=== PATIENT | female | born 1940 | race Caucasian/White ===

== ENCOUNTER → 2019-03-06 | Outpatient (CLI) | payer MEDICARE ==
[2017-10-15 11:00] VITALS: BP 161/86
[~2019-03-06] MED LIST: ASPI-482 PO; DIAZ5TAB4 PO; DILT240C89 PO; DOXY50CA PO; ESTR0.62 PO; GABA-585 PO; IRBE1TAB PO; METF500T16 PO; OMEG10005 PO; OMEP20CA10 PO; OXYC1TAB15 PO; PRAM0.255 PO; PRAM0.5T5 PO; PRED20TA PO; XOPENEX HFA15 GM IH
--- NOTE | 2019-03-06 12:04 | CARD ---
MR#: [id number] Date of Study: 03/06/2019 Ordering Physician: JOHN HAMM, Referring Physician: JOHN HAMM Tech: Sallie Oliveira RDCS APPROVED REPORT EXAM: Two-dimensional and M-mode echocardiogram with Doppler and color Doppler. Other Information Quality : Good INDICATION Congestive Heart Failure 2D DIMENSIONS RVDd2.7 (2.9-3.5cm)Left Atrium(2D)3.9 (1.6-4.0cm) IVSd0.9 (0.7-1.1cm)Aortic Root(2D)2.7 (2.0-3.7cm) LVDd5.0 (3.9-5.9cm)LVOT Diameter2.0 (1.8-2.4cm) PWd1.0 (0.7-1.1cm)LVDs3.7 (2.5-4.0cm) FS (%) 26.4 %SV60.8 ml LVEF(%)51.5 (>50%) Aortic Valve AoV Peak Luis Alfredo.138.3cm/sAoV VTI25.7cm AO Peak GR.7.7mmHgLVOT Peak Luis Alfredo.98.5cm/s AO Mean GR.5mmHgAVA (VMAX)2.14cm2 JUNIE (VTI)2.40cm2 Mitral Valve MV E Cgkioadr917.0cm/sMV DECEL [id number] MV A Nqeuewki166.1cm/sE/A Ratio0.8 Tricuspid Valve TR P. Htlxazdk447gq/sRAP MOBCXNEK2uxNc TR Peak Gr.72tsLhZINI83lvYj Pulmonary Vein S1 Skisttkw21.3cm/sD2 Yifoxazx19.9cm/s LEFT VENTRICLE The left ventricle is normal size. There is normal left ventricular wall thickness. Left ventricle sy stolic function is low normal. The Ejection Fraction is 50-55%. Septal motion consistent with conduct ion abnormality. Transmitral Doppler flow pattern is Grade I-abnormal relaxation pattern. RIGHT VENTRICLE The right ventricle is normal size. The right ventricular systolic function is normal. ATRIA The left atrium size is normal. The right atrium size is normal. The interatrial septum is intact wit h no evidence for an atrial septal defect or patent foramen ovale as noted on 2-D or Doppler imaging. AORTIC VALVE The aortic valve is not well visualized but appears to be functioning normally by Doppler interrogati on. Doppler and Color Flow revealed no significant aortic regurgitation. There is no significant aort ic valvular stenosis. MITRAL VALVE The mitral valve is calcified but opens well. There is no evidence of mitral valve prolapse. There is no mitral valve stenosis. Doppler and Color-flow revealed mild mitral regurgitation. TRICUSPID VALVE The tricuspid valve is normal in structure and function. Doppler and Color Flow revealed trace tricus pid regurgitation. There is mild pulmonary hypertension. The PA pressure was estimated at 34 mmHg. Th ere is no tricuspid valve stenosis. PULMONIC VALVE The pulmonic valve is not well visualized. Doppler and Color Flow revealed no pulmonic valvular regur gitation. There is no pulmonic valvular stenosis. GREAT VESSELS The aortic root is normal in size. The ascending aorta is normal in size. The IVC is normal in size a nd collapses >50% with inspiration. PERICARDIAL EFFUSION There is no evidence of significant pericardial effusion. Critical Notification Critical Value: No <Conclusion> Left ventricle systolic function is low normal. The Ejection Fraction is 50-55%. Transmitral Doppler flow pattern is Grade I-abnormal relaxation pattern. Mild mitral regurgitation. Trace tricuspid regurgitation. The PA pressure was estimated at 34 mmHg. There is no evidence of significant pericardial effusion. Signed by : Miguel Marie, Electronically Approved : 03/06/2019 12:03:24
== END | disposition home or self-care (01) ==
LOC: ECHO 10:40
PROVIDERS: ATTEND Family Medicine
DX: I34.0 Nonrheumatic mitral (valve) insufficiency (principal); I27.20 Pulmonary hypertension, unspecified
CPT/HCPCS: 93306

== ENCOUNTER 2019-03-10 05:35 | Inpatient (IN) | payer MEDICARE ==
[~2019-03-10] VITALS: Ht 157.5 cm; Wt 86.4 kg
--- NOTE | 2019-03-10 05:50 | PHYS DOC ---
Past Medical History Past Medical History: Diabetes-Type II, Hypertension, Unknown, Other Additional Past Medical Histor: restless leg, neuropathy, breast cancer (LAVINIA CUMMINGS MD) Past Surgical History: Other Additional Past Surgical Histo: L mastectomy- radiation, back surgery (LAVINIA CUMMINGS MD) Alcohol Use: None Drug Use: None (LAVINIA CUMMINGS MD) Adult General Chief Complaint Chief Complaint: LOWER EXT PAIN HPI HPI Patient is a 78 year old female presenting with severe bilateral leg pain She suffers from restless leg syndrome and also neuropathy and she is used to dealing with some level of pain but seem to get a lot worse overnight she tried her oxycodone with minimal relief. no fever she feels sob due to the pain has chronic back pain no new injury noted. (LAVINIA CUMMINGS MD) Review of Systems Review of Systems Constitutional: Denies fever or chills [] Eyes: Denies change in visual acuity, redness, or eye pain [] HENT: Denies nasal congestion or sore throat [] Respiratory: Denies cough or shortness of breath [] Cardiovascular: No additional information not addressed in HPI [] GI: Denies abdominal pain, nausea, vomiting, bloody stools or diarrhea [] Neurologic: Denies headache, focal weakness or sensory changes [] Endocrine: Denies polyuria or polydipsia [] All other systems were reviewed and found to be within normal limits, except as documented in this note. (LAVINIA CUMMINGS MD) Current Medications Current Medications Current Medications Medications (Trade) Dose Ordered Sig/Wiley Start Time Stop Time Status Last Admin Dose Admin Ceftriaxone Sodium (Rocephin) 1 gm 1X ONCE 03/10/19 08:00 03/10/19 11:33 DC 03/10/19 08:03 1 GM Levalbuterol HCl (Xopenex) 1.25 mg 1X ONCE 03/10/19 08:00 03/10/19 11:33 DC 03/10/19 08:00 1.25 MG Lorazepam (Ativan Inj) 1 mg 1X ONCE 03/10/19 06:00 03/10/19 11:33 DC 03/10/19 06:02 1 MG Magnesium Sulfate 50 ml @ 25 mls/hr 1X ONCE 03/10/19 07:15 03/10/19 09:14 DC 03/10/19 07:17 25 MLS/HR Methylprednisolone Sodium Succinate (SOLU-Medrol 125MG VIAL) 125 mg 1X ONCE 03/10/19 07:30 03/10/19 11:33 DC 03/10/19 07:54 125 MG Morphine Sulfate (Morphine Sulfate) 4 mg 1X ONCE 03/10/19 06:00 03/10/19 11:33 DC 03/10/19 06:02 4 MG Ondansetron HCl (Zofran) 4 mg 1X ONCE 03/10/19 06:00 03/10/19 06:01 DC 03/10/19 06:02 4 MG Sodium Chloride 1,000 ml @ 1,000 mls/hr 1X ONCE 03/10/19 06:00 03/10/19 07:40 DC 03/10/19 06:02 1,000 MLS/HR Vancomycin HCl 250 ml @ 250 mls/hr 1X ONCE 03/10/19 08:15 03/10/19 11:33 DC 03/10/19 08:02 250 MLS/HR (MARISA DUNLAP MD) Allergies Allergies Allergies Coded Allergies Type Severity Reaction Last Updated Verified albuterol Allergy Severe 08/07/13 Yes fluticasone propionate Allergy Severe 08/07/13 Yes hydrocodone Allergy Severe Nausea and Vomiting 08/07/13 Yes potassium Allergy Severe Nausea and Vomiting 08/07/13 Yes salmeterol xinafoate Allergy Severe 08/07/13 Yes (MARISA DUNLAP MD) Physical Exam Physical Exam Constitutional: Well developed, well nourished, mild distress hyperventilating HENT: Normocephalic, atraumatic, bilateral external ears normal, oropharynx moist, no oral exudates, nose normal. [] Eyes: PERRLA, EOMI, conjunctiva normal, no discharge. [] Neck: Normal range of motion, no tenderness, supple, no stridor. [] Cardiovasculartachyardic no murmur noted. Lungs & Thorax: Bilateral breath sounds clear to auscultation [] tachypneic. Abdomen: Bowel sounds normal, soft, no tenderness, no masses, no pulsatile masses. [] Skin: Warm, dry, no erythema, no rash. [] Extremities: No tenderness, no cyanosis, no clubbing, ROM intact, no edema. [] moving b/l legs around restlessly. pedal pulses intact b/l. wearing compression hose. no cellulitis seen. Neurologic: Alert and oriented X 3, normal motor function, normal sensory function, no focal deficits noted. [] Psychologic: Affect normal, judgement normal, mood normal. [] (LAVINIA CUMMINGS MD) Current Patient Data Vital Signs Vital Signs Date Time Temp Pulse Resp B/P (MAP) Pulse Ox O2 Delivery O2 Flow Rate FiO2 03/10/19 08:02 90 Nasal Cannula 5.0 03/10/19 08:00 104 24 106/56 (73) 03/10/19 07:30 99.4 99.4 (MARISA DUNLAP MD) Lab Values Laboratory Tests Test 03/10/19 05:55 03/10/19 07:28 03/10/19 07:59 White Blood Count 11.5 x10^3/uL (4.0-11.0) H Red Blood Count 3.45 x10^6/uL (3.50-5.40) L Hemoglobin 8.4 g/dL (12.0-15.5) L Hematocrit 26.4 % (36.0-47.0) L Mean Corpuscular Volume 77 fL (79-100) L Mean Corpuscular Hemoglobin 24 pg (25-35) L Mean Corpuscular Hemoglobin Concent 32 g/dL (31-37) Red Cell Distribution Width 16.6 % (11.5-14.5) H Platelet Count 292 x10^3/uL (140-400) Neutrophils (%) (Auto) 55 % (31-73) Lymphocytes (%) (Auto) 32 % (24-48) Monocytes (%) (Auto) 7 % (0-9) Eosinophils (%) (Auto) 5 % (0-3) H Basophils (%) (Auto) 1 % (0-3) Neutrophils # (Auto) 6.3 x10^3/uL (1.8-7.7) Lymphocytes # (Auto) 3.7 x10^3/uL (1.0-4.8) Monocytes # (Auto) 0.8 x10^3/uL (0.0-1.1) Eosinophils # (Auto) 0.6 x10^3/uL (0.0-0.7) Basophils # (Auto) 0.1 x10^3/uL (0.0-0.2) D-Dimer (Brooke) 0.92 ug/mlFEU (0.00-0.50) H Sodium Level 134 mmol/L (136-145) L Potassium Level 4.0 mmol/L (3.5-5.1) Chloride Level 99 mmol/L (98-107) Carbon Dioxide Level 23 mmol/L (21-32) Anion Gap 12 (6-14) Blood Urea Nitrogen 15 mg/dL (7-20) Creatinine 1.2 mg/dL (0.6-1.0) H Estimated GFR (Cockcroft-Gault) 43.3 BUN/Creatinine Ratio 13 (6-20) Glucose Level 166 mg/dL (70-99) H Lactic Acid Level 3.2 mmol/L (0.4-2.0) H Calcium Level 9.5 mg/dL (8.5-10.1) Magnesium Level 1.4 mg/dL (1.8-2.4) L Iron Level 19 ug/dL (50-170) L Total Iron Binding Capacity 395 ug/dL (250-450) Iron Saturation 5 % (15-34) L Total Bilirubin 0.3 mg/dL (0.2-1.0) Aspartate Amino Transferase (AST) 25 U/L (15-37) Alanine Aminotransferase (ALT) 27 U/L (14-59) Alkaline Phosphatase 71 U/L (46-116) Creatine Kinase 273 U/L (26-192) H Troponin I Quantitative 0.535 ng/mL (0.000-0.055) FL-Wec-U-Type Natriuretic Peptide 3416 pg/mL (0-449) H Total Protein 8.0 g/dL (6.4-8.2) Albumin 3.6 g/dL (3.4-5.0) Albumin/Globulin Ratio 0.8 (1.0-1.7) L O2 Saturation 92 % (92-99) Arterial Blood pH 7.30 (7.35-7.45) L Arterial Blood pCO2 at Patient Temp 43 mmHg (35-46) Arterial Blood pO2 at Patient Temp 73 mmHg (65-108) Arterial Blood HCO3 20 mmol/L (21-28) L Arterial Blood Base Excess -6 mmol/L (-3-3) L FiO2 40 Prothrombin Time 13.0 SEC (11.7-14.0) Prothrombin Time INR 1.0 (0.8-1.1) Activated Partial Thromboplast Time 30 SEC (24-38) Laboratory Tests 03/10/19 05:55 Laboratory Tests 03/10/19 05:55 (MARISA DUNLAP MD) EKG EKG [] (LAVINIA CUMMINGS MD) Radiology/Procedures Radiology/Procedures [] (LAVINIA CUMMINGS MD) Radiology/Procedures [facility] [address] [place] [address] IMAGING REPORT Signed PATIENT: THEODORE PADILLA AACCOUNT: [id number] : 1940 LOCATION: ER AGE: 78 SEX: F EXAM STATUS: REG ER ORD. PHYSICIAN: LAVINIA CUMMINGS MD REASON: tachycardia sob PROCEDURE: PORTABLE CHEST 1V EXAM: CHEST ONE VIEW. HISTORY: Tachycardia, shortness of breath. COMPARISON: 10/14/2017. FINDINGS: A frontal view of the chest is obtained. There are mild perihilar and basilar interstitial opacities. There is no pneumothorax or pleural effusion. The heart is mildly enlarged. There are surgical clips in the left axilla. There are atherosclerotic calcifications of the aorta. IMPRESSION: 1. Mild interstitial opacities may reflect interstitial lung disease as seen on prior CT. Correlate to exclude mild volume overload. 2. Mild cardiomegaly. Electronically signed by: Yunior Polk MD (03/10/2019 6:05 AM) [facility] DICTATED and SIGNED BY: KAMRAN POLK MD DATE: 03/10/19604 (MARISA DUNLAP MD) Course & Med Decision Making Course & Med Decision Making Pertinent Labs and Imaging studies reviewed. (See chart for details) []History of restless legs peripheral neuropathy lumbar spine surgery hypertension presenting with severe bilateral leg pain described as restless legs pain and possibly neuropathy pain. Patient has a heart rate of 130 appears to be in moderate to severe distress at this point and we will get a lab workup symptom control and sign out to [facility] at 6 AM (LAVINIA CUMMINGS MD) Course & Med Decision Making Patient care transferred to co at 0600. Patient had tachycardia at arrival to ER that did not get better with Atrovent. Patient had O2 sat of 93% at room air at arrival was instructed on oxygen and required up to 5 L of oxygen keep the O2 sat was 95%. Lactic acid, cardiac enzyme, BNP, d-dimer request was added by co and showed elevation of lactic acid 3.2 and patient treated with antibiotic. Patient was not treated with IV fluid because of CHF and elevation of troponin and lack cough fever and hypotension and history of previous tachycardia.Patient requiring admission for further evaluation and treatment. Discussed with Dr. Francisco Aaron at [phone] who is in agreement with admission. Discussed findings and plan with patient and family, who acknowledge understanding and agreement. (MARISA DUNLAP MD) Dragon Disclaimer Dragon Disclaimer This electronic medical record was generated, in whole or in part, using a voice recognition dictation system. (LAVINIA CUMMINGS MD) Departure Departure Impression: Primary Impression: Sepsis Additional Impressions: Acute respiratory distress Hypoxia Hypomagnesemia Elevated troponin I level Congestive heart failure Chronic anemia Tachycardia Restless leg syndrome Renal insufficiency Disposition: ADMITTED INPATIENT (@0 [phone]) Admitting Physician: Francisco Aaorn (accepted admission at 0 [phone]) (MARISA DUNLAP MD) Condition: GUARDED Referrals: JOHN HAMM MD (PCP) Critical Care Time Critical care time was 90 minutes exclusive of procedures. (MARISA DUNLAP MD) Date and Time of Reassessment Date: Mar 10, 2019 Time: 08:45 (MARISA DUNLAP MD) Fluid Challenge Is the fluid challenge complet: No (CHF, no fever, hypotension, ALOC) IBW Target Volume Used: No BMI > 30: Yes (MARISA DUNLAP MD) Vital Signs Vital Signs: Vital Signs Date Time Temp Pulse Resp B/P (MAP) Pulse Ox O2 Delivery O2 Flow Rate FiO2 03/10/19 08:02 90 Nasal Cannula 5.0 03/10/19 08:00 104 24 106/56 (73) 03/10/19 07:30 99.4 99.4 (MARISA DUNLAP MD) Temperature Source: Oral (MARISA DUNLAP MD) Respirations Respiratory Pattern: Hyperpnea (MARISA DUNLAP MD) Cardiovascular Pulse Rhythm: Regular Heart: Nml S1, S2, no murmurs (MARISA DUNLAP MD) Lung Sounds Breath Sounds: Wheezes, Coarse (MARISA DUNLAP MD) Capillary Refil Capillary Refill: Rt Hand < 3 seconds (MAIRSA DUNLAP MD) Peripheral Pulse Pulse Location: Radial Pulse Strength: Normal (2+) Pulse Assessment Method: NIBP (MARISA DUNLAP MD) Integumentary Skin Moisture: Dry (MARISA DUNLAP MD) Problem Qualifiers Primary Impression: Sepsis Sepsis type: sepsis due to unspecified organism Sepsis acute organ dysfunction status: unspecified Qualified Codes: A41.9 - Sepsis, unspecified organism Additional Impressions: Congestive heart failure Heart failure type: unspecified Heart failure chronicity: unspecified Qualified Codes: I50.9 - Heart failure, unspecified LAVINIA CUMMINGS MD Mar 10, 2019 05:49 MARISA DUNLAP MD Mar 10, 2019 06:08
[2019-03-10] MEDS ORDERED: MORPHINE SULFATE 4 MG/ML VIAL. IV ONE (06:00)
[2019-03-10] MEDS ORDERED: IV NORMAL SALINE 1000ML BAG 1,000 ML IV ONE ×2 (06:00→09:00)
[2019-03-10] MEDS ORDERED: ONDANSETRON PF 4 MG/2 ML VIAL. IV ONE (06:00)
[2019-03-10 06:05] LABS: BASO # 0.1 x10^3/uL (0.0-0.2); BASO % 1 % (0-3); EOS # 0.6 x10^3/uL (0.0-0.7); EOS % 5 % (0-3); HEMATOCRIT 26.4 % (36.0-47.0); HEMOGLOBIN 8.4 g/dL (12.0-15.5); LYMPH # 3.7 x10^3/uL (1.0-4.8); LYMPH % 32 % (24-48); MEAN CORPUSCULAR HEMOGLOBIN 24 pg (25-35); MEAN CORPUSCULAR HGB CONC 32 g/dL (31-37); MEAN CORPUSCULAR VOLUME 77 fL (79-100); MONO # 0.8 x10^3/uL (0.0-1.1); MONO % 7 % (0-9); NEUT # 6.3 x10^3/uL (1.8-7.7); NEUT % 55 % (31-73); PLATELET COUNT 292 x10^3/uL (140-400); RED BLOOD COUNT 3.45 x10^6/uL (3.50-5.40); RED CELL DISTRIBUTION WIDTH 16.6 % (11.5-14.5); WHITE BLOOD COUNT 11.5 x10^3/uL (4.0-11.0)
--- NOTE | 2019-03-10 06:08 | RAD ---
EXAM: CHEST ONE VIEW. HISTORY: Tachycardia, shortness of breath. COMPARISON: 10/14/2017. FINDINGS: A frontal view of the chest is obtained. There are mild perihilar and basilar interstitial opacities. There is no pneumothorax or pleural effusion. The heart is mildly enlarged. There are surgical clips in the left axilla. There are atherosclerotic calcifications of the aorta. IMPRESSION: 1. Mild interstitial opacities may reflect interstitial lung disease as seen on prior CT. Correlate to exclude mild volume overload. 2. Mild cardiomegaly. Electronically signed by: Yunior Polk MD (03/10/2019 6:05 AM) [facility]
[2019-03-10 06:14] LABS: CALCIUM 9.5 mg/dL (8.5-10.1); CREATININE 1.2 mg/dL (0.6-1.0); GFR 43.3
[2019-03-10 06:22] LABS: ALBUMIN 3.6 g/dL (3.4-5.0); ALBUMIN/GLOBULIN RATIO 0.8 (1.0-1.7); MAGNESIUM 1.4 mg/dL (1.8-2.4); TOTAL BILIRUBIN 0.3 mg/dL (0.2-1.0)
[2019-03-10] MEDS ORDERED: MAGNESIUM SULFATE 2GM 50 ML IV ONE (07:15)
[2019-03-10] MEDS ORDERED: methylPREDNISolone SOD SUCC PF 125 MG/2 ML VIAL. IV ONE (07:30)
[2019-03-10 07:45] LABS: BASE EXCESS ABG -6 mmol/L (-3-3); HCO3 ABG 20 mmol/L (21-28); PCO2 ABG 43 mmHg (35-46); PO2 ABG 73 mmHg (65-108); SAT O2 ABG 92 % (92-99)
[2019-03-10 07:51] LABS: FIO2 ABG 40
[2019-03-10] MEDS ORDERED: LEVALBUTEROL 1.25 MG/0.5 ML NEBU. NEB ONE (08:00)
[2019-03-10] MEDS ORDERED: cefTRIAXone IV Push 1 GM VIAL. IVP ONE (08:00)
[2019-03-10] MEDS ORDERED: VANCOMYCIN 1GM IVPB FOR OMNI 250 ML IV ONE (08:15)
[2019-03-10 09:55] VITALS: BP 134/66
[2019-03-10] MEDS ORDERED: FLU VAX QS 2019-20 (36MOS+)/PF 0.5 ML SYRINGE. VAX IM ONE (10:15)
--- NOTE | 2019-03-10 10:16 | RAD ---
Indication: Shortness of breath. Hypoxia. TECHNIQUE: Nuclear medicine VQ scan with 18 mCi of xenon-133 for ventilation scan and 6.6 mCi of technetium 99m MAA for perfusion scan. COMPARISON: Chest x-ray from same day FINDINGS: Appropriate wash-in and washout seen of the xenon gas suggesting no emphysema. Relatively homogeneous distribution is seen of the perfusion agent without ventilation/perfusion mismatch. IMPRESSION: Low probability VQ scan. Electronically signed by: Beka Gómez DO (03/10/2019 10:12 AM) [facility]
[2019-03-10] MEDS ORDERED: SODIUM BICARB ADULT 8.4% 50 MEQ/50 ML DISP.SYRIN. IV ONE (12:00)
[2019-03-10] MEDS ORDERED: IPRATRPIUM/ALBUTEROL 0.5/2.5MG 3 ML NEBU. NEB SCH (12:00)
[2019-03-10] MEDS: methylPREDNISolone SOD SUCC PF 40 MG/ML VIAL. IV SCH ×2 (12:11→20:52)
[2019-03-10] MEDS: PANTOPRAZOLE 40 MG TABLET.DR. PO SCH (12:11)
[2019-03-10] MEDS: diazePAM 5 MG TABLET PO PRN (12:12)
--- NOTE | 2019-03-10 12:17 | HP ---
ADMIT DATE: CHIEF COMPLAINT: Shortness of breath. HISTORY OF PRESENT ILLNESS: A 78-year-old white female with no known history of COPD or congestive heart failure, came in with 2-3 days of increasing dry cough, wheezing and general fatigue and shortness of breath. She apparently is a non-insulin dependent diabetic with a history of diabetic neuropathy and restless leg syndrome, but recently had an echocardiogram, which was normal per Dr. Marie on 03/06/2019. She has had no sputum production, chest pain, hemoptysis, fever, chills or exposure to flu-like illness. ER evaluation showed a clear chest x-ray and very mild respiratory acidosis. PAST MEDICAL HISTORY: Meds listed per the chart. She is on metformin and some other diabetic drug according to family. She takes gabapentin and Percocet for leg neuropathy. SOCIAL HISTORY: Quit smoking 30 years ago. Nondrinker, not physically active, . FAMILY HISTORY: Unremarkable. REVIEW OF SYSTEMS: No other problems. OBJECTIVE: ENT: All within normal limits except moderate pallor. NECK: No masses, nodes or bruits. LUNGS: Diffuse expiratory wheezes and mild tachypnea. Rate is about 12. No dullness is noted. CARDIOVASCULAR: Regular, rate. Heart rate is about 110-120, looks like sinus rhythm on the monitor. ABDOMEN: Obese, soft, nontender. EXTREMITIES: 1+ pretibial edema, reasonably good pedal and radial pulses. Nail beds are pale. NEUROLOGIC: She has been able to speak well. She seems to be oriented and responsive, nonfocal. Gait was not tested. ASSESSMENT: 1. Apparent exacerbation of chronic obstructive pulmonary disease without a clear previous diagnosis of this. Distant prior smoking. 2. Diabetes mellitus, severity unknown with diabetic neuropathy. 3. Anemia, microcytic, duration, cause undetermined. Apparently, she takes daily aspirin for prior coronary artery disease. PLAN: Ferritin, iron panels and follow hemoglobin serially. We will discontinue aspirin as such. An IV Solu-Medrol and respiratory treatments for now. Pulmonary consultation as she may progress to needing BiPAP or perhaps even intubation as discussed with the family. Check her TSH as well. KATHLEEN ATWOOD MD DR: APURVA/gildardo JOB#: [id number] / [id number]
[2019-03-10] MEDS: IPRATROPIUM BROMIDE 0.5 MG/2.5 ML NEBU. NEB SCH ×3 (14:23→19:26)
[2019-03-10] MEDS: GABAPENTIN 300 MG CAPSULE. PO SCH ×2 (14:24→20:52)
[2019-03-10 14:51] LABS: BILIRUBIN,URINE NEGATIVE (NEG); CLARITY,URINE CLOUDY; COLOR,URINE YELLOW; NITRITE,URINE NEGATIVE (NEG); PROTEIN,URINE NEGATIVE (NEG-TRACE); UROBILINOGEN,URINE 0.2 mg/dL (0.2 mg/dL)
[2019-03-10] MEDS: oxyCODONE/APAP 5/325 1 TAB TABLET PO PRN ×2 (14:52→22:44)
[2019-03-10 14:57] LABS: RBC,URINE 0 /HPF (0-2); WBC,URINE OCC /HPF (0-4)
[2019-03-10 14:58] LABS: BACTERIA,URINE FEW /HPF (0-FEW); SQUAMOUS EPITHELIAL CELL,UR MOD /LPF
[2019-03-10 15:00] VITALS: BP 163/74
[2019-03-10] MEDS: metFORMIN 500 MG TABLET PO SCH (17:40)
[2019-03-10 19:05] VITALS: BP 119/72
[2019-03-10 23:50] VITALS: BP 117/55
[2019-03-11] VITALS (9 sets, daily range): BP systolic 97–166; BP diastolic 54–91
[2019-03-11 00:10] LABS: HEMOGLOBIN A1C 7.3 % (4.8-5.6)
[2019-03-11] MEDS: IPRATROPIUM BROMIDE 0.5 MG/2.5 ML NEBU. NEB SCH ×4 (07:03→19:38)
[2019-03-11 08:16] LABS: HEMATOCRIT 24.9 % (36.0-47.0); HEMOGLOBIN 7.8 g/dL (12.0-15.5); RED BLOOD COUNT 3.24 x10^6/uL (3.50-5.40); RED CELL DISTRIBUTION WIDTH 16.5 % (11.5-14.5); WHITE BLOOD COUNT 17.8 x10^3/uL (4.0-11.0)
[2019-03-11] MEDS: methylPREDNISolone SOD SUCC PF 40 MG/ML VIAL. IV SCH ×2 (08:43→20:35)
[2019-03-11] MEDS: GABAPENTIN 300 MG CAPSULE. PO SCH ×4 (08:43→22:01)
[2019-03-11] MEDS: metFORMIN 500 MG TABLET PO SCH ×2 (08:44→16:46)
[2019-03-11] MEDS: PANTOPRAZOLE 40 MG TABLET.DR. PO SCH (08:44)
--- NOTE | 2019-03-11 10:22 | PDOC ---
GENERAL General: vss and remains tachycardic at 108 this am. remains on bi-pap with good sats. wbc increased to 17.8 but receiving steroids. Hb decreased to 7.8. TSH 5.7. serum iron low at 19. lactic acid elevated on admission to 3.2 and will recheck. BNP 3416 on admission. troponin increased at 0.535 on admission. blood cultures negative at one day. VQ scan negative on admission. cxr with questionable mild chf. will continue supportive care, restart antibiotics, ask for pulmonary and cadiac opinions, check echo, dose lasix X 1, and follow labs. VITAL SIGNS/I&O Vital Signs/I&O: Vital Signs Date Time Temp Pulse Resp B/P (MAP) Pulse Ox O2 Delivery O2 Flow Rate FiO2 03/11/19 08:44 102 138/67 03/11/19 08:01 Bi-pap 03/11/19 07:03 95 03/11/19 07:00 98.2 18 98.2 03/10/19 15:00 7.0 I & O 03/10/19 03/10/19 03/11/19 15:00 23:00 07:00 Intake Total 200 ml 300 ml Output Total 450 ml 100 ml Balance -250 ml 200 ml ALLERGIES Allergies: Allergies Coded Allergies Type Severity Reaction Last Updated Verified albuterol Allergy Severe 3/4/14 Yes fluticasone propionate Allergy Severe 3/4/14 Yes hydrocodone Allergy Severe Nausea and Vomiting 4/14 Yes potassium Allergy Severe Nausea and Vomiting /4/14 Yes salmeterol xinafoate Allergy Severe 3/4/14 Yes MEDS Medications: Current Medications Medications (Trade) Dose Ordered Sig/Wiley Route PRN Reason Start Time Stop Time Status Last Admin Dose Admin Diazepam (Valium) 5 mg PRN Q8HRS PRN PO ANXIETY 03/10/19 11:30 03/10/19 12:12 Metformin HCl (Glucophage) 500 mg BIDWMEALS PO 03/10/19 17:00 03/11/19 08:44 Oxycodone/ Acetaminophen (Percocet 5/325) 1 tab PRN BID PRN PO MODERATE PAIN 4-6 03/10/19 11:30 03/10/19 22:44 Diltiazem HCl (Cardizem 24hr Cd) 240 mg DAILY PO 03/10/19 12:00 03/11/19 08:44 Pantoprazole Sodium (Protonix) 40 mg DAILYAC PO 03/10/19 12:00 03/11/19 08:44 Methylprednisolone Sodium Succinate (SOLU-Medrol 40MG VIAL) 60 mg Q12HR IV 03/10/19 11:40 03/11/19 08:43 Gabapentin (Neurontin) 300 mg TID PO 03/10/19 14:00 03/11/19 08:43 Sodium Bicarbonate (Sodium Bicarb Adult 8.4% Syr) 50 meq 1X ONCE IV 03/10/19 12:00 03/10/19 12:05 DC 03/10/19 12:12 Ipratropium Moose (Atrovent) 0.5 mg RTQID NEB 03/10/19 12:00 03/11/19 07:03 Lorazepam (Ativan Inj) 1 mg PRN Q4HRS PRN IVP ANXIETY / AGITATION 03/10/19 22:30 03/10/19 22:38 LAB Lab: Laboratory Tests Test 03/10/19 14:45 03/11/19 07:35 Urine Collection Type Unknown Urine Color Yellow Urine Clarity Cloudy Urine pH 5.0 Urine Specific [place] 1.020 Urine Protein Negative mg/dL (NEG-TRACE) Urine Glucose (UA) Negative mg/dL (NEG) Urine Ketones (Stick) Negative mg/dL (NEG) Urine Blood Negative (NEG) Urine Nitrite Negative (NEG) Urine Bilirubin Negative (NEG) Urine Urobilinogen Dipstick 0.2 mg/dL (0.2 mg/dL) Urine Leukocyte Esterase Small (NEG) Urine RBC 0 /HPF (0-2) Urine WBC Occ /HPF (0-4) Urine Squamous Epithelial Cells Mod /LPF Urine Bacteria Few /HPF (0-FEW) Urine Mucus Mod /LPF White Blood Count 17.8 x10^3/uL (4.0-11.0) H Red Blood Count 3.24 x10^6/uL (3.50-5.40) L Hemoglobin 7.8 g/dL (12.0-15.5) L Hematocrit 24.9 % (36.0-47.0) L Mean Corpuscular Volume 77 fL (79-100) L Mean Corpuscular Hemoglobin 24 pg (25-35) L Mean Corpuscular Hemoglobin Concent 32 g/dL (31-37) Red Cell Distribution Width 16.5 % (11.5-14.5) H Platelet Count 286 x10^3/uL (140-400) Laboratory Tests 03/11/19 07:35 JOHN HAMM MD Mar 11, 2019 10:22
[2019-03-11] MEDS ORDERED: FUROSEMIDE 40 MG/4 ML VIAL. IVP ONE ×3 (10:30→22:00)
--- NOTE | 2019-03-11 10:57 | CONS ---
DATE OF CONSULTATION: ATTENDING PHYSICIAN: Dr. Francisco Aaron. REASON FOR CONSULTATION: Hypoxia. HISTORY OF PRESENT ILLNESS: The patient is 78-year-old who smoked for about 20 years. She presented to the hospital with complaint of shortness of breath, generalized fatigue and a dry cough. The patient denies any chest pain, no headaches, no nausea, vomiting or diarrhea. Her echocardiogram done recently showed EF of 50-55% and grade 1 diastolic dysfunction. A chest x-ray showed slightly prominent interstitial markings. She is currently requiring BiPAP at 60% FiO2. ABG showed a pH of 7.30, pCO2 of 43 and a pO2 of 73 on 40% FiO2. I have been asked to see her for further evaluation. PAST MEDICAL HISTORY: Significant for history of diabetes. Possible mild chronic obstructive pulmonary disease. History of neuropathy. PAST SURGICAL HISTORY: No recent surgery. ALLERGIES: ALBUTEROL, FLUTICASONE, PROPRIONATE, HYDROCODONE, POTASSIUM AND SALMETEROL. REVIEW OF SYSTEMS: Twelve-point system obtained. Pertinent positives discussed in my history of present illness, otherwise noncontributory. All systems that were negative were reviewed as well. MEDICATIONS: Reviewed as listed in the MRAD including IV Solu-Medrol, Lasix x 1 and antibiotics. SOCIAL HISTORY: Smoked for 20 years, but quit long time ago. PHYSICAL EXAMINATION: VITAL SIGNS: Reviewed. Pulse ox 95-98% on BiPAP at 60% FiO2, afebrile, blood pressure is stable. HEENT: Sclerae nonicteric. NECK: Supple. LUNGS: With diminished breath sounds at the bases. CARDIOVASCULAR: Regular rate. ABDOMEN: Soft, obese. EXTREMITIES: With trace pitting edema. LABORATORY DATA: Reviewed. ABGs with a pH of 7.30, pCO2 of 43 and a pO2 of 73 on 40% FiO2. BUN and creatinine 15 and 1.2. Her troponin 0.535 and proBNP is 3416. IMPRESSION: 1. Acute hypoxic respiratory failure secondary to unclear etiology. Chest x-ray with mild interstitial prominence. Cannot exclude the possibility of interstitial edema; however, interstitial lung disease would also be a consideration. We will need a noncontrast CT chest. 2. Abnormal echo with a low normal ejection fraction of 50% and grade 1 diastolic dysfunction. 3. Minimal history of tobacco use. 4. Mildly increased troponin levels. 5. Lactic acidosis secondary to work of breathing and unlikely sepsis. RECOMMENDATIONS: 1. Continue present BiPAP. 2. We will obtain ABGs and if oxygenation has improved, then we will consider discontinuing BiPAP and try nasal cannula. 3. Noncontrast CT chest for further evaluation. 4. Continue Rocephin. 5. IV Solu-Medrol. 6. Ipratropium bromide nebulizer. 7. Discussed with RN. We will follow along with you. 8. Further recommendations to follow. STACEY MARION MD DR: BAKARI/gildardo JOB#: [id number] / [id number] LIN
[2019-03-11] MEDS ORDERED: VANCOMYCIN 1.25 GM in IV NORMAL SALINE 250ML 250 ML IV SCH (11:00)
[2019-03-11] MEDS ORDERED: cefTRIAXone IV Push 1 GM VIAL. IVP SCH (11:00)
--- NOTE | 2019-03-11 11:11 | EKG ---
[facility] [address] [place] [address] Test Date: 2019-03-10 Test Time: 06:02:47 Pat Name: THEODORE PADILLA Department: Room: 201 1 Gender: F Hand Counter: : 1940 Requested By: LAVINIA CUMMINGS Order Number: [id number] Reading MD: Jonah Antonio MD Measurements Intervals [place] Rate: 128 P: 52 WV: 168 QRS: 0 QRSD: 88 T: 124 QT: 288 QTc: 424 Interpretive Statements SINUS TACHYCARDIA NON-SPECIFIC ST/T CHANGES Electronically Signed On 03-20-2019 9:45:04 CDT by Jonah Antonio MD
[2019-03-11 11:23] LABS: BASE EXCESS ABG -3 mmol/L (-3-3); HCO3 ABG 23 mmol/L (21-28); PCO2 ABG 45 mmHg (35-46); PO2 ABG 88 mmHg (65-108); SAT O2 ABG 96 % (92-99)
[2019-03-11 11:26] LABS: FIO2 ABG 60
[2019-03-11] MEDS: oxyCODONE/APAP 5/325 1 TAB TABLET PO PRN ×2 (12:53→22:01)
[2019-03-11] MEDS: VANCOMYCIN PER PHARMACY MC PRN ×2 (13:25→13:31)
--- NOTE | 2019-03-11 13:30 | NUR ---
Pharmacy Vancomycin Dosing Note S:Consulted to monitor and dose vancomycin started 03/10/19. O:THEODORE PADILLA is a 78 year old F with ?Sepsis (elevated lactic acid)/leukocytosis/resp failure. Height: 5 feet, 2 inches Weight: 93 kg [place] Body Weight: 50.10 Adjusted Body Weight: 67.26 Dosing Weight: Actual Other Antibiotics: Rocephin LABS: Last BUN: 15 Last Creatinine: 1.2 Last WBC: 17.8 Last Procalcitonin: Tmax (past 24 hours): 99.4 Microbiology: Blood: NGTD Last dose given 03/11/19 at 1122 Vancomycin Dosing: Loading Dose: x1 Dosing Weight: Actual Target Trough: 15-20 A: Based on: weight and renal function P: 1. Begin Vancomycin 1250 mg IV q24h 2. Follow up Trough level on 03/13/19 at 1030 3. Pharmacy will continue to monitor, follow and adjust therapy as needed. Lora Freeman [facility], 03/11/19 0518
--- NOTE | 2019-03-11 15:50 | PDOC2 ---
CONSULT Date of Consult Date of Consult DATE: 03/11/19 TIME: 15:44 Reason for Consult Reason for Consult: Shortness of breath and elevated troponin Referring Physician Referring Physician: Dr. Aaron Identification/Chief Complaint Chief Complaint Leg pain and shortness of breath Source Source: Chart review, Patient History of Present Illness Reason for Visit: The patient is a 78-year-old female who was admitted for bilateral leg pain with restless leg syndrome and shortness of breath. Patient has been evaluated in the emergency room and initial chest x-ray showed mild interstitial opacifications. VQ scan was low probability for PE. She's been treated overnight and is feeling better. Initial lab included a mildly elevated lactic acid 3.2 and a troponin of 0.535. EKG shows no acute ischemic changes but does show sinus tachycardia. Her tachycardia has improved overnight. She denies chest pain. Past Medical History Cardiovascular: HTN Pulmonary: Bronchitis CENTRAL NERVOUS SYSTEM: Other (restless leg syndrome) Heme/Onc: Cancer Endocrine: Diabetes Past Surgical History Past Surgical History: Other (mastectomy and back surgery) Family History Family History: Hypertension Social History No ALCOHOL: none Current Problem List Problem List Problems Medical Problems: (1) Acute respiratory distress Status: Acute (2) Chronic anemia Status: Acute (3) Congestive heart failure Status: Acute (4) Elevated troponin I level Status: Acute (5) Hypomagnesemia Status: Acute (6) Hypoxia Status: Acute (7) Renal insufficiency Status: Acute (8) Restless leg syndrome Status: Acute (9) Sepsis Status: Acute (10) Tachycardia Status: Acute Current Medications Current Medications Current Medications Sodium Chloride 1,000 ml @ 1,000 mls/hr 1X ONCE IV Last administered on 03/10/19at 06:02; Start 03/10/19 at 06:00; Stop 03/10/19 at 07:40; Status DC Morphine Sulfate (Morphine Sulfate) 4 mg 1X ONCE IV Last administered on 03/10/19at 06:02; Start 03/10/19 at 06:00; Stop 03/10/19 at 11:33; Status DC Ondansetron HCl (Zofran) 4 mg 1X ONCE IV Last administered on 03/10/19at 06:02; Start 03/10/19 at 06:00; Stop 03/10/19 at 06:01; Status DC Lorazepam (Ativan Inj) 1 mg 1X ONCE IV Last administered on 03/10/19 06:02; Start 03/10/19 at 06:00; Stop 03/10/19 at 11:33; Status DC Magnesium Sulfate 50 ml @ 25 mls/hr 1X ONCE IV Last administered on 03/10/19at 07:17; Start 03/10/19 at 07:15; Stop 03/10/19 at 09:14; Status DC Methylprednisolone Sodium Succinate (SOLU-Medrol 125MG VIAL) 125 mg 1X ONCE IV Last administered on 03/10/19at 07:54; Start 03/10/19 at 07:30; Stop 03/10/19 at 11:33; Status DC Ceftriaxone Sodium (Rocephin) 1 gm 1X ONCE IVP Last administered on 03/10/19 08:03; Start 03/10/19 at 08:00; Stop 03/10/19 at 11:33; Status DC Vancomycin HCl 250 ml @ 250 mls/hr 1X ONCE IV Last administered on 03/10/19 08:02; Start 03/10/19 at 08:15; Stop 03/10/19 at 11:33; Status DC Levalbuterol HCl (Xopenex) 1.25 mg 1X ONCE NEB Last administered on 03/10/19at 08:00; Start 03/10/19 at 08:00; Stop 03/10/19 at 11:33; Status DC Sodium Chloride 1,000 ml @ 125 mls/hr 1X ONCE IV Last administered on 03/10/19 09:03; Start 03/10/19 at 09:00; Stop 03/10/19 at 16:59; Status DC Influenza Virus Vaccine Quadrival (Afluria Quad 2019-20 (3yr Up) Syringe) 0.5 ml ONCE ONCE VAX IM Last administered on 03/10/19at 10:57; Start 03/10/19 at 10:15; Stop 03/10/19 at 10:20; Status DC Diazepam (Valium) 5 mg PRN Q8HRS PRN PO ANXIETY Last administered on 03/10/19at 12:12; Start 03/10/19 at 11:30 Metformin HCl (Glucophage) 500 mg BIDWMEALS PO Last administered on 03/11/19at 08:44; Start 03/10/19 at 17:00 Oxycodone/ Acetaminophen (Percocet 5/325) 1 tab PRN BID PRN PO MODERATE PAIN 4- 6 Last administered on 03/11/19 12:53; Start 03/10/19 at 11:30 Diltiazem HCl (Cardizem 24hr Cd) 240 mg DAILY PO Last administered on 03/11/19 08:44; Start 03/10/19 at 12:00 Pantoprazole Sodium (Protonix) 40 mg DAILYAC PO Last administered on 03/11/19 08:44; Start 03/10/19 at 12:00 Albuterol/ Ipratropium (Duoneb) 3 ml RTQID NEB ; Start 03/10/19 at 12:00; Stop 03/10/19 at 12:02; Status DC Methylprednisolone Sodium Succinate (SOLU-Medrol 40MG VIAL) 60 mg Q12HR IV Last administered on 03/11/19 08:43; Start 03/10/19 at 11:40 Gabapentin (Neurontin) 300 mg TID PO Last administered on 03/11/19 12:34; Start 03/10/19 at 14:00 Sodium Bicarbonate (Sodium Bicarb Adult 8.4% Syr) 50 meq 1X ONCE IV Last administered on 03/10/19at 12:12; Start 03/10/19 at 12:00; Stop 03/10/19 at 12:05; Status DC Ipratropium [place] (Atrovent) 0.5 mg RTQID NEB Last administered on 03/11/19at 15:14; Start 03/10/19 at 12:00 Lorazepam (Ativan Inj) 1 mg PRN Q4HRS PRN IVP ANXIETY / AGITATION Last administered on 03/11/19at 14:54; Start 03/10/19 at 22:30 Ceftriaxone Sodium (Rocephin) 1 gm Q24H IVP Last administered on 03/11/19 11:19; Start 03/11/19 at 11:00 Vancomycin HCl (Vanco Per Pharmacy) 1 each PRN DAILY PRN MC SEE COMMENTS Last administered on 03/11/19at 13:31; Start 03/11/19 at 10:15 Furosemide (Lasix) 40 mg 1X ONCE IVP Last administered on 03/11/19 11:19; Start 03/11/19 at 10:30; Stop 03/11/19 at 10:31; Status DC Vancomycin HCl 1.25 gm/Sodium Chloride 250 ml @ 167 mls/hr Q24H IV Last administered on 03/11/19at 11:22; Start 03/11/19 at 11:00 Vancomycin HCl (Vancomycin Trough Level) 1 each 1X ONCE MC ; Start 03/13/19 at 10:30; Stop 03/13/19 at 10:31 Active Scripts Active Prednisone 20 Mg Tablet 20 Mg PO DAILY Diazepam 5 Mg Tablet 5 Mg PO PRN Q8HRS PRN Reported Doxycycline Hyclate 50 Mg Capsule 1 Cap PO BID 7 Days Doxycycline Hyclate 50 Mg Capsule 1 Cap PO BID 7 Days Doxycycline Hyclate 50 Mg Capsule 1 Cap PO BID 7 Days Gabapentin (Gabapentin) 100 Mg Capsule 200 Mg PO TID Percocet 5-325 Mg Tablet (Oxycodone/Acetaminophen) 1 Each Tablet 1 Each PO 6XDAY PRN Aspir 81 (Aspirin) 81 Mg Tablet.dr 81 Mg PO DAILY [place]-3 ([place]-3 Fatty Acids) 1,000 Mg Capsule 1,200 Mg PO BID Omeprazole 20 Mg Capsule.dr 20 Mg PO BID Tiazac (Diltiazem Hcl) 240 Mg Capsule.er 240 Mg PO DAILY Xopenex Hfa (Levalbuterol Tartrate) 15 Gm Hfa.aer.ad 15 Gm IH BID PRN Metformin Hcl 500 Mg Tablet 500 Mg PO BID Allergies Allergies: Coded Allergies: albuterol (Verified Allergy, Severe, 08/07/13) severe shaking fluticasone propionate (Verified Allergy, Severe, 08/07/13) severe shaking hydrocodone (Verified Allergy, Severe, Nausea and Vomiting, 08/07/13) potassium (Verified Allergy, Severe, Nausea and Vomiting, 08/07/13) salmeterol xinafoate (Verified Allergy, Severe, 08/07/13) severe shaking ROS General: YES: Fatigue Respiratory: YES: Shortness of breath Neurological: Yes Other (restless leg syndrome) Physical Exam General: mild distress Lungs: Other (mildly decreased breath sounds) Heart: Other (rate of 104, regular rhythm) Abdomen: Normal bowel sounds Vitals VITALS Vital Signs Date Time Temp Pulse Resp B/P (MAP) Pulse Ox O2 Delivery O2 Flow Rate FiO2 03/11/19 15:14 91 BiPAP/CPAP 03/11/19 15:00 97.6 98 18 143/60 (87) 97.6 106/19 13:53 7.0 Labs Labs Laboratory Tests Test 03/10/19 05:55 03/10/19 07:28 03/10/19 07:59 03/10/19 09:10 White Blood Count 11.5 x10^3/uL (4.0-11.0) Red Blood Count 3.45 x10^6/uL (3.50-5.40) Hemoglobin 8.4 g/dL (12.0-15.5) Hematocrit 26.4 % (36.0-47.0) Mean Corpuscular Volume 77 fL (79-100) Mean Corpuscular Hemoglobin 24 pg (25-35) Mean Corpuscular Hemoglobin Concent 32 g/dL (31-37) Red Cell Distribution Width 16.6 % (11.5-14.5) Platelet Count 292 x10^3/uL (140-400) Neutrophils (%) (Auto) 55 % (31-73) Lymphocytes (%) (Auto) 32 % (24-48) Monocytes (%) (Auto) 7 % (0-9) Eosinophils (%) (Auto) 5 % (0-3) Basophils (%) (Auto) 1 % (0-3) Neutrophils # (Auto) 6.3 x10^3/uL (1.8-7.7) Lymphocytes # (Auto) 3.7 x10^3/uL (1.0-4.8) Monocytes # (Auto) 0.8 x10^3/uL (0.0-1.1) Eosinophils # (Auto) 0.6 x10^3/uL (0.0-0.7) Basophils # (Auto) 0.1 x10^3/uL (0.0-0.2) D-Dimer (Brooke) 0.92 ug/mlFEU (0.00-0.50) Sodium Level 134 mmol/L (136-145) Potassium Level 4.0 mmol/L (3.5-5.1) Chloride Level 99 mmol/L (98-107) Carbon Dioxide Level 23 mmol/L (21-32) Anion Gap 12 (6-14) Blood Urea Nitrogen 15 mg/dL (7-20) Creatinine 1.2 mg/dL (0.6-1.0) Estimated GFR (Cockcroft-Gault) 43.3 BUN/Creatinine Ratio 13 (6-20) Glucose Level 166 mg/dL (70-99) Hemoglobin A1c 7.3 % (4.8-5.6) Lactic Acid Level 3.2 mmol/L (0.4-2.0) 1.3 mmol/L (0.4-2.0) Calcium Level 9.5 mg/dL (8.5-10.1) Magnesium Level 1.4 mg/dL (1.8-2.4) Iron Level 19 ug/dL (50-170) Total Iron Binding Capacity 395 ug/dL (250-450) Iron Saturation 5 % (15-34) Ferritin 20 ng/mL (8-252) Total Bilirubin 0.3 mg/dL (0.2-1.0) Aspartate Amino Transf (AST/SGOT) 25 U/L (15-37) Alanine Aminotransferase (ALT/SGPT) 27 U/L (14-59) Alkaline Phosphatase 71 U/L (46-116) Creatine Kinase 273 U/L (26-192) Troponin I Quantitative 0.535 ng/mL (0.000-0.055) UN-Mfd-[id number]-Type Natriuretic Peptide 3416 pg/mL (0-449) Total Protein 8.0 g/dL (6.4-8.2) Albumin 3.6 g/dL (3.4-5.0) Albumin/Globulin Ratio 0.8 (1.0-1.7) Thyroid Stimulating Hormone (TSH) 5.731 uIU/mL (0.358-3.74) O2 Saturation 92 % (92-99) Arterial Blood pH 7.30 (7.35-7.45) Arterial Blood pCO2 at Patient Temp 43 mmHg (35-46) Arterial Blood pO2 at Patient Temp 73 mmHg (65-108) Arterial Blood HCO3 20 mmol/L (21-28) Arterial Blood Base Excess -6 mmol/L (-3-3) FiO2 40 Prothrombin Time 13.0 SEC (11.7-14.0) Prothromb Time International Ratio 1.0 (0.8-1.1) Activated Partial Thromboplast Time 30 SEC (24-38) Test 03/10/19 14:45 03/11/19 07:35 03/11/19 10:45 03/11/19 11:15 Urine Collection Type Unknown Urine Color Yellow Urine Clarity Cloudy Urine pH 5.0 Urine Specific [place] 1.020 Urine Protein Negative mg/dL (NEG-TRACE) Urine Glucose (UA) Negative mg/dL (NEG) Urine Ketones (Stick) Negative mg/dL (NEG) Urine Blood Negative (NEG) Urine Nitrite Negative (NEG) Urine Bilirubin Negative (NEG) Urine Urobilinogen Dipstick 0.2 mg/dL (0.2 mg/dL) Urine Leukocyte Esterase Small (NEG) Urine RBC 0 /HPF (0-2) Urine WBC Occ /HPF (0-4) Urine Squamous Epithelial Cells Mod /LPF Urine Bacteria Few /HPF (0-FEW) Urine Mucus Mod /LPF White Blood Count 17.8 x10^3/uL (4.0-11.0) Red Blood Count 3.24 x10^6/uL (3.50-5.40) Hemoglobin 7.8 g/dL (12.0-15.5) Hematocrit 24.9 % (36.0-47.0) Mean Corpuscular Volume 77 fL (79-100) Mean Corpuscular Hemoglobin 24 pg (25-35) Mean Corpuscular Hemoglobin Concent 32 g/dL (31-37) Red Cell Distribution Width 16.5 % (11.5-14.5) Platelet Count 286 x10^3/uL (140-400) Lactic Acid Level 2.4 mmol/L (0.4-2.0) O2 Saturation 96 % (92-99) Arterial Blood pH 7.33 (7.35-7.45) Arterial Blood pCO2 at Patient Temp 45 mmHg (35-46) Arterial Blood pO2 at Patient Temp 88 mmHg (65-108) Arterial Blood HCO3 23 mmol/L (21-28) Arterial Blood Base Excess -3 mmol/L (-3-3) FiO2 60 Laboratory Tests Test 03/11/19 07:35 03/11/19 10:45 03/11/19 11:15 White Blood Count 17.8 x10^3/uL (4.0-11.0) Red Blood Count 3.24 x10^6/uL (3.50-5.40) Hemoglobin 7.8 g/dL (12.0-15.5) Hematocrit 24.9 % (36.0-47.0) Mean Corpuscular Volume 77 fL (79-100) Mean Corpuscular Hemoglobin 24 pg (25-35) Mean Corpuscular Hemoglobin Concent 32 g/dL (31-37) Red Cell Distribution Width 16.5 % (11.5-14.5) Platelet Count 286 x10^3/uL (140-400) Lactic Acid Level 2.4 mmol/L (0.4-2.0) O2 Saturation 96 % (92-99) Arterial Blood pH 7.33 (7.35-7.45) Arterial Blood pCO2 at Patient Temp 45 mmHg (35-46) Arterial Blood pO2 at Patient Temp 88 mmHg (65-108) Arterial Blood HCO3 23 mmol/L (21-28) Arterial Blood Base Excess -3 mmol/L (-3-3) FiO2 60 Images Images Imaging as above. Assessment/Plan Assessment/Plan 1. Shortness of breath. Mildly improved today. Chest x-ray with mild interstitial opacities. The scan low probability. Being evaluated and treated by the pulmonary service. From a cardiac viewpoint will continue present medications. We'll check an echocardiogram. 2. Minimally elevated troponin at 0.535. Most consistent with demand ischemia. We'll recheck lab in the morning. Echocardiogram as above. 3. Restless leg syndrome. Continue present treatment. 4. Hypertension. Better control. Continue to monitor and adjust medications as needed. 5. Diabetes mellitus. As per the primary service. Thank you for allowing us to participate in the care of your patient. LATASHA TRISTAN MD Mar 11, 2019 15:50
[2019-03-11] MEDS ORDERED: PIP/TAZO PER PHARMACY MC PRN (16:30)
--- NOTE | 2019-03-11 16:30 | NUR ---
Pt noted to have restlessness that family states is very common for patient even at home. Pt takes large doses of pain medication to treat RLS while at home per who is at bedside. Pt repositioned on many attempts throughout the day but all over bed, at one occurrence found face down on her bed moving her legs all around. Pt able to answer questions correctly but not to why she is moving and unable to lay still.
--- NOTE | 2019-03-11 16:31 | NUR ---
Pt with critical latic of 4.2. BP 143/60 HR 102, pt with baseline LOC and continues on BiPap. Dr. Sullivan notified with new orders for Consult to ID, no fluids due to respiratory status, Dr. Arciniega in agreement with no fluid bolus. New orders for Zosyn per pharmacy and d/c Rocephin per Dr. Walker. Linda, METALL[employer] INSPECT[employer] CN notified of positive sepsis screen.
[2019-03-11] MEDS: PIPERACILLIN/TAZOBACTAM 3.375 GM in IV NORMAL SALINE 50ML 50 ML IV SCH (16:42)
[2019-03-11] MEDS: diazePAM 5 MG TABLET PO PRN (16:42)
--- NOTE | 2019-03-11 17:00 | NUR ---
Pt desated while on Bipap into the 60s, respiratory therapy at bedside for event. Pt O2 requirements increased at this time. Pt transferred on BiPap for CTA with RN and RT. Order received per Dr. Arciniega to transfer pt to ICU for closer monitoring. Report given at bedside to WOJCIECH Mckeon. Midline intact to RUE at time of transfer, BP 110/43 taken in RLE, HR 105.
[2019-03-11] MEDS ORDERED: IOHEXOL 350 MG/ML 100 ML VIAL. IV ONE (17:30)
--- NOTE | 2019-03-11 18:07 | NUR ---
Rec'd from 2No per bed after CTA chest done as pt with decreased O2sats prior and during to CTA and per dr Arciniega, transfer pt to ICU. Pt is arousable but sleepy. Bipap on at 70%. Midline IV intact. SL. Family at bedside. Will call Dr Arciniega with CTAb results when avail . VSS. SR. Sat on 70%
--- NOTE | 2019-03-11 18:07 | RAD ---
Exam: CTA chest INDICATION: Hypoxia TECHNIQUE: Sequential axial images through the chest obtained following the administration of 100 mL of Isovue-370 IV contrast. Sagittal and coronal reformatted images were reconstructed from the axial data and reviewed. Comparisons: CT 10/14/2017 FINDINGS: Visualized portions of the thyroid are unremarkable. Prominent prevascular, pretracheal and bilateral hilar lymph nodes are noted. Heart size is normal. Mild to moderate coronary artery calcifications. Thoracic aorta has a normal course and caliber. Pulmonary artery is not enlarged. No pulmonary embolus identified within the main, lobar or proximal segmental pulmonary arteries. Evaluation distally is limited secondary to respiratory motion. Airways are patent. No consolidation or pneumothorax. There is diffuse groundglass opacity throughout the lungs bilaterally with peripheral sparing. There is superimposed increased interstitial opacities. Small right and trace left pleural effusion. Visualized upper abdomen is unremarkable. No suspicious osseous lesions or acute fractures. IMPRESSION: 1. No pulmonary embolus identified within the main, lobar or proximal segmental pulmonary arteries. Limitations as described above. 2. Findings likely related to diffuse severe pulmonary edema, with small right and trace left pleural effusion. Superimposed infectious process is difficult to exclude. Exposure: One or more of the following in the visualized dose reduction techniques were utilized for this examination: 1. Automated exposure control 2. Adjustment of the MA and/or KV according to patient size 3. Use of iterative of reconstructive technique Electronically signed by: Kian Miguel MD (03/11/2019 6:04 PM) [id number]
--- NOTE | 2019-03-11 18:50 | NUR ---
Dr aldana updated. Lasix 40mg IV given. Pt resting on Bipap at this time with VSS
[2019-03-12] VITALS (18 sets, daily range): BP systolic 118–169; BP diastolic 50–88
[2019-03-12] MEDS: PIPERACILLIN/TAZOBACTAM 3.375 GM in IV NORMAL SALINE 50ML 50 ML IV SCH ×4 (00:47→17:31)
[2019-03-12 06:06] LABS: BASO % 0 % (0-3); EOS % 0 % (0-3); HEMATOCRIT 22.5 % (36.0-47.0); HEMOGLOBIN 7.3 g/dL (12.0-15.5); LYMPH # 0.9 x10^3/uL (1.0-4.8); LYMPH % 9 % (24-48); MEAN CORPUSCULAR HEMOGLOBIN 25 pg (25-35); MEAN CORPUSCULAR HGB CONC 33 g/dL (31-37); MEAN CORPUSCULAR VOLUME 76 fL (79-100); MONO # 0.4 x10^3/uL (0.0-1.1); MONO % 4 % (0-9); NEUT # 8.9 x10^3/uL (1.8-7.7); NEUT % 87 % (31-73); PLATELET COUNT 236 x10^3/uL (140-400); RED BLOOD COUNT 2.96 x10^6/uL (3.50-5.40); RED CELL DISTRIBUTION WIDTH 16.6 % (11.5-14.5); WHITE BLOOD COUNT 10.3 x10^3/uL (4.0-11.0)
[2019-03-12 06:22] LABS: CALCIUM 8.8 mg/dL (8.5-10.1); CREATININE 1.7 mg/dL (0.6-1.0); POTASSIUM 4.2 mmol/L (3.5-5.1)
--- NOTE | 2019-03-12 07:21 | PDOC ---
Infectious Disease Note Vital Sign Vital Signs Vital Signs Date Time Temp Pulse Resp B/P (MAP) Pulse Ox O2 Delivery O2 Flow Rate FiO2 03/12/19 05:37 BiPAP/CPAP 03/12/19 05:00 89 23 145/60 (88) 98 03/12/19 04:00 98.4 98.4 03/11/19 13:53 7.0 Labs Lab Laboratory Tests Test 03/11/19 07:35 03/11/19 10:45 03/11/19 11:15 03/11/19 15:10 White Blood Count 17.8 x10^3/uL (4.0-11.0) Red Blood Count 3.24 x10^6/uL (3.50-5.40) Hemoglobin 7.8 g/dL (12.0-15.5) Hematocrit 24.9 % (36.0-47.0) Mean Corpuscular Volume 77 fL (79-100) Mean Corpuscular Hemoglobin 24 pg (25-35) Mean Corpuscular Hemoglobin Concent 32 g/dL (31-37) Red Cell Distribution Width 16.5 % (11.5-14.5) Platelet Count 286 x10^3/uL (140-400) Lactic Acid Level 2.4 mmol/L (0.4-2.0) 4.2 mmol/L (0.4-2.0) O2 Saturation 96 % (92-99) Arterial Blood pH 7.33 (7.35-7.45) Arterial Blood pCO2 at Patient Temp 45 mmHg (35-46) Arterial Blood pO2 at Patient Temp 88 mmHg (65-108) Arterial Blood HCO3 23 mmol/L (21-28) Arterial Blood Base Excess -3 mmol/L (-3-3) FiO2 60 Test 03/11/19 16:45 03/12/19 05:55 Glucose (Fingerstick) 225 mg/dL (70-99) White Blood Count 10.3 x10^3/uL (4.0-11.0) Red Blood Count 2.96 x10^6/uL (3.50-5.40) Hemoglobin 7.3 g/dL (12.0-15.5) Hematocrit 22.5 % (36.0-47.0) Mean Corpuscular Volume 76 fL (79-100) Mean Corpuscular Hemoglobin 25 pg (25-35) Mean Corpuscular Hemoglobin Concent 33 g/dL (31-37) Red Cell Distribution Width 16.6 % (11.5-14.5) Platelet Count 236 x10^3/uL (140-400) Neutrophils (%) (Auto) 87 % (31-73) Lymphocytes (%) (Auto) 9 % (24-48) Monocytes (%) (Auto) 4 % (0-9) Eosinophils (%) (Auto) 0 % (0-3) Basophils (%) (Auto) 0 % (0-3) Neutrophils # (Auto) 8.9 x10^3/uL (1.8-7.7) Lymphocytes # (Auto) 0.9 x10^3/uL (1.0-4.8) Monocytes # (Auto) 0.4 x10^3/uL (0.0-1.1) Eosinophils # (Auto) 0.0 x10^3/uL (0.0-0.7) Basophils # (Auto) 0.0 x10^3/uL (0.0-0.2) Sodium Level 142 mmol/L (136-145) Potassium Level 4.2 mmol/L (3.5-5.1) Chloride Level 103 mmol/L (98-107) Carbon Dioxide Level 27 mmol/L (21-32) Anion Gap 12 (6-14) Blood Urea Nitrogen 41 mg/dL (7-20) Creatinine 1.7 mg/dL (0.6-1.0) Estimated GFR (Cockcroft-Gault) 29.0 Glucose Level 219 mg/dL (70-99) Calcium Level 8.8 mg/dL (8.5-10.1) Troponin I Quantitative 3.190 ng/mL (0.000-0.055) Micro Microbiology 03/10/19 Blood Culture - Preliminary, Resulted NO GROWTH AFTER 1 DAY Objective Assessment leukocytosis - ? reactive/Steroids Lactic acidosis Elevated Troponin Acure resp failure -on Bipap AKII Pulm edema Encephalopathy - s/p Ativan this am Plan Plan of Care Cont Zosyn Hold Further Vanc with ANNE Dose Doxy Dapto times one Await further Card w/u F/u labs and cults Repeat lactic acid Taper abx as cults return ? if infection at all Anemia per primary Thank you # [id number] KARTHIK ALVARADO MD Mar 12, 2019 07:21
[2019-03-12 07:38] LABS: % BANDS 14 % (0-9); % LYMPHS 8 % (24-48); % MONOS 3 % (0-10); % SEGS 75 % (35-66); ANISOCYTOSIS SLIGHT; NUCLEATED RBC 1; PLT ESTIMATE ADEQUATE (ADEQUATE); POLYCHROMASIA SLIGHT
[2019-03-12 07:39] LABS: OVALOCYTES FEW
--- NOTE | 2019-03-12 07:56 | RAD ---
PORTABLE CHEST 1V 03/12/2019 6:59 AM INDICATION: Pulmonary edema COMPARISON: 03/10/2019 TECHNIQUE: Portable frontal view of the chest is provided. FINDINGS: The cardiomediastinal silhouette is similar in appearance. Increased moderate to advanced pulmonary vascular congestion. Increase in trace left pleural effusion. No pneumothorax. There is cardiac density which may represent atelectasis and/or infiltrate. Surgical clips are identified in the left axilla. IMPRESSION: Worsened aeration the lungs with progression of moderate to severe pulmonary vascular congestion as may be seen with congestive heart failure. Electronically signed by: Liliana Locke MD (03/12/2019 7:53 AM) [facility]
[2019-03-12] MEDS: metFORMIN 500 MG TABLET PO SCH ×2 (08:00→16:42)
--- NOTE | 2019-03-12 08:15 | PDOC ---
GENERAL General: vss and afebrile. remains on bipap. denies any complaints but less alert this am. rapid desats per nursing when bipap off. chest with bilateral crackles, heart regular, abdomen benign. cxr with worsening infiltrates cw chf. creatinine up to 1.7. O>I. wbc down to 10.3K and Hb down to 7.3 without any obvious source of blood loss. help all consultants appreciated. troponin up to 3 this am and feel cardiac driving the boat on the current picture. VITAL SIGNS/I&O Vital Signs/I&O: Vital Signs Date Time Temp Pulse Resp B/P (MAP) Pulse Ox O2 Delivery O2 Flow Rate FiO2 03/12/19 07:00 89 23 145/60 (88) 98 BiPAP/CPAP 03/12/19 04:00 98.4 98.4 03/11/19 13:53 7.0 I & O0 03/11/19 03/11/19 03/12/19 15:00 23:00 07:00 Intake Total 240 ml Output Total 930 ml 350 ml Balance 240 ml -930 ml -350 ml ALLERGIES Allergies: Allergies Coded Allergies Type Severity Reaction Last Updated Verified albuterol Allergy Severe 3/4/14 Yes fluticasone propionate Allergy Severe 3/4/14 Yes hydrocodone Allergy Severe Nausea and Vomiting /4/14 Yes potassium Allergy Severe Nausea and Vomiting /4/14 Yes salmeterol xinafoate Allergy Severe 3/4/14 Yes MEDS Medications: Current Medications Medications (Trade) Dose Ordered Sig/Wiley Route PRN Reason Start Time Stop Time Status Last Admin Dose Admin Ceftriaxone Sodium (Rocephin) 1 gm Q24H IVP 03/11/19 11:00 03/11/19 16:24 DC 03/11/19 11:19 Vancomycin HCl (Vanco Per Pharmacy) 1 each PRN DAILY PRN MC SEE COMMENTS 03/11/19 10:15 03/12/19 07:06 DC 03/11/19 13:31 Furosemide (Lasix) 40 mg 1X ONCE IVP 03/11/19 10:30 03/11/19 10:31 DC 03/11/19 11:19 Vancomycin HCl 1.25 gm/Sodium Chloride 250 ml @ 167 mls/hr Q24H IV 03/11/19 11:00 03/12/19 07:06 DC 03/11/19 11:22 Piperacillin Sod/ Tazobactam Sod 3.375 gm/Sodium Chloride 50 ml @ 100 mls/hr Q6HRS IV 03/11/19 17:00 03/12/19 05:10 Iohexol (Omnipaque 350 Mg/ml) 75 ml 1X ONCE IV 03/11/19 17:30 03/11/19 17:31 DC 03/11/19 17:49 Furosemide (Lasix) 40 mg 1X ONCE IVP 03/11/19 18:30 03/11/19 18:35 DC 03/11/19 18:41 Furosemide (Lasix) 40 mg 1X ONCE IVP 03/11/19 22:00 03/11/19 22:01 DC 03/11/19 22:01 LAB Lab: Laboratory Tests Test 03/11/19 10:45 03/11/19 11:15 03/11/19 15:10 03/11/19 16:45 Lactic Acid Level 2.4 mmol/L (0.4-2.0) H 4.2 mmol/L (0.4-2.0) *H O2 Saturation 96 % (92-99) Arterial Blood pH 7.33 (7.35-7.45) L Arterial Blood pCO2 at Patient Temp 45 mmHg (35-46) Arterial Blood pO2 at Patient Temp 88 mmHg (65-108) Arterial Blood HCO3 23 mmol/L (21-28) Arterial Blood Base Excess -3 mmol/L (-3-3) FiO2 60 Glucose (Fingerstick) 225 mg/dL (70-99) H Test 03/12/19 05:55 White Blood Count 10.3 x10^3/uL (4.0-11.0) Red Blood Count 2.96 x10^6/uL (3.50-5.40) L Hemoglobin 7.3 g/dL (12.0-15.5) L Hematocrit 22.5 % (36.0-47.0) L Mean Corpuscular Volume 76 fL (79-100) L Mean Corpuscular Hemoglobin 25 pg (25-35) Mean Corpuscular Hemoglobin Concent 33 g/dL (31-37) Red Cell Distribution Width 16.6 % (11.5-14.5) H Platelet Count 236 x10^3/uL (140-400) Neutrophils (%) (Auto) 87 % (31-73) H Lymphocytes (%) (Auto) 9 % (24-48) L Monocytes (%) (Auto) 4 % (0-9) Eosinophils (%) (Auto) 0 % (0-3) Basophils (%) (Auto) 0 % (0-3) Neutrophils # (Auto) 8.9 x10^3/uL (1.8-7.7) H Lymphocytes # (Auto) 0.9 x10^3/uL (1.0-4.8) L Monocytes # (Auto) 0.4 x10^3/uL (0.0-1.1) Eosinophils # (Auto) 0.0 x10^3/uL (0.0-0.7) Basophils # (Auto) 0.0 x10^3/uL (0.0-0.2) Segmented Neutrophils % 75 % (35-66) H Band Neutrophils % 14 % (0-9) H Lymphocytes % 8 % (24-48) L Monocytes % 3 % (0-10) Nucleated Red Blood Cells 1 Platelet Estimate Adequate (ADEQUATE) Polychromasia Slight Anisocytosis Slight Ovalocytes Few Sodium Level 142 mmol/L (136-145) Potassium Level 4.2 mmol/L (3.5-5.1) Chloride Level 103 mmol/L (98-107) Carbon Dioxide Level 27 mmol/L (21-32) Anion Gap 12 (6-14) Blood Urea Nitrogen 41 mg/dL (7-20) H Creatinine 1.7 mg/dL (0.6-1.0) H Estimated GFR (Cockcroft-Gault) 29.0 Glucose Level 219 mg/dL (70-99) H Calcium Level 8.8 mg/dL (8.5-10.1) Troponin I Quantitative 3.190 ng/mL (0.000-0.055) Procalcitonin < 0.10 ng/mL (0.00-0.10) Laboratory Tests 03/12/19 05:55 Laboratory Tests 03/12/19 05:55 JOHN HAMM MD Mar 12, 2019 08:14
--- NOTE | 2019-03-12 08:17 | CONS ---
DATE OF CONSULTATION: 03/12/2019 INFECTIOUS DISEASE CONSULTATION PATIENT'S ROOM: ICU 13. REQUESTING PHYSICIAN: Maury Sulilvan MD REASON FOR CONSULTATION: Lactic acidosis. HISTORY OF PRESENT ILLNESS: Currently, the patient is status post Ativan this morning. She is on BiPAP and she is essentially unresponsive. Obtained mainly from the chart and discussion with nursing. She is a 78-year-old female with a known history of COPD as well as congestive heart failure, who presented to [facility] with complaints of shortness of air, fatigue and a dry cough for 2-3 days. She did have some diastolic dysfunction on a recent echo. No complaints of any fevers or chills or sweats. She did have a chest x-ray that showed slightly mild prominent interstitial markings and she was placed on BiPAP. On arrival, she had a lactic acidosis of 3.2 that corrected to 1.3. However, yesterday morning, it increased to 2.4 and then 4.2. Apparently, she was dosed with vancomycin and Rocephin. I was consulted and discontinued the Rocephin and instituted the Zosyn. According to the notes, over the course of the evening, she desaturated while she was on BiPAP down into the 60s, pO2 was increased, and she underwent a CTA, which showed no pulmonary embolism, but findings likely related to diffuse severe pulmonary edema, small right and trace left pleural effusions, superimposed infectious process is difficult to exclude. She did also have a V/Q scan on 03/10 that was low probability. She has been afebrile since her presentation. Her white blood cell count on arrival was 11.5, it did increase to 17.8; however, she is receiving steroids since 03/10. She was subsequently transferred to Intensive Care Unit. Nursing reported that she was very restless, trying to get out of bed and she has received Ativan at approximately 4:00 this morning and she is now resting. PAST MEDICAL HISTORY: Positive for diabetes, history of COPD, diastolic dysfunction, history of neuropathy, restless leg, bronchitis, hypertension, cancer. PAST SURGICAL HISTORY: Positive for back surgery, mastectomy. ALLERGIES: INCLUDE ALBUTEROL, FLUTICASONE, HYDROCODONE, POTASSIUM, SALMETEROL. REVIEW OF SYSTEMS: Unobtainable. SOCIAL HISTORY: No reported alcohol. Has a history of smoking for 20 years, but quit a while ago. FAMILY HISTORY: Positive for hypertension. CURRENT MEDICATIONS: Include Zosyn, vancomycin, she did receive Rocephin x 1, Cardizem, she has received Lasix overnight, Neurontin, Atrovent, metformin, Solu-Medrol, oxycodone, pantoprazole. PHYSICAL EXAMINATION: VITAL SIGNS: She has been afebrile, temperature 98, pulse 94, respirations 23, satting 97% on BiPAP, blood pressure 151/71. CONSTITUTIONAL: She is lying in bed. She is on BiPAP. She has minimal responses. HEENT: Pupils are equal and reactive. Normal conjunctivae. NECK: Supple. LUNGS: Decreased without gross wheeze. HEART: S1, S2. ABDOMEN: Obese, soft, nontender. No guarding. EXTREMITIES: Without clubbing or cyanosis. No gross edema. GENITOURINARY: She has a Oakes in place. IV: She has a right upper extremity midline without complications. SKIN: Warm, without generalized signs of rash. NEUROLOGICAL: She is lightly sedated with Ativan. LABORATORY VALUES: White count 10.3, hemoglobin 10.3, platelets 236, neutrophils of 87. Creatinine this morning of 1.7. Troponin 3.19. Normal liver function study tests on arrival. Urinalysis: Moderate squamous, few bacteria, occasional wbc's, small leukocyte esterase, nitrite was negative. Blood cultures from 03/10 are negative. RADIOLOGY: Reviewed in the history of present illness. IMPRESSION: 1. Leukocytosis, questionable reactive plus receiving steroids. 2. Lactic acidosis. 3. Elevated troponin. 4. Acute respiratory failure, currently on BiPAP. 5. Acute kidney injury. 6. Pulmonary edema. 7. Encephalopathy, status post Ativan this morning. RECOMMENDATIONS: For now, we will continue the Zosyn. We will hold further vancomycin. With acute kidney injury, we will dose doxycycline IV, also daptomycin IV x 1. Await further Cardiology workup. Follow up labs and cultures. Repeat lactic acid. Taper antibiotics as cultures return. Questionable if infection at all. This was discussed with nursing. Thank you for allowing me to participate in the patient's care. If you have any questions, please do not hesitate to contact me. KARTHIK ALVARADO MD DR: AFTAB/gildardo JOB#: [id number] / [id number]
[2019-03-12] MEDS: IPRATROPIUM BROMIDE 0.5 MG/2.5 ML NEBU. NEB SCH ×4 (08:20→19:43)
[2019-03-12] MEDS: PANTOPRAZOLE 40 MG TABLET.DR. PO SCH (08:29)
[2019-03-12] MEDS ORDERED: DAPTOmycin (GENERIC) IVPB 540 MG in IV NORMAL SALINE 50ML 50 ML IV ONE (08:30)
[2019-03-12] MEDS: methylPREDNISolone SOD SUCC PF 40 MG/ML VIAL. IV SCH ×2 (08:30→21:31)
[2019-03-12 08:36] LABS: BASE EXCESS ABG 0 mmol/L (-3-3); HCO3 ABG 25 mmol/L (21-28); PCO2 ABG 44 mmHg (35-46); PO2 ABG 106 mmHg (65-108); SAT O2 ABG 97 % (92-99)
[2019-03-12 08:38] LABS: FIO2 ABG 60
[2019-03-12] MEDS: DOXYCYCLINE HYCLATE 100 MG in IV DEXTROSE 5% 100ML 100 ML IV SCH ×2 (08:41→21:31)
[2019-03-12] MEDS: GABAPENTIN 300 MG CAPSULE. PO SCH ×3 (09:00→21:00)
--- NOTE | 2019-03-12 09:53 | PDOC ---
PULMONARY PROGRESS NOTES Subjective developed worsening hypoxic RF, requiring 100%FIO2/ BIPAP responded to lasix still on BIPAP Vitals Vital Signs Date Time Temp Pulse Resp B/P (MAP) Pulse Ox O2 Delivery O2 Flow Rate FiO2 03/12/19 08:39 105 148/62 03/12/19 08:20 93 BiPAP/CPAP 03/12/19 07:00 23 03/12/19 04:00 98.4 98.4 03/11/19 13:53 7.0 General: Lethargic Lungs: Crackles (bases) Abdomen: Soft Extremities: Other (1+edema) Labs Laboratory Tests Test 03/10/19 14:45 03/11/19 07:35 03/11/19 10:45 03/11/19 11:15 Urine Collection Type Unknown Urine Color Yellow Urine Clarity Cloudy Urine pH 5.0 Urine Specific Benedict 1.020 Urine Protein Negative mg/dL (NEG-TRACE) Urine Glucose (UA) Negative mg/dL (NEG) Urine Ketones (Stick) Negative mg/dL (NEG) Urine Blood Negative (NEG) Urine Nitrite Negative (NEG) Urine Bilirubin Negative (NEG) Urine Urobilinogen Dipstick 0.2 mg/dL (0.2 mg/dL) Urine Leukocyte Esterase Small (NEG) Urine RBC 0 /HPF (0-2) Urine WBC Occ /HPF (0-4) Urine Squamous Epithelial Cells Mod /LPF Urine Bacteria Few /HPF (0-FEW) Urine Mucus Mod /LPF White Blood Count 17.8 x10^3/uL (4.0-11.0) Red Blood Count 3.24 x10^6/uL (3.50-5.40) Hemoglobin 7.8 g/dL (12.0-15.5) Hematocrit 24.9 % (36.0-47.0) Mean Corpuscular Volume 77 fL (79-100) Mean Corpuscular Hemoglobin 24 pg (25-35) Mean Corpuscular Hemoglobin Concent 32 g/dL (31-37) Red Cell Distribution Width 16.5 % (11.5-14.5) Platelet Count 286 x10^3/uL (140-400) Lactic Acid Level 2.4 mmol/L (0.4-2.0) O2 Saturation 96 % (92-99) Arterial Blood pH 7.33 (7.35-7.45) Arterial Blood pCO2 at Patient Temp 45 mmHg (35-46) Arterial Blood pO2 at Patient Temp 88 mmHg (65-108) Arterial Blood HCO3 23 mmol/L (21-28) Arterial Blood Base Excess -3 mmol/L (-3-3) FiO2 60 Test 03/11/19 15:10 03/11/19 16:45 03/12/19 05:55 03/12/19 08:00 Lactic Acid Level 4.2 mmol/L (0.4-2.0) 1.8 mmol/L (0.4-2.0) Glucose (Fingerstick) 225 mg/dL (70-99) White Blood Count 10.3 x10^3/uL (4.0-11.0) Red Blood Count 2.96 x10^6/uL (3.50-5.40) Hemoglobin 7.3 g/dL (12.0-15.5) Hematocrit 22.5 % (36.0-47.0) Mean Corpuscular Volume 76 fL (79-100) Mean Corpuscular Hemoglobin 25 pg (25-35) Mean Corpuscular Hemoglobin Concent 33 g/dL (31-37) Red Cell Distribution Width 16.6 % (11.5-14.5) Platelet Count 236 x10^3/uL (140-400) Neutrophils (%) (Auto) 87 % (31-73) Lymphocytes (%) (Auto) 9 % (24-48) Monocytes (%) (Auto) 4 % (0-9) Eosinophils (%) (Auto) 0 % (0-3) Basophils (%) (Auto) 0 % (0-3) Neutrophils # (Auto) 8.9 x10^3/uL (1.8-7.7) Lymphocytes # (Auto) 0.9 x10^3/uL (1.0-4.8) Monocytes # (Auto) 0.4 x10^3/uL (0.0-1.1) Eosinophils # (Auto) 0.0 x10^3/uL (0.0-0.7) Basophils # (Auto) 0.0 x10^3/uL (0.0-0.2) Segmented Neutrophils % 75 % (35-66) Band Neutrophils % 14 % (0-9) Lymphocytes % 8 % (24-48) Monocytes % 3 % (0-10) Nucleated Red Blood Cells 1 Platelet Estimate Adequate (ADEQUATE) Polychromasia Slight Anisocytosis Slight Ovalocytes Few Sodium Level 142 mmol/L (136-145) Potassium Level 4.2 mmol/L (3.5-5.1) Chloride Level 103 mmol/L (98-107) Carbon Dioxide Level 27 mmol/L (21-32) Anion Gap 12 (6-14) Blood Urea Nitrogen 41 mg/dL (7-20) Creatinine 1.7 mg/dL (0.6-1.0) Estimated GFR (Cockcroft-Gault) 29.0 Glucose Level 219 mg/dL (70-99) Calcium Level 8.8 mg/dL (8.5-10.1) Troponin I Quantitative 3.190 ng/mL (0.000-0.055) Procalcitonin < 0.10 ng/mL (0.00-0.10) Test 03/12/19 08:20 03/12/19 08:50 O2 Saturation 97 % (92-99) Arterial Blood pH 7.38 (7.35-7.45) Arterial Blood pCO2 at Patient Temp 44 mmHg (35-46) Arterial Blood pO2 at Patient Temp 106 mmHg (65-108) Arterial Blood HCO3 25 mmol/L (21-28) Arterial Blood Base Excess 0 mmol/L (-3-3) FiO2 60 Glucose (Fingerstick) 229 mg/dL (70-99) Laboratory Tests Test 03/11/19 10:45 03/11/19 11:15 03/11/19 15:10 03/11/19 16:45 Lactic Acid Level 2.4 mmol/L (0.4-2.0) 4.2 mmol/L (0.4-2.0) O2 Saturation 96 % (92-99) Arterial Blood pH 7.33 (7.35-7.45) Arterial Blood pCO2 at Patient Temp 45 mmHg (35-46) Arterial Blood pO2 at Patient Temp 88 mmHg (65-108) Arterial Blood HCO3 23 mmol/L (21-28) Arterial Blood Base Excess -3 mmol/L (-3-3) FiO2 60 Glucose (Fingerstick) 225 mg/dL (70-99) Test 03/12/19 05:55 03/12/19 08:00 03/12/19 08:20 03/12/19 08:50 White Blood Count 10.3 x10^3/uL (4.0-11.0) Red Blood Count 2.96 x10^6/uL (3.50-5.40) Hemoglobin 7.3 g/dL (12.0-15.5) Hematocrit 22.5 % (36.0-47.0) Mean Corpuscular Volume 76 fL (79-100) Mean Corpuscular Hemoglobin 25 pg (25-35) Mean Corpuscular Hemoglobin Concent 33 g/dL (31-37) Red Cell Distribution Width 16.6 % (11.5-14.5) Platelet Count 236 x10^3/uL (140-400) Neutrophils (%) (Auto) 87 % (31-73) Lymphocytes (%) (Auto) 9 % (24-48) Monocytes (%) (Auto) 4 % (0-9) Eosinophils (%) (Auto) 0 % (0-3) Basophils (%) (Auto) 0 % (0-3) Neutrophils # (Auto) 8.9 x10^3/uL (1.8-7.7) Lymphocytes # (Auto) 0.9 x10^3/uL (1.0-4.8) Monocytes # (Auto) 0.4 x10^3/uL (0.0-1.1) Eosinophils # (Auto) 0.0 x10^3/uL (0.0-0.7) Basophils # (Auto) 0.0 x10^3/uL (0.0-0.2) Segmented Neutrophils % 75 % (35-66) Band Neutrophils % 14 % (0-9) Lymphocytes % 8 % (24-48) Monocytes % 3 % (0-10) Nucleated Red Blood Cells 1 Platelet Estimate Adequate (ADEQUATE) Polychromasia Slight Anisocytosis Slight Ovalocytes Few Sodium Level 142 mmol/L (136-145) Potassium Level 4.2 mmol/L (3.5-5.1) Chloride Level 103 mmol/L (98-107) Carbon Dioxide Level 27 mmol/L (21-32) Anion Gap 12 (6-14) Blood Urea Nitrogen 41 mg/dL (7-20) Creatinine 1.7 mg/dL (0.6-1.0) Estimated GFR (Cockcroft-Gault) 29.0 Glucose Level 219 mg/dL (70-99) Calcium Level 8.8 mg/dL (8.5-10.1) Troponin I Quantitative 3.190 ng/mL (0.000-0.055) Procalcitonin < 0.10 ng/mL (0.00-0.10) Lactic Acid Level 1.8 mmol/L (0.4-2.0) O2 Saturation 97 % (92-99) Arterial Blood pH 7.38 (7.35-7.45) Arterial Blood pCO2 at Patient Temp 44 mmHg (35-46) Arterial Blood pO2 at Patient Temp 106 mmHg (65-108) Arterial Blood HCO3 25 mmol/L (21-28) Arterial Blood Base Excess 0 mmol/L (-3-3) FiO2 60 Glucose (Fingerstick) 229 mg/dL (70-99) Medications Active Scripts Medications Dose Route/Sig Max Daily Dose Days Date Category Doxycycline Hyclate 50 Mg Capsule 1 Cap PO BID 7 10/15/17 Reported Doxycycline Hyclate 50 Mg Capsule 1 Cap PO BID 7 10/15/17 Reported Doxycycline Hyclate 50 Mg Capsule 1 Cap PO BID 7 10/15/17 Reported Gabapentin (Gabapentin) 100 Mg Capsule 200 Mg PO TID 10/12/17 Reported Prednisone 20 Mg Tablet 20 Mg PO DAILY 04/06/16 Rx Diazepam 5 Mg Tablet 5 Mg PO PRN Q8HRS PRN 04/06/16 Rx Percocet 5-325 Mg Tablet (Oxycodone/Acetaminophen) 1 Each Tablet 1 Each PO 6XDAY PRN 08/07/13 Reported Aspir 81 (Aspirin) 81 Mg Tablet.dr 81 Mg PO DAILY 08/07/13 Reported Dundee-3 (Dundee-3 Fatty Acids) 1,000 Mg Capsule 1,200 Mg PO BID 08/07/13 Reported Omeprazole 20 Mg Capsule.dr 20 Mg PO BID 08/07/13 Reported Tiazac (Diltiazem Hcl) 240 Mg Capsule.er 240 Mg PO DAILY 08/07/13 Reported Xopenex Hfa (Levalbuterol Tartrate) 15 Gm Hfa.aer.ad 15 Gm IH BID PRN 08/07/13 Reported Metformin Hcl 500 Mg Tablet 500 Mg PO BID 08/07/13 Reported Comments CTA chest 1. No pulmonary embolus identified within the main, lobar or proximal segmental pulmonary arteries. Limitations as described above. 2. Findings likely related to diffuse severe pulmonary edema, with small right and trace left pleural effusion. Superimposed infectious process is difficult to exclude. Exposure: One or more of the following in the visualized dose reduction techniques were utilized for this examination: 1. Automated exposure control 2. Adjustment of the MA and/or KV according to patient size 3. Use of iterative of reconstructive technique Electronically signed by: Kian Miguel MD (03/11/2019 6:04 PM) [facility] [place] . 1. Acute hypoxic respiratory failure secondary to diffuse interstitial edema/ less likely diffuse alveolitis 2. Abnormal echo with a low normal ejection fraction of 50% and grade 1 diastolic dysfunction. Now with increase troponin. NSTMI 3. Minimal history of tobacco use. 4. increased troponin levels./ NSTMI 5. Lactic acidosis secondary to work of breathing and unlikely sepsis. 6. Obesity 7. h/o CAD, stents Plan . 1. Continue present BiPAP. 50%FIO2 2. f/u ABG's 3. Noncontrast CT chest reviewed. Diffuse interstitial edema/ Less likely Alveolitis 4. Continue BS abx per ID 5. IV Solu-Medrol. 6. Ipratropium bromide nebulizer. 7. Discussed with RN. / 8. Monitor renal function 9. Diuresis 10. Cardiology rec cct 30 min STACEY MARION MD Mar 12, 2019 09:53
[2019-03-12] MEDS ORDERED: FUROSEMIDE 20 MG/2 ML VIAL. IVP ONE ×2 (10:00→17:30)
[2019-03-12] MEDS: LACTOBACILLUS RHAMNOSUS GG 1 CAPSULE. PO SCH ×2 (15:05→21:00)
[2019-03-12] MEDS: diazePAM 5 MG TABLET PO PRN (15:05)
--- NOTE | 2019-03-12 16:29 | NUR ---
SS following for discharge planning. SS reviewed pt chart. Pt is from home with family and is currently requiring oxygen. SS will continue to follow for discharge planning.
[2019-03-12] MEDS: oxyCODONE/APAP 5/325 1 TAB TABLET PO PRN (16:49)
--- NOTE | 2019-03-12 17:23 | PDOC ---
PROGRESS NOTES Subjective Subjective Patient seen and examined Objective Objective Vital Signs Date Time Temp Pulse Resp B/P (MAP) Pulse Ox O2 Delivery O2 Flow Rate FiO2 03/12/19 15:45 94 BiPAP/CPAP 03/12/19 15:00 105 24 169/55 (93) 10.0 03/12/19 08:00 98.7 98.7 Intake and Output 03/12/19 07:00 Intake Total 240 ml Output Total 1280 ml Balance -1040 ml Intake Oral 240 ml Output Urine Total 1280 ml Physical Exam Abdomen: Normal bowel sounds Heart: Regular rate General: mild distress Lungs: Other (decreased breath sounds) Assessment Assessment Problems Medical Problems: (1) Acute respiratory distress Status: Acute (2) Chronic anemia Status: Acute (3) Congestive heart failure Status: Acute (4) Elevated troponin I level Status: Acute (5) Hypomagnesemia Status: Acute (6) Hypoxia Status: Acute (7) Renal insufficiency Status: Acute (8) Restless leg syndrome Status: Acute (9) Sepsis Status: Acute (10) Tachycardia Status: Acute 1. Shortness of breath. Increase today. Being treated with increasing doses of Lasix and creatinine has increased to 1.7. Echo shows intact systolic function but is consistent with diastolic dysfunction. We'll continue diuresis with monitoring of lab. Also followed by pulmonary. 2. Minimally elevated troponin at 0.535. Increased today to 3.1. Most consistent with demand ischemia. Echocardiogram as above. 3. Restless leg syndrome. Increased symptoms today. 4. Hypertension. Fair control. Continue to monitor and adjust medications as needed. 5. Diabetes mellitus. As per the primary service. Comment Review of Relevant I have reviewed the following items anni (where applicable) has been applied. Labs Laboratory Tests Test 03/11/19 07:35 03/11/19 10:45 03/11/19 11:15 03/11/19 15:10 White Blood Count 17.8 x10^3/uL (4.0-11.0) Red Blood Count 3.24 x10^6/uL (3.50-5.40) Hemoglobin 7.8 g/dL (12.0-15.5) Hematocrit 24.9 % (36.0-47.0) Mean Corpuscular Volume 77 fL (79-100) Mean Corpuscular Hemoglobin 24 pg (25-35) Mean Corpuscular Hemoglobin Concent 32 g/dL (31-37) Red Cell Distribution Width 16.5 % (11.5-14.5) Platelet Count 286 x10^3/uL (140-400) Lactic Acid Level 2.4 mmol/L (0.4-2.0) 4.2 mmol/L (0.4-2.0) O2 Saturation 96 % (92-99) Arterial Blood pH 7.33 (7.35-7.45) Arterial Blood pCO2 at Patient Temp 45 mmHg (35-46) Arterial Blood pO2 at Patient Temp 88 mmHg (65-108) Arterial Blood HCO3 23 mmol/L (21-28) Arterial Blood Base Excess -3 mmol/L (-3-3) FiO2 60 Test 03/11/19 16:45 03/12/19 05:55 03/12/19 08:00 03/12/19 08:20 Glucose (Fingerstick) 225 mg/dL (70-99) White Blood Count 10.3 x10^3/uL (4.0-11.0) Red Blood Count 2.96 x10^6/uL (3.50-5.40) Hemoglobin 7.3 g/dL (12.0-15.5) Hematocrit 22.5 % (36.0-47.0) Mean Corpuscular Volume 76 fL (79-100) Mean Corpuscular Hemoglobin 25 pg (25-35) Mean Corpuscular Hemoglobin Concent 33 g/dL (31-37) Red Cell Distribution Width 16.6 % (11.5-14.5) Platelet Count 236 x10^3/uL (140-400) Neutrophils (%) (Auto) 87 % (31-73) Lymphocytes (%) (Auto) 9 % (24-48) Monocytes (%) (Auto) 4 % (0-9) Eosinophils (%) (Auto) 0 % (0-3) Basophils (%) (Auto) 0 % (0-3) Neutrophils # (Auto) 8.9 x10^3/uL (1.8-7.7) Lymphocytes # (Auto) 0.9 x10^3/uL (1.0-4.8) Monocytes # (Auto) 0.4 x10^3/uL (0.0-1.1) Eosinophils # (Auto) 0.0 x10^3/uL (0.0-0.7) Basophils # (Auto) 0.0 x10^3/uL (0.0-0.2) Segmented Neutrophils % 75 % (35-66) Band Neutrophils % 14 % (0-9) Lymphocytes % 8 % (24-48) Monocytes % 3 % (0-10) Nucleated Red Blood Cells 1 Platelet Estimate Adequate (ADEQUATE) Polychromasia Slight Anisocytosis Slight Ovalocytes Few Sodium Level 142 mmol/L (136-145) Potassium Level 4.2 mmol/L (3.5-5.1) Chloride Level 103 mmol/L (98-107) Carbon Dioxide Level 27 mmol/L (21-32) Anion Gap 12 (6-14) Blood Urea Nitrogen 41 mg/dL (7-20) Creatinine 1.7 mg/dL (0.6-1.0) Estimated GFR (Cockcroft-Gault) 29.0 Glucose Level 219 mg/dL (70-99) Calcium Level 8.8 mg/dL (8.5-10.1) Troponin I Quantitative 3.190 ng/mL (0.000-0.055) Procalcitonin < 0.10 ng/mL (0.00-0.10) Lactic Acid Level 1.8 mmol/L (0.4-2.0) O2 Saturation 97 % (92-99) Arterial Blood pH 7.38 (7.35-7.45) Arterial Blood pCO2 at Patient Temp 44 mmHg (35-46) Arterial Blood pO2 at Patient Temp 106 mmHg (65-108) Arterial Blood HCO3 25 mmol/L (21-28) Arterial Blood Base Excess 0 mmol/L (-3-3) FiO2 60 Test 03/12/19 08:50 03/12/19 16:57 Glucose (Fingerstick) 229 mg/dL (70-99) 264 mg/dL (70-99) Laboratory Tests Test 03/12/19 05:55 03/12/19 08:00 03/12/19 08:20 03/12/19 08:50 White Blood Count 10.3 x10^3/uL (4.0-11.0) Red Blood Count 2.96 x10^6/uL (3.50-5.40) Hemoglobin 7.3 g/dL (12.0-15.5) Hematocrit 22.5 % (36.0-47.0) Mean Corpuscular Volume 76 fL (79-100) Mean Corpuscular Hemoglobin 25 pg (25-35) Mean Corpuscular Hemoglobin Concent 33 g/dL (31-37) Red Cell Distribution Width 16.6 % (11.5-14.5) Platelet Count 236 x10^3/uL (140-400) Neutrophils (%) (Auto) 87 % (31-73) Lymphocytes (%) (Auto) 9 % (24-48) Monocytes (%) (Auto) 4 % (0-9) Eosinophils (%) (Auto) 0 % (0-3) Basophils (%) (Auto) 0 % (0-3) Neutrophils # (Auto) 8.9 x10^3/uL (1.8-7.7) Lymphocytes # (Auto) 0.9 x10^3/uL (1.0-4.8) Monocytes # (Auto) 0.4 x10^3/uL (0.0-1.1) Eosinophils # (Auto) 0.0 x10^3/uL (0.0-0.7) Basophils # (Auto) 0.0 x10^3/uL (0.0-0.2) Segmented Neutrophils % 75 % (35-66) Band Neutrophils % 14 % (0-9) Lymphocytes % 8 % (24-48) Monocytes % 3 % (0-10) Nucleated Red Blood Cells 1 Platelet Estimate Adequate (ADEQUATE) Polychromasia Slight Anisocytosis Slight Ovalocytes Few Sodium Level 142 mmol/L (136-145) Potassium Level 4.2 mmol/L (3.5-5.1) Chloride Level 103 mmol/L (98-107) Carbon Dioxide Level 27 mmol/L (21-32) Anion Gap 12 (6-14) Blood Urea Nitrogen 41 mg/dL (7-20) Creatinine 1.7 mg/dL (0.6-1.0) Estimated GFR (Cockcroft-Gault) 29.0 Glucose Level 219 mg/dL (70-99) Calcium Level 8.8 mg/dL (8.5-10.1) Troponin I Quantitative 3.190 ng/mL (0.000-0.055) Procalcitonin < 0.10 ng/mL (0.00-0.10) Lactic Acid Level 1.8 mmol/L (0.4-2.0) O2 Saturation 97 % (92-99) Arterial Blood pH 7.38 (7.35-7.45) Arterial Blood pCO2 at Patient Temp 44 mmHg (35-46) Arterial Blood pO2 at Patient Temp 106 mmHg (65-108) Arterial Blood HCO3 25 mmol/L (21-28) Arterial Blood Base Excess 0 mmol/L (-3-3) FiO2 60 Glucose (Fingerstick) 229 mg/dL (70-99) Test 03/12/19 16:57 Glucose (Fingerstick) 264 mg/dL (70-99) Microbiology 03/10/19 Blood Culture - Preliminary, Resulted NO GROWTH AFTER 2 DAYS Medications Current Medications Sodium Chloride 1,000 ml @ 1,000 mls/hr 1X ONCE IV Last administered on 03/10/19 06:02; Start 03/10/19 at 06:00; Stop 03/10/19 at 07:40; Status DC Morphine Sulfate (Morphine Sulfate) 4 mg 1X ONCE IV Last administered on 03/10/19at 06:02; Start 03/10/19 at 06:00; Stop 03/10/19 at 11:33; Status DC Ondansetron HCl (Zofran) 4 mg 1X ONCE IV Last administered on 03/10/19at 06:02; Start 03/10/19 at 06:00; Stop 03/10/19 at 06:01; Status DC Lorazepam (Ativan Inj) 1 mg 1X ONCE IV Last administered on 03/10/19at 06:02; Start 03/10/19 at 06:00; Stop 03/10/19 at 11:33; Status DC Magnesium Sulfate 50 ml @ 25 mls/hr 1X ONCE IV Last administered on 03/10/19at 07:17; Start 03/10/19 at 07:15; Stop 03/10/19 at 09:14; Status DC Methylprednisolone Sodium Succinate (SOLU-Medrol 125MG VIAL) 125 mg 1X ONCE IV Last administered on 03/10/19at 07:54; Start 03/10/19 at 07:30; Stop 03/10/19 at 11:33; Status DC Ceftriaxone Sodium (Rocephin) 1 gm 1X ONCE IVP Last administered on 03/10/19 08:03; Start 03/10/19 at 08:00; Stop 03/10/19 at 11:33; Status DC Vancomycin HCl 250 ml @ 250 mls/hr 1X ONCE IV Last administered on 03/10/19at 08:02; Start 03/10/19 at 08:15; Stop 03/10/19 at 11:33; Status DC Levalbuterol HCl (Xopenex) 1.25 mg 1X ONCE NEB Last administered on 03/10/19at 08:00; Start 03/10/19 at 08:00; Stop 03/10/19 at 11:33; Status DC Sodium Chloride 1,000 ml @ 125 mls/hr 1X ONCE IV Last administered on 03/10/19at 09:03; Start 03/10/19 at 09:00; Stop 03/10/19 at 16:59; Status DC Influenza Virus Vaccine Quadrival (Afluria Quad 2019-20 (3yr Up) Syringe) 0.5 ml ONCE ONCE VAX IM Last administered on 03/10/19at 10:57; Start 03/10/19 at 10:15; Stop 03/10/19 at 10:20; Status DC Diazepam (Valium) 5 mg PRN Q8HRS PRN PO ANXIETY Last administered on 03/12/19at 15:05; Start 03/10/19 at 11:30 Metformin HCl (Glucophage) 500 mg BIDWMEALS PO Last administered on 03/11/19at 16:46; Start 03/10/19 at 17:00 Oxycodone/ Acetaminophen (Percocet 5/325) 1 tab PRN BID PRN PO MODERATE PAIN 4- 6 Last administered on 03/12/19at 16:49; Start 03/10/19 at 11:30 Diltiazem HCl (Cardizem 24hr Cd) 240 mg DAILY PO Last administered on 03/12/19at 08:39; Start 03/10/19 at 12:00 Pantoprazole Sodium (Protonix) 40 mg DAILYAC PO Last administered on 03/12/19at 08:29; Start 03/10/19 at 12:00 Albuterol/ Ipratropium (Duoneb) 3 ml RTQID NEB ; Start 03/10/19 at 12:00; Stop 03/10/19 at 12:02; Status DC Methylprednisolone Sodium Succinate (SOLU-Medrol 40MG VIAL) 60 mg Q12HR IV Last administered on 03/12/19at 08:30; Start 03/10/19 at 11:40 Gabapentin (Neurontin) 300 mg TID PO Last administered on 03/12/19at 15:05; S tart 03/10/19 at 14:00 Sodium Bicarbonate (Sodium Bicarb Adult 8.4% Syr) 50 meq 1X ONCE IV Last administered on 03/10/19at 12:12; Start 03/10/19 at 12:00; Stop 03/10/19 at 12:05; Status DC Ipratropium [place] (Atrovent) 0.5 mg RTQID NEB Last administered on 03/12/19at 15:45; Start 03/10/19 at 12:00 Lorazepam (Ativan Inj) 1 mg PRN Q4HRS PRN IVP ANXIETY / AGITATION Last administered on 03/12/19at 16:48; Start 03/10/19 at 22:30 Ceftriaxone Sodium (Rocephin) 1 gm Q24H IVP Last administered on 03/11/19at 11:19; Start 03/11/19 at 11:00; Stop 03/11/19 at 16:24; Status DC Vancomycin HCl (Vanco Per Pharmacy) 1 each PRN DAILY PRN MC SEE COMMENTS Last administered on 03/11/19at 13:31; Start 03/11/19 at 10:15; Stop 03/12/19 at 07:06; Status DC Furosemide (Lasix) 40 mg 1X ONCE IVP Last administered on 03/11/19at 11:19; Start 03/11/19 at 10:30; Stop 03/11/19 at 10:31; Status DC Vancomycin HCl 1.25 gm/Sodium Chloride 250 ml @ 167 mls/hr Q24H IV Last administered on 03/11/19at 11:22; Start 03/11/19 at 11:00; Stop 03/12/19 at 07:06; Status DC Vancomycin HCl (Vancomycin Trough Level) 1 each 1X ONCE MC ; Start 03/13/19 at 10:30; Stop 03/12/19 at 07:11; Status DC Piperacillin Sod/ Tazobactam Sod (Zosyn Per Pharmacy) 1 each PRN DAILY PRN MC SEE COMMENTS; Start 03/11/19 at 16:30 Piperacillin Sod/ Tazobactam Sod 3.375 gm/Sodium Chloride 50 ml @ 100 mls/hr Q6HRS IV Last administered on 03/12/19at 12:54; Start 03/11/19 at 17:00 Iohexol (Omnipaque 350 Mg/ml) 75 ml 1X ONCE IV Last administered on 03/11/19at 17:49; Start 03/11/19 at 17:30; Stop 03/11/19 at 17:31; Status DC Furosemide (Lasix) 40 mg 1X ONCE IVP Last administered on 03/11/19at 18:41; S tart 03/11/19 at 18:30; Stop 03/11/19 at 18:35; Status DC Furosemide (Lasix) 40 mg 1X ONCE IVP Last administered on 03/11/19at 22:01; Start 03/11/19 at 22:00; Stop 03/11/19 at 22:01; Status DC Doxycycline Hyclate 100 mg/ Dextrose 100 ml @ 50 mls/hr Q12HR IV Last administered on 03/12/19at 08:41; Start 03/12/19 at 09:00 Daptomycin 540 mg/ Sodium Chloride 50 ml @ 100 mls/hr ONCE ONCE IV Last administered on 03/12/19at 08:41; Start 03/12/19 at 08:30; Stop 03/12/19 at 08:59; Status DC Lactobacillus Rhamnosus (Culturelle) 1 cap BID PO Last administered on 03/12/19at 15:05; Start 03/12/19 at 09:00 Furosemide (Lasix) 20 mg 1X ONCE IVP Last administered on 03/12/19at 10:33; Start 03/12/19 at 10:00; Stop 03/12/19 at 10:01; Status DC Active Scripts Active Prednisone 20 Mg Tablet 20 Mg PO DAILY Diazepam 5 Mg Tablet 5 Mg PO PRN Q8HRS PRN Reported Doxycycline Hyclate 50 Mg Capsule 1 Cap PO BID 7 Days Doxycycline Hyclate 50 Mg Capsule 1 Cap PO BID 7 Days Doxycycline Hyclate 50 Mg Capsule 1 Cap PO BID 7 Days Gabapentin (Gabapentin) 100 Mg Capsule 200 Mg PO TID Percocet 5-325 Mg Tablet (Oxycodone/Acetaminophen) 1 Each Tablet 1 Each PO 6XDAY PRN Aspir 81 (Aspirin) 81 Mg Tablet.dr 81 Mg PO DAILY [place]-3 ([place]-3 Fatty Acids) 1,000 Mg Capsule 1,200 Mg PO BID Omeprazole 20 Mg Capsule.dr 20 Mg PO BID Tiazac (Diltiazem Hcl) 240 Mg Capsule.er 240 Mg PO DAILY Xopenex Hfa (Levalbuterol Tartrate) 15 Gm Hfa.aer.ad 15 Gm IH BID PRN Metformin Hcl 500 Mg Tablet 500 Mg PO BID Vitals/I & O Vital Sign - Last 24 Hours 03/11/19 03/11/19 03/11/19 03/11/19 17:45 19:00 19:35 20:00 Temp 98.6 98.6 Pulse 86 86 Resp 24 18 B/P (MAP) 129/71 (90) 128/68 (88) Pulse Ox 93 98 99 92 O2 Delivery BiPAP/CPAP BiPAP/CPAP BiPAP/CPAP BiPAP/CPAP 03/11/19 03/11/19 03/11/19 03/11/19 20:00 21:00 22:00 22:01 Pulse 94 104 Resp 22 23 B/P (MAP) 136/79 (98) 157/91 (113) Pulse Ox 98 98 98 O2 Delivery Bi-pap BiPAP/CPAP BiPAP/CPAP BiPAP/CPAP 03/11/19 03/11/19 03/11/19 03/12/19 23:00 23:01 23:31 00:00 Pulse 106 Resp 23 B/P (MAP) 166/82 (110) Pulse Ox 98 97 95 O2 Delivery BiPAP/CPAP BiPAP/CPAP BiPAP/CPAP Bi-pap 03/12/19 03/12/19 03/12/19 03/12/19 00:00 00:01 01:00 01:45 Temp 98.0 98.0 Pulse 86 94 Resp 18 23 B/P (MAP) 149/68 (95) 151/71 (97) Pulse Ox 92 98 97 O2 Delivery Bi-pap BiPAP/CPAP BiPAP/CPAP BiPAP/CPAP 03/12/19 03/12/19 03/12/19 03/12/19 02:00 03:00 03:44 04:00 Temp 98.4 98.4 Pulse 98 102 87 Resp 23 23 18 B/P (MAP) 138/64 (88) 141/76 (97) 144/88 (106) Pulse Ox 98 98 92 O2 Delivery BiPAP/CPAP BiPAP/CPAP BiPAP/CPAP BiPAP/CPAP 03/12/19 03/12/19 03/12/19 03/12/19 05:00 05:37 06:00 07:00 Pulse 89 87 89 Resp 23 23 23 B/P (MAP) 145/60 (88) 136/65 (88) 145/60 (88) Pulse Ox 98 100 98 O2 Delivery BiPAP/CPAP BiPAP/CPAP BiPAP/CPAP BiPAP/CPAP 03/12/19 03/12/19 03/12/19 03/12/19 08:00 08:00 08:20 08:39 Temp 98.7 98.7 Pulse 100 105 Resp 20 B/P (MAP) 141/72 (95) 148/62 Pulse Ox 95 93 O2 Delivery Bi-pap BiPAP/CPAP BiPAP/CPAP 03/12/19 03/12/19 03/12/19 03/12/19 09:00 10:00 11:00 12:00 Pulse 112 90 90 Resp 20 22 20 B/P (MAP) 153/76 (101) 128/60 (82) 145/60 (88) Pulse Ox 95 100 100 O2 Delivery BiPAP/CPAP BiPAP/CPAP BiPAP/CPAP Bi-pap 03/12/19 03/12/19 03/12/19 03/12/19 12:01 13:19 15:00 15:45 Pulse 105 Resp 24 B/P (MAP) 169/55 (93) Pulse Ox 97 100 94 O2 Delivery BiPAP/CPAP BiPAP/CPAP Nasal Cannula BiPAP/CPAP O2 Flow Rate 10.0 Intake and Output 03/11/19 03/11/19 03/12/19 15:00 23:00 07:00 Intake Total 240 ml Output Total 930 ml 350 ml Balance 240 ml -930 ml -350 ml LATASHA TRISTAN MD Mar 12, 2019 17:23
--- NOTE | 2019-03-12 19:38 | NUR ---
Pt BG elevated on previous shift. Received call back from Dr. Sullivan. Updated on pt status. Received order for moderate sliding scale insulin at this time. Order entered into system. Pt currently resting with eyes closed and call light within reach.
[2019-03-12] MEDS: INSULIN LISPRO 300 UNITS/3 ML VIAL. SQ SCH (21:39)
[2019-03-13] VITALS (23 sets, daily range): BP systolic 89–168; BP diastolic 52–77
[2019-03-13] MEDS: PIPERACILLIN/TAZOBACTAM 3.375 GM in IV NORMAL SALINE 50ML 50 ML IV SCH ×5 (00:11→23:51)
[2019-03-13 00:25] LABS: BASE EXCESS ABG -2 mmol/L (-3-3); HCO3 ABG 23 mmol/L (21-28); PCO2 ABG 37 mmHg (35-46); PO2 ABG 74 mmHg (65-108); SAT O2 ABG 93 % (92-99)
[2019-03-13 00:27] LABS: FIO2 ABG 50
[2019-03-13 04:46] LABS: BASO % 0 % (0-3); EOS % 0 % (0-3); HEMATOCRIT 23.6 % (36.0-47.0); HEMOGLOBIN 7.5 g/dL (12.0-15.5); LYMPH % 8 % (24-48); MEAN CORPUSCULAR HEMOGLOBIN 24 pg (25-35); MEAN CORPUSCULAR HGB CONC 32 g/dL (31-37); MEAN CORPUSCULAR VOLUME 76 fL (79-100); MONO # 0.6 x10^3/uL (0.0-1.1); MONO % 4 % (0-9); NEUT # 11.4 x10^3/uL (1.8-7.7); NEUT % 88 % (31-73); PLATELET COUNT 270 x10^3/uL (140-400); RED BLOOD COUNT 3.11 x10^6/uL (3.50-5.40)
[2019-03-13 05:05] LABS: ALBUMIN 3.4 g/dL (3.4-5.0); ALBUMIN/GLOBULIN RATIO 0.8 (1.0-1.7); CALCIUM 8.9 mg/dL (8.5-10.1); CREATININE 1.6 mg/dL (0.6-1.0); GFR 31.1; MAGNESIUM 2.4 mg/dL (1.8-2.4); TOTAL BILIRUBIN 0.6 mg/dL (0.2-1.0); TOTAL PROTEIN 7.6 g/dL (6.4-8.2)
--- NOTE | 2019-03-13 06:27 | NUR ---
Increased anxiety/agitation noted over the last hour and a half approx. The expert medical writer went to administer PRN Ativan at approx 0530 and noted pts midline had been pulled out while patient was thrashing arms around. Pt also had pulled lemus stat lock off of leg. Urine lauren in color over this last hour. Lemus balloon in place. Mitts placed on patient at this time for patient safety. Pt not responding when asked questions. Pt will only respond with her name when asked. Pt moaning and yelling into BiPap while thrashing arms and legs around. New IV by osmel Conde RN in RUE. Ativan 1 mg administered and ineffective. Pt not able to take PO medications in current condition. Page placed out to Dr. Sullivan to notify MD of pts status. Pt within sight of this RN. Pts eyes closed, but pt continues to yell into BiPap. Will pass on and continue to monitor.
--- NOTE | 2019-03-13 07:07 | PDOC ---
Infectious Disease Note Subjective Subjective Restless on Bipap ROS ROS unable to obtain Vital Sign Vital Signs Vital Signs Date Time Temp Pulse Resp B/P (MAP) Pulse Ox O2 Delivery O2 Flow Rate FiO2 03/13/19 06:00 112 25 161/70 (100) 96 BiPAP/CPAP 03/13/19 04:00 97.4 97.4 03/12/19 17:49 10.0 Physical Exam PHYSICAL EXAM CONSTITUTIONAL: She is lying in bed. She is on BiPAP. She is restless HEENT: Pupils are equal and reactive. Normal conjunctivae. NECK: Supple. LUNGS: Decreased without gross wheeze. HEART: S1, S2. ABDOMEN: Obese, soft, nontender. No guarding. EXTREMITIES: Without clubbing or cyanosis. No gross edema. + MITTS GENITOURINARY: She has a Oakes in place. IV: She has a right upper extremity PIV without complications. SKIN: Warm, without generalized signs of rash. NEUROLOGICAL: She is alert and restless Labs Lab Laboratory Tests Test 03/12/19 08:00 03/12/19 08:20 03/12/19 08:50 03/12/19 16:57 Lactic Acid Level 1.8 mmol/L (0.4-2.0) O2 Saturation 97 % (92-99) Arterial Blood pH 7.38 (7.35-7.45) Arterial Blood pCO2 at Patient Temp 44 mmHg (35-46) Arterial Blood pO2 at Patient Temp 106 mmHg (65-108) Arterial Blood HCO3 25 mmol/L (21-28) Arterial Blood Base Excess 0 mmol/L (-3-3) FiO2 60 Glucose (Fingerstick) 229 mg/dL (70-99) 264 mg/dL (70-99) Test 03/12/19 21:37 03/13/19 00:13 03/13/19 04:15 Glucose (Fingerstick) 227 mg/dL (70-99) O2 Saturation 93 % (92-99) Arterial Blood pH 7.41 (7.35-7.45) Arterial Blood pCO2 at Patient Temp 37 mmHg (35-46) Arterial Blood pO2 at Patient Temp 74 mmHg (65-108) Arterial Blood HCO3 23 mmol/L (21-28) Arterial Blood Base Excess -2 mmol/L (-3-3) FiO2 50 White Blood Count 13.0 x10^3/uL (4.0-11.0) Red Blood Count 3.11 x10^6/uL (3.50-5.40) Hemoglobin 7.5 g/dL (12.0-15.5) Hematocrit 23.6 % (36.0-47.0) Mean Corpuscular Volume 76 fL (79-100) Mean Corpuscular Hemoglobin 24 pg (25-35) Mean Corpuscular Hemoglobin Concent 32 g/dL (31-37) Red Cell Distribution Width 17.0 % (11.5-14.5) Platelet Count 270 x10^3/uL (140-400) Neutrophils (%) (Auto) 88 % (31-73) Lymphocytes (%) (Auto) 8 % (24-48) Monocytes (%) (Auto) 4 % (0-9) Eosinophils (%) (Auto) 0 % (0-3) Basophils (%) (Auto) 0 % (0-3) Neutrophils # (Auto) 11.4 x10^3/uL (1.8-7.7) Lymphocytes # (Auto) 1.0 x10^3/uL (1.0-4.8) Monocytes # (Auto) 0.6 x10^3/uL (0.0-1.1) Eosinophils # (Auto) 0.0 x10^3/uL (0.0-0.7) Basophils # (Auto) 0.0 x10^3/uL (0.0-0.2) Sodium Level 145 mmol/L (136-145) Potassium Level 4.0 mmol/L (3.5-5.1) Chloride Level 106 mmol/L (98-107) Carbon Dioxide Level 26 mmol/L (21-32) Anion Gap 13 (6-14) Blood Urea Nitrogen 49 mg/dL (7-20) Creatinine 1.6 mg/dL (0.6-1.0) Estimated GFR (Cockcroft-Gault) 31.1 BUN/Creatinine Ratio 31 (6-20) Glucose Level 263 mg/dL (70-99) Calcium Level 8.9 mg/dL (8.5-10.1) Magnesium Level 2.4 mg/dL (1.8-2.4) Total Bilirubin 0.6 mg/dL (0.2-1.0) Aspartate Amino Transf (AST/SGOT) 38 U/L (15-37) Alanine Aminotransferase (ALT/SGPT) 44 U/L (14-59) Alkaline Phosphatase 49 U/L (46-116) Total Protein 7.6 g/dL (6.4-8.2) Albumin 3.4 g/dL (3.4-5.0) Albumin/Globulin Ratio 0.8 (1.0-1.7) Micro Microbiology 03/10/19 Blood Culture - Preliminary, Resulted NO GROWTH AFTER 1 DAY Objective Assessment leukocytosis - ? reactive/Steroids Lactic acidosis - better Elevated Troponin Acure resp failure -on Bipap ANNE - better Pulm edema Encephalopathy - now more agitated/restless Plan Plan of Care Cont Zosyn Hold Further Vanc with ANNE Dose Doxy Dapto times one 03/12 Add Free T4 with low TSH but possible euthyroid Await further Card w/u F/u labs and cults Taper abx as cults return ? if infection at all D/w nursing KARTHIK ALVARADO MD Mar 13, 2019 07:07
[2019-03-13] MEDS: PANTOPRAZOLE 40 MG TABLET.DR. PO SCH (07:30)
[2019-03-13] MEDS ORDERED: ATROPINE 0.5 MG/5 ML DISP.SYRINGE. IV PRN (07:45)
[2019-03-13] MEDS ORDERED: IV NORMAL SALINE 500ML BAG 500 ML IV PRN (07:45)
[2019-03-13] MEDS: metFORMIN 500 MG TABLET PO SCH ×2 (08:00→17:00)
[2019-03-13] MEDS: cloNIDine TTS-1 1 PATCH PATCH.TDWK TD SCH (08:11)
[2019-03-13] MEDS: DEXMEDETOMIDINE 400 MCG in IV NORMAL SALINE 100ML 96 ML IV PRN ×4 (08:19→22:11)
--- NOTE | 2019-03-13 08:29 | PN ---
DATE: 03/13/2019 DAILY PROGRESS NOTE LOCATION: She is in room ICU 103. SUBJECTIVE: The patient is agitated primarily from her legs moving around trying to get comfortable. She is not as awake and alert as her baseline, but does wake up, recognizes me and does indicate that her legs are making her so agitated. OBJECTIVE: Vital signs are stable. She is afebrile. She remains dependent on the BiPAP this point in time with rapid desaturation into the 70s, trying to taken off for her to take medicines. Nursing has concerns over her swallowing on alert level. She has been unable to get her restless legs medicines because of the same and I am sure this is exacerbating her situation. Pharmacy was unable to get a Neupro patch and suggesting possibly trying a clonidine patch. We will try, although I do not know anything about the use of clonidine and restless legs. Chest reveals relatively better breath sounds today with less crackles. Output continues greater than intake. Hemoglobin is stable at 7.5 and creatinine stable at 1.6. Free T4 is within normal limits. She remains on broad-spectrum antibiotics for possible sepsis. IMPRESSION: 1. Congestive heart failure. 2. Possible coronary artery disease with elevated troponin, although felt to be maybe demand by Cardiology with normal echocardiogram. 3. Possible sepsis. 4. Severe restless legs syndrome. 5. Hypoxic respiratory failure. PLAN: Continue broad-spectrum antibiotic coverage, diuresis. Help of Pulmonary, ID and Cardiology appreciated. I have asked nursing for a Dobhoff tube today for medicines as well as starting some sort of nutrition as the day goes on. JOHN HAMM MD DR: MARSHALL/gildardo JOB#: [id number] / [id number]
[2019-03-13] MEDS: IPRATROPIUM BROMIDE 0.5 MG/2.5 ML NEBU. NEB SCH ×4 (08:34→19:55)
--- NOTE | 2019-03-13 08:47 | NUR ---
0900 Continues w extreme restlessness. Dr Meng here... order changes noted. Precedex started w + results ie less thrashing ,leg movement. HR diminished,RR improved /controlled from 33 to 20. Continue POC.
[2019-03-13] MEDS: GABAPENTIN 300 MG CAPSULE. PO SCH ×3 (09:00→21:00)
[2019-03-13] MEDS: methylPREDNISolone SOD SUCC PF 40 MG/ML VIAL. IV SCH ×2 (09:00→21:35)
[2019-03-13] MEDS: LACTOBACILLUS RHAMNOSUS GG 1 CAPSULE. PO SCH ×2 (09:00→21:00)
--- NOTE | 2019-03-13 09:29 | PDOC ---
PULMONARY PROGRESS NOTES Subjective PT SEDATED ON BIPAP AT TIMES VERY AGITATED Vitals Vital Signs Date Time Temp Pulse Resp B/P (MAP) Pulse Ox O2 Delivery O2 Flow Rate FiO2 03/13/19 08:30 94 BiPAP/CPAP 03/13/19 06:00 112 25 161/70 (100) 03/13/19 04:00 97.4 97.4 03/12/19 17:49 10.0 Lungs: Crackles (bases) Cardiovascular: S1, S2 Abdomen: Soft Extremities: Other (1+edema) Skin: Warm Labs Laboratory Tests Test 03/11/19 10:45 03/11/19 11:15 03/11/19 15:10 03/11/19 16:45 Lactic Acid Level 2.4 mmol/L (0.4-2.0) 4.2 mmol/L (0.4-2.0) O2 Saturation 96 % (92-99) Arterial Blood pH 7.33 (7.35-7.45) Arterial Blood pCO2 at Patient Temp 45 mmHg (35-46) Arterial Blood pO2 at Patient Temp 88 mmHg (65-108) Arterial Blood HCO3 23 mmol/L (21-28) Arterial Blood Base Excess -3 mmol/L (-3-3) FiO2 60 Glucose (Fingerstick) 225 mg/dL (70-99) Test 03/12/19 05:55 03/12/19 08:00 03/12/19 08:20 03/12/19 08:50 White Blood Count 10.3 x10^3/uL (4.0-11.0) Red Blood Count 2.96 x10^6/uL (3.50-5.40) Hemoglobin 7.3 g/dL (12.0-15.5) Hematocrit 22.5 % (36.0-47.0) Mean Corpuscular Volume 76 fL (79-100) Mean Corpuscular Hemoglobin 25 pg (25-35) Mean Corpuscular Hemoglobin Concent 33 g/dL (31-37) Red Cell Distribution Width 16.6 % (11.5-14.5) Platelet Count 236 x10^3/uL (140-400) Neutrophils (%) (Auto) 87 % (31-73) Lymphocytes (%) (Auto) 9 % (24-48) Monocytes (%) (Auto) 4 % (0-9) Eosinophils (%) (Auto) 0 % (0-3) Basophils (%) (Auto) 0 % (0-3) Neutrophils # (Auto) 8.9 x10^3/uL (1.8-7.7) Lymphocytes # (Auto) 0.9 x10^3/uL (1.0-4.8) Monocytes # (Auto) 0.4 x10^3/uL (0.0-1.1) Eosinophils # (Auto) 0.0 x10^3/uL (0.0-0.7) Basophils # (Auto) 0.0 x10^3/uL (0.0-0.2) Segmented Neutrophils % 75 % (35-66) Band Neutrophils % 14 % (0-9) Lymphocytes % 8 % (24-48) Monocytes % 3 % (0-10) Nucleated Red Blood Cells 1 Platelet Estimate Adequate (ADEQUATE) Polychromasia Slight Anisocytosis Slight Ovalocytes Few Sodium Level 142 mmol/L (136-145) Potassium Level 4.2 mmol/L (3.5-5.1) Chloride Level 103 mmol/L (98-107) Carbon Dioxide Level 27 mmol/L (21-32) Anion Gap 12 (6-14) Blood Urea Nitrogen 41 mg/dL (7-20) Creatinine 1.7 mg/dL (0.6-1.0) Estimated GFR (Cockcroft-Gault) 29.0 Glucose Level 219 mg/dL (70-99) Calcium Level 8.8 mg/dL (8.5-10.1) Troponin I Quantitative 3.190 ng/mL (0.000-0.055) Procalcitonin < 0.10 ng/mL (0.00-0.10) Lactic Acid Level 1.8 mmol/L (0.4-2.0) O2 Saturation 97 % (92-99) Arterial Blood pH 7.38 (7.35-7.45) Arterial Blood pCO2 at Patient Temp 44 mmHg (35-46) Arterial Blood pO2 at Patient Temp 106 mmHg (65-108) Arterial Blood HCO3 25 mmol/L (21-28) Arterial Blood Base Excess 0 mmol/L (-3-3) FiO2 60 Glucose (Fingerstick) 229 mg/dL (70-99) Test 03/12/19 16:57 03/12/19 21:37 03/13/19 00:13 03/13/19 04:15 Glucose (Fingerstick) 264 mg/dL (70-99) 227 mg/dL (70-99) O2 Saturation 93 % (92-99) Arterial Blood pH 7.41 (7.35-7.45) Arterial Blood pCO2 at Patient Temp 37 mmHg (35-46) Arterial Blood pO2 at Patient Temp 74 mmHg (65-108) Arterial Blood HCO3 23 mmol/L (21-28) Arterial Blood Base Excess -2 mmol/L (-3-3) FiO2 50 White Blood Count 13.0 x10^3/uL (4.0-11.0) Red Blood Count 3.11 x10^6/uL (3.50-5.40) Hemoglobin 7.5 g/dL (12.0-15.5) Hematocrit 23.6 % (36.0-47.0) Mean Corpuscular Volume 76 fL (79-100) Mean Corpuscular Hemoglobin 24 pg (25-35) Mean Corpuscular Hemoglobin Concent 32 g/dL (31-37) Red Cell Distribution Width 17.0 % (11.5-14.5) Platelet Count 270 x10^3/uL (140-400) Neutrophils (%) (Auto) 88 % (31-73) Lymphocytes (%) (Auto) 8 % (24-48) Monocytes (%) (Auto) 4 % (0-9) Eosinophils (%) (Auto) 0 % (0-3) Basophils (%) (Auto) 0 % (0-3) Neutrophils # (Auto) 11.4 x10^3/uL (1.8-7.7) Lymphocytes # (Auto) 1.0 x10^3/uL (1.0-4.8) Monocytes # (Auto) 0.6 x10^3/uL (0.0-1.1) Eosinophils # (Auto) 0.0 x10^3/uL (0.0-0.7) Basophils # (Auto) 0.0 x10^3/uL (0.0-0.2) Sodium Level 145 mmol/L (136-145) Potassium Level 4.0 mmol/L (3.5-5.1) Chloride Level 106 mmol/L (98-107) Carbon Dioxide Level 26 mmol/L (21-32) Anion Gap 13 (6-14) Blood Urea Nitrogen 49 mg/dL (7-20) Creatinine 1.6 mg/dL (0.6-1.0) Estimated GFR (Cockcroft-Gault) 31.1 BUN/Creatinine Ratio 31 (6-20) Glucose Level 263 mg/dL (70-99) Calcium Level 8.9 mg/dL (8.5-10.1) Magnesium Level 2.4 mg/dL (1.8-2.4) Total Bilirubin 0.6 mg/dL (0.2-1.0) Aspartate Amino Transf (AST/SGOT) 38 U/L (15-37) Alanine Aminotransferase (ALT/SGPT) 44 U/L (14-59) Alkaline Phosphatase 49 U/L (46-116) Total Protein 7.6 g/dL (6.4-8.2) Albumin 3.4 g/dL (3.4-5.0) Albumin/Globulin Ratio 0.8 (1.0-1.7) Free Thyroxine 1.08 ng/dL (0.76-1.46) Test 03/13/19 08:22 Glucose (Fingerstick) 278 mg/dL (70-99) Laboratory Tests Test 03/12/19 16:57 03/12/19 21:37 03/13/19 00:13 03/13/19 04:15 Glucose (Fingerstick) 264 mg/dL (70-99) 227 mg/dL (70-99) O2 Saturation 93 % (92-99) Arterial Blood pH 7.41 (7.35-7.45) Arterial Blood pCO2 at Patient Temp 37 mmHg (35-46) Arterial Blood pO2 at Patient Temp 74 mmHg (65-108) Arterial Blood HCO3 23 mmol/L (21-28) Arterial Blood Base Excess -2 mmol/L (-3-3) FiO2 50 White Blood Count 13.0 x10^3/uL (4.0-11.0) Red Blood Count 3.11 x10^6/uL (3.50-5.40) Hemoglobin 7.5 g/dL (12.0-15.5) Hematocrit 23.6 % (36.0-47.0) Mean Corpuscular Volume 76 fL (79-100) Mean Corpuscular Hemoglobin 24 pg (25-35) Mean Corpuscular Hemoglobin Concent 32 g/dL (31-37) Red Cell Distribution Width 17.0 % (11.5-14.5) Platelet Count 270 x10^3/uL (140-400) Neutrophils (%) (Auto) 88 % (31-73) Lymphocytes (%) (Auto) 8 % (24-48) Monocytes (%) (Auto) 4 % (0-9) Eosinophils (%) (Auto) 0 % (0-3) Basophils (%) (Auto) 0 % (0-3) Neutrophils # (Auto) 11.4 x10^3/uL (1.8-7.7) Lymphocytes # (Auto) 1.0 x10^3/uL (1.0-4.8) Monocytes # (Auto) 0.6 x10^3/uL (0.0-1.1) Eosinophils # (Auto) 0.0 x10^3/uL (0.0-0.7) Basophils # (Auto) 0.0 x10^3/uL (0.0-0.2) Sodium Level 145 mmol/L (136-145) Potassium Level 4.0 mmol/L (3.5-5.1) Chloride Level 106 mmol/L (98-107) Carbon Dioxide Level 26 mmol/L (21-32) Anion Gap 13 (6-14) Blood Urea Nitrogen 49 mg/dL (7-20) Creatinine 1.6 mg/dL (0.6-1.0) Estimated GFR (Cockcroft-Gault) 31.1 BUN/Creatinine Ratio 31 (6-20) Glucose Level 263 mg/dL (70-99) Calcium Level 8.9 mg/dL (8.5-10.1) Magnesium Level 2.4 mg/dL (1.8-2.4) Total Bilirubin 0.6 mg/dL (0.2-1.0) Aspartate Amino Transf (AST/SGOT) 38 U/L (15-37) Alanine Aminotransferase (ALT/SGPT) 44 U/L (14-59) Alkaline Phosphatase 49 U/L (46-116) Total Protein 7.6 g/dL (6.4-8.2) Albumin 3.4 g/dL (3.4-5.0) Albumin/Globulin Ratio 0.8 (1.0-1.7) Free Thyroxine 1.08 ng/dL (0.76-1.46) Test 03/13/19 08:22 Glucose (Fingerstick) 278 mg/dL (70-99) Medications Active Scripts Medications Dose Route/Sig Max Daily Dose Days Date Category Doxycycline Hyclate 50 Mg Capsule 1 Cap PO BID 7 10/15/17 Reported Doxycycline Hyclate 50 Mg Capsule 1 Cap PO BID 7 10/15/17 Reported Doxycycline Hyclate 50 Mg Capsule 1 Cap PO BID 7 10/15/17 Reported Gabapentin (Gabapentin) 100 Mg Capsule 200 Mg PO TID 10/12/17 Reported Prednisone 20 Mg Tablet 20 Mg PO DAILY 04/06/16 Rx Diazepam 5 Mg Tablet 5 Mg PO PRN Q8HRS PRN 04/06/16 Rx Percocet 5-325 Mg Tablet (Oxycodone/Acetaminophen) 1 Each Tablet 1 Each PO 6XDAY PRN 08/07/13 Reported Aspir 81 (Aspirin) 81 Mg Tablet.dr 81 Mg PO DAILY 08/07/13 Reported [place]lake-3 (Eastlake-3 Fatty Acids) 1,000 Mg Capsule 1,200 Mg PO BID 08/07/13 Reported Omeprazole 20 Mg Capsule.dr 20 Mg PO BID 08/07/13 Reported Tiazac (Diltiazem Hcl) 240 Mg Capsule.er 240 Mg PO DAILY 08/07/13 Reported Xopenex Hfa (Levalbuterol Tartrate) 15 Gm Hfa.aer.ad 15 Gm IH BID PRN 08/07/13 Reported Metformin Hcl 500 Mg Tablet 500 Mg PO BID 08/07/13 Reported Comments CTA chest 1. No pulmonary embolus identified within the main, lobar or proximal segmental pulmonary arteries. Limitations as described above. 2. Findings likely related to diffuse severe pulmonary edema, with small right and trace left pleural effusion. Superimposed infectious process is difficult to exclude. Exposure: One or more of the following in the visualized dose reduction techniques were utilized for this examination: 1. Automated exposure control 2. Adjustment of the MA and/or KV according to patient size 3. Use of iterative of reconstructive technique Electronically signed by: Kian Miguel MD (03/11/2019 6:04 PM) [facility] [place] Impression . 1. Acute hypoxic respiratory failure secondary to diffuse interstitial edema 2. Abnormal echo with a low normal ejection fraction of 50% and grade 1 diastolic dysfunction. Now with increase troponin. NSTMI 3. Minimal history of tobacco use. 4. increased troponin levels./ NSTMI 5. Lactic acidosis secondary to work of breathing 6. Obesity 7. h/o CAD, stents 8. ACUTE KIDNEY INJURY 9. NON SPECIFIC ALVEOLITIS/ DOUBT INFECTION Plan . SPOKE WITH RN WILL CONTINUE BIPAP WILL NEED DOBOFF AT TIMES AGITATED SEC TO LEG DISCOMFORT FROM RESTLESS LEGS LA LEVEL DOWN WILL HOLD DIURESIS FOR NOW SEC TO INCREASE CREAT FOLLOW CARK STEROIDS ANITBX PER ID CCT 30 MIN REVIEWED DATA/XRAYS/ FORMULATING A PLAN AND D/W FAMILY BRADLEY DE LOS SANTOS MD Mar 13, 2019 09:29
--- NOTE | 2019-03-13 09:55 | RAD ---
CHEST AP ONLY 03/13/2019 8:56 AM INDICATION: Adverse changes COMPARISON: 03/12/2019 TECHNIQUE: Portable frontal view of the chest is provided. FINDINGS: The cardiomediastinal silhouette is similar in appearance. Surgical clips are identified in the left axilla. Similar bilateral perihilar mixed interstitial and alveolar airspace disease is noted. Trace left pleural effusion is noted. No pneumothorax. IMPRESSION: Aeration of the lungs appears similar to the prior examination. Electronically signed by: Liliana Locke MD (03/13/2019 9:52 AM) [facility]
[2019-03-13] MEDS ORDERED: FUROSEMIDE 40 MG/4 ML VIAL. IVP ONE (11:30)
--- NOTE | 2019-03-13 11:40 | PDOC ---
CARDIO Progress Notes Date and Time Date of Service 03/13/2019 Time of Evaluation 1110 Subjective Subjective: Other (Still has SOA on bipap) Vitals Vitals Vital Signs Date Time Temp Pulse Resp B/P (MAP) Pulse Ox O2 Delivery O2 Flow Rate FiO2 03/13/19 08:30 94 BiPAP/CPAP 03/13/19 06:00 112 25 161/70 (100) 03/13/19 04:00 97.4 97.4 03/12/19 17:49 10.0 Weight Weight [ ] Input and Output Intake and Output Intake and Output 03/13/19 07:00 Intake Total 460 ml Output Total 1520 ml Balance -1060 ml Intake Oral 210 ml IV Total 250 ml Output Urine Total 1520 ml Laboratory Labs Laboratory Tests Test 03/12/19 16:57 03/12/19 21:37 03/13/19 00:13 03/13/19 04:15 Glucose (Fingerstick) 264 mg/dL (70-99) 227 mg/dL (70-99) O2 Saturation 93 % (92-99) Arterial Blood pH 7.41 (7.35-7.45) Arterial Blood pCO2 at Patient Temp 37 mmHg (35-46) Arterial Blood pO2 at Patient Temp 74 mmHg (65-108) Arterial Blood HCO3 23 mmol/L (21-28) Arterial Blood Base Excess -2 mmol/L (-3-3) FiO2 50 White Blood Count 13.0 x10^3/uL (4.0-11.0) Red Blood Count 3.11 x10^6/uL (3.50-5.40) Hemoglobin 7.5 g/dL (12.0-15.5) Hematocrit 23.6 % (36.0-47.0) Mean Corpuscular Volume 76 fL (79-100) Mean Corpuscular Hemoglobin 24 pg (25-35) Mean Corpuscular Hemoglobin Concent 32 g/dL (31-37) Red Cell Distribution Width 17.0 % (11.5-14.5) Platelet Count 270 x10^3/uL (140-400) Neutrophils (%) (Auto) 88 % (31-73) Lymphocytes (%) (Auto) 8 % (24-48) Monocytes (%) (Auto) 4 % (0-9) Eosinophils (%) (Auto) 0 % (0-3) Basophils (%) (Auto) 0 % (0-3) Neutrophils # (Auto) 11.4 x10^3/uL (1.8-7.7) Lymphocytes # (Auto) 1.0 x10^3/uL (1.0-4.8) Monocytes # (Auto) 0.6 x10^3/uL (0.0-1.1) Eosinophils # (Auto) 0.0 x10^3/uL (0.0-0.7) Basophils # (Auto) 0.0 x10^3/uL (0.0-0.2) Sodium Level 145 mmol/L (136-145) Potassium Level 4.0 mmol/L (3.5-5.1) Chloride Level 106 mmol/L (98-107) Carbon Dioxide Level 26 mmol/L (21-32) Anion Gap 13 (6-14) Blood Urea Nitrogen 49 mg/dL (7-20) Creatinine 1.6 mg/dL (0.6-1.0) Estimated GFR (Cockcroft-Gault) 31.1 BUN/Creatinine Ratio 31 (6-20) Glucose Level 263 mg/dL (70-99) Calcium Level 8.9 mg/dL (8.5-10.1) Magnesium Level 2.4 mg/dL (1.8-2.4) Total Bilirubin 0.6 mg/dL (0.2-1.0) Aspartate Amino Transf (AST/SGOT) 38 U/L (15-37) Alanine Aminotransferase (ALT/SGPT) 44 U/L (14-59) Alkaline Phosphatase 49 U/L (46-116) Total Protein 7.6 g/dL (6.4-8.2) Albumin 3.4 g/dL (3.4-5.0) Albumin/Globulin Ratio 0.8 (1.0-1.7) Free Thyroxine 1.08 ng/dL (0.76-1.46) Test 03/13/19 08:22 Glucose (Fingerstick) 278 mg/dL (70-99) Microbiology Micro Microbiology 03/10/19 Urine Culture - Final, Complete 03/10/19 Urine Culture Result 1 ([facility]) - Final, Complete 03/10/19 Blood Culture - Preliminary, Resulted NO GROWTH AFTER 3 DAYS Physical Exam HEENT: Neck Supple W Full Motion Chest: Symmetric LUNGS: Other (diminished, biapap in place) Heart: RRR (SR/ST) Abdomen: Other (soft/obese) Extremities: Other (RLS) Neurology: other (sedated) Assessment Assessment 1. Acute hypoxic respiratory failure with diastolic CHF 2. Acute diastolic CHF: EF and WM nml 3. Microcytic hypochromic anemia: Hgb 7.5, unclear etiology baseline noted at Hgb 9-11 in the past 4. NSTEMI: possibly type 2 5. ANNE: Cr at 1.6 6. Lactic acidosis: better 7. Obesity 8. CAD: past stents 9. Metabolic encephalopathy: presently on precedex 10. DM2/HLP 11. RLS Recommendations 1. Trop. lipids. EKG 2. ASA. Lasix therapy. 3. Continue Bipap, will consider ischemic workup once respiratory status better and anemia etiology is delineated PAPA ABREU APRN Mar 13, 2019 11:40
--- NOTE | 2019-03-13 12:13 | EKG ---
[facility] [address] [place] [address] Test Date: 2019-03-13 Test Time: 12:02:31 Pat Name: THEODORE PADILLA Department: Room: 103 1 Gender: F Bran Mixer: ROLAND : 1940 Requested By: PAPA ABREU Order Number: [id number] Reading MD: Jonah Antonio MD Measurements Intervals [place] Rate: 76 P: 57 [place]: 174 QRS: 22 QRSD: 82 T: 179 QT: 398 QTc: 452 Interpretive Statements SINUS RHYTHM LVH CONSIDER ISCHEMIA Electronically Signed On 03-20-2019 11:33:37 CDT by Jonah Antonio MD
[2019-03-13 12:14] LABS: CHOLESTEROL/HDL RATIO 4.6
[2019-03-13] MEDS: DOXYCYCLINE HYCLATE 100 MG in IV DEXTROSE 5% 100ML 100 ML IV SCH ×2 (12:31→21:36)
[2019-03-13] MEDS: INSULIN LISPRO 300 UNITS/3 ML VIAL. SQ SCH ×2 (12:42→18:08)
--- NOTE | 2019-03-13 15:59 | RAD ---
Procedure: Ultrasound-guided placement of right internal jugular central venous zleurbdx80/8/2019 1:55 PM Clinical Indication: limited IV access Discussion: The risks and benefits of the procedure were discussed the patient and/or their nutrition representative. Informed consent was obtained. A timeout procedure was performed. All elements of maximal sterile barrier technique including the use of a cap, mask, sterile gown, sterile gloves, large sterile sheet, appropriate hand hygiene, and 2% chlorhexidine for cutaneous antisepsis (or acceptable alternative antiseptic per current guidelines) were followed for this procedure. The patient was prepped and draped in the usual sterile fashion. Ultrasound interrogation of the right neck revealed patency and compressibility of the right internal jugular vein. A 21-gauge micropuncture was then used to gain access to this vein under ultrasound guidance. A hard copy ultrasound image was recorded. A guidewire was advanced centrally. 5 Macanese sheath was placed. Over a wire following dilatation, a triple-lumen central venous catheter was advanced centrally. Catheter was found to flush and aspirate normally. Follow-up chest radiograph demonstrates tip at the cavoatrial junction. Catheter secured in place and a sterile dressing was applied. No immediate complications were identified. Impression: Successful ultrasound-guided placement of right internal jugular triple-lumen central venous catheter
--- NOTE | 2019-03-13 16:36 | RAD ---
EXAM: Chest, single view. HISTORY: Central line placement. COMPARISON: 03/13/2019 FINDINGS: A frontal view of the chest obtained. There is a right internal jugular catheter with the tip in the superior right atrium. There has been no change in mixed diffuse interstitial and alveolar infiltrate. There are small bilateral pleural effusions. There are left axillary clips. IMPRESSION: 1. Right central venous catheter with the tip in the superior right atrium. 2. Stable diffuse infiltrate and small pleural effusions. Electronically signed by: Britta Pearce MD (03/13/2019 4:33 PM) [place] [id number]
--- NOTE | 2019-03-13 18:46 | NUR ---
Precedex promoted increased comfort w RLS allowing periods of rest . TLC placed am per IR x-ray confirms placement and ability to use. HR,BP,Respirs all better after Precedex. Attempted unsuccessfully to place Dobbhoff each nares. Rapid desaturation from 99-72. topped for now
--- NOTE | 2019-03-13 20:00 | NUR ---
This RN and preceptor RN attempted to place dobhoff in patient. The right nare was used, first attempt at placing, patient grabbed tube and pulled it out. Second attempt, dobhoff made it down to measurement, air bolus completed to check placement, but was unable to hear bolus in the stomach. Dobhoff removed. Patient placed back on bipap, due to desaturation.
[2019-03-13] MEDS: ATORVASTATIN CALCIUM 20 MG TABLET PO SCH (21:00)
[2019-03-14] VITALS (22 sets, daily range): BP systolic 115–141; BP diastolic 62–75
[2019-03-14] MEDS: PIPERACILLIN/TAZOBACTAM 3.375 GM in IV NORMAL SALINE 50ML 50 ML IV SCH ×2 (05:31→12:37)
[2019-03-14 06:09] LABS: CALCIUM 9.1 mg/dL (8.5-10.1); CREATININE 1.8 mg/dL (0.6-1.0); GFR 27.1; POTASSIUM 3.6 mmol/L (3.5-5.1)
[2019-03-14 06:19] LABS: BASO % 0 % (0-3); EOS % 0 % (0-3); HEMATOCRIT 24.2 % (36.0-47.0); HEMOGLOBIN 7.7 g/dL (12.0-15.5); LYMPH # 1.1 x10^3/uL (1.0-4.8); LYMPH % 10 % (24-48); MEAN CORPUSCULAR HEMOGLOBIN 24 pg (25-35); MEAN CORPUSCULAR HGB CONC 32 g/dL (31-37); MEAN CORPUSCULAR VOLUME 77 fL (79-100); MONO # 0.3 x10^3/uL (0.0-1.1); MONO % 3 % (0-9); NEUT # 9.2 x10^3/uL (1.8-7.7); NEUT % 87 % (31-73); PLATELET COUNT 237 x10^3/uL (140-400); RED BLOOD COUNT 3.15 x10^6/uL (3.50-5.40); WHITE BLOOD COUNT 10.6 x10^3/uL (4.0-11.0)
--- NOTE | 2019-03-14 06:48 | PDOC ---
Infectious Disease Note Subjective Subjective Restless on Bipap ROS ROS unable to obtain Vital Sign Vital Signs Vital Signs Date Time Temp Pulse Resp B/P (MAP) Pulse Ox O2 Delivery O2 Flow Rate FiO2 03/14/19 06:00 81 15 137/75 (95) 100 BiPAP/CPAP 03/14/19 04:00 10.0 03/14/19 04:00 98.5 98.5 Physical Exam PHYSICAL EXAM CONSTITUTIONAL: She is lying in bed. She is on BiPAP. She is restless HEENT: Pupils are equal and reactive. Normal conjunctivae. NECK: Supple. LUNGS: Decreased without gross wheeze. HEART: S1, S2. ABDOMEN: Obese, soft, nontender. No guarding. EXTREMITIES: Without clubbing or cyanosis. No gross edema. + MITTS GENITOURINARY: She has a Oakes in place. IV: R neck triple lumen is clean SKIN: Warm, without generalized signs of rash. NEUROLOGICAL: She is alert and restless Labs Lab Laboratory Tests Test 03/13/19 08:22 03/13/19 12:38 03/13/19 16:55 03/13/19 17:17 Glucose (Fingerstick) 278 mg/dL (70-99) 355 mg/dL (70-99) 183 mg/dL (70-99) Erythrocyte Sedimentation Rate 81 (0-25) Test 03/13/19 21:44 03/14/19 05:40 Glucose (Fingerstick) 148 mg/dL (70-99) White Blood Count 10.6 x10^3/uL (4.0-11.0) Red Blood Count 3.15 x10^6/uL (3.50-5.40) Hemoglobin 7.7 g/dL (12.0-15.5) Hematocrit 24.2 % (36.0-47.0) Mean Corpuscular Volume 77 fL (79-100) Mean Corpuscular Hemoglobin 24 pg (25-35) Mean Corpuscular Hemoglobin Concent 32 g/dL (31-37) Red Cell Distribution Width 17.0 % (11.5-14.5) Platelet Count 237 x10^3/uL (140-400) Neutrophils (%) (Auto) 87 % (31-73) Lymphocytes (%) (Auto) 10 % (24-48) Monocytes (%) (Auto) 3 % (0-9) Eosinophils (%) (Auto) 0 % (0-3) Basophils (%) (Auto) 0 % (0-3) Neutrophils # (Auto) 9.2 x10^3/uL (1.8-7.7) Lymphocytes # (Auto) 1.1 x10^3/uL (1.0-4.8) Monocytes # (Auto) 0.3 x10^3/uL (0.0-1.1) Eosinophils # (Auto) 0.0 x10^3/uL (0.0-0.7) Basophils # (Auto) 0.0 x10^3/uL (0.0-0.2) Sodium Level 149 mmol/L (136-145) Potassium Level 3.6 mmol/L (3.5-5.1) Chloride Level 110 mmol/L (98-107) Carbon Dioxide Level 25 mmol/L (21-32) Anion Gap 14 (6-14) Blood Urea Nitrogen 68 mg/dL (7-20) Creatinine 1.8 mg/dL (0.6-1.0) Estimated GFR (Cockcroft-Gault) 27.1 Glucose Level 288 mg/dL (70-99) Calcium Level 9.1 mg/dL (8.5-10.1) Micro Microbiology 03/10/19 Blood Culture - Preliminary, Resulted NO GROWTH AFTER 1 DAY Objective Assessment leukocytosis - ? reactive/Steroids - better Lactic acidosis - better nml procalcitonin 03/13 Elevated Troponin Acure resp failure -on Bipap ANNE - little worse Pulm edema Encephalopathy - now more agitated/restless Plan Plan of Care Cont Zosyn 03/11/Doxy (03/12) (Previous Rocephin 03/10) Dapto times one 03/12 F/u labs and cults Would consider neuro eval if meds deemed not causing encephalopathy D/w nursing KARTHIK ALVARADO MD Mar 14, 2019 06:48
[2019-03-14] MEDS: PANTOPRAZOLE 40 MG TABLET.DR. PO SCH (07:30)
[2019-03-14] MEDS: ASPIRIN ENTERIC COATED 81 MG TABLET.DR. PO SCH (08:00)
[2019-03-14] MEDS: metFORMIN 500 MG TABLET PO SCH (08:00)
--- NOTE | 2019-03-14 08:04 | PN ---
DATE: 03/14/2019 LOCATION: She is in room ICU 103. SUBJECTIVE: The patient appears less restless today, but is on Precedex this morning. She does not respond to me verbally in any way this morning, but moves all extremities. OBJECTIVE: VITAL SIGNS: Stable. She is afebrile. CHEST: Reveals much decrease in crackles. HEART: Regular. ABDOMEN: Benign. Oakes in place with minimal blood-tinged urine. LABORATORY DATA: Hemoglobin is up to 7.7 this morning, white count at 10.6. Sed rate is 81. Sugars have been variable from 148-355 and is on sliding scale insulin. BUN and creatinine are 68 and 1.8 this morning. IMPRESSION: Lactic acidosis, improved elevated sed rate, non-ST elevated myocardial infarction, acute respiratory failure, on BiPAP, acute kidney injury, pulmonary edema, encephalopathy, restless legs, possible sepsis. PLAN: Continue present supportive care. Discussed with nursing in detail. They were unable to place a Dobbhoff yesterday due to desaturation and we will start her on some procalamine today. Continue to follow labs. Continue broad spectrum antibiotics and diuresis. JOHN HAMM MD DR: MARSHALL/gildardo JOB#: [id number] / [id number]
[2019-03-14] MEDS: IPRATROPIUM BROMIDE 0.5 MG/2.5 ML NEBU. NEB SCH ×4 (08:25→19:40)
[2019-03-14] MEDS ORDERED: FUROSEMIDE 40 MG/4 ML VIAL. IVP SCH (09:00)
[2019-03-14] MEDS: LACTOBACILLUS RHAMNOSUS GG 1 CAPSULE. PO SCH ×2 (09:00→21:00)
[2019-03-14] MEDS: methylPREDNISolone SOD SUCC PF 40 MG/ML VIAL. IV SCH ×2 (09:00→22:17)
[2019-03-14] MEDS: GABAPENTIN 300 MG CAPSULE. PO SCH ×3 (09:00→21:00)
[2019-03-14] MEDS: INSULIN LISPRO 300 UNITS/3 ML VIAL. SQ SCH ×3 (09:20→18:19)
[2019-03-14] MEDS: DOXYCYCLINE HYCLATE 100 MG in IV DEXTROSE 5% 100ML 100 ML IV SCH ×2 (09:22→22:16)
--- NOTE | 2019-03-14 09:32 | PDOC ---
PULMONARY PROGRESS NOTES Subjective PT SEDATED ON BIPAP AT TIMES VERY AGITATED WHEN OFF PRECEDEX Vitals Vital Signs Date Time Temp Pulse Resp B/P (MAP) Pulse Ox O2 Delivery O2 Flow Rate FiO2 03/14/19 08:26 99 BiPAP/CPAP 03/14/19 06:00 81 15 137/75 (95) 03/14/19 04:00 10.0 03/14/19 04:00 98.5 98.5 Lungs: Crackles (bases) Cardiovascular: S1, S2 Abdomen: Soft Extremities: Other (1+edema) Skin: Warm Labs Laboratory Tests Test 03/12/19 16:57 03/12/19 21:37 03/13/19 00:13 03/13/19 04:15 Glucose (Fingerstick) 264 mg/dL (70-99) 227 mg/dL (70-99) O2 Saturation 93 % (92-99) Arterial Blood pH 7.41 (7.35-7.45) Arterial Blood pCO2 at Patient Temp 37 mmHg (35-46) Arterial Blood pO2 at Patient Temp 74 mmHg (65-108) Arterial Blood HCO3 23 mmol/L (21-28) Arterial Blood Base Excess -2 mmol/L (-3-3) FiO2 50 White Blood Count 13.0 x10^3/uL (4.0-11.0) Red Blood Count 3.11 x10^6/uL (3.50-5.40) Hemoglobin 7.5 g/dL (12.0-15.5) Hematocrit 23.6 % (36.0-47.0) Mean Corpuscular Volume 76 fL (79-100) Mean Corpuscular Hemoglobin 24 pg (25-35) Mean Corpuscular Hemoglobin Concent 32 g/dL (31-37) Red Cell Distribution Width 17.0 % (11.5-14.5) Platelet Count 270 x10^3/uL (140-400) Neutrophils (%) (Auto) 88 % (31-73) Lymphocytes (%) (Auto) 8 % (24-48) Monocytes (%) (Auto) 4 % (0-9) Eosinophils (%) (Auto) 0 % (0-3) Basophils (%) (Auto) 0 % (0-3) Neutrophils # (Auto) 11.4 x10^3/uL (1.8-7.7) Lymphocytes # (Auto) 1.0 x10^3/uL (1.0-4.8) Monocytes # (Auto) 0.6 x10^3/uL (0.0-1.1) Eosinophils # (Auto) 0.0 x10^3/uL (0.0-0.7) Basophils # (Auto) 0.0 x10^3/uL (0.0-0.2) Sodium Level 145 mmol/L (136-145) Potassium Level 4.0 mmol/L (3.5-5.1) Chloride Level 106 mmol/L (98-107) Carbon Dioxide Level 26 mmol/L (21-32) Anion Gap 13 (6-14) Blood Urea Nitrogen 49 mg/dL (7-20) Creatinine 1.6 mg/dL (0.6-1.0) Estimated GFR (Cockcroft-Gault) 31.1 BUN/Creatinine Ratio 31 (6-20) Glucose Level 263 mg/dL (70-99) Calcium Level 8.9 mg/dL (8.5-10.1) Magnesium Level 2.4 mg/dL (1.8-2.4) Total Bilirubin 0.6 mg/dL (0.2-1.0) Aspartate Amino Transf (AST/SGOT) 38 U/L (15-37) Alanine Aminotransferase (ALT/SGPT) 44 U/L (14-59) Alkaline Phosphatase 49 U/L (46-116) Troponin I Quantitative 2.144 ng/mL (0.000-0.055) Total Protein 7.6 g/dL (6.4-8.2) Albumin 3.4 g/dL (3.4-5.0) Albumin/Globulin Ratio 0.8 (1.0-1.7) Triglycerides Level 240 mg/dL (0-150) Cholesterol Level 188 mg/dL (0-200) LDL Cholesterol, Calculated 99 mg/dL (0-100) VLDL Cholesterol, Calculated 48 mg/dL (0-40) Non-HDL Cholesterol Calculated 147 mg/dL (0-129) HDL Cholesterol 41 mg/dL (40-60) Cholesterol/HDL Ratio 4.6 Procalcitonin < 0.10 ng/mL (0.00-0.10) Free Thyroxine 1.08 ng/dL (0.76-1.46) Test 03/13/19 08:22 03/13/19 12:38 03/13/19 16:55 03/13/19 17:17 Glucose (Fingerstick) 278 mg/dL (70-99) 355 mg/dL (70-99) 183 mg/dL (70-99) Erythrocyte Sedimentation Rate 81 (0-25) Test 03/13/19 21:44 03/14/19 05:40 03/14/19 09:11 Glucose (Fingerstick) 148 mg/dL (70-99) 295 mg/dL (70-99) White Blood Count 10.6 x10^3/uL (4.0-11.0) Red Blood Count 3.15 x10^6/uL (3.50-5.40) Hemoglobin 7.7 g/dL (12.0-15.5) Hematocrit 24.2 % (36.0-47.0) Mean Corpuscular Volume 77 fL (79-100) Mean Corpuscular Hemoglobin 24 pg (25-35) Mean Corpuscular Hemoglobin Concent 32 g/dL (31-37) Red Cell Distribution Width 17.0 % (11.5-14.5) Platelet Count 237 x10^3/uL (140-400) Neutrophils (%) (Auto) 87 % (31-73) Lymphocytes (%) (Auto) 10 % (24-48) Monocytes (%) (Auto) 3 % (0-9) Eosinophils (%) (Auto) 0 % (0-3) Basophils (%) (Auto) 0 % (0-3) Neutrophils # (Auto) 9.2 x10^3/uL (1.8-7.7) Lymphocytes # (Auto) 1.1 x10^3/uL (1.0-4.8) Monocytes # (Auto) 0.3 x10^3/uL (0.0-1.1) Eosinophils # (Auto) 0.0 x10^3/uL (0.0-0.7) Basophils # (Auto) 0.0 x10^3/uL (0.0-0.2) Sodium Level 149 mmol/L (136-145) Potassium Level 3.6 mmol/L (3.5-5.1) Chloride Level 110 mmol/L (98-107) Carbon Dioxide Level 25 mmol/L (21-32) Anion Gap 14 (6-14) Blood Urea Nitrogen 68 mg/dL (7-20) Creatinine 1.8 mg/dL (0.6-1.0) Estimated GFR (Cockcroft-Gault) 27.1 Glucose Level 288 mg/dL (70-99) Calcium Level 9.1 mg/dL (8.5-10.1) Laboratory Tests Test 03/13/19 12:38 03/13/19 16:55 03/13/19 17:17 03/13/19 21:44 Glucose (Fingerstick) 355 mg/dL (70-99) 183 mg/dL (70-99) 148 mg/dL (70-99) Erythrocyte Sedimentation Rate 81 (0-25) Test 03/14/19 05:40 03/14/19 09:11 White Blood Count 10.6 x10^3/uL (4.0-11.0) Red Blood Count 3.15 x10^6/uL (3.50-5.40) Hemoglobin 7.7 g/dL (12.0-15.5) Hematocrit 24.2 % (36.0-47.0) Mean Corpuscular Volume 77 fL (79-100) Mean Corpuscular Hemoglobin 24 pg (25-35) Mean Corpuscular Hemoglobin Concent 32 g/dL (31-37) Red Cell Distribution Width 17.0 % (11.5-14.5) Platelet Count 237 x10^3/uL (140-400) Neutrophils (%) (Auto) 87 % (31-73) Lymphocytes (%) (Auto) 10 % (24-48) Monocytes (%) (Auto) 3 % (0-9) Eosinophils (%) (Auto) 0 % (0-3) Basophils (%) (Auto) 0 % (0-3) Neutrophils # (Auto) 9.2 x10^3/uL (1.8-7.7) Lymphocytes # (Auto) 1.1 x10^3/uL (1.0-4.8) Monocytes # (Auto) 0.3 x10^3/uL (0.0-1.1) Eosinophils # (Auto) 0.0 x10^3/uL (0.0-0.7) Basophils # (Auto) 0.0 x10^3/uL (0.0-0.2) Sodium Level 149 mmol/L (136-145) Potassium Level 3.6 mmol/L (3.5-5.1) Chloride Level 110 mmol/L (98-107) Carbon Dioxide Level 25 mmol/L (21-32) Anion Gap 14 (6-14) Blood Urea Nitrogen 68 mg/dL (7-20) Creatinine 1.8 mg/dL (0.6-1.0) Estimated GFR (Cockcroft-Gault) 27.1 Glucose Level 288 mg/dL (70-99) Calcium Level 9.1 mg/dL (8.5-10.1) Glucose (Fingerstick) 295 mg/dL (70-99) Medications Active Scripts Medications Dose Route/Sig Max Daily Dose Days Date Category Doxycycline Hyclate 50 Mg Capsule 1 Cap PO BID 7 10/15/17 Reported Doxycycline Hyclate 50 Mg Capsule 1 Cap PO BID 7 10/15/17 Reported Doxycycline Hyclate 50 Mg Capsule 1 Cap PO BID 7 10/15/17 Reported Gabapentin (Gabapentin) 100 Mg Capsule 200 Mg PO TID 10/12/17 Reported Prednisone 20 Mg Tablet 20 Mg PO DAILY 04/06/16 Rx Diazepam 5 Mg Tablet 5 Mg PO PRN Q8HRS PRN 04/06/16 Rx Percocet 5-325 Mg Tablet (Oxycodone/Acetaminophen) 1 Each Tablet 1 Each PO 6XDAY PRN 08/07/13 Reported Aspir 81 (Aspirin) 81 Mg Tablet.dr 81 Mg PO DAILY 08/07/13 Reported Madison-3 (Madison-3 Fatty Acids) 1,000 Mg Capsule 1,200 Mg PO BID 08/07/13 Reported Omeprazole 20 Mg Capsule.dr 20 Mg PO BID 08/07/13 Reported Tiazac (Diltiazem Hcl) 240 Mg Capsule.er 240 Mg PO DAILY 08/07/13 Reported Xopenex Hfa (Levalbuterol Tartrate) 15 Gm Hfa.aer.ad 15 Gm IH BID PRN 08/07/13 Reported Metformin Hcl 500 Mg Tablet 500 Mg PO BID 08/07/13 Reported Comments CTA chest 1. No pulmonary embolus identified within the main, lobar or proximal segmental pulmonary arteries. Limitations as described above. 2. Findings likely related to diffuse severe pulmonary edema, with small right and trace left pleural effusion. Superimposed infectious process is difficult to exclude. Exposure: One or more of the following in the visualized dose reduction techniques were utilized for this examination: 1. Automated exposure control 2. Adjustment of the MA and/or KV according to patient size 3. Use of iterative of reconstructive technique Electronically signed by: Kian Miguel MD (03/11/2019 6:04 PM) [facility] Impression . 1. Acute hypoxic respiratory failure secondary to diffuse interstitial edema 2. Abnormal echo with a low normal ejection fraction of 50% and grade 1 diastolic dysfunction. Now with increase troponin. NSTMI 3. Minimal history of tobacco use. 4. increased troponin levels./ NSTMI 5. Lactic acidosis secondary to work of breathing 6. Obesity 7. h/o CAD, stents 8. ACUTE KIDNEY INJURY 9. NON SPECIFIC ALVEOLITIS/ DOUBT INFECTION Plan . WILL REPEAT CXR D/W FAMILY CT HEAD SPOKE WITH RN WILL CONTINUE BIPAP UNABLE TO PLACE DOBOFF WILL HOLD DIURESIS FOR NOW SEC TO INCREASE CREAT FOLLOW CARD STEROIDS ANITBX PER ID CCT 30 MIN REVIEWED DATA/XRAYS/ FORMULATING A PLAN AND D/W FAMILY BRADLEY DE LOS SANTOS MD Mar 14, 2019 09:32
--- NOTE | 2019-03-14 12:32 | PDOC ---
CARDIO Progress Notes Date and Time Date of Service 03/14/2019 Time of Evaluation 1210 Subjective Subjective: Other (sedated, bipap in place) Vitals Vitals Vital Signs Date Time Temp Pulse Resp B/P (MAP) Pulse Ox O2 Delivery O2 Flow Rate FiO2 03/14/19 10:00 76 18 100 BiPAP/CPAP 03/14/19 09:55 10.0 03/14/19 08:00 97.8 97.8 Weight Weight [ ] Input and Output Intake and Output Intake and Output 03/14/19 07:00 Intake Total 771 ml Output Total 1895 ml Balance -1124 ml Intake Oral 0 ml IV Total 771 ml Output Urine Total 1895 ml Laboratory Labs Laboratory Tests Test 03/13/19 12:38 03/13/19 16:55 03/13/19 17:17 03/13/19 21:44 Glucose (Fingerstick) 355 mg/dL (70-99) 183 mg/dL (70-99) 148 mg/dL (70-99) Erythrocyte Sedimentation Rate 81 (0-25) Test 03/14/19 05:40 03/14/19 09:11 03/14/19 12:15 White Blood Count 10.6 x10^3/uL (4.0-11.0) Red Blood Count 3.15 x10^6/uL (3.50-5.40) Hemoglobin 7.7 g/dL (12.0-15.5) Hematocrit 24.2 % (36.0-47.0) Mean Corpuscular Volume 77 fL (79-100) Mean Corpuscular Hemoglobin 24 pg (25-35) Mean Corpuscular Hemoglobin Concent 32 g/dL (31-37) Red Cell Distribution Width 17.0 % (11.5-14.5) Platelet Count 237 x10^3/uL (140-400) Neutrophils (%) (Auto) 87 % (31-73) Lymphocytes (%) (Auto) 10 % (24-48) Monocytes (%) (Auto) 3 % (0-9) Eosinophils (%) (Auto) 0 % (0-3) Basophils (%) (Auto) 0 % (0-3) Neutrophils # (Auto) 9.2 x10^3/uL (1.8-7.7) Lymphocytes # (Auto) 1.1 x10^3/uL (1.0-4.8) Monocytes # (Auto) 0.3 x10^3/uL (0.0-1.1) Eosinophils # (Auto) 0.0 x10^3/uL (0.0-0.7) Basophils # (Auto) 0.0 x10^3/uL (0.0-0.2) Sodium Level 149 mmol/L (136-145) Potassium Level 3.6 mmol/L (3.5-5.1) Chloride Level 110 mmol/L (98-107) Carbon Dioxide Level 25 mmol/L (21-32) Anion Gap 14 (6-14) Blood Urea Nitrogen 68 mg/dL (7-20) Creatinine 1.8 mg/dL (0.6-1.0) Estimated GFR (Cockcroft-Gault) 27.1 Glucose Level 288 mg/dL (70-99) Calcium Level 9.1 mg/dL (8.5-10.1) Glucose (Fingerstick) 295 mg/dL (70-99) 268 mg/dL (70-99) Microbiology Micro Microbiology 03/10/19 Urine Culture - Final, Complete 03/10/19 Urine Culture Result 1 ([facility]) - Final, Complete 03/10/19 Blood Culture - Preliminary, Resulted NO GROWTH AFTER 4 DAYS Physical Exam HEENT: Neck Supple W Full Motion Chest: Symmetric LUNGS: Other (diminished, bipap in place) Heart: RRR (SR/ST) Abdomen: Other (soft/obese) Extremities: Other (RLS) Neurology: other (sedated) Assessment Assessment 1. Acute hypoxic respiratory failure with diastolic CHF: improving 2. Acute diastolic CHF: EF and WM nml. Adequate diurese in the last 3 days. 3. Microcytic hypochromic anemia: Hgb 7.7, unclear etiology baseline noted at Hgb 9-11 in the past 4. NSTEMI: possibly type 2. peaked trop 2.1 5. ANNE: becoming more uremic due to inadequate intake 6. Lactic acidosis: better 7. Obesity 8. CAD: past stents >20 yrs ago 9. Metabolic encephalopathy: presently on precedex 10. DM2/HLP 11. RLS Recommendations 1. Agree withholding diuretic for now. Start on IVF, Monitor renal function 2. ASA. Statin 3. Continue Bipap. 4. Remains on precedex with periods of agitation 5. Continue to optimize lung and renal function. Rhythm stable. Ischemic workup could be done as an outpt and will follow up with her spouses holder pile driving at [facility] 6. Will stop metformin PAPA ABREU APRN Mar 14, 2019 12:32
[2019-03-14] MEDS ORDERED: IV 1/2 NORMAL SALINE 1,000 ML IV SCH ×2 (14:15→18:30)
[2019-03-14] MEDS: TPN PER PHARMACY MC PRN ×2 (15:17→15:25)
--- NOTE | 2019-03-14 15:33 | NUR ---
Pharmacy TPN Dosing Note S: THEODORE PADILLA is a 78 year old F Currently receiving Central Continuous TPN started 03/14/19 B:Pertinent PMH: NPO Height: 5 feet, 2 inches Weight: 90.776180 kg Current diet: LABS: Sodium: 149 Potassium: 3.6 Chloride: 110 Calcium: 9.1 Corrected Calcium: 9.58 Magnesium: CO2: 25 SCr: 1.2 Glucose: 288 Albumin: 3.4 AST: 38 ALT: 23 TPN FORMULA: TPN TYPE: Central Continuous AMINO ACIDS: 60 gm DEXTROSE: 195 gm LIPIDS: 20 gm SODIUM CHLORIDE: 70 mEq SODIUM ACETATE: mEq SODIUM PHOSPHATE: mmol POTASSIUM CHLORIDE: 50 mEq POTASSIUM ACETATE: mEq POTASSIUM PHOSPHATE: 13.6 mmol MAGNESIUM: 10 mEq CALCIUM: 10 mEq INSULIN: 10 units MULTIPLE VITAMIN: 10 ml TRACE ELEMENTS: 1 ml(s) TPN PLAN: HOUSE TPN,ADD 10 UNITS INSULIN , BS 288, R: Begin TPN AT 63 ML/HR Will monitor electrolytes, glucose, and tolerance to TPN. DANNY BARONE [facility], 03/14/19 153
--- NOTE | 2019-03-14 17:32 | RAD ---
EXAM: CT Head without IV contrast CLINICAL HISTORY: Encephalopathy COMPARISON: 10/12/2017 TECHNIQUE: Routine CT of the head without contrast. Soft tissues and bone windows were reviewed. PQRS compliance statement - One or more of the following individualized dose reduction techniques were utilized for this study: 1. Automated exposure control 2. Adjustment of the mA and/or kV according to patient size 3. Use of iterative reconstruction technique FINDINGS: There is no evidence of hemorrhage, mass or extra-axial fluid collection. Subcortical, periventricular and deep white matter hypoattenuation likely changes of chronic small vessel disease. There is no mass effect or shift of the intracranial structures. There is stable prominence of the ventricles and sulci bilaterally consistent with generalized atrophy. The cerebellum and brainstem are unremarkable. The calvarium demonstrates no evidence of fracture or focal lesion. There is normal aeration of the visualized paranasal sinuses and mastoid air cells. The visualized portions of the orbits are normal. Atherosclerotic calcifications of the intracranial internal carotid arteries is seen. IMPRESSION: No evidence for acute intracranial process. White matter changes likely from chronic small vessel disease. There is stable prominence of the ventricles and sulci bilaterally consistent with generalized atrophy. Electronically signed by: Peña Jovel MD (03/14/2019 5:29 PM) [id number]
[2019-03-14] MEDS: PIPERACILLIN/TAZOBACTAM 2.25 GM in IV NORMAL SALINE 50ML 50 ML IV SCH (17:38)
[2019-03-14] MEDS: DEXMEDETOMIDINE 400 MCG in IV NORMAL SALINE 100ML 96 ML IV PRN (17:44)
[2019-03-14] MEDS: ATORVASTATIN CALCIUM 20 MG TABLET PO SCH (21:00)
[2019-03-14] MEDS ORDERED: AMINO ACID IV SCH ×11 (22:00)
[2019-03-14] MEDS ORDERED: [UNRECOGNIZED DRUG - OTHER] IV SCH ×11 (22:00)
[2019-03-14] MEDS ORDERED: TOTAL PARENTERAL NUTRITION IV SCH ×11 (22:00)
[2019-03-14] MEDS ORDERED: DEXTROSE 70% IV SCH ×11 (22:00)
[2019-03-14] MEDS ORDERED: TOTAL PARENTERAL NUTRITION 0 ML, AMINO ACID 15% 60 GM, DEXTROSE 70 % IN WATER 195 GM, F... IV SCH ×10 (22:00)
[2019-03-14] MEDS: PANTOPRAZOLE IV PUSH 40 MG VIAL. IVP SCH (22:16)
[2019-03-15] VITALS (23 sets, daily range): BP systolic 120–156; BP diastolic 60–81
[2019-03-15] MEDS: DEXMEDETOMIDINE 400 MCG in IV NORMAL SALINE 100ML 96 ML IV PRN ×4 (00:10→21:50)
[2019-03-15] MEDS: PIPERACILLIN/TAZOBACTAM 2.25 GM in IV NORMAL SALINE 50ML 50 ML IV SCH ×2 (00:10→06:06)
[2019-03-15] MEDS: INSULIN LISPRO 300 UNITS/3 ML VIAL. SQ SCH ×4 (00:14→17:41)
--- NOTE | 2019-03-15 02:48 | NUR ---
Patients urine output dwindling over the last couple of hours. Irrigated lemus and 350cc returned.
[2019-03-15 06:50] LABS: BASO % 0 % (0-3); EOS % 0 % (0-3); HEMATOCRIT 24.1 % (36.0-47.0); HEMOGLOBIN 7.6 g/dL (12.0-15.5); LYMPH # 0.6 x10^3/uL (1.0-4.8); LYMPH % 8 % (24-48); MEAN CORPUSCULAR HEMOGLOBIN 24 pg (25-35); MEAN CORPUSCULAR HGB CONC 31 g/dL (31-37); MEAN CORPUSCULAR VOLUME 77 fL (79-100); MONO # 0.2 x10^3/uL (0.0-1.1); MONO % 3 % (0-9); NEUT % 89 % (31-73); PLATELET COUNT 238 x10^3/uL (140-400); RED BLOOD COUNT 3.12 x10^6/uL (3.50-5.40); RED CELL DISTRIBUTION WIDTH 17.6 % (11.5-14.5)
[2019-03-15 07:00] LABS: ALBUMIN 2.8 g/dL (3.4-5.0); ALBUMIN/GLOBULIN RATIO 0.7 (1.0-1.7); CREATININE 1.5 mg/dL (0.6-1.0); GFR 33.5; PHOSPHORUS 4.2 mg/dL (2.6-4.7); TOTAL BILIRUBIN 0.5 mg/dL (0.2-1.0); TOTAL PROTEIN 6.9 g/dL (6.4-8.2)
--- NOTE | 2019-03-15 07:19 | PDOC ---
Infectious Disease Note Subjective Subjective Restless on Bipap ROS ROS unable to obtain Vital Sign Vital Signs Vital Signs Date Time Temp Pulse Resp B/P (MAP) Pulse Ox O2 Delivery O2 Flow Rate FiO2 03/15/19 06:00 74 20 131/70 (90) 100 BiPAP/CPAP 03/15/19 04:00 97.4 97.4 03/14/19 16:00 10.0 Physical Exam PHYSICAL EXAM CONSTITUTIONAL: She is lying in bed. She is on BiPAP. She appears comfortable HEENT: Pupils are equal and reactive. Normal conjunctivae. NECK: Supple. LUNGS: Decreased without gross wheeze. HEART: S1, S2. ABDOMEN: Obese, soft, nontender. No guarding. EXTREMITIES: Without clubbing or cyanosis. No gross edema. GENITOURINARY: She has a Oakes in place. IV: R neck triple lumen is clean SKIN: Warm, without generalized signs of rash. NEUROLOGICAL: She moves her extremities Labs Lab Laboratory Tests Test 03/14/19 09:11 03/14/19 12:15 03/14/19 17:49 03/14/19 23:06 Glucose (Fingerstick) 295 mg/dL (70-99) 268 mg/dL (70-99) 232 mg/dL (70-99) 216 mg/dL (70-99) Test 03/15/19 06:20 03/15/19 06:34 03/15/19 06:35 White Blood Count 8.0 x10^3/uL (4.0-11.0) Red Blood Count 3.12 x10^6/uL (3.50-5.40) Hemoglobin 7.6 g/dL (12.0-15.5) Hematocrit 24.1 % (36.0-47.0) Mean Corpuscular Volume 77 fL (79-100) Mean Corpuscular Hemoglobin 24 pg (25-35) Mean Corpuscular Hemoglobin Concent 31 g/dL (31-37) Red Cell Distribution Width 17.6 % (11.5-14.5) Platelet Count 238 x10^3/uL (140-400) Neutrophils (%) (Auto) 89 % (31-73) Lymphocytes (%) (Auto) 8 % (24-48) Monocytes (%) (Auto) 3 % (0-9) Eosinophils (%) (Auto) 0 % (0-3) Basophils (%) (Auto) 0 % (0-3) Neutrophils # (Auto) 7.0 x10^3/uL (1.8-7.7) Lymphocytes # (Auto) 0.6 x10^3/uL (1.0-4.8) Monocytes # (Auto) 0.2 x10^3/uL (0.0-1.1) Eosinophils # (Auto) 0.0 x10^3/uL (0.0-0.7) Basophils # (Auto) 0.0 x10^3/uL (0.0-0.2) Sodium Level 152 mmol/L (136-145) Potassium Level 4.0 mmol/L (3.5-5.1) Chloride Level 115 mmol/L (98-107) Carbon Dioxide Level 27 mmol/L (21-32) Anion Gap 10 (6-14) Blood Urea Nitrogen 68 mg/dL (7-20) Creatinine 1.5 mg/dL (0.6-1.0) Estimated GFR (Cockcroft-Gault) 33.5 BUN/Creatinine Ratio 45 (6-20) Glucose Level 372 mg/dL (70-99) Calcium Level 9.0 mg/dL (8.5-10.1) Phosphorus Level 4.2 mg/dL (2.6-4.7) Magnesium Level 3.0 mg/dL (1.8-2.4) Total Bilirubin 0.5 mg/dL (0.2-1.0) Aspartate Amino Transf (AST/SGOT) 44 U/L (15-37) Alanine Aminotransferase (ALT/SGPT) 92 U/L (14-59) Alkaline Phosphatase 40 U/L (46-116) Total Protein 6.9 g/dL (6.4-8.2) Albumin 2.8 g/dL (3.4-5.0) Albumin/Globulin Ratio 0.7 (1.0-1.7) Glucose (Fingerstick) 362 mg/dL (70-99) 384 mg/dL (70-99) Micro Microbiology 03/10/19 Blood Culture - Preliminary, Resulted NO GROWTH AFTER 1 DAY Objective Assessment leukocytosis - ? reactive/Steroids - better Lactic acidosis - better nml procalcitonin 03/13 Elevated Troponin Acure resp failure -on Bipap ANNE - little worse Pulm edema Encephalopathy - now more agitated/restless -CT head neg 03/14 Plan Plan of Care D/cont Zosyn 03/11 no gross sign of infection currently. Cont Doxy for now (03/12) (Previous Rocephin 03/10) - will wean soon Dapto times one 03/12 F/u labs and cults Electrolytes per primary D/w nursing KARTHIK ALVARADO MD Mar 15, 2019 07:19
[2019-03-15] MEDS: IPRATROPIUM BROMIDE 0.5 MG/2.5 ML NEBU. NEB SCH ×4 (07:49→20:00)
--- NOTE | 2019-03-15 07:52 | NUR ---
Message left for Dr. Aaron regarding patients elevated blood sugar. Patient was started on TPN tonight and blood glucose was 384.
[2019-03-15] MEDS: ASPIRIN ENTERIC COATED 81 MG TABLET.DR. PO SCH (08:00)
[2019-03-15] MEDS: GABAPENTIN 300 MG CAPSULE. PO SCH ×3 (08:09→20:42)
[2019-03-15] MEDS: LACTOBACILLUS RHAMNOSUS GG 1 CAPSULE. PO SCH ×2 (08:09→20:42)
--- NOTE | 2019-03-15 08:58 | RAD ---
PORTABLE CHEST 1V Clinical indications: Lung infiltrates. Follow-up study. COMPARISON: March 13, 2019. Findings: Diffuse bilateral lung infiltrates or pulmonary edema are again evident. There is slight decrease in density of lung infiltrates which may indicate mild improvement. Small left pleural effusion is still evident but has improved. No right-sided pleural effusion is seen today. No pneumothorax is evident. Heart size and mediastinum and pulmonary vasculature are stable. Right IJ central line is unchanged in position. IMPRESSION: Mild improvement in diffuse lung infiltrates or pulmonary edema. Improvement of left-sided pleural effusion. No right-sided pleural effusion is seen today. Electronically signed by: Phil Hendrix MD (03/15/2019 8:55 AM) [id number]
[2019-03-15] MEDS: methylPREDNISolone SOD SUCC PF 40 MG/ML VIAL. IV SCH ×2 (09:17→20:57)
[2019-03-15] MEDS: DOXYCYCLINE HYCLATE 100 MG in IV DEXTROSE 5% 100ML 100 ML IV SCH ×2 (09:17→20:57)
--- NOTE | 2019-03-15 09:20 | PDOC ---
PULMONARY PROGRESS NOTES Subjective PT SEDATED ON BIPAP REQUIRES PRECEDEX FOR SEDATION AND TO MAINTAIN SYNCH WITH BIPAP Vitals Vital Signs Date Time Temp Pulse Resp B/P (MAP) Pulse Ox O2 Delivery O2 Flow Rate FiO2 03/15/19 08:54 98 BiPAP/CPAP 03/15/19 06:00 74 20 131/70 (90) 03/15/19 04:00 97.4 97.4 03/14/19 16:00 10.0 Lungs: Crackles (bases) Cardiovascular: S1, S2 Abdomen: Soft Extremities: Other (1+edema) Skin: Warm Labs Laboratory Tests Test 03/13/19 12:38 03/13/19 16:55 03/13/19 17:17 03/13/19 21:44 Glucose (Fingerstick) 355 mg/dL (70-99) 183 mg/dL (70-99) 148 mg/dL (70-99) Erythrocyte Sedimentation Rate 81 (0-25) Test 03/14/19 05:40 03/14/19 09:11 03/14/19 12:15 03/14/19 17:49 White Blood Count 10.6 x10^3/uL (4.0-11.0) Red Blood Count 3.15 x10^6/uL (3.50-5.40) Hemoglobin 7.7 g/dL (12.0-15.5) Hematocrit 24.2 % (36.0-47.0) Mean Corpuscular Volume 77 fL (79-100) Mean Corpuscular Hemoglobin 24 pg (25-35) Mean Corpuscular Hemoglobin Concent 32 g/dL (31-37) Red Cell Distribution Width 17.0 % (11.5-14.5) Platelet Count 237 x10^3/uL (140-400) Neutrophils (%) (Auto) 87 % (31-73) Lymphocytes (%) (Auto) 10 % (24-48) Monocytes (%) (Auto) 3 % (0-9) Eosinophils (%) (Auto) 0 % (0-3) Basophils (%) (Auto) 0 % (0-3) Neutrophils # (Auto) 9.2 x10^3/uL (1.8-7.7) Lymphocytes # (Auto) 1.1 x10^3/uL (1.0-4.8) Monocytes # (Auto) 0.3 x10^3/uL (0.0-1.1) Eosinophils # (Auto) 0.0 x10^3/uL (0.0-0.7) Basophils # (Auto) 0.0 x10^3/uL (0.0-0.2) Sodium Level 149 mmol/L (136-145) Potassium Level 3.6 mmol/L (3.5-5.1) Chloride Level 110 mmol/L (98-107) Carbon Dioxide Level 25 mmol/L (21-32) Anion Gap 14 (6-14) Blood Urea Nitrogen 68 mg/dL (7-20) Creatinine 1.8 mg/dL (0.6-1.0) Estimated GFR (Cockcroft-Gault) 27.1 Glucose Level 288 mg/dL (70-99) Calcium Level 9.1 mg/dL (8.5-10.1) Glucose (Fingerstick) 295 mg/dL (70-99) 268 mg/dL (70-99) 232 mg/dL (70-99) Test 03/14/19 23:06 03/15/19 06:20 03/15/19 06:34 03/15/19 06:35 Glucose (Fingerstick) 216 mg/dL (70-99) 362 mg/dL (70-99) 384 mg/dL (70-99) White Blood Count 8.0 x10^3/uL (4.0-11.0) Red Blood Count 3.12 x10^6/uL (3.50-5.40) Hemoglobin 7.6 g/dL (12.0-15.5) Hematocrit 24.1 % (36.0-47.0) Mean Corpuscular Volume 77 fL (79-100) Mean Corpuscular Hemoglobin 24 pg (25-35) Mean Corpuscular Hemoglobin Concent 31 g/dL (31-37) Red Cell Distribution Width 17.6 % (11.5-14.5) Platelet Count 238 x10^3/uL (140-400) Neutrophils (%) (Auto) 89 % (31-73) Lymphocytes (%) (Auto) 8 % (24-48) Monocytes (%) (Auto) 3 % (0-9) Eosinophils (%) (Auto) 0 % (0-3) Basophils (%) (Auto) 0 % (0-3) Neutrophils # (Auto) 7.0 x10^3/uL (1.8-7.7) Lymphocytes # (Auto) 0.6 x10^3/uL (1.0-4.8) Monocytes # (Auto) 0.2 x10^3/uL (0.0-1.1) Eosinophils # (Auto) 0.0 x10^3/uL (0.0-0.7) Basophils # (Auto) 0.0 x10^3/uL (0.0-0.2) Sodium Level 152 mmol/L (136-145) Potassium Level 4.0 mmol/L (3.5-5.1) Chloride Level 115 mmol/L (98-107) Carbon Dioxide Level 27 mmol/L (21-32) Anion Gap 10 (6-14) Blood Urea Nitrogen 68 mg/dL (7-20) Creatinine 1.5 mg/dL (0.6-1.0) Estimated GFR (Cockcroft-Gault) 33.5 BUN/Creatinine Ratio 45 (6-20) Glucose Level 372 mg/dL (70-99) Calcium Level 9.0 mg/dL (8.5-10.1) Phosphorus Level 4.2 mg/dL (2.6-4.7) Magnesium Level 3.0 mg/dL (1.8-2.4) Total Bilirubin 0.5 mg/dL (0.2-1.0) Aspartate Amino Transf (AST/SGOT) 44 U/L (15-37) Alanine Aminotransferase (ALT/SGPT) 92 U/L (14-59) Alkaline Phosphatase 40 U/L (46-116) Total Protein 6.9 g/dL (6.4-8.2) Albumin 2.8 g/dL (3.4-5.0) Albumin/Globulin Ratio 0.7 (1.0-1.7) Laboratory Tests Test 03/14/19 12:15 03/14/19 17:49 03/14/19 23:06 03/15/19 06:20 Glucose (Fingerstick) 268 mg/dL (70-99) 232 mg/dL (70-99) 216 mg/dL (70-99) White Blood Count 8.0 x10^3/uL (4.0-11.0) Red Blood Count 3.12 x10^6/uL (3.50-5.40) Hemoglobin 7.6 g/dL (12.0-15.5) Hematocrit 24.1 % (36.0-47.0) Mean Corpuscular Volume 77 fL (79-100) Mean Corpuscular Hemoglobin 24 pg (25-35) Mean Corpuscular Hemoglobin Concent 31 g/dL (31-37) Red Cell Distribution Width 17.6 % (11.5-14.5) Platelet Count 238 x10^3/uL (140-400) Neutrophils (%) (Auto) 89 % (31-73) Lymphocytes (%) (Auto) 8 % (24-48) Monocytes (%) (Auto) 3 % (0-9) Eosinophils (%) (Auto) 0 % (0-3) Basophils (%) (Auto) 0 % (0-3) Neutrophils # (Auto) 7.0 x10^3/uL (1.8-7.7) Lymphocytes # (Auto) 0.6 x10^3/uL (1.0-4.8) Monocytes # (Auto) 0.2 x10^3/uL (0.0-1.1) Eosinophils # (Auto) 0.0 x10^3/uL (0.0-0.7) Basophils # (Auto) 0.0 x10^3/uL (0.0-0.2) Sodium Level 152 mmol/L (136-145) Potassium Level 4.0 mmol/L (3.5-5.1) Chloride Level 115 mmol/L (98-107) Carbon Dioxide Level 27 mmol/L (21-32) Anion Gap 10 (6-14) Blood Urea Nitrogen 68 mg/dL (7-20) Creatinine 1.5 mg/dL (0.6-1.0) Estimated GFR (Cockcroft-Gault) 33.5 BUN/Creatinine Ratio 45 (6-20) Glucose Level 372 mg/dL (70-99) Calcium Level 9.0 mg/dL (8.5-10.1) Phosphorus Level 4.2 mg/dL (2.6-4.7) Magnesium Level 3.0 mg/dL (1.8-2.4) Total Bilirubin 0.5 mg/dL (0.2-1.0) Aspartate Amino Transf (AST/SGOT) 44 U/L (15-37) Alanine Aminotransferase (ALT/SGPT) 92 U/L (14-59) Alkaline Phosphatase 40 U/L (46-116) Total Protein 6.9 g/dL (6.4-8.2) Albumin 2.8 g/dL (3.4-5.0) Albumin/Globulin Ratio 0.7 (1.0-1.7) Test 03/15/19 06:34 03/15/19 06:35 Glucose (Fingerstick) 362 mg/dL (70-99) 384 mg/dL (70-99) Medications Active Scripts Medications Dose Route/Sig Max Daily Dose Days Date Category Doxycycline Hyclate 50 Mg Capsule 1 Cap PO BID 7 10/15/17 Reported Doxycycline Hyclate 50 Mg Capsule 1 Cap PO BID 7 10/15/17 Reported Doxycycline Hyclate 50 Mg Capsule 1 Cap PO BID 7 10/15/17 Reported Gabapentin (Gabapentin) 100 Mg Capsule 200 Mg PO TID 10/12/17 Reported Prednisone 20 Mg Tablet 20 Mg PO DAILY 04/06/16 Rx Diazepam 5 Mg Tablet 5 Mg PO PRN Q8HRS PRN 04/06/16 Rx Percocet 5-325 Mg Tablet (Oxycodone/Acetaminophen) 1 Each Tablet 1 Each PO 6XDAY PRN 08/07/13 Reported Aspir 81 (Aspirin) 81 Mg Tablet.dr 81 Mg PO DAILY 08/07/13 Reported [place]-3 ([place]-3 Fatty Acids) 1,000 Mg Capsule 1,200 Mg PO BID 08/07/13 Reported Omeprazole 20 Mg Capsule.dr 20 Mg PO BID 08/07/13 Reported Tiazac (Diltiazem Hcl) 240 Mg Capsule.er 240 Mg PO DAILY 08/07/13 Reported Xopenex Hfa (Levalbuterol Tartrate) 15 Gm Hfa.aer.ad 15 Gm IH BID PRN 08/07/13 Reported Metformin Hcl 500 Mg Tablet 500 Mg PO BID 08/07/13 Reported Comments CTA chest 1. No pulmonary embolus identified within the main, lobar or proximal segmental pulmonary arteries. Limitations as described above. 2. Findings likely related to diffuse severe pulmonary edema, with small right and trace left pleural effusion. Superimposed infectious process is difficult to exclude. Exposure: One or more of the following in the visualized dose reduction techniques were utilized for this examination: 1. Automated exposure control 2. Adjustment of the MA and/or KV according to patient size 3. Use of iterative of reconstructive technique Electronically signed by: Kian Miguel MD (03/11/2019 6:04 PM) [facility] [place] Impression . 1. Acute hypoxic respiratory failure secondary to diffuse interstitial edema 2. Abnormal echo with a low normal ejection fraction of 50% and grade 1 diastolic dysfunction. Now with increase troponin. NSTMI 3. Minimal history of tobacco use. 4. increased troponin levels./ NSTMI 5. Lactic acidosis secondary to work of breathing 6. Obesity 7. h/o CAD, stents 8. ACUTE KIDNEY INJURY 9. NON SPECIFIC ALVEOLITIS/ DOUBT INFECTION SED RATE IS HIGH CXR IMPRESSION: Mild improvement in diffuse lung infiltrates or pulmonary edema. Improvement of left-sided pleural effusion. No right-sided pleural effusion is seen today. Plan . SED RATE HIGH WILL CONTINUE STEROIDS ANTI BX PER ID CT HEAD SPOKE WITH RN WILL CONTINUE BIPAP UNABLE TO PLACE DOBOFF WILL HOLD DIURESIS FOR NOW SEC TO INCREASE CREAT FOLLOW CARD CCT 30 MIN REVIEWED DATA/XRAYS/ FORMULATING A PLAN AND D/W FAMILY BRADLEY DE LOS SANTOS MD Mar 15, 2019 09:20
--- NOTE | 2019-03-15 10:32 | PN ---
DATE: 03/15/2019 DAILY PROGRESS NOTE LOCATION: She is room ICU 103. SUBJECTIVE: The patient is less alert this morning, is less agitated; however and remains on BiPAP. OBJECTIVE: Vital signs are stable. She is afebrile. O2 sats are 100%. With the BiPAP, output is greater than intake for the last 24 hours. Once again hemoglobin is stable at 7.6. Chemistries are relatively stable with BUN of 68, creatinine 1.5. Sodium has increased to 152 consistent with some volume contraction from diuresis. Blood sugars are higher with addition of TPN to her regimen. Blood cultures remain negative as was urine culture during the stay. Chest x-ray shows mild improvement in diffuse lung infiltrates and pulmonary edema and improvement in left-sided pleural effusion with no right-sided effusion seen on ____. IMPRESSION: 1. Respiratory failure, again mainly felt to be due to acute diastolic congestive heart failure. 2. Lactic acidosis, improved. 3. Anemia. 4. Diabetes. 5. Approaching dehydration levels with diuresis. PLAN: Continue supportive care. Continue TPN. Help of Cardiology, Pulmonary, ID appreciated. Continue present. JOHN HAMM MD DR: MARSHALL/gildardo JOB#: [id number] / [id number]
[2019-03-15] MEDS: TPN PER PHARMACY MC PRN (12:51)
--- NOTE | 2019-03-15 13:01 | NUR ---
Pharmacy TPN Dosing Note S: THEODORE PADILLA is a 78 year old F Currently receiving Central Continuous TPN started 03/14/19 B:Pertinent PMH: NPO Height: 5 feet, 2 inches Weight: 87.218718 kg Current diet: LABS: Sodium: 152 Potassium: 4.0 Chloride: 115 Calcium: 9.0 Corrected Calcium: 9.96 Magnesium: 3.0 CO2: 27 SCr: 1.5 Glucose: 372 Albumin: 2.8 AST: 44 ALT: 92 TPN FORMULA: TPN TYPE: Central Continuous AMINO ACIDS: 70 gm DEXTROSE: 225 gm LIPIDS: 20 gm SODIUM CHLORIDE: 40 mEq SODIUM ACETATE: mEq SODIUM PHOSPHATE: mmol POTASSIUM CHLORIDE: 50 mEq POTASSIUM ACETATE: mEq POTASSIUM PHOSPHATE: 8 mmol MAGNESIUM: 3 mEq CALCIUM: 10 mEq INSULIN: 20 units MULTIPLE VITAMIN: 10 ml TRACE ELEMENTS: 1 ml(s) TPN PLAN: 03/15 bs 372, up insulin to 20 u/bag, decreased nacl to 40meq, magso4 to 3meq, kphos to 8 meq. CHANGED AA TO 70 GM/DEXTROSE TO 225 GM, LIPID 20 GM. R: Continue TPN AT 63ML/HR Will monitor electrolytes, glucose, and tolerance to TPN. DANNY BARONE [facility] [place], 03/15/19 [id number]
--- NOTE | 2019-03-15 15:09 | NUR ---
SS following up with discharge planning. SS phoned and faxed referral to [facility], ; fax [phone]. SS will await acceptance decision and will continue to follow with discharge planning.
--- NOTE | 2019-03-15 15:14 | NUR ---
Nursing Note Left message with Dr. Sullivan's message center two times now regarding pts elevated blood glucose.
[2019-03-15] MEDS ORDERED: INSULIN GLARGINE SYRINGE. SQ SCH (15:30)
[2019-03-15] MEDS ORDERED: INSULIN GLARGINE SYRINGE. SQ ONE (17:00)
[2019-03-15] MEDS: ATORVASTATIN CALCIUM 20 MG TABLET PO SCH (20:42)
[2019-03-15] MEDS: PANTOPRAZOLE IV PUSH 40 MG VIAL. IVP SCH (20:57)
[2019-03-15] MEDS ORDERED: AMINO ACID IV SCH ×11 (22:00)
[2019-03-15] MEDS ORDERED: [UNRECOGNIZED DRUG - OTHER] IV SCH ×11 (22:00)
[2019-03-15] MEDS ORDERED: DEXTROSE 70% IV SCH ×11 (22:00)
[2019-03-15] MEDS ORDERED: TOTAL PARENTERAL NUTRITION IV SCH ×11 (22:00)
[2019-03-16] VITALS (24 sets, daily range): BP systolic 130–166; BP diastolic 64–86
[2019-03-16] MEDS: INSULIN LISPRO 300 UNITS/3 ML VIAL. SQ SCH ×4 (00:05→18:24)
[2019-03-16] MEDS: DEXMEDETOMIDINE 400 MCG in IV NORMAL SALINE 100ML 96 ML IV PRN ×2 (03:46→13:01)
[2019-03-16 05:36] LABS: CALCIUM 9.4 mg/dL (8.5-10.1); CREATININE 1.3 mg/dL (0.6-1.0); GFR 39.5; MAGNESIUM 2.7 mg/dL (1.8-2.4); PHOSPHORUS 4.2 mg/dL (2.6-4.7)
--- NOTE | 2019-03-16 06:15 | NUR ---
Dr Wallis called with report of pt's blood glucose of 366. New orders for Lantus 20 units BID, with first dose now, received. Addendum: 03/16/19 at 0634 by RERE LLOYD RN RN Order D/C'luanne and Dr Laurie jung.
--- NOTE | 2019-03-16 06:20 | PDOC ---
Infectious Disease Note Subjective Subjective Restless on Bipap ROS ROS o/w neg Vital Sign Vital Signs Vital Signs Date Time Temp Pulse Resp B/P (MAP) Pulse Ox O2 Delivery O2 Flow Rate FiO2 03/16/19 05:54 100 BiPAP/CPAP 03/16/19 05:00 72 20 141/84 (103) 03/16/19 04:00 6.0 03/16/19 00:00 98.0 98.0 Physical Exam PHYSICAL EXAM CONSTITUTIONAL: She is lying in bed. She is on BiPAP. She appears comfortable HEENT: Pupils are equal and reactive. Normal conjunctivae. NECK: Supple. LUNGS: Decreased without gross wheeze. HEART: S1, S2. ABDOMEN: Obese, soft, nontender. No guarding. EXTREMITIES: Without clubbing or cyanosis. No gross edema. GENITOURINARY: She has a Oakes in place. IV: R neck triple lumen is clean SKIN: Warm, without generalized signs of rash. NEUROLOGICAL: She moves her extremities Labs Lab Laboratory Tests Test 03/15/19 06:20 03/15/19 06:34 03/15/19 06:35 03/15/19 09:19 White Blood Count 8.0 x10^3/uL (4.0-11.0) Red Blood Count 3.12 x10^6/uL (3.50-5.40) Hemoglobin 7.6 g/dL (12.0-15.5) Hematocrit 24.1 % (36.0-47.0) Mean Corpuscular Volume 77 fL (79-100) Mean Corpuscular Hemoglobin 24 pg (25-35) Mean Corpuscular Hemoglobin Concent 31 g/dL (31-37) Red Cell Distribution Width 17.6 % (11.5-14.5) Platelet Count 238 x10^3/uL (140-400) Neutrophils (%) (Auto) 89 % (31-73) Lymphocytes (%) (Auto) 8 % (24-48) Monocytes (%) (Auto) 3 % (0-9) Eosinophils (%) (Auto) 0 % (0-3) Basophils (%) (Auto) 0 % (0-3) Neutrophils # (Auto) 7.0 x10^3/uL (1.8-7.7) Lymphocytes # (Auto) 0.6 x10^3/uL (1.0-4.8) Monocytes # (Auto) 0.2 x10^3/uL (0.0-1.1) Eosinophils # (Auto) 0.0 x10^3/uL (0.0-0.7) Basophils # (Auto) 0.0 x10^3/uL (0.0-0.2) Sodium Level 152 mmol/L (136-145) Potassium Level 4.0 mmol/L (3.5-5.1) Chloride Level 115 mmol/L (98-107) Carbon Dioxide Level 27 mmol/L (21-32) Anion Gap 10 (6-14) Blood Urea Nitrogen 68 mg/dL (7-20) Creatinine 1.5 mg/dL (0.6-1.0) Estimated GFR (Cockcroft-Gault) 33.5 BUN/Creatinine Ratio 45 (6-20) Glucose Level 372 mg/dL (70-99) Calcium Level 9.0 mg/dL (8.5-10.1) Phosphorus Level 4.2 mg/dL (2.6-4.7) Magnesium Level 3.0 mg/dL (1.8-2.4) Total Bilirubin 0.5 mg/dL (0.2-1.0) Aspartate Amino Transf (AST/SGOT) 44 U/L (15-37) Alanine Aminotransferase (ALT/SGPT) 92 U/L (14-59) Alkaline Phosphatase 40 U/L (46-116) Total Protein 6.9 g/dL (6.4-8.2) Albumin 2.8 g/dL (3.4-5.0) Albumin/Globulin Ratio 0.7 (1.0-1.7) Glucose (Fingerstick) 362 mg/dL (70-99) 384 mg/dL (70-99) 389 mg/dL (70-99) Test 03/15/19 13:55 03/15/19 17:33 03/16/19 00:00 03/16/19 04:50 Glucose (Fingerstick) 388 mg/dL (70-99) 327 mg/dL (70-99) 315 mg/dL (70-99) Sodium Level 153 mmol/L (136-145) Potassium Level 5.0 mmol/L (3.5-5.1) Chloride Level 118 mmol/L (98-107) Carbon Dioxide Level 26 mmol/L (21-32) Anion Gap 9 (6-14) Blood Urea Nitrogen 62 mg/dL (7-20) Creatinine 1.3 mg/dL (0.6-1.0) Estimated GFR (Cockcroft-Gault) 39.5 Glucose Level 395 mg/dL (70-99) Calcium Level 9.4 mg/dL (8.5-10.1) Phosphorus Level 4.2 mg/dL (2.6-4.7) Magnesium Level 2.7 mg/dL (1.8-2.4) Test 03/16/19 06:04 Glucose (Fingerstick) 366 mg/dL (70-99) Micro Microbiology 03/10/19 Blood Culture - Preliminary, Resulted NO GROWTH AFTER 1 DAY Objective Assessment leukocytosis - better ? reactive/Steroids Lactic acidosis - better nml procalcitonin 03/13 Elevated Troponin Acure resp failure -on Bipap ANNE - little worse Pulm edema Encephalopathy - now more agitated/restless -CT head neg 03/14 Plan Plan of Care Given ongoing encephalopathy would consider Neuro eval and if no clear reason for mental status would consider LP D/cont Zosyn 03/11 - 03/15 - no gross sign of infection currently. Cont Doxy for now (03/12) (Previous Rocephin 03/10) - will wean soon Dapto times one 03/12 F/u labs and cults Electrolytes per primary D/w nursing KARTHIK ALVARADO MD Mar 16, 2019 06:20
[2019-03-16] MEDS ORDERED: INSULIN GLARGINE SYRINGE. SQ SCH ×4 (07:00→21:00)
[2019-03-16] MEDS ORDERED: INSULIN LISPRO 300 UNITS/3 ML VIAL. SQ ONE ×2 (07:15→21:00)
[2019-03-16] MEDS: IPRATROPIUM BROMIDE 0.5 MG/2.5 ML NEBU. NEB SCH ×4 (08:06→19:43)
--- NOTE | 2019-03-16 08:22 | PN ---
DATE: 03/16/2019 LOCATION: She is in room ICU 103. SUBJECTIVE: The patient is still on Precedex, was non-interactive, but is still moving her legs around and appears to be uncomfortable as she has been the entire stay. OBJECTIVE: VITAL SIGNS: Stable. She is afebrile. She has taken her O2 off this morning and is on 6 liters satting at 100% this morning. Intake was greater than output yesterday. CHEST: With better breath sounds. HEART: Regular. ABDOMEN: Benign. Sodium this morning is 153, BUN 62, creatinine 1.3. Sugars have remained high and Levemir was started yesterday and will be increased today. Chest x-ray yesterday showed mild improvement and diffuse lung infiltrates or pulmonary edema. IMPRESSION: 1. Congestive heart failure, improving. 2. Sepsis with lactic acidosis, improving. 3. Anemia, stable. 4. Diabetes with high sugars. 5. Dehydration from diuresis and we will have backed off on the Lasix. PLAN: Continue supportive care. Was able to get off the BiPAP. It would seem that possibly today get rid of the Precedex, wake her up and see if where we can go from here. Help of all consultants appreciated. JOHN HAMM MD DR: MARSHALL/gildardo JOB#: [id number] / [id number]
[2019-03-16] MEDS: DOXYCYCLINE HYCLATE 100 MG in IV DEXTROSE 5% 100ML 100 ML IV SCH ×2 (09:19→21:00)
[2019-03-16] MEDS: methylPREDNISolone SOD SUCC PF 40 MG/ML VIAL. IV SCH ×2 (09:19→20:58)
[2019-03-16] MEDS: ASPIRIN CHEWABLE 81 MG TABLET. PO SCH (10:00)
--- NOTE | 2019-03-16 10:02 | RAD ---
AP portable supine view of the abdomen Clinical indications: Dobbhoff tube placement. FINDINGS: A Dobbhoff tube is seen within the second portion of the duodenum. There is moderate dilatation of small bowel loops. This could be due to a bowel obstruction. IMPRESSION: Possible small bowel obstruction. Clinical correlation is needed. Electronically signed by: Phil Hendrix MD (03/16/2019 9:59 AM) [id number]
[2019-03-16] MEDS: diazePAM 5 MG TABLET NG PRN ×2 (10:34→20:19)
--- NOTE | 2019-03-16 10:43 | PDOC ---
PULMONARY PROGRESS NOTES Subjective OFF PRECEDEX OFF BIPAP MOANING NO DISTRESS Vitals Vital Signs Date Time Temp Pulse Resp B/P (MAP) Pulse Ox O2 Delivery O2 Flow Rate FiO2 03/16/19 08:06 98 High Flow Nasal Cannula 5.0 03/16/19 06:00 72 20 140/68 (92) 03/16/19 00:00 98.0 98.0 General: Confused Lungs: Crackles (bases) Cardiovascular: S1, S2 Abdomen: Soft Extremities: Other (1+edema) Skin: Warm Labs Laboratory Tests Test 03/14/19 12:15 03/14/19 17:49 03/14/19 23:06 03/15/19 06:20 Glucose (Fingerstick) 268 mg/dL (70-99) 232 mg/dL (70-99) 216 mg/dL (70-99) White Blood Count 8.0 x10^3/uL (4.0-11.0) Red Blood Count 3.12 x10^6/uL (3.50-5.40) Hemoglobin 7.6 g/dL (12.0-15.5) Hematocrit 24.1 % (36.0-47.0) Mean Corpuscular Volume 77 fL (79-100) Mean Corpuscular Hemoglobin 24 pg (25-35) Mean Corpuscular Hemoglobin Concent 31 g/dL (31-37) Red Cell Distribution Width 17.6 % (11.5-14.5) Platelet Count 238 x10^3/uL (140-400) Neutrophils (%) (Auto) 89 % (31-73) Lymphocytes (%) (Auto) 8 % (24-48) Monocytes (%) (Auto) 3 % (0-9) Eosinophils (%) (Auto) 0 % (0-3) Basophils (%) (Auto) 0 % (0-3) Neutrophils # (Auto) 7.0 x10^3/uL (1.8-7.7) Lymphocytes # (Auto) 0.6 x10^3/uL (1.0-4.8) Monocytes # (Auto) 0.2 x10^3/uL (0.0-1.1) Eosinophils # (Auto) 0.0 x10^3/uL (0.0-0.7) Basophils # (Auto) 0.0 x10^3/uL (0.0-0.2) Sodium Level 152 mmol/L (136-145) Potassium Level 4.0 mmol/L (3.5-5.1) Chloride Level 115 mmol/L (98-107) Carbon Dioxide Level 27 mmol/L (21-32) Anion Gap 10 (6-14) Blood Urea Nitrogen 68 mg/dL (7-20) Creatinine 1.5 mg/dL (0.6-1.0) Estimated GFR (Cockcroft-Gault) 33.5 BUN/Creatinine Ratio 45 (6-20) Glucose Level 372 mg/dL (70-99) Calcium Level 9.0 mg/dL (8.5-10.1) Phosphorus Level 4.2 mg/dL (2.6-4.7) Magnesium Level 3.0 mg/dL (1.8-2.4) Total Bilirubin 0.5 mg/dL (0.2-1.0) Aspartate Amino Transf (AST/SGOT) 44 U/L (15-37) Alanine Aminotransferase (ALT/SGPT) 92 U/L (14-59) Alkaline Phosphatase 40 U/L (46-116) Total Protein 6.9 g/dL (6.4-8.2) Albumin 2.8 g/dL (3.4-5.0) Albumin/Globulin Ratio 0.7 (1.0-1.7) Test 03/15/19 06:34 03/15/19 06:35 03/15/19 09:19 03/15/19 13:55 Glucose (Fingerstick) 362 mg/dL (70-99) 384 mg/dL (70-99) 389 mg/dL (70-99) 388 mg/dL (70-99) Test 03/15/19 17:33 03/16/19 00:00 03/16/19 04:50 03/16/19 06:04 Glucose (Fingerstick) 327 mg/dL (70-99) 315 mg/dL (70-99) 366 mg/dL (70-99) Sodium Level 153 mmol/L (136-145) Potassium Level 5.0 mmol/L (3.5-5.1) Chloride Level 118 mmol/L (98-107) Carbon Dioxide Level 26 mmol/L (21-32) Anion Gap 9 (6-14) Blood Urea Nitrogen 62 mg/dL (7-20) Creatinine 1.3 mg/dL (0.6-1.0) Estimated GFR (Cockcroft-Gault) 39.5 Glucose Level 395 mg/dL (70-99) Calcium Level 9.4 mg/dL (8.5-10.1) Phosphorus Level 4.2 mg/dL (2.6-4.7) Magnesium Level 2.7 mg/dL (1.8-2.4) Laboratory Tests Test 03/15/19 13:55 03/15/19 17:33 03/16/19 00:00 03/16/19 04:50 Glucose (Fingerstick) 388 mg/dL (70-99) 327 mg/dL (70-99) 315 mg/dL (70-99) Sodium Level 153 mmol/L (136-145) Potassium Level 5.0 mmol/L (3.5-5.1) Chloride Level 118 mmol/L (98-107) Carbon Dioxide Level 26 mmol/L (21-32) Anion Gap 9 (6-14) Blood Urea Nitrogen 62 mg/dL (7-20) Creatinine 1.3 mg/dL (0.6-1.0) Estimated GFR (Cockcroft-Gault) 39.5 Glucose Level 395 mg/dL (70-99) Calcium Level 9.4 mg/dL (8.5-10.1) Phosphorus Level 4.2 mg/dL (2.6-4.7) Magnesium Level 2.7 mg/dL (1.8-2.4) Test 03/16/19 06:04 Glucose (Fingerstick) 366 mg/dL (70-99) Medications Active Scripts Medications Dose Route/Sig Max Daily Dose Days Date Category Doxycycline Hyclate 50 Mg Capsule 1 Cap PO BID 7 10/15/17 Reported Doxycycline Hyclate 50 Mg Capsule 1 Cap PO BID 7 10/15/17 Reported Doxycycline Hyclate 50 Mg Capsule 1 Cap PO BID 7 10/15/17 Reported Gabapentin (Gabapentin) 100 Mg Capsule 200 Mg PO TID 10/12/17 Reported Prednisone 20 Mg Tablet 20 Mg PO DAILY 04/06/16 Rx Diazepam 5 Mg Tablet 5 Mg PO PRN Q8HRS PRN 04/06/16 Rx Percocet 5-325 Mg Tablet (Oxycodone/Acetaminophen) 1 Each Tablet 1 Each PO 6XDAY PRN 08/07/13 Reported Aspir 81 (Aspirin) 81 Mg Tablet.dr 81 Mg PO DAILY 08/07/13 Reported Epsom-3 (Epsom-3 Fatty Acids) 1,000 Mg Capsule 1,200 Mg PO BID 08/07/13 Reported Omeprazole 20 Mg Capsule.dr 20 Mg PO BID 08/07/13 Reported Tiazac (Diltiazem Hcl) 240 Mg Capsule.er 240 Mg PO DAILY 08/07/13 Reported Xopenex Hfa (Levalbuterol Tartrate) 15 Gm Hfa.aer.ad 15 Gm IH BID PRN 08/07/13 Reported Metformin Hcl 500 Mg Tablet 500 Mg PO BID 08/07/13 Reported Comments CTA chest 1. No pulmonary embolus identified within the main, lobar or proximal segmental pulmonary arteries. Limitations as described above. 2. Findings likely related to diffuse severe pulmonary edema, with small right and trace left pleural effusion. Superimposed infectious process is difficult to exclude. Exposure: One or more of the following in the visualized dose reduction techniques were utilized for this examination: 1. Automated exposure control 2. Adjustment of the MA and/or KV according to patient size 3. Use of iterative of reconstructive technique Electronically signed by: Kian Miguel MD (03/11/2019 6:04 PM) [facility] [place] Impression . 1. Acute hypoxic respiratory failure secondary to diffuse interstitial edema 2. Abnormal echo with a low normal ejection fraction of 50% and grade 1 diastolic dysfunction. Now with increase troponin. NSTMI 3. Minimal history of tobacco use. 4. increased troponin levels./ NSTMI 5. Lactic acidosis secondary to work of breathing 6. Obesity 7. h/o CAD, stents 8. ACUTE KIDNEY INJURY 9. NON SPECIFIC ALVEOLITIS/ DOUBT INFECTION SED RATE IS HIGH CT HEAD IMPRESSION: No evidence for acute intracranial process. White matter changes likely from chronic small vessel disease. There is stable prominence of the ventricles and sulci bilaterally consistent with generalized atrophy. CXR IMPRESSION: Mild improvement in diffuse lung infiltrates or pulmonary edema. Improvement of left-sided pleural effusion. No right-sided pleural effusion is seen today. Plan . SED RATE HIGH WILL CONTINUE STEROIDS ANTI BX PER ID CT HEAD NOTED SUSPECT PT ENCEPHALOPATHY SEC TO SMALL VESSEL DISEASE AND CURRENT INSULT PRN BIPAP AVOID OVER SEDATION TUBE FEEDING INITIATED PRN HALDOL CCT 30 MIN REVIEWED DATA/XRAYS/ FORMULATING A PLAN AND D/W FAMILY BRADLEY DE LOS SANTOS MD Mar 16, 2019 10:43
[2019-03-16] MEDS: oxyCODONE ORAL SOLUTION 5 MG/5 ML SOLUTION NG PRN ×2 (10:54→16:34)
[2019-03-16] MEDS: GABAPENTIN 250 MG/5 ML ORAL SOLUTION. PO SCH ×3 (10:55→20:58)
--- NOTE | 2019-03-16 11:45 | PDOC2 ---
CONSULT Date of Consult Date of Consult DATE: 03/16/19 TIME: 11:40 Reason for Consult Reason for Consult: abd distention s/p dobbhoff placement Past Medical History Cardiovascular: HTN Pulmonary: Bronchitis CENTRAL NERVOUS SYSTEM: Other (restless leg syndrome) Heme/Onc: Cancer Endocrine: Diabetes Past Surgical History Past Surgical History: Other (mastectomy and back surgery) Family History Family History: Hypertension Social History No ALCOHOL: none Current Problem List Problem List Problems Medical Problems: (1) Acute respiratory distress Status: Acute (2) Chronic anemia Status: Acute (3) Congestive heart failure Status: Acute (4) Elevated troponin I level Status: Acute (5) Hypomagnesemia Status: Acute (6) Hypoxia Status: Acute (7) Renal insufficiency Status: Acute (8) Restless leg syndrome Status: Acute (9) Sepsis Status: Acute (10) Tachycardia Status: Acute Current Medications Current Medications Current Medications Sodium Chloride 1,000 ml @ 1,000 mls/hr 1X ONCE IV Last administered on 03/10/19at 06:02; Start 03/10/19 at 06:00; Stop 03/10/19 at 07:40; Status DC Morphine Sulfate (Morphine Sulfate) 4 mg 1X ONCE IV Last administered on 03/10/19at 06:02; Start 03/10/19 at 06:00; Stop 03/10/19 at 11:33; Status DC Ondansetron HCl (Zofran) 4 mg 1X ONCE IV Last administered on 03/10/19at 06:02; Start 03/10/19 at 06:00; Stop 03/10/19 at 06:01; Status DC Lorazepam (Ativan Inj) 1 mg 1X ONCE IV Last administered on 03/10/19at 06:02; Start 03/10/19 at 06:00; Stop 03/10/19 at 11:33; Status DC Magnesium Sulfate 50 ml @ 25 mls/hr 1X ONCE IV Last administered on 03/10/19at 07:17; Start 03/10/19 at 07:15; Stop 03/10/19 at 09:14; Status DC Methylprednisolone Sodium Succinate (SOLU-Medrol 125MG VIAL) 125 mg 1X ONCE IV Last administered on 03/10/19at 07:54; Start 03/10/19 at 07:30; Stop 03/10/19 at 11:33; Status DC Ceftriaxone Sodium (Rocephin) 1 gm 1X ONCE IVP Last administered on 03/10/19 08:03; Start 03/10/19 at 08:00; Stop 03/10/19 at 11:33; Status DC Vancomycin HCl 250 ml @ 250 mls/hr 1X ONCE IV Last administered on 03/10/19 08:02; Start 03/10/19 at 08:15; Stop 03/10/19 at 11:33; Status DC Levalbuterol HCl (Xopenex) 1.25 mg 1X ONCE NEB Last administered on 03/10/19 08:00; Start 03/10/19 at 08:00; Stop 03/10/19 at 11:33; Status DC Sodium Chloride 1,000 ml @ 125 mls/hr 1X ONCE IV Last administered on 03/10/19 09:03; Start 03/10/19 at 09:00; Stop 03/10/19 at 16:59; Status DC Influenza Virus Vaccine Quadrival (Afluria Quad 2019-20 (3yr Up) Syringe) 0.5 ml ONCE ONCE VAX IM Last administered on 03/10/19 10:57; Start 03/10/19 at 10:15; Stop 03/10/19 at 10:20; Status DC Diazepam (Valium) 5 mg PRN Q8HRS PRN PO ANXIETY Last administered on 03/12/19 15:05; Start 03/10/19 at 11:30; Stop 03/16/19 at 09:58; Status DC Metformin HCl (Glucophage) 500 mg BIDWMEALS PO Last administered on 03/11/19 16:46; Start 03/10/19 at 17:00; Stop 03/14/19 at 14:08; Status DC Oxycodone/ Acetaminophen (Percocet 5/325) 1 tab PRN BID PRN PO MODERATE PAIN 4- 6 Last administered on 03/12/19 16:49; Start 03/10/19 at 11:30; Stop 03/16/19 at 09:57; Status DC Diltiazem HCl (Cardizem 24hr Cd) 240 mg DAILY PO Last administered on 03/12/19 08:39; Start 03/10/19 at 12:00 Pantoprazole Sodium (Protonix) 40 mg DAILYAC PO Last administered on 03/12/19 08:29; Start 03/10/19 at 12:00; Stop 03/14/19 at 18:24; Status DC Albuterol/ Ipratropium (Duoneb) 3 ml RTQID NEB ; Start 03/10/19 at 12:00; Stop 03/10/19 at 12:02; Status DC Methylprednisolone Sodium Succinate (SOLU-Medrol 40MG VIAL) 60 mg Q12HR IV Last administered on 03/16/19 09:19; Start 03/10/19 at 11:40 Gabapentin (Neurontin) 300 mg TID PO Last administered on 03/12/19 15:05; Start 03/10/19 at 14:00; Stop 03/16/19 at 09:56; Status DC Sodium Bicarbonate (Sodium Bicarb Adult 8.4% Syr) 50 meq 1X ONCE IV Last administered on 03/10/19 12:12; Start 03/10/19 at 12:00; Stop 03/10/19 at 12:05; Status DC Ipratropium [place] (Atrovent) 0.5 mg RTQID NEB Last administered on 03/16/19at 11:27; Start 03/10/19 at 12:00 Lorazepam (Ativan Inj) 1 mg PRN Q4HRS PRN IVP ANXIETY / AGITATION Last administered on 03/15/19 20:07; Start 03/10/19 at 22:30 Ceftriaxone Sodium (Rocephin) 1 gm Q24H IVP Last administered on 03/11/19 11:19; Start 03/11/19 at 11:00; Stop 03/11/19 at 16:24; Status DC Vancomycin HCl (Vanco Per Pharmacy) 1 each PRN DAILY PRN MC SEE COMMENTS Last administered on 03/11/19 13:31; Start 03/11/19 at 10:15; Stop 03/12/19 at 07:06; Status DC Furosemide (Lasix) 40 mg 1X ONCE IVP Last administered on 03/11/19 11:19; Start 03/11/19 at 10:30; Stop 03/11/19 at 10:31; Status DC Vancomycin HCl 1.25 gm/Sodium Chloride 250 ml @ 167 mls/hr Q24H IV Last administered on 03/11/19 11:22; Start 03/11/19 at 11:00; Stop 03/12/19 at 07:06; Status DC Vancomycin HCl (Vancomycin Trough Level) 1 each 1X ONCE MC ; Start 03/13/19 at 10:30; Stop 03/12/19 at 07:11; Status DC Piperacillin Sod/ Tazobactam Sod (Zosyn Per Pharmacy) 1 each PRN DAILY PRN MC SEE COMMENTS; Start 03/11/19 at 16:30; Stop 03/15/19 at 07:18; Status DC Piperacillin Sod/ Tazobactam Sod 3.375 gm/Sodium Chloride 50 ml @ 100 mls/hr Q6HRS IV Last administered on 03/14/19at 12:37; Start 03/11/19 at 17:00; Stop 03/14/19 at 14:28; Status DC Iohexol (Omnipaque 350 Mg/ml) 75 ml 1X ONCE IV Last administered on 03/11/19at 17:49; Start 03/11/19 at 17:30; Stop 03/11/19 at 17:31; Status DC Furosemide (Lasix) 40 mg 1X ONCE IVP Last administered on 03/11/19at 18:41; Start 03/11/19 at 18:30; Stop 03/11/19 at 18:35; Status DC Furosemide (Lasix) 40 mg 1X ONCE IVP Last administered on 03/11/19at 22:01; Start 03/11/19 at 22:00; Stop 03/11/19 at 22:01; Status DC Doxycycline Hyclate 100 mg/ Dextrose 100 ml @ 50 mls/hr Q12HR IV Last administered on 03/16/19at 09:19; Start 03/12/19 at 09:00 Daptomycin 540 mg/ Sodium Chloride 50 ml @ 100 mls/hr ONCE ONCE IV Last administered on 03/12/19at 08:41; Start 03/12/19 at 08:30; Stop 03/12/19 at 08:59; Status DC Lactobacillus Rhamnosus (Culturelle) 1 cap BID PO Last administered on 03/12/19at 15:05; Start 03/12/19 at 09:00; Stop 03/16/19 at 09:56; Status DC Furosemide (Lasix) 20 mg 1X ONCE IVP Last administered on 03/12/19at 10:33; Start 03/12/19 at 10:00; Stop 03/12/19 at 10:01; Status DC Furosemide (Lasix) 20 mg 1X ONCE IVP Last administered on 03/12/19at 17:39; Start 03/12/19 at 17:30; Stop 03/12/19 at 17:31; Status DC Insulin Human Lispro (HumaLOG) 0-7 UNITS TIDWMEALS SQ Last administered on 03/14/19at 18:19; Start 03/12/19 at 22:00; Stop 03/14/19 at 23:18; Status DC Dextrose (Dextrose 50%-Water Syringe) 12.5 gm PRN Q15MIN PRN IV SEE COMMENTS; Start 03/12/19 at 19:45 Dexmedetomidine HCl 400 mcg/ Sodium Chloride 100 ml @ 0 mls/hr CONT PRN IV ANXIETY / AGITATION Last administered on 03/16/19at 03:46; Start 03/13/19 at 07:45 Sodium Chloride 500 ml @ 500 mls/hr 1X PRN PRN IV SEE I/O RECORD; Start 03/13/19 at 07:45; Stop 03/14/19 at 18:24; Status DC Atropine Sulfate (ATROPINE 0.5mg SYRINGE) 0.5 mg PRN Q5MIN PRN IV SEE COMMENTS; Start 03/13/19 at 07:45 Clonidine HCl (Catapres Tts-1) 1 patch WEEKLY TD Last administered on 03/13/19at 08:11; Start 03/13/19 at 09:00 Aspirin (Ecotrin) 81 mg DAILYWBKFT PO ; Start 03/14/19 at 08:00; Stop 03/16/19 at 09:58; Status DC Furosemide (Lasix) 40 mg 1X ONCE IVP Last administered on 03/13/19at 13:29; Start 03/13/19 at 11:30; Stop 03/13/19 at 11:34; Status DC Furosemide (Lasix) 40 mg DAILY IVP ; Start 03/14/19 at 09:00; Stop 03/13/19 at 13:13; Status DC Atorvastatin Calcium (Lipitor) 20 mg QHS PO ; Start 03/13/19 at 21:00 Sodium Chloride 1,000 ml @ 75 mls/hr [id number] IV Last administered on 03/14/19at 14:14; Start 03/14/19 at 14:15; Stop 03/14/19 at 18:24; Status DC Piperacillin Sod/ Tazobactam Sod 2.25 gm/Sodium Chloride 50 ml @ 100 mls/hr Q6HRS IV Last administered on 03/15/19at 06:06; Start 03/14/19 at 18:00; Stop 03/15/19 at 07:18; Status DC Sodium Chloride 90 meq/Potassium Chloride 50 meq/ Potassium Phosphate 13.6 mmol/Magnesium Sulfate 10 meq/ Calcium Gluconate 10 meq/ Multivitamins 10 ml/Chromium/ Copper/Manganese/ Seleni/Zn 1 ml/ Total Parenteral Nutrition/Amino Acids/Dextrose/ Fat Emulsion Intravenous 87.0013 ml @ 3.625 mls/hr TPN CONT IV ; Start 03/14/19 at 22:00; Stop 03/15/19 at 21:59; Status UNV Info (Tpn Per Pharmacy) 1 each PRN DAILY PRN MC SEE COMMENTS Last administered on 03/15/19at 12:51; Start 03/14/19 at 15:30 Sodium Chloride 70 meq/Potassium Chloride 50 meq/ Potassium Phosphate 13.6 mmol/Magnesium Sulfate 10 meq/ Calcium Gluconate 10 meq/ Multivitamins 10 ml/Chromium/ Copper/Manganese/ Seleni/Zn 1 ml/ Insulin Human Regular 10 unit/ Total Parenteral Nutrition/Amino Acids/Dextrose/ Fat Emuls... 1,512 ml @ 63 mls/hr TPN CONT IV Last administered on 03/14/19at 22:19; Start 03/14/19 at 22:00; Stop 03/15/19 at 21:59; Status DC Sodium Chloride 1,000 ml @ 10 mls/hr Q24H IV Last administered on 03/14/19at 18:30; Start 03/14/19 at 18:30; Stop 03/14/19 at 22:00; Status DC Pantoprazole Sodium (PROTONIX VIAL for IV PUSH) 40 mg HS IVP Last administered on 03/15/19at 20:57; Start 03/14/19 at 21:00 Insulin Human Lispro (HumaLOG) 0-7 UNITS Q6HRS SQ Last administered on 03/16/19at 07:42; Start 03/15/19 at 00:00 Sodium Chloride 40 meq/Potassium Chloride 50 meq/ Potassium Phosphate 8 mmol/ Magnesium Sulfate 3 meq/Calcium Gluconate 10 meq/ Multivitamins 10 ml/Chromium/ Copper/Manganese/ Seleni/Zn 1 ml/ Insulin Human Regular 20 unit/ Total Parenteral Nutrition/Amino Acids/Dextrose/ Fat Emulsion Intravenous 1,512 ml @ 63 mls/hr TPN CONT IV Last administered on 03/15/19at 21:49; Start 03/15/19 at 22:00; Stop 03/16/19 at 21:59 Insulin Glargine (Lantus Syringe) 20 unit QHS SQ ; Start 03/16/19 at 21:00; Stop 03/16/19 at 06:13; Status DC Insulin Glargine (Lantus Syringe) 20 unit 1X SQ ; Start 03/15/19 at 15:30; Stop 03/15/19 at 16:56; Status DC Insulin Glargine (Lantus Syringe) 20 unit 1X ONCE SQ Last administered on 03/15/19at 17:02; Start 03/15/19 at 17:00; Stop 03/15/19 at 17:01; Status DC Insulin Glargine (Lantus Syringe) 20 unit BID SQ ; Start 03/16/19 at 07:00; Status Cancel Insulin Glargine (Lantus Syringe) 20 unit QHS SQ ; Start 03/16/19 at 21:00; Stop 03/16/19 at 08:04; Status DC Insulin Human Lispro (HumaLOG) 5 units 1X ONCE SQ Last administered on 03/16/19at 07:41; Start 03/16/19 at 07:15; Stop 03/16/19 at 07:20; Status DC Insulin Glargine (Lantus Syringe) 40 unit QHS SQ ; Start 03/16/19 at 21:00 Gabapentin (Neurontin Oral Soln) 300 mg [id number] PO Last administered on 03/16/19at 10:55; Start 03/16/19 at 10:00 Oxycodone HCl 5 mg PRN BID PRN NG PAIN Last administered on 03/16/19at 10:54; Start 03/16/19 at 10:00 Diazepam (Valium) 5 mg PRN Q8HRS PRN NG ANXIETY Last administered on 03/16/19at 10:34; Start 03/16/19 at 09:58 Aspirin (Children'S Aspirin) 81 mg DAILYWBKFT PO ; Start 03/16/19 at 10:00 Polyethylene Glycol (miraLAX PACKET) 17 gm DAILY PO ; Start 03/16/19 at 11:00 Active Scripts Active Prednisone 20 Mg Tablet 20 Mg PO DAILY Diazepam 5 Mg Tablet 5 Mg PO PRN Q8HRS PRN Reported Doxycycline Hyclate 50 Mg Capsule 1 Cap PO BID 7 Days Doxycycline Hyclate 50 Mg Capsule 1 Cap PO BID 7 Days Doxycycline Hyclate 50 Mg Capsule 1 Cap PO BID 7 Days Gabapentin (Gabapentin) 100 Mg Capsule 200 Mg PO TID Percocet 5-325 Mg Tablet (Oxycodone/Acetaminophen) 1 Each Tablet 1 Each PO 6XDAY PRN Aspir 81 (Aspirin) 81 Mg Tablet.dr 81 Mg PO DAILY Henderson-3 (Henderson-3 Fatty Acids) 1,000 Mg Capsule 1,200 Mg PO BID Omeprazole 20 Mg Capsule.dr 20 Mg PO BID Tiazac (Diltiazem Hcl) 240 Mg Capsule.er 240 Mg PO DAILY Xopenex Hfa (Levalbuterol Tartrate) 15 Gm Hfa.aer.ad 15 Gm IH BID PRN Metformin Hcl 500 Mg Tablet 500 Mg PO BID Allergies Allergies: Coded Allergies: albuterol (Verified Adverse Reaction, Severe, 03/13/19) severe shaking fluticasone propionate (Verified Adverse Reaction, Severe, 03/13/19) severe shaking hydrocodone (Verified Adverse Reaction, Severe, Nausea and Vomiting, 03/13/19) potassium (Verified Adverse Reaction, Severe, Nausea and Vomiting, 03/13/19) salmeterol xinafoate (Verified Adverse Reaction, Severe, 03/13/19) severe shaking Vitals VITALS Vital Signs Date Time Temp Pulse Resp B/P (MAP) Pulse Ox O2 Delivery O2 Flow Rate FiO2 03/16/19 11:27 97 High Flow Nasal Cannula 5.0 03/16/19 10:00 96 20 152/72 (98) 03/16/19 07:00 97.4 97.4 Labs Labs Laboratory Tests Test 03/14/19 12:15 03/14/19 17:49 03/14/19 23:06 03/15/19 06:20 Glucose (Fingerstick) 268 mg/dL (70-99) 232 mg/dL (70-99) 216 mg/dL (70-99) White Blood Count 8.0 x10^3/uL (4.0-11.0) Red Blood Count 3.12 x10^6/uL (3.50-5.40) Hemoglobin 7.6 g/dL (12.0-15.5) Hematocrit 24.1 % (36.0-47.0) Mean Corpuscular Volume 77 fL (79-100) Mean Corpuscular Hemoglobin 24 pg (25-35) Mean Corpuscular Hemoglobin Concent 31 g/dL (31-37) Red Cell Distribution Width 17.6 % (11.5-14.5) Platelet Count 238 x10^3/uL (140-400) Neutrophils (%) (Auto) 89 % (31-73) Lymphocytes (%) (Auto) 8 % (24-48) Monocytes (%) (Auto) 3 % (0-9) Eosinophils (%) (Auto) 0 % (0-3) Basophils (%) (Auto) 0 % (0-3) Neutrophils # (Auto) 7.0 x10^3/uL (1.8-7.7) Lymphocytes # (Auto) 0.6 x10^3/uL (1.0-4.8) Monocytes # (Auto) 0.2 x10^3/uL (0.0-1.1) Eosinophils # (Auto) 0.0 x10^3/uL (0.0-0.7) Basophils # (Auto) 0.0 x10^3/uL (0.0-0.2) Sodium Level 152 mmol/L (136-145) Potassium Level 4.0 mmol/L (3.5-5.1) Chloride Level 115 mmol/L (98-107) Carbon Dioxide Level 27 mmol/L (21-32) Anion Gap 10 (6-14) Blood Urea Nitrogen 68 mg/dL (7-20) Creatinine 1.5 mg/dL (0.6-1.0) Estimated GFR (Cockcroft-Gault) 33.5 BUN/Creatinine Ratio 45 (6-20) Glucose Level 372 mg/dL (70-99) Calcium Level 9.0 mg/dL (8.5-10.1) Phosphorus Level 4.2 mg/dL (2.6-4.7) Magnesium Level 3.0 mg/dL (1.8-2.4) Total Bilirubin 0.5 mg/dL (0.2-1.0) Aspartate Amino Transf (AST/SGOT) 44 U/L (15-37) Alanine Aminotransferase (ALT/SGPT) 92 U/L (14-59) Alkaline Phosphatase 40 U/L (46-116) Total Protein 6.9 g/dL (6.4-8.2) Albumin 2.8 g/dL (3.4-5.0) Albumin/Globulin Ratio 0.7 (1.0-1.7) Test 03/15/19 06:34 03/15/19 06:35 03/15/19 09:19 03/15/19 13:55 Glucose (Fingerstick) 362 mg/dL (70-99) 384 mg/dL (70-99) 389 mg/dL (70-99) 388 mg/dL (70-99) Test 03/15/19 17:33 03/16/19 00:00 03/16/19 04:50 03/16/19 06:04 Glucose (Fingerstick) 327 mg/dL (70-99) 315 mg/dL (70-99) 366 mg/dL (70-99) Sodium Level 153 mmol/L (136-145) Potassium Level 5.0 mmol/L (3.5-5.1) Chloride Level 118 mmol/L (98-107) Carbon Dioxide Level 26 mmol/L (21-32) Anion Gap 9 (6-14) Blood Urea Nitrogen 62 mg/dL (7-20) Creatinine 1.3 mg/dL (0.6-1.0) Estimated GFR (Cockcroft-Gault) 39.5 Glucose Level 395 mg/dL (70-99) Calcium Level 9.4 mg/dL (8.5-10.1) Phosphorus Level 4.2 mg/dL (2.6-4.7) Magnesium Level 2.7 mg/dL (1.8-2.4) Laboratory Tests Test 03/15/19 13:55 03/15/19 17:33 03/16/19 00:00 03/16/19 04:50 Glucose (Fingerstick) 388 mg/dL (70-99) 327 mg/dL (70-99) 315 mg/dL (70-99) Sodium Level 153 mmol/L (136-145) Potassium Level 5.0 mmol/L (3.5-5.1) Chloride Level 118 mmol/L (98-107) Carbon Dioxide Level 26 mmol/L (21-32) Anion Gap 9 (6-14) Blood Urea Nitrogen 62 mg/dL (7-20) Creatinine 1.3 mg/dL (0.6-1.0) Estimated GFR (Cockcroft-Gault) 39.5 Glucose Level 395 mg/dL (70-99) Calcium Level 9.4 mg/dL (8.5-10.1) Phosphorus Level 4.2 mg/dL (2.6-4.7) Magnesium Level 2.7 mg/dL (1.8-2.4) Test 03/16/19 06:04 Glucose (Fingerstick) 366 mg/dL (70-99) Assessment/Plan Assessment/Plan Abd distention- s/p hysterectomy/ elizabeth-cystectomy, most likely secondary to adhesions. Ileus possible as well. Plan serial KUBS iv fluids Full note dictated PHILIP PALUMBO MD Mar 16, 2019 11:45
[2019-03-16] MEDS: POLYETHYLENE GLYCOL 3350 17 GM PACKET. PO SCH (12:29)
--- NOTE | 2019-03-16 13:00 | CONS ---
DATE OF CONSULTATION: 03/16/2019 GASTROINTESTINAL CONSULTATION REASON FOR CONSULTATION: Possible bowel obstruction or ileus. HISTORY OF PRESENT ILLNESS: A 78-year-old female whose past medical history is significant for diabetes, chronic obstructive pulmonary disease, neuropathy, previous hysterectomy, and cholecystectomy, who was admitted to [facility] with chronic obstructive pulmonary disease exacerbation. Subsequently, she has become more unresponsive, required BiPAP and feeding tube placement with Dobbhoff. At the time this Dobhoff tube placement, film raised the question of possible bowel obstruction. She has not moved her bowels and MiraLAX is in the process of being given and serial KUBs will be followed as adhesions and/or the infection/ileus are probably contributing. PAST MEDICAL HISTORY: Diabetes, COPD, and history of neuropathy. ALLERGIES: ALBUTEROL, PROPRIONATE, FLUCONAZOLE, HYDROCODONE, POTASSIUM, AND SALMETEROL. MEDICATIONS: Presently include insulin, aspirin, oxycodone, gabapentin, pantoprazole, atorvastatin, clonidine, and atropine. FAMILY AND SOCIAL HISTORY: She is a former smoker, nondrinker. REVIEW OF SYSTEMS: Not available as she is minimally responsive. PHYSICAL EXAMINATION: VITAL SIGNS: Pulse 96, respiratory rate 20, blood pressure 152/72, and temperature is 97.4. HEENT: Normocephalic, atraumatic head. Pupils and extraocular muscles are not tested. Sclerae anicteric. NECK: Supple. LUNGS: Reveal decreased breath sounds anteriorly. CARDIOVASCULAR: Reveals S1, S2 without S3, S4 or appreciable murmur. ABDOMEN: Reveals a soft abdomen, which is distended with hypoactive bowel sounds with a surgical incision noted in the right upper quadrant and infraumbilical hysterectomy incision. EXTREMITIES: Reveal no cyanosis, clubbing, or edema. LABORATORY STUDIES: Hemoglobin 7.6, hematocrit 24.1, white count 8.0, platelet count is 238,000. Sodium 153, potassium 5.1, chloride 110, BUN 62, creatinine 1.3, glucose is 395, total bilirubin 0.5, alkaline phosphatase 40, ALT 92, and AST of 44. KUB, possible ileus versus obstruction, abdominal distention with recent chronic obstructive pulmonary disease exacerbation, ileus, infection, partial obstruction with adhesions in the differential. Recommend serial KUBs and MiraLAX. Stimulate bowel function. The patient at this time is not an operative candidate with her mental status changes and chronic obstructive pulmonary disease exacerbation. Therefore, she will require medical therapy. Otherwise, prolonged mechanical ventilation would be probably incurred. PHILIP PALUMBO MD DR: JESUS/nts JOB#: [id number] / [id number] KATHLEEN Wilson MD
[2019-03-16] MEDS: TPN PER PHARMACY MC PRN (13:16)
--- NOTE | 2019-03-16 13:16 | NUR ---
Pharmacy TPN Dosing Note S: THEODORE PADILLA is a 78 year old F Currently receiving Central Continuous TPN started 03/14/19 B:Pertinent PMH: NPO, possible ileus Height: 5 feet, 2 inches Weight: 83.9 kg Current diet: LABS: Sodium: 153 Potassium: 5.0 Chloride: 118 Calcium: 9.4 Corrected Calcium: 10.36 Magnesium: 2.7 CO2: 26 SCr: 1.3 Glucose: 395, 366 Albumin: 2.8 AST: 44 ALT: 92 TPN FORMULA: TPN TYPE: Central Continuous AMINO ACIDS: 70 gm DEXTROSE: 225 gm LIPIDS: 20 gm POTASSIUM PHOSPHATE: 8 mmol MAGNESIUM: 3 mEq CALCIUM: 10 mEq INSULIN: 20 units MULTIPLE VITAMIN: 10 ml TRACE ELEMENTS: 1 ml(s) TPN PLAN: -Remove NaCl due to hypernatremia. -Increase rate cautiously to 83 ml/hr - watch for signs of fluid overload as patient was admitted with edema. -Remove KCl due to large jump in serum potassium. -Serum magnesium trending down. -Blood glucose still elevated; Lantus insulin dose increased to 40 units to start HS. Will not increase TPN insulin to see effects from Lantus increase. -BMP, mag, phos tomorrow per protocol. R: Change TPN rate to 83 ml/hr and above formula. Will monitor electrolytes, glucose, and tolerance to TPN. JADE ORR RP, 03/16/19 [id number]
--- NOTE | 2019-03-16 14:16 | PDOC ---
PROGRESS NOTES Subjective Subjective Patient seen and examined Objective Objective Vital Signs Date Time Temp Pulse Resp B/P (MAP) Pulse Ox O2 Delivery O2 Flow Rate FiO2 03/16/19 13:00 91 18 159/79 (105) 95 Nasal Cannula 5.0 03/16/19 12:00 98.2 98.2 Intake and Output 03/16/19 07:00 Intake Total 2464.48 ml Output Total 1200 ml Balance 1264.48 ml Intake Oral 0 ml IV Total 2464.48 ml Output Urine Total 1200 ml Physical Exam Abdomen: Normal bowel sounds Heart: Regular rate General: Other (sedated) Lungs: Other (mildly decreased breath sounds) Assessment Assessment Problems Medical Problems: (1) Acute respiratory distress Status: Acute (2) Chronic anemia Status: Acute (3) Congestive heart failure Status: Acute (4) Elevated troponin I level Status: Acute (5) Hypomagnesemia Status: Acute (6) Hypoxia Status: Acute (7) Renal insufficiency Status: Acute (8) Restless leg syndrome Status: Acute (9) Sepsis Status: Acute (10) Tachycardia Status: Acute Acute hypoxic respiratory failure with diastolic heart failure. Slowly improving. Monitoring renal function. Followed by the pulmonary service. Microcytic hypochromic anemia. Non-ST elevated myocardial infarction. Peak troponin of 2.1. Consistent with demand ischemia. Continue present treatment. ANNE. Monitoring lab. Coronary artery disease. Distant stenting. Mildly elevated troponin as above. Metabolic encephalopathy. Restless leg syndrome Diabetes mellitus as per the primary service. Comment Review of Relevant I have reviewed the following items anni (where applicable) has been applied. Labs Laboratory Tests Test 03/14/19 17:49 03/14/19 23:06 03/15/19 06:20 03/15/19 06:34 Glucose (Fingerstick) 232 mg/dL (70-99) 216 mg/dL (70-99) 362 mg/dL (70-99) White Blood Count 8.0 x10^3/uL (4.0-11.0) Red Blood Count 3.12 x10^6/uL (3.50-5.40) Hemoglobin 7.6 g/dL (12.0-15.5) Hematocrit 24.1 % (36.0-47.0) Mean Corpuscular Volume 77 fL (79-100) Mean Corpuscular Hemoglobin 24 pg (25-35) Mean Corpuscular Hemoglobin Concent 31 g/dL (31-37) Red Cell Distribution Width 17.6 % (11.5-14.5) Platelet Count 238 x10^3/uL (140-400) Neutrophils (%) (Auto) 89 % (31-73) Lymphocytes (%) (Auto) 8 % (24-48) Monocytes (%) (Auto) 3 % (0-9) Eosinophils (%) (Auto) 0 % (0-3) Basophils (%) (Auto) 0 % (0-3) Neutrophils # (Auto) 7.0 x10^3/uL (1.8-7.7) Lymphocytes # (Auto) 0.6 x10^3/uL (1.0-4.8) Monocytes # (Auto) 0.2 x10^3/uL (0.0-1.1) Eosinophils # (Auto) 0.0 x10^3/uL (0.0-0.7) Basophils # (Auto) 0.0 x10^3/uL (0.0-0.2) Sodium Level 152 mmol/L (136-145) Potassium Level 4.0 mmol/L (3.5-5.1) Chloride Level 115 mmol/L (98-107) Carbon Dioxide Level 27 mmol/L (21-32) Anion Gap 10 (6-14) Blood Urea Nitrogen 68 mg/dL (7-20) Creatinine 1.5 mg/dL (0.6-1.0) Estimated GFR (Cockcroft-Gault) 33.5 BUN/Creatinine Ratio 45 (6-20) Glucose Level 372 mg/dL (70-99) Calcium Level 9.0 mg/dL (8.5-10.1) Phosphorus Level 4.2 mg/dL (2.6-4.7) Magnesium Level 3.0 mg/dL (1.8-2.4) Total Bilirubin 0.5 mg/dL (0.2-1.0) Aspartate Amino Transf (AST/SGOT) 44 U/L (15-37) Alanine Aminotransferase (ALT/SGPT) 92 U/L (14-59) Alkaline Phosphatase 40 U/L (46-116) Total Protein 6.9 g/dL (6.4-8.2) Albumin 2.8 g/dL (3.4-5.0) Albumin/Globulin Ratio 0.7 (1.0-1.7) Test 03/15/19 06:35 03/15/19 09:19 03/15/19 13:55 03/15/19 17:33 Glucose (Fingerstick) 384 mg/dL (70-99) 389 mg/dL (70-99) 388 mg/dL (70-99) 327 mg/dL (70-99) Test 03/16/19 00:00 03/16/19 04:50 03/16/19 06:04 Glucose (Fingerstick) 315 mg/dL (70-99) 366 mg/dL (70-99) Sodium Level 153 mmol/L (136-145) Potassium Level 5.0 mmol/L (3.5-5.1) Chloride Level 118 mmol/L (98-107) Carbon Dioxide Level 26 mmol/L (21-32) Anion Gap 9 (6-14) Blood Urea Nitrogen 62 mg/dL (7-20) Creatinine 1.3 mg/dL (0.6-1.0) Estimated GFR (Cockcroft-Gault) 39.5 Glucose Level 395 mg/dL (70-99) Calcium Level 9.4 mg/dL (8.5-10.1) Phosphorus Level 4.2 mg/dL (2.6-4.7) Magnesium Level 2.7 mg/dL (1.8-2.4) Laboratory Tests Test 03/15/19 17:33 03/16/19 00:00 03/16/19 04:50 03/16/19 06:04 Glucose (Fingerstick) 327 mg/dL (70-99) 315 mg/dL (70-99) 366 mg/dL (70-99) Sodium Level 153 mmol/L (136-145) Potassium Level 5.0 mmol/L (3.5-5.1) Chloride Level 118 mmol/L (98-107) Carbon Dioxide Level 26 mmol/L (21-32) Anion Gap 9 (6-14) Blood Urea Nitrogen 62 mg/dL (7-20) Creatinine 1.3 mg/dL (0.6-1.0) Estimated GFR (Cockcroft-Gault) 39.5 Glucose Level 395 mg/dL (70-99) Calcium Level 9.4 mg/dL (8.5-10.1) Phosphorus Level 4.2 mg/dL (2.6-4.7) Magnesium Level 2.7 mg/dL (1.8-2.4) Microbiology 03/10/19 Urine Culture - Final, Complete 03/10/19 Urine Culture Result 1 ([facility]) - Final, Complete 03/10/19 Blood Culture - Final, Complete NO GROWTH AFTER 5 DAYS Medications Current Medications Sodium Chloride 1,000 ml @ 1,000 mls/hr 1X ONCE IV Last administered on 03/10/19at 06:02; Start 03/10/19 at 06:00; Stop 03/10/19 at 07:40; Status DC Morphine Sulfate (Morphine Sulfate) 4 mg 1X ONCE IV Last administered on 03/10/19at 06:02; Start 03/10/19 at 06:00; Stop 03/10/19 at 11:33; Status DC Ondansetron HCl (Zofran) 4 mg 1X ONCE IV Last administered on 03/10/19at 06:02; Start 03/10/19 at 06:00; Stop 03/10/19 at 06:01; Status DC Lorazepam (Ativan Inj) 1 mg 1X ONCE IV Last administered on 03/10/19at 06:02; Start 03/10/19 at 06:00; Stop 03/10/19 at 11:33; Status DC Magnesium Sulfate 50 ml @ 25 mls/hr 1X ONCE IV Last administered on 03/10/19at 07:17; Start 03/10/19 at 07:15; Stop 03/10/19 at 09:14; Status DC Methylprednisolone Sodium Succinate (SOLU-Medrol 125MG VIAL) 125 mg 1X ONCE IV Last administered on 03/10/19at 07:54; Start 03/10/19 at 07:30; Stop 03/10/19 at 11:33; Status DC Ceftriaxone Sodium (Rocephin) 1 gm 1X ONCE IVP Last administered on 03/10/19at 08:03; Start 03/10/19 at 08:00; Stop 03/10/19 at 11:33; Status DC Vancomycin HCl 250 ml @ 250 mls/hr 1X ONCE IV Last administered on 03/10/19at 08:02; Start 03/10/19 at 08:15; Stop 03/10/19 at 11:33; Status DC Levalbuterol HCl (Xopenex) 1.25 mg 1X ONCE NEB Last administered on 03/10/19at 08:00; Start 03/10/19 at 08:00; Stop 03/10/19 at 11:33; Status DC Sodium Chloride 1,000 ml @ 125 mls/hr 1X ONCE IV Last administered on 03/10/19 09:03; Start 03/10/19 at 09:00; Stop 03/10/19 at 16:59; Status DC Influenza Virus Vaccine Quadrival (Afluria Quad 2019-20 (3yr Up) Syringe) 0.5 ml ONCE ONCE VAX IM Last administered on 03/10/19at 10:57; Start 03/10/19 at 10:15; Stop 03/10/19 at 10:20; Status DC Diazepam (Valium) 5 mg PRN Q8HRS PRN PO ANXIETY Last administered on 03/12/19at 15:05; Start 03/10/19 at 11:30; Stop 03/16/19 at 09:58; Status DC Metformin HCl (Glucophage) 500 mg BIDWMEALS PO Last administered on 03/11/19at 16:46; Start 03/10/19 at 17:00; Stop 03/14/19 at 14:08; Status DC Oxycodone/ Acetaminophen (Percocet 5/325) 1 tab PRN BID PRN PO MODERATE PAIN 4- 6 Last administered on 03/12/19 16:49; Start 03/10/19 at 11:30; Stop 03/16/19 at 09:57; Status DC Diltiazem HCl (Cardizem 24hr Cd) 240 mg DAILY PO Last administered on 03/12/19at 08:39; Start 03/10/19 at 12:00; Stop 03/16/19 at 14:07; Status DC Pantoprazole Sodium (Protonix) 40 mg DAILYAC PO Last administered on 03/12/19 08:29; Start 03/10/19 at 12:00; Stop 03/14/19 at 18:24; Status DC Albuterol/ Ipratropium (Duoneb) 3 ml RTQID NEB ; Start 03/10/19 at 12:00; Stop 03/10/19 at 12:02; Status DC Methylprednisolone Sodium Succinate (SOLU-Medrol 40MG VIAL) 60 mg Q12HR IV Last administered on 10/11/19at 09:19; Start 03/10/19 at 11:40 Gabapentin (Neurontin) 300 mg TID PO Last administered on 03/12/19at 15:05; Start 03/10/19 at 14:00; Stop 03/16/19 at 09:56; Status DC Sodium Bicarbonate (Sodium Bicarb Adult 8.4% Syr) 50 meq 1X ONCE IV Last administered on 03/10/19at 12:12; Start 03/10/19 at 12:00; Stop 03/10/19 at 12:05; Status DC Ipratropium Central (Atrovent) 0.5 mg RTQID NEB Last administered on 03/16/19at 11:27; Start 03/10/19 at 12:00 Lorazepam (Ativan Inj) 1 mg PRN Q4HRS PRN IVP ANXIETY / AGITATION Last administered on 03/15/19at 20:07; Start 03/10/19 at 22:30 Ceftriaxone Sodium (Rocephin) 1 gm Q24H IVP Last administered on 03/11/19at 11:19; Start 03/11/19 at 11:00; Stop 03/11/19 at 16:24; Status DC Vancomycin HCl (Vanco Per Pharmacy) 1 each PRN DAILY PRN MC SEE COMMENTS Last administered on 03/11/19at 13:31; Start 03/11/19 at 10:15; Stop 03/12/19 at 07:06; Status DC Furosemide (Lasix) 40 mg 1X ONCE IVP Last administered on 03/11/19at 11:19; Start 03/11/19 at 10:30; Stop 03/11/19 at 10:31; Status DC Vancomycin HCl 1.25 gm/Sodium Chloride 250 ml @ 167 mls/hr Q24H IV Last administered on 03/11/19at 11:22; Start 03/11/19 at 11:00; Stop 03/12/19 at 07:06; Status DC Vancomycin HCl (Vancomycin Trough Level) 1 each 1X ONCE MC ; Start 03/13/19 at 10:30; Stop 03/12/19 at 07:11; Status DC Piperacillin Sod/ Tazobactam Sod (Zosyn Per Pharmacy) 1 each PRN DAILY PRN MC SEE COMMENTS; Start 03/11/19 at 16:30; Stop 03/15/19 at 07:18; Status DC Piperacillin Sod/ Tazobactam Sod 3.375 gm/Sodium Chloride 50 ml @ 100 mls/hr Q6HRS IV Last administered on 03/14/19at 12:37; Start 03/11/19 at 17:00; Stop 03/14/19 at 14:28; Status DC Iohexol (Omnipaque 350 Mg/ml) 75 ml 1X ONCE IV Last administered on 03/11/19at 17:49; Start 03/11/19 at 17:30; Stop 03/11/19 at 17:31; Status DC Furosemide (Lasix) 40 mg 1X ONCE IVP Last administered on 03/11/19at 18:41; Start 03/11/19 at 18:30; Stop 03/11/19 at 18:35; Status DC Furosemide (Lasix) 40 mg 1X ONCE IVP Last administered on 03/11/19 22:01; Start 03/11/19 at 22:00; Stop 03/11/19 at 22:01; Status DC Doxycycline Hyclate 100 mg/ Dextrose 100 ml @ 50 mls/hr Q12HR IV Last administered on 03/16/19 09:19; Start 03/12/19 at 09:00 Daptomycin 540 mg/ Sodium Chloride 50 ml @ 100 mls/hr ONCE ONCE IV Last administered on 03/12/19at 08:41; Start 03/12/19 at 08:30; Stop 03/12/19 at 08:59; Status DC Lactobacillus Rhamnosus (Culturelle) 1 cap BID PO Last administered on 03/12/19 15:05; Start 03/12/19 at 09:00; Stop 03/16/19 at 09:56; Status DC Furosemide (Lasix) 20 mg 1X ONCE IVP Last administered on 03/12/19at 10:33; Start 03/12/19 at 10:00; Stop 03/12/19 at 10:01; Status DC Furosemide (Lasix) 20 mg 1X ONCE IVP Last administered on 03/12/19at 17:39; Start 03/12/19 at 17:30; Stop 03/12/19 at 17:31; Status DC Insulin Human Lispro (HumaLOG) 0-7 UNITS TIDWMEALS SQ Last administered on 03/14/19at 18:19; Start 03/12/19 at 22:00; Stop 03/14/19 at 23:18; Status DC Dextrose (Dextrose 50%-Water Syringe) 12.5 gm PRN Q15MIN PRN IV SEE COMMENTS; Start 03/12/19 at 19:45 Dexmedetomidine HCl 400 mcg/ Sodium Chloride 100 ml @ 0 mls/hr CONT PRN IV ANXIETY / AGITATION Last administered on 03/16/19at 13:01; Start 03/13/19 at 07:45 Sodium Chloride 500 ml @ 500 mls/hr 1X PRN PRN IV SEE I/O RECORD; Start 03/13/19 at 07:45; Stop 03/14/19 at 18:24; Status DC Atropine Sulfate (ATROPINE 0.5mg SYRINGE) 0.5 mg PRN Q5MIN PRN IV SEE COMMENTS; Start 03/13/19 at 07:45 Clonidine HCl (Catapres Tts-1) 1 patch WEEKLY TD Last administered on 03/13/19at 08:11; Start 03/13/19 at 09:00 Aspirin (Ecotrin) 81 mg DAILYWBKFT PO ; Start 03/14/19 at 08:00; Stop 03/16/19 at 09:58; Status DC Furosemide (Lasix) 40 mg 1X ONCE IVP Last administered on 03/13/19at 13:29; Start 03/13/19 at 11:30; Stop 03/13/19 at 11:34; Status DC Furosemide (Lasix) 40 mg DAILY IVP ; Start 03/14/19 at 09:00; Stop 03/13/19 at 13:13; Status DC Atorvastatin Calcium (Lipitor) 20 mg QHS PO ; Start 03/13/19 at 21:00 Sodium Chloride 1,000 ml @ 75 mls/hr [id number] IV Last administered on 03/14/19at 14:14; Start 03/14/19 at 14:15; Stop 03/14/19 at 18:24; Status DC Piperacillin Sod/ Tazobactam Sod 2.25 gm/Sodium Chloride 50 ml @ 100 mls/hr Q6HRS IV Last administered on 03/15/19at 06:06; Start 03/14/19 at 18:00; Stop 03/15/19 at 07:18; Status DC Sodium Chloride 90 meq/Potassium Chloride 50 meq/ Potassium Phosphate 13.6 mmol/Magnesium Sulfate 10 meq/ Calcium Gluconate 10 meq/ Multivitamins 10 ml/Chromium/ Copper/Manganese/ Seleni/Zn 1 ml/ Total Parenteral Nutrition/Amino Acids/Dextrose/ Fat Emulsion Intravenous 87.0013 ml @ 3.625 mls/hr TPN CONT IV ; Start 03/14/19 at 22:00; Stop 03/15/19 at 21:59; Status UNV Info (Tpn Per Pharmacy) 1 each PRN DAILY PRN MC SEE COMMENTS Last administered on 03/16/19at 13:16; Start 03/14/19 at 15:30 Sodium Chloride 70 meq/Potassium Chloride 50 meq/ Potassium Phosphate 13.6 mmol/Magnesium Sulfate 10 meq/ Calcium Gluconate 10 meq/ Multivitamins 10 ml/Chromium/ Copper/Manganese/ Seleni/Zn 1 ml/ Insulin Human Regular 10 unit/ Total Parenteral Nutrition/Amino Acids/Dextrose/ Fat Emuls... 1,512 ml @ 63 mls/hr TPN CONT IV Last administered on 03/14/19at 22:19; Start 03/14/19 at 22:00; Stop 03/15/19 at 21:59; Status DC Sodium Chloride 1,000 ml @ 10 mls/hr Q24H IV Last administered on 03/14/19at 18:30; Start 03/14/19 at 18:30; Stop 03/14/19 at 22:00; Status DC Pantoprazole Sodium (PROTONIX VIAL for IV PUSH) 40 mg HS IVP Last administered on 03/15/19at 20:57; Start 03/14/19 at 21:00 Insulin Human Lispro (HumaLOG) 0-7 UNITS Q6HRS SQ Last administered on 03/16/19at 07:42; Start 03/15/19 at 00:00 Sodium Chloride 40 meq/Potassium Chloride 50 meq/ Potassium Phosphate 8 mmol/ Magnesium Sulfate 3 meq/Calcium Gluconate 10 meq/ Multivitamins 10 ml/Chromium/ Copper/Manganese/ Seleni/Zn 1 ml/ Insulin Human Regular 20 unit/ Total Parenteral Nutrition/Amino Acids/Dextrose/ Fat Emulsion Intravenous 1,512 ml @ 63 mls/hr TPN CONT IV Last administered on 03/15/19at 21:49; Start 03/15/19 at 22:00; Stop 03/16/19 at 21:59 Insulin Glargine (Lantus Syringe) 20 unit QHS SQ ; Start 03/16/19 at 21:00; Stop 03/16/19 at 06:13; Status DC Insulin Glargine (Lantus Syringe) 20 unit 1X SQ ; Start 03/15/19 at 15:30; Stop 03/15/19 at 16:56; Status DC Insulin Glargine (Lantus Syringe) 20 unit 1X ONCE SQ Last administered on 03/15/19at 17:02; Start 03/15/19 at 17:00; Stop 03/15/19 at 17:01; Status DC Insulin Glargine (Lantus Syringe) 20 unit BID SQ ; Start 03/16/19 at 07:00; Status Cancel Insulin Glargine (Lantus Syringe) 20 unit QHS SQ ; Start 03/16/19 at 21:00; Stop 03/16/19 at 08:04; Status DC Insulin Human Lispro (HumaLOG) 5 units 1X ONCE SQ Last administered on 03/16/19at 07:41; Start 03/16/19 at 07:15; Stop 03/16/19 at 07:20; Status DC Insulin Glargine (Lantus Syringe) 40 unit QHS SQ ; Start 03/16/19 at 21:00 Gabapentin (Neurontin Oral Soln) 300 mg HUH490 PO Last administered on 03/16/19at 14:09; Start 03/16/19 at 10:00 Oxycodone HCl 5 mg PRN BID PRN NG PAIN Last administered on 03/16/19at 10:54; Start 03/16/19 at 10:00 Diazepam (Valium) 5 mg PRN Q8HRS PRN NG ANXIETY Last administered on 03/16/19at 10:34; Start 03/16/19 at 09:58 Aspirin (Children'S Aspirin) 81 mg DAILYWBKFT PO ; Start 03/16/19 at 10:00 Polyethylene Glycol (miraLAX PACKET) 17 gm DAILY PO Last administered on 03/16/19at 12:29; Start 03/16/19 at 11:00 Potassium Phosphate 8 mmol/ Magnesium Sulfate 3 meq/Calcium Gluconate 10 meq/ Multivitamins 10 ml/Chromium/ Copper/Manganese/ Seleni/Zn 1 ml/ Insulin Human Regular 20 unit/ Total Parenteral Nutrition/Amino Acids/Dextrose/ Fat Emulsion Intravenous 1,992 ml @ 83 mls/hr TPN CONT IV ; Start 03/16/19 at 22:00; Stop 03/17/19 at 21:59 Haloperidol Lactate (Haldol Inj) 5 mg PRN Q6HRS PRN IVP AGITATION; Start 03/16/19 at 13:00 Diltiazem HCl (Cardizem) 60 mg Q6HRS PO ; Start 03/16/19 at 15:00 Active Scripts Active Prednisone 20 Mg Tablet 20 Mg PO DAILY Diazepam 5 Mg Tablet 5 Mg PO PRN Q8HRS PRN Reported Doxycycline Hyclate 50 Mg Capsule 1 Cap PO BID 7 Days Doxycycline Hyclate 50 Mg Capsule 1 Cap PO BID 7 Days Doxycycline Hyclate 50 Mg Capsule 1 Cap PO BID 7 Days Gabapentin (Gabapentin) 100 Mg Capsule 200 Mg PO TID Percocet 5-325 Mg Tablet (Oxycodone/Acetaminophen) 1 Each Tablet 1 Each PO 6XDAY PRN Aspir 81 (Aspirin) 81 Mg Tablet.dr 81 Mg PO DAILY Laurens-3 (Laurens-3 Fatty Acids) 1,000 Mg Capsule 1,200 Mg PO BID Omeprazole 20 Mg Capsule.dr 20 Mg PO BID Tiazac (Diltiazem Hcl) 240 Mg Capsule.er 240 Mg PO DAILY Xopenex Hfa (Levalbuterol Tartrate) 15 Gm Hfa.aer.ad 15 Gm IH BID PRN Metformin Hcl 500 Mg Tablet 500 Mg PO BID Vitals/I & O Vital Sign - Last 24 Hours 03/15/19 03/15/19 03/15/19 03/15/19 15:00 15:29 16:00 16:00 Temp 98.2 98.2 Pulse 88 92 Resp 20 20 B/P (MAP) 143/64 (90) 147/71 (96) Pulse Ox 100 100 100 O2 Delivery BiPAP/CPAP BiPAP/CPAP Nasal Cannula Bi-pap O2 Flow Rate 6.0 03/15/19 03/15/19 03/15/19 03/15/19 17:00 18:00 19:00 20:00 Temp 98.3 98.3 Pulse 92 90 83 Resp 25 24 21 B/P (MAP) 139/73 (95) 156/81 (106) 145/75 (98) Pulse Ox 100 96 98 O2 Delivery Nasal Cannula Nasal Cannula High Flow Nasal Cannula Bi-pap O2 Flow Rate 6.0 6.0 6.0 6.0 03/15/19 03/15/19 03/15/19 03/15/19 20:00 20:26 21:00 22:00 Pulse 83 86 79 Resp 26 22 22 B/P (MAP) 152/72 (98) 143/65 (91) 141/71 (94) Pulse Ox 100 100 100 O2 Delivery High Flow Nasal Cannula BiPAP/CPAP BiPAP/CPAP BiPAP/CPAP O2 Flow Rate 6.0 03/15/19 03/15/19 03/16/19 03/16/19 23:00 23:44 00:00 00:00 Temp 98.0 98.0 Pulse 77 74 Resp 20 20 B/P (MAP) 131/65 (87) 136/76 (96) Pulse Ox 100 100 100 O2 Delivery BiPAP/CPAP BiPAP/CPAP BiPAP/CPAP Bi-pap 03/16/19 03/16/19 03/16/19 03/16/19 01:00 02:00 02:01 03:00 Pulse 76 76 73 Resp 19 B/P (MAP) 143/74 (97) 141/72 (95) 138/64 (88) Pulse Ox 100 100 100 100 O2 Delivery BiPAP/CPAP BiPAP/CPAP BiPAP/CPAP BiPAP/CPAP 03/16/19 03/16/19 03/16/19 03/16/19 04:00 04:00 04:00 04:31 Pulse 73 Resp 18 B/P (MAP) 130/65 (86) Pulse Ox 100 100 O2 Delivery Bi-pap BiPAP/CPAP BiPAP/CPAP O2 Flow Rate 6.0 6.0 03/16/19 03/16/19 03/16/19 03/16/19 05:00 05:54 06:00 07:00 Temp 97.4 97.4 Pulse 72 72 76 Resp 20 20 24 B/P (MAP) 141/84 (103) 140/68 (92) 135/69 (91) Pulse Ox 100 100 100 92 O2 Delivery BiPAP/CPAP BiPAP/CPAP BiPAP/CPAP Nasal Cannula O2 Flow Rate 5.0 03/16/19 03/16/19 03/16/19 03/16/19 08:00 08:00 08:06 09:00 Pulse 82 93 Resp 22 22 B/P (MAP) 145/69 (94) 146/65 (92) Pulse Ox 92 98 92 O2 Delivery Nasal Cannula Bi-pap High Flow Nasal Cannula Nasal Cannula O2 Flow Rate 5.0 6.0 5.0 5.0 03/16/19 03/16/19 03/16/19 03/16/19 10:00 11:00 11:27 12:00 Temp 98.2 98.2 Pulse 96 92 103 Resp 20 18 18 B/P (MAP) 152/72 (98) 153/67 (95) 159/68 (98) Pulse Ox 97 92 97 92 O2 Delivery Nasal Cannula Nasal Cannula High Flow Nasal Cannula Nasal Cannula O2 Flow Rate 5.0 5.0 5.0 5.0 03/16/19 03/16/19 12:00 13:00 Pulse 91 Resp 18 B/P (MAP) 159/79 (105) Pulse Ox 95 O2 Delivery Bi-pap Nasal Cannula O2 Flow Rate 6.0 5.0 Intake and Output 03/15/19 03/15/19 03/16/19 15:00 23:00 07:00 Intake Total 1459.28 ml 1005.2 ml Output Total 355 ml 400 ml 445 ml Balance -355 ml 1059.28 ml 560.2 ml LATASHA TRISTAN MD Mar 16, 2019 14:15
[2019-03-16] MEDS: dilTIAZem HCL 30 MG TABLET PO SCH ×2 (15:02→23:59)
[2019-03-16] MEDS: PANTOPRAZOLE IV PUSH 40 MG VIAL. IVP SCH (20:58)
[2019-03-16] MEDS: ATORVASTATIN CALCIUM 20 MG TABLET PO SCH (20:58)
[2019-03-16] MEDS ORDERED: TOTAL PARENTERAL NUTRITION IV SCH ×9 (22:00)
[2019-03-16] MEDS ORDERED: [UNRECOGNIZED DRUG - OTHER] IV SCH ×9 (22:00)
[2019-03-16] MEDS ORDERED: AMINO ACID IV SCH ×9 (22:00)
[2019-03-16] MEDS ORDERED: DEXTROSE 70% IV SCH ×9 (22:00)
[2019-03-16] MEDS: HALOPERIDOL LACTATE 5 MG/ML VIAL. IVP PRN (23:59)
[2019-03-17] VITALS (24 sets, daily range): BP systolic 113–170; BP diastolic 54–80
[2019-03-17] MEDS: INSULIN LISPRO 300 UNITS/3 ML VIAL. SQ SCH ×5 (00:03→17:34)
[2019-03-17 05:29] LABS: BASO % 0 % (0-3); EOS % 0 % (0-3); HEMATOCRIT 24.9 % (36.0-47.0); HEMOGLOBIN 7.8 g/dL (12.0-15.5); LYMPH # 0.9 x10^3/uL (1.0-4.8); LYMPH % 7 % (24-48); MEAN CORPUSCULAR HEMOGLOBIN 24 pg (25-35); MEAN CORPUSCULAR HGB CONC 31 g/dL (31-37); MEAN CORPUSCULAR VOLUME 77 fL (79-100); MONO # 0.3 x10^3/uL (0.0-1.1); MONO % 3 % (0-9); NEUT # 11.4 x10^3/uL (1.8-7.7); NEUT % 90 % (31-73); PLATELET COUNT 231 x10^3/uL (140-400); RED BLOOD COUNT 3.22 x10^6/uL (3.50-5.40); RED CELL DISTRIBUTION WIDTH 17.4 % (11.5-14.5); WHITE BLOOD COUNT 12.6 x10^3/uL (4.0-11.0)
[2019-03-17 05:47] LABS: CALCIUM 9.5 mg/dL (8.5-10.1); CREATININE 1.1 mg/dL (0.6-1.0); GFR 47.9; MAGNESIUM 2.4 mg/dL (1.8-2.4); PHOSPHORUS 4.4 mg/dL (2.6-4.7); POTASSIUM 4.9 mmol/L (3.5-5.1)
[2019-03-17] MEDS: dilTIAZem HCL 30 MG TABLET PO SCH ×3 (05:58→17:32)
--- NOTE | 2019-03-17 07:59 | RAD ---
KUB History: Abdominal distention Comparison: 03/16/2019 Findings: Single supine AP view of the abdomen is submitted. There is again weighted enteric catheter, tip somewhat more retracted than previously, likely now near the gastroduodenal junction. There is again posterolateral fusion hardware of the inferior lumbar spine. There is some scattered gas in the large and small bowel, overall degree of bowel distention decreased. Impression: 1. There is again scattered gas in the bowel, overall degree of gaseous distention decreased. Electronically signed by: Maury Palmer MD (03/17/2019 7:56 AM) [facility]
--- NOTE | 2019-03-17 08:06 | PDOC ---
Infectious Disease Note Subjective Subjective BiPAP FiO2 40% No fevers TPN ROS ROS unobtainable Vital Sign Vital Signs Vital Signs Date Time Temp Pulse Resp B/P (MAP) Pulse Ox O2 Delivery O2 Flow Rate FiO2 03/17/19 07:10 100 BiPAP/CPAP 03/17/19 07:00 92 21 156/68 (97) 03/17/19 04:00 5.0 03/17/19 04:00 98.0 98.0 Physical Exam PHYSICAL EXAM GENERAL: Lying down, on BiPAP, softly moaning HEENT: Pupils are equal and reactive. Oral cavity dry. [place] NECK: Supple. LUNGS: Clear anteriorly HEART: S1, S2. regular ABDOMEN: Obese, soft, no guarding, + BS : Indwelling Oakes in place EXTREMITIES: Without clubbing or cyanosis. No gross edema. SKIN: Warm, without generalized signs of rash. NEUROLOGICAL: Awake, no response to questons [facility] clean Labs Lab Laboratory Tests Test 03/16/19 17:58 03/16/19 23:54 03/17/19 05:00 03/17/19 05:56 Glucose (Fingerstick) 377 mg/dL (70-99) 297 mg/dL (70-99) 282 mg/dL (70-99) White Blood Count 12.6 x10^3/uL (4.0-11.0) Red Blood Count 3.22 x10^6/uL (3.50-5.40) Hemoglobin 7.8 g/dL (12.0-15.5) Hematocrit 24.9 % (36.0-47.0) Mean Corpuscular Volume 77 fL (79-100) Mean Corpuscular Hemoglobin 24 pg (25-35) Mean Corpuscular Hemoglobin Concent 31 g/dL (31-37) Red Cell Distribution Width 17.4 % (11.5-14.5) Platelet Count 231 x10^3/uL (140-400) Neutrophils (%) (Auto) 90 % (31-73) Lymphocytes (%) (Auto) 7 % (24-48) Monocytes (%) (Auto) 3 % (0-9) Eosinophils (%) (Auto) 0 % (0-3) Basophils (%) (Auto) 0 % (0-3) Neutrophils # (Auto) 11.4 x10^3/uL (1.8-7.7) Lymphocytes # (Auto) 0.9 x10^3/uL (1.0-4.8) Monocytes # (Auto) 0.3 x10^3/uL (0.0-1.1) Eosinophils # (Auto) 0.0 x10^3/uL (0.0-0.7) Basophils # (Auto) 0.0 x10^3/uL (0.0-0.2) Sodium Level 150 mmol/L (136-145) Potassium Level 4.9 mmol/L (3.5-5.1) Chloride Level 113 mmol/L (98-107) Carbon Dioxide Level 27 mmol/L (21-32) Anion Gap 10 (6-14) Blood Urea Nitrogen 47 mg/dL (7-20) Creatinine 1.1 mg/dL (0.6-1.0) Estimated GFR (Cockcroft-Gault) 47.9 Glucose Level 283 mg/dL (70-99) Calcium Level 9.5 mg/dL (8.5-10.1) Phosphorus Level 4.4 mg/dL (2.6-4.7) Magnesium Level 2.4 mg/dL (1.8-2.4) Micro Microbiology 03/10/19 Urine Culture - Final, Complete 03/10/19 Urine Culture Result 1 ([facility]) - Final, Complete 03/10/19 Blood Culture - Final, Complete NO GROWTH AFTER 5 DAYS Objective Assessment ? SBO vs ileus. GI following Leukocytosis - ? reactive/Steroids Lactic acidosis - better nml procalcitonin 03/13 Elevated Troponin/NSTEMI Acure resp failure -on Bipap ANNE - little worse Pulm edema Encephalopathy - now more agitated/restless -CT head neg 03/14 Diabetes Plan Plan of Care Given ongoing encephalopathy would consider Neuro eval and if no clear reason for mental status would consider LP Cont Doxy for now (03/12) (Previous Rocephin 03/10) - will wean soon Previously on Zosyn 03/11 - 03/15 - no gross sign of infection currently. Previous Dapto times one 03/12 Cultures neg Attending Co-Sign The patient was seen and interviewed as well as examined at the bedside. The chart was reviewed. The case was discussed. Agree with the plan of care. patti Neurology consult, MRI and may also need LP d/w son and PAPACALLI Evaristo GARNICA Mar 17, 2019 08:06 LILIA BOWLING MD Mar 17, 2019 12:37
[2019-03-17] MEDS: IPRATROPIUM BROMIDE 0.5 MG/2.5 ML NEBU. NEB SCH ×4 (08:20→19:08)
--- NOTE | 2019-03-17 08:32 | PDOC ---
PULMONARY PROGRESS NOTES Subjective Pt. is off BIPAP on 5 liters N/C pt. is awake and more alert today small BM reported overnight Vitals Vital Signs Date Time Temp Pulse Resp B/P (MAP) Pulse Ox O2 Delivery O2 Flow Rate FiO2 03/17/19 07:10 100 BiPAP/CPAP 03/17/19 07:00 92 21 156/68 (97) 03/17/19 04:00 5.0 03/17/19 04:00 98.0 98.0 ROS: No Chest Pain, No Increase Cough General: Alert, Confused Lungs: Crackles (bases) Cardiovascular: S1, S2 Abdomen: Soft Extremities: Other (trace BLE edema) Skin: Warm Labs Laboratory Tests Test 03/15/19 09:19 03/15/19 13:55 03/15/19 17:33 03/16/19 00:00 Glucose (Fingerstick) 389 mg/dL (70-99) 388 mg/dL (70-99) 327 mg/dL (70-99) 315 mg/dL (70-99) Test 03/16/19 04:50 03/16/19 06:04 03/16/19 17:58 03/16/19 23:54 Sodium Level 153 mmol/L (136-145) Potassium Level 5.0 mmol/L (3.5-5.1) Chloride Level 118 mmol/L (98-107) Carbon Dioxide Level 26 mmol/L (21-32) Anion Gap 9 (6-14) Blood Urea Nitrogen 62 mg/dL (7-20) Creatinine 1.3 mg/dL (0.6-1.0) Estimated GFR (Cockcroft-Gault) 39.5 Glucose Level 395 mg/dL (70-99) Calcium Level 9.4 mg/dL (8.5-10.1) Phosphorus Level 4.2 mg/dL (2.6-4.7) Magnesium Level 2.7 mg/dL (1.8-2.4) Glucose (Fingerstick) 366 mg/dL (70-99) 377 mg/dL (70-99) 297 mg/dL (70-99) Test 03/17/19 05:00 03/17/19 05:56 White Blood Count 12.6 x10^3/uL (4.0-11.0) Red Blood Count 3.22 x10^6/uL (3.50-5.40) Hemoglobin 7.8 g/dL (12.0-15.5) Hematocrit 24.9 % (36.0-47.0) Mean Corpuscular Volume 77 fL (79-100) Mean Corpuscular Hemoglobin 24 pg (25-35) Mean Corpuscular Hemoglobin Concent 31 g/dL (31-37) Red Cell Distribution Width 17.4 % (11.5-14.5) Platelet Count 231 x10^3/uL (140-400) Neutrophils (%) (Auto) 90 % (31-73) Lymphocytes (%) (Auto) 7 % (24-48) Monocytes (%) (Auto) 3 % (0-9) Eosinophils (%) (Auto) 0 % (0-3) Basophils (%) (Auto) 0 % (0-3) Neutrophils # (Auto) 11.4 x10^3/uL (1.8-7.7) Lymphocytes # (Auto) 0.9 x10^3/uL (1.0-4.8) Monocytes # (Auto) 0.3 x10^3/uL (0.0-1.1) Eosinophils # (Auto) 0.0 x10^3/uL (0.0-0.7) Basophils # (Auto) 0.0 x10^3/uL (0.0-0.2) Sodium Level 150 mmol/L (136-145) Potassium Level 4.9 mmol/L (3.5-5.1) Chloride Level 113 mmol/L (98-107) Carbon Dioxide Level 27 mmol/L (21-32) Anion Gap 10 (6-14) Blood Urea Nitrogen 47 mg/dL (7-20) Creatinine 1.1 mg/dL (0.6-1.0) Estimated GFR (Cockcroft-Gault) 47.9 Glucose Level 283 mg/dL (70-99) Calcium Level 9.5 mg/dL (8.5-10.1) Phosphorus Level 4.4 mg/dL (2.6-4.7) Magnesium Level 2.4 mg/dL (1.8-2.4) Glucose (Fingerstick) 282 mg/dL (70-99) Laboratory Tests Test 03/16/19 17:58 03/16/19 23:54 03/17/19 05:00 03/17/19 05:56 Glucose (Fingerstick) 377 mg/dL (70-99) 297 mg/dL (70-99) 282 mg/dL (70-99) White Blood Count 12.6 x10^3/uL (4.0-11.0) Red Blood Count 3.22 x10^6/uL (3.50-5.40) Hemoglobin 7.8 g/dL (12.0-15.5) Hematocrit 24.9 % (36.0-47.0) Mean Corpuscular Volume 77 fL (79-100) Mean Corpuscular Hemoglobin 24 pg (25-35) Mean Corpuscular Hemoglobin Concent 31 g/dL (31-37) Red Cell Distribution Width 17.4 % (11.5-14.5) Platelet Count 231 x10^3/uL (140-400) Neutrophils (%) (Auto) 90 % (31-73) Lymphocytes (%) (Auto) 7 % (24-48) Monocytes (%) (Auto) 3 % (0-9) Eosinophils (%) (Auto) 0 % (0-3) Basophils (%) (Auto) 0 % (0-3) Neutrophils # (Auto) 11.4 x10^3/uL (1.8-7.7) Lymphocytes # (Auto) 0.9 x10^3/uL (1.0-4.8) Monocytes # (Auto) 0.3 x10^3/uL (0.0-1.1) Eosinophils # (Auto) 0.0 x10^3/uL (0.0-0.7) Basophils # (Auto) 0.0 x10^3/uL (0.0-0.2) Sodium Level 150 mmol/L (136-145) Potassium Level 4.9 mmol/L (3.5-5.1) Chloride Level 113 mmol/L (98-107) Carbon Dioxide Level 27 mmol/L (21-32) Anion Gap 10 (6-14) Blood Urea Nitrogen 47 mg/dL (7-20) Creatinine 1.1 mg/dL (0.6-1.0) Estimated GFR (Cockcroft-Gault) 47.9 Glucose Level 283 mg/dL (70-99) Calcium Level 9.5 mg/dL (8.5-10.1) Phosphorus Level 4.4 mg/dL (2.6-4.7) Magnesium Level 2.4 mg/dL (1.8-2.4) Medications Active Scripts Medications Dose Route/Sig Max Daily Dose Days Date Category Doxycycline Hyclate 50 Mg Capsule 1 Cap PO BID 7 10/15/17 Reported Doxycycline Hyclate 50 Mg Capsule 1 Cap PO BID 7 10/15/17 Reported Doxycycline Hyclate 50 Mg Capsule 1 Cap PO BID 7 10/15/17 Reported Gabapentin (Gabapentin) 100 Mg Capsule 200 Mg PO TID 10/12/17 Reported Prednisone 20 Mg Tablet 20 Mg PO DAILY 04/06/16 Rx Diazepam 5 Mg Tablet 5 Mg PO PRN Q8HRS PRN 04/06/16 Rx Percocet 5-325 Mg Tablet (Oxycodone/Acetaminophen) 1 Each Tablet 1 Each PO 6XDAY PRN 08/07/13 Reported Aspir 81 (Aspirin) 81 Mg Tablet.dr 81 Mg PO DAILY 08/07/13 Reported Seymour-3 (Seymour-3 Fatty Acids) 1,000 Mg Capsule 1,200 Mg PO BID 08/07/13 Reported Omeprazole 20 Mg Capsule.dr 20 Mg PO BID 08/07/13 Reported Tiazac (Diltiazem Hcl) 240 Mg Capsule.er 240 Mg PO DAILY 08/07/13 Reported Xopenex Hfa (Levalbuterol Tartrate) 15 Gm Hfa.aer.ad 15 Gm IH BID PRN 08/07/13 Reported Metformin Hcl 500 Mg Tablet 500 Mg PO BID 08/07/13 Reported Comments Impression . 1. Acute hypoxic respiratory failure secondary to diffuse interstitial edema 2. Abnormal echo with a low normal ejection fraction of 50% and grade 1 diastolic dysfunction. Now with increase troponin. NSTMI 3. Minimal history of tobacco use. 4. increased troponin levels./ NSTMI 5. Lactic acidosis secondary to work of breathing 6. Obesity-ongoing 7. h/o CAD, stents 8. ANNE- improved 9. 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 concern for gastric illeus 12 acute ence Plan . 1. repeat sed:sed rate , last was 81 on 03/13, 2. cont. antibiotics currently doxy per ID 3. cont. steroids will plan to begin taper 03/18 4.CT of head was (-) for acute abnormal. 5. BIPAP PRN/HS and N/C during the day 6. avoid sedation if possible 7. currently on TPN, 8. concern for illeus, rec per GI 9. supplemental oxygen to keep sats above 92 % 10. recs per cardiology DVT:lovenox GI PPX: protonix BRADLEY DE LOS SANTOS MD Mar 17, 2019 08:32
[2019-03-17] MEDS: GABAPENTIN 250 MG/5 ML ORAL SOLUTION. PO SCH ×3 (08:44→21:04)
[2019-03-17] MEDS: DOXYCYCLINE HYCLATE 100 MG in IV DEXTROSE 5% 100ML 100 ML IV SCH ×2 (08:44→21:04)
[2019-03-17] MEDS: ENOXAPARIN 40 MG/0.4 ML SYRINGE. SQ SCH (08:44)
[2019-03-17] MEDS: ASPIRIN CHEWABLE 81 MG TABLET. PO SCH (08:44)
[2019-03-17] MEDS: POLYETHYLENE GLYCOL 3350 17 GM PACKET. PO SCH (08:44)
[2019-03-17] MEDS: methylPREDNISolone SOD SUCC PF 40 MG/ML VIAL. IV SCH ×2 (08:45→21:03)
--- NOTE | 2019-03-17 10:58 | PDOC ---
G I PROGRESS NOTE Reason for Follow-up Ileus Subjective More alert Physical Exam Lungs decreased CV S1 S2 ABD +BS, soft, mildly distended Review of Relevant I have reviewed the following items anni (where applicable) has been applied. Labs Laboratory Tests Test 03/15/19 13:55 03/15/19 17:33 03/16/19 00:00 03/16/19 04:50 Glucose (Fingerstick) 388 mg/dL (70-99) 327 mg/dL (70-99) 315 mg/dL (70-99) Sodium Level 153 mmol/L (136-145) Potassium Level 5.0 mmol/L (3.5-5.1) Chloride Level 118 mmol/L (98-107) Carbon Dioxide Level 26 mmol/L (21-32) Anion Gap 9 (6-14) Blood Urea Nitrogen 62 mg/dL (7-20) Creatinine 1.3 mg/dL (0.6-1.0) Estimated GFR (Cockcroft-Gault) 39.5 Glucose Level 395 mg/dL (70-99) Calcium Level 9.4 mg/dL (8.5-10.1) Phosphorus Level 4.2 mg/dL (2.6-4.7) Magnesium Level 2.7 mg/dL (1.8-2.4) Test 03/16/19 06:04 03/16/19 17:58 03/16/19 23:54 03/17/19 05:00 Glucose (Fingerstick) 366 mg/dL (70-99) 377 mg/dL (70-99) 297 mg/dL (70-99) White Blood Count 12.6 x10^3/uL (4.0-11.0) Red Blood Count 3.22 x10^6/uL (3.50-5.40) Hemoglobin 7.8 g/dL (12.0-15.5) Hematocrit 24.9 % (36.0-47.0) Mean Corpuscular Volume 77 fL (79-100) Mean Corpuscular Hemoglobin 24 pg (25-35) Mean Corpuscular Hemoglobin Concent 31 g/dL (31-37) Red Cell Distribution Width 17.4 % (11.5-14.5) Platelet Count 231 x10^3/uL (140-400) Neutrophils (%) (Auto) 90 % (31-73) Lymphocytes (%) (Auto) 7 % (24-48) Monocytes (%) (Auto) 3 % (0-9) Eosinophils (%) (Auto) 0 % (0-3) Basophils (%) (Auto) 0 % (0-3) Neutrophils # (Auto) 11.4 x10^3/uL (1.8-7.7) Lymphocytes # (Auto) 0.9 x10^3/uL (1.0-4.8) Monocytes # (Auto) 0.3 x10^3/uL (0.0-1.1) Eosinophils # (Auto) 0.0 x10^3/uL (0.0-0.7) Basophils # (Auto) 0.0 x10^3/uL (0.0-0.2) Sodium Level 150 mmol/L (136-145) Potassium Level 4.9 mmol/L (3.5-5.1) Chloride Level 113 mmol/L (98-107) Carbon Dioxide Level 27 mmol/L (21-32) Anion Gap 10 (6-14) Blood Urea Nitrogen 47 mg/dL (7-20) Creatinine 1.1 mg/dL (0.6-1.0) Estimated GFR (Cockcroft-Gault) 47.9 Glucose Level 283 mg/dL (70-99) Calcium Level 9.5 mg/dL (8.5-10.1) Phosphorus Level 4.4 mg/dL (2.6-4.7) Magnesium Level 2.4 mg/dL (1.8-2.4) Test 03/17/19 05:56 Glucose (Fingerstick) 282 mg/dL (70-99) Laboratory Tests Test 03/16/19 17:58 03/16/19 23:54 03/17/19 05:00 03/17/19 05:56 Glucose (Fingerstick) 377 mg/dL (70-99) 297 mg/dL (70-99) 282 mg/dL (70-99) White Blood Count 12.6 x10^3/uL (4.0-11.0) Red Blood Count 3.22 x10^6/uL (3.50-5.40) Hemoglobin 7.8 g/dL (12.0-15.5) Hematocrit 24.9 % (36.0-47.0) Mean Corpuscular Volume 77 fL (79-100) Mean Corpuscular Hemoglobin 24 pg (25-35) Mean Corpuscular Hemoglobin Concent 31 g/dL (31-37) Red Cell Distribution Width 17.4 % (11.5-14.5) Platelet Count 231 x10^3/uL (140-400) Neutrophils (%) (Auto) 90 % (31-73) Lymphocytes (%) (Auto) 7 % (24-48) Monocytes (%) (Auto) 3 % (0-9) Eosinophils (%) (Auto) 0 % (0-3) Basophils (%) (Auto) 0 % (0-3) Neutrophils # (Auto) 11.4 x10^3/uL (1.8-7.7) Lymphocytes # (Auto) 0.9 x10^3/uL (1.0-4.8) Monocytes # (Auto) 0.3 x10^3/uL (0.0-1.1) Eosinophils # (Auto) 0.0 x10^3/uL (0.0-0.7) Basophils # (Auto) 0.0 x10^3/uL (0.0-0.2) Sodium Level 150 mmol/L (136-145) Potassium Level 4.9 mmol/L (3.5-5.1) Chloride Level 113 mmol/L (98-107) Carbon Dioxide Level 27 mmol/L (21-32) Anion Gap 10 (6-14) Blood Urea Nitrogen 47 mg/dL (7-20) Creatinine 1.1 mg/dL (0.6-1.0) Estimated GFR (Cockcroft-Gault) 47.9 Glucose Level 283 mg/dL (70-99) Calcium Level 9.5 mg/dL (8.5-10.1) Phosphorus Level 4.4 mg/dL (2.6-4.7) Magnesium Level 2.4 mg/dL (1.8-2.4) Microbiology 03/10/19 Urine Culture - Final, Complete 03/10/19 Urine Culture Result 1 ([facility]) - Final, Complete 03/10/19 Blood Culture - Final, Complete NO GROWTH AFTER 5 DAYS Medications Current Medications Sodium Chloride 1,000 ml @ 1,000 mls/hr 1X ONCE IV Last administered on 03/10/19at 06:02; Start 03/10/19 at 06:00; Stop 03/10/19 at 07:40; Status DC Morphine Sulfate (Morphine Sulfate) 4 mg 1X ONCE IV Last administered on 03/10/19at 06:02; Start 03/10/19 at 06:00; Stop 03/10/19 at 11:33; Status DC Ondansetron HCl (Zofran) 4 mg 1X ONCE IV Last administered on 03/10/19at 06:02; Start 03/10/19 at 06:00; Stop 03/10/19 at 06:01; Status DC Lorazepam (Ativan Inj) 1 mg 1X ONCE IV Last administered on 03/10/19at 06:02; Start 03/10/19 at 06:00; Stop 03/10/19 at 11:33; Status DC Magnesium Sulfate 50 ml @ 25 mls/hr 1X ONCE IV Last administered on 03/10/19at 07:17; Start 03/10/19 at 07:15; Stop 03/10/19 at 09:14; Status DC Methylprednisolone Sodium Succinate (SOLU-Medrol 125MG VIAL) 125 mg 1X ONCE IV Last administered on 03/10/19at 07:54; Start 03/10/19 at 07:30; Stop 03/10/19 at 11:33; Status DC Ceftriaxone Sodium (Rocephin) 1 gm 1X ONCE IVP Last administered on 03/10/19at 08:03; Start 03/10/19 at 08:00; Stop 03/10/19 at 11:33; Status DC Vancomycin HCl 250 ml @ 250 mls/hr 1X ONCE IV Last administered on 03/10/19at 08:02; Start 03/10/19 at 08:15; Stop 03/10/19 at 11:33; Status DC Levalbuterol HCl (Xopenex) 1.25 mg 1X ONCE NEB Last administered on 03/10/19at 08:00; Start 03/10/19 at 08:00; Stop 03/10/19 at 11:33; Status DC Sodium Chloride 1,000 ml @ 125 mls/hr 1X ONCE IV Last administered on 03/10/19at 09:03; Start 03/10/19 at 09:00; Stop 03/10/19 at 16:59; Status DC Influenza Virus Vaccine Quadrival (Afluria Quad 2019-20 (3yr Up) Syringe) 0.5 ml ONCE ONCE VAX IM Last administered on 03/10/19 10:57; Start 03/10/19 at 10:15; Stop 03/10/19 at 10:20; Status DC Diazepam (Valium) 5 mg PRN Q8HRS PRN PO ANXIETY Last administered on 03/12/19 15:05; Start 03/10/19 at 11:30; Stop 03/16/19 at 09:58; Status DC Metformin HCl (Glucophage) 500 mg BIDWMEALS PO Last administered on 03/11/19 16:46; Start 03/10/19 at 17:00; Stop 03/14/19 at 14:08; Status DC Oxycodone/ Acetaminophen (Percocet 5/325) 1 tab PRN BID PRN PO MODERATE PAIN 4- 6 Last administered on 03/12/19 16:49; Start 03/10/19 at 11:30; Stop 03/16/19 at 09:57; Status DC Diltiazem HCl (Cardizem 24hr Cd) 240 mg DAILY PO Last administered on 03/12/19 08:39; Start 03/10/19 at 12:00; Stop 03/16/19 at 14:07; Status DC Pantoprazole Sodium (Protonix) 40 mg DAILYAC PO Last administered on 03/12/19 08:29; Start 03/10/19 at 12:00; Stop 03/14/19 at 18:24; Status DC Albuterol/ Ipratropium (Duoneb) 3 ml RTQID NEB ; Start 03/10/19 at 12:00; Stop 03/10/19 at 12:02; Status DC Methylprednisolone Sodium Succinate (SOLU-Medrol 40MG VIAL) 60 mg Q12HR IV Last administered on 03/17/19at 08:45; Start 03/10/19 at 11:40 Gabapentin (Neurontin) 300 mg TID PO Last administered on 03/12/19 15:05; Start 03/10/19 at 14:00; Stop 03/16/19 at 09:56; Status DC Sodium Bicarbonate (Sodium Bicarb Adult 8.4% Syr) 50 meq 1X ONCE IV Last administered on 03/10/19 12:12; Start 03/10/19 at 12:00; Stop 03/10/19 at 12:05; Status DC Ipratropium [place] (Atrovent) 0.5 mg RTQID NEB Last administered on 03/17/19at 08:20; Start 03/10/19 at 12:00 Lorazepam (Ativan Inj) 1 mg PRN Q4HRS PRN IVP ANXIETY / AGITATION Last administered on 03/16/19at 20:58; Start 03/10/19 at 22:30 Ceftriaxone Sodium (Rocephin) 1 gm Q24H IVP Last administered on 03/11/19at 11:19; Start 03/11/19 at 11:00; Stop 03/11/19 at 16:24; Status DC Vancomycin HCl (Vanco Per Pharmacy) 1 each PRN DAILY PRN MC SEE COMMENTS Last administered on 03/11/19at 13:31; Start 03/11/19 at 10:15; Stop 03/12/19 at 07:06; Status DC Furosemide (Lasix) 40 mg 1X ONCE IVP Last administered on 03/11/19at 11:19; Start 03/11/19 at 10:30; Stop 03/11/19 at 10:31; Status DC Vancomycin HCl 1.25 gm/Sodium Chloride 250 ml @ 167 mls/hr Q24H IV Last administered on 03/11/19at 11:22; Start 03/11/19 at 11:00; Stop 03/12/19 at 07:06; Status DC Vancomycin HCl (Vancomycin Trough Level) 1 each 1X ONCE MC ; Start 03/13/19 at 10:30; Stop 03/12/19 at 07:11; Status DC Piperacillin Sod/ Tazobactam Sod (Zosyn Per Pharmacy) 1 each PRN DAILY PRN MC SEE COMMENTS; Start 03/11/19 at 16:30; Stop 03/15/19 at 07:18; Status DC Piperacillin Sod/ Tazobactam Sod 3.375 gm/Sodium Chloride 50 ml @ 100 mls/hr Q6HRS IV Last administered on 03/14/19at 12:37; Start 03/11/19 at 17:00; Stop 03/14/19 at 14:28; Status DC Iohexol (Omnipaque 350 Mg/ml) 75 ml 1X ONCE IV Last administered on 03/11/19at 17:49; Start 03/11/19 at 17:30; Stop 03/11/19 at 17:31; Status DC Furosemide (Lasix) 40 mg 1X ONCE IVP Last administered on 03/11/19at 18:41; Start 03/11/19 at 18:30; Stop 03/11/19 at 18:35; Status DC Furosemide (Lasix) 40 mg 1X ONCE IVP Last administered on 03/11/19at 22:01; Start 03/11/19 at 22:00; Stop 03/11/19 at 22:01; Status DC Doxycycline Hyclate 100 mg/ Dextrose 100 ml @ 50 mls/hr Q12HR IV Last administered on 03/17/19at 08:44; Start 03/12/19 at 09:00 Daptomycin 540 mg/ Sodium Chloride 50 ml @ 100 mls/hr ONCE ONCE IV Last administered on 03/12/19at 08:41; Start 03/12/19 at 08:30; Stop 03/12/19 at 08:59; Status DC Lactobacillus Rhamnosus (Culturelle) 1 cap BID PO Last administered on 03/12/19at 15:05; Start 03/12/19 at 09:00; Stop 03/16/19 at 09:56; Status DC Furosemide (Lasix) 20 mg 1X ONCE IVP Last administered on 03/12/19at 10:33; Start 03/12/19 at 10:00; Stop 03/12/19 at 10:01; Status DC Furosemide (Lasix) 20 mg 1X ONCE IVP Last administered on 03/12/19at 17:39; Start 03/12/19 at 17:30; Stop 03/12/19 at 17:31; Status DC Insulin Human Lispro (HumaLOG) 0-7 UNITS TIDWMEALS SQ Last administered on 03/14/19 18:19; Start 03/12/19 at 22:00; Stop 03/14/19 at 23:18; Status DC Dextrose (Dextrose 50%-Water Syringe) 12.5 gm PRN Q15MIN PRN IV SEE COMMENTS; Start 03/12/19 at 19:45 Dexmedetomidine HCl 400 mcg/ Sodium Chloride 100 ml @ 0 mls/hr CONT PRN IV ANXIETY / AGITATION Last administered on 03/16/19at 13:01; Start 03/13/19 at 07:45; Stop 03/16/19 at 17:41; Status DC Sodium Chloride 500 ml @ 500 mls/hr 1X PRN PRN IV SEE I/O RECORD; Start 03/13/19 at 07:45; Stop 03/14/19 at 18:24; Status DC Atropine Sulfate (ATROPINE 0.5mg SYRINGE) 0.5 mg PRN Q5MIN PRN IV SEE COMMENTS; Start 03/13/19 at 07:45; Stop 03/16/19 at 17:41; Status DC Clonidine HCl (Catapres Tts-1) 1 patch WEEKLY TD Last administered on 03/13/19at 08:11; Start 03/13/19 at 09:00 Aspirin (Ecotrin) 81 mg DAILYWBKFT PO ; Start 03/14/19 at 08:00; Stop 03/16/19 at 09:58; Status DC Furosemide (Lasix) 40 mg 1X ONCE IVP Last administered on 03/13/19at 13:29; Start 03/13/19 at 11:30; Stop 03/13/19 at 11:34; Status DC Furosemide (Lasix) 40 mg DAILY IVP ; Start 03/14/19 at 09:00; Stop 03/13/19 at 13:13; Status DC Atorvastatin Calcium (Lipitor) 20 mg QHS PO Last administered on 03/16/19at 20:58; Start 03/13/19 at 21:00 Sodium Chloride 1,000 ml @ 75 mls/hr [id number] IV Last administered on 03/14/19at 14:14; Start 03/14/19 at 14:15; Stop 03/14/19 at 18:24; Status DC Piperacillin Sod/ Tazobactam Sod 2.25 gm/Sodium Chloride 50 ml @ 100 mls/hr Q6HRS IV Last administered on 03/15/19at 06:06; Start 03/14/19 at 18:00; Stop 03/15/19 at 07:18; Status DC Sodium Chloride 90 meq/Potassium Chloride 50 meq/ Potassium Phosphate 13.6 mmol/Magnesium Sulfate 10 meq/ Calcium Gluconate 10 meq/ Multivitamins 10 ml/Chromium/ Copper/Manganese/ Seleni/Zn 1 ml/ Total Parenteral Nutrition/Amino Acids/Dextrose/ Fat Emulsion Intravenous 87.0013 ml @ 3.625 mls/hr TPN CONT IV ; Start 03/14/19 at 22:00; Stop 03/15/19 at 21:59; Status UNV Info (Tpn Per Pharmacy) 1 each PRN DAILY PRN MC SEE COMMENTS Last administered on 03/16/19at 13:16; Start 03/14/19 at 15:30 Sodium Chloride 70 meq/Potassium Chloride 50 meq/ Potassium Phosphate 13.6 mmol/Magnesium Sulfate 10 meq/ Calcium Gluconate 10 meq/ Multivitamins 10 ml/ Chromium/ Copper/Manganese/ Seleni/Zn 1 ml/ Insulin Human Regular 10 unit/ Total Parenteral Nutrition/Amino Acids/Dextrose/ Fat Emuls... 1,512 ml @ 63 mls/hr TPN CONT IV Last administered on 03/14/19at 22:19; Start 03/14/19 at 22:00; Stop 03/15/19 at 21:59; Status DC Sodium Chloride 1,000 ml @ 10 mls/hr Q24H IV Last administered on 03/14/19at 18:30; Start 03/14/19 at 18:30; Stop 03/14/19 at 22:00; Status DC Pantoprazole Sodium (PROTONIX VIAL for IV PUSH) 40 mg HS IVP Last administered on 03/16/19at 20:58; Start 03/14/19 at 21:00 Insulin Human Lispro (HumaLOG) 0-7 UNITS Q6HRS SQ Last administered on 03/17/19at 06:01; Start 03/15/19 at 00:00 Sodium Chloride 40 meq/Potassium Chloride 50 meq/ Potassium Phosphate 8 mmol/ Magnesium Sulfate 3 meq/Calcium Gluconate 10 meq/ Multivitamins 10 ml/Chromium/ Copper/Manganese/ Seleni/Zn 1 ml/ Insulin Human Regular 20 unit/ Total Parenteral Nutrition/Amino Acids/Dextrose/ Fat Emulsion Intravenous 1,512 ml @ 63 mls/hr TPN CONT IV Last administered on 03/15/19at 21:49; Start 03/15/19 at 22:00; Stop 03/16/19 at 21:59; Status DC Insulin Glargine (Lantus Syringe) 20 unit QHS SQ ; Start 03/16/19 at 21:00; Stop 03/16/19 at 06:13; Status DC Insulin Glargine (Lantus Syringe) 20 unit 1X SQ ; Start 03/15/19 at 15:30; Stop 03/15/19 at 16:56; Status DC Insulin Glargine (Lantus Syringe) 20 unit 1X ONCE SQ Last administered on 03/15/19at 17:02; Start 03/15/19 at 17:00; Stop 03/15/19 at 17:01; Status DC Insulin Glargine (Lantus Syringe) 20 unit BID SQ ; Start 03/16/19 at 07:00; Status Cancel Insulin Glargine (Lantus Syringe) 20 unit QHS SQ ; Start 03/16/19 at 21:00; Stop 03/16/19 at 08:04; Status DC Insulin Human Lispro (HumaLOG) 5 units 1X ONCE SQ Last administered on 03/16/19at 07:41; Start 03/16/19 at 07:15; Stop 03/16/19 at 07:20; Status DC Insulin Glargine (Lantus Syringe) 40 unit QHS SQ Last administered on 03/16/19at 21:32; Start 03/16/19 at 21:00 Gabapentin (Neurontin Oral Soln) 300 mg [id number] PO Last administered on 03/17/19 08:44; Start 03/16/19 at 10:00 Oxycodone HCl 5 mg PRN BID PRN NG PAIN Last administered on 03/16/19 16:34; Start 03/16/19 at 10:00 Diazepam (Valium) 5 mg PRN Q8HRS PRN NG ANXIETY Last administered on 03/16/19 20:19; Start 03/16/19 at 09:58 Aspirin (Children'S Aspirin) 81 mg DAILYWBKFT PO Last administered on 03/17/19 08:44; Start 03/16/19 at 10:00 Polyethylene Glycol (miraLAX PACKET) 17 gm DAILY PO Last administered on 03/17/19 08:44; Start 03/16/19 at 11:00 Potassium Phosphate 8 mmol/ Magnesium Sulfate 3 meq/Calcium Gluconate 10 meq/ Multivitamins 10 ml/Chromium/ Copper/Manganese/ Seleni/Zn 1 ml/ Insulin Human Regular 20 unit/ Total Parenteral Nutrition/Amino Acids/Dextrose/ Fat Emulsion Intravenous 1,992 ml @ 83 mls/hr TPN CONT IV Last administered on 03/16/19at 21:34; Start 03/16/19 at 22:00; Stop 03/17/19 at 21:59 Haloperidol Lactate (Haldol Inj) 5 mg PRN Q6HRS PRN IVP AGITATION Last administered on 03/16/19at 23:59; Start 03/16/19 at 13:00 Diltiazem HCl (Cardizem) 60 mg Q6HRS PO Last administered on 03/17/19at 05:58; Start 03/16/19 at 15:00 Insulin Human Lispro (HumaLOG) 5 units 1X ONCE SQ Last administered on 03/16/19at 21:04; Start 03/16/19 at 21:00; Stop 03/16/19 at 21:01; Status DC Enoxaparin Sodium (Lovenox 40mg Syringe) 40 mg Q24H SQ Last administered on 03/17/19at 08:44; Start 03/17/19 at 09:00 Active Scripts Active Prednisone 20 Mg Tablet 20 Mg PO DAILY Diazepam 5 Mg Tablet 5 Mg PO PRN Q8HRS PRN Reported Doxycycline Hyclate 50 Mg Capsule 1 Cap PO BID 7 Days Doxycycline Hyclate 50 Mg Capsule 1 Cap PO BID 7 Days Doxycycline Hyclate 50 Mg Capsule 1 Cap PO BID 7 Days Gabapentin (Gabapentin) 100 Mg Capsule 200 Mg PO TID Percocet 5-325 Mg Tablet (Oxycodone/Acetaminophen) 1 Each Tablet 1 Each PO 6XDAY PRN Aspir 81 (Aspirin) 81 Mg Tablet.dr 81 Mg PO DAILY Garvin-3 (Garvin-3 Fatty Acids) 1,000 Mg Capsule 1,200 Mg PO BID Omeprazole 20 Mg Capsule.dr 20 Mg PO BID Tiazac (Diltiazem Hcl) 240 Mg Capsule.er 240 Mg PO DAILY Xopenex Hfa (Levalbuterol Tartrate) 15 Gm Hfa.aer.ad 15 Gm IH BID PRN Metformin Hcl 500 Mg Tablet 500 Mg PO BID Vitals/I & O Vital Sign - Last 24 Hours 03/16/19 03/16/19 03/16/19 03/16/19 11:00 11:27 12:00 12:00 Temp 98.2 98.2 Pulse 92 103 Resp 18 18 B/P (MAP) 153/67 (95) 159/68 (98) Pulse Ox 92 97 92 O2 Delivery Nasal Cannula High Flow Nasal Cannula Nasal Cannula Bi-pap O2 Flow Rate 5.0 5.0 5.0 6.0 03/16/19 03/16/19 03/16/19 03/16/19 13:00 14:00 15:00 15:02 Pulse 91 99 106 101 Resp 18 18 18 B/P (MAP) 159/79 (105) 161/73 (102) 155/74 (101) 155/74 Pulse Ox 95 98 99 O2 Delivery Nasal Cannula Nasal Cannula Nasal Cannula O2 Flow Rate 5.0 5.0 5.0 03/16/19 03/16/19 03/16/19 03/16/19 15:11 16:00 16:00 17:00 Temp 97.6 97.6 Pulse 110 101 Resp 18 12 B/P (MAP) 158/75 (102) 152/86 (108) Pulse Ox 96 98 96 O2 Delivery High Flow Nasal Cannula Bi-pap Nasal Cannula Nasal Cannula O2 Flow Rate 5.0 6.0 5.0 5.0 03/16/19 03/16/19 03/16/19 03/16/19 18:00 19:00 19:43 20:00 Pulse 97 102 Resp 12 15 B/P (MAP) 149/72 (97) 150/67 (94) Pulse Ox 99 97 95 O2 Delivery Nasal Cannula Nasal Cannula High Flow Nasal Cannula Nasal Cannula O2 Flow Rate 5.0 5.0 5.0 5.0 03/16/19 03/16/19 03/16/19 03/16/19 20:00 21:00 21:49 22:00 Temp 98.0 98.0 Pulse 111 110 112 Resp 16 14 18 B/P (MAP) 160/68 (98) 159/72 (101) 155/74 (101) Pulse Ox 95 97 100 100 O2 Delivery Nasal Cannula Nasal Cannula BiPAP/CPAP BiPAP/CPAP O2 Flow Rate 5.0 5.0 03/16/19 03/16/19 03/17/19 03/17/19 23:00 23:59 00:00 00:00 Temp 97.1 97.1 Pulse 114 112 100 Resp 18 19 B/P (MAP) 166/70 (102) 170/80 (110) Pulse Ox 100 100 O2 Delivery BiPAP/CPAP BiPAP/CPAP O2 Flow Rate 5.0 03/17/19 03/17/19 03/17/19 03/17/19 00:00 00:53 01:00 02:00 Pulse 94 97 Resp 20 16 B/P (MAP) 128/64 (85) 160/75 (103) Pulse Ox 100 100 100 O2 Delivery Bi-pap BiPAP/CPAP BiPAP/CPAP BiPAP/CPAP 03/17/19 03/17/19 03/17/19 03/17/19 02:40 03:00 04:00 04:00 Temp 98.0 98.0 Pulse 88 95 Resp 14 19 B/P (MAP) 147/64 (91) 135/58 (83) Pulse Ox 100 100 100 O2 Delivery BiPAP/CPAP BiPAP/CPAP BiPAP/CPAP O2 Flow Rate 5.0 03/17/19 03/17/19 03/17/19 03/17/19 04:00 05:00 05:20 05:58 Pulse 100 98 Resp 22 B/P (MAP) 161/62 (95) Pulse Ox 100 100 O2 Delivery Bi-pap BiPAP/CPAP BiPAP/CPAP O2 Flow Rate 5.0 03/17/19 03/17/19 03/17/19 03/17/19 06:00 07:00 07:10 08:00 Pulse 91 92 Resp 24 21 B/P (MAP) 150/63 (92) 156/68 (97) Pulse Ox 100 100 100 O2 Delivery BiPAP/CPAP BiPAP/CPAP BiPAP/CPAP O2 Flow Rate 5.0 03/17/19 03/17/19 03/17/19 03/17/19 08:00 08:00 09:00 10:00 Temp 98.5 98.5 Pulse 97 99 101 Resp 25 24 19 B/P (MAP) 163/54 (90) 145/55 (85) 151/63 (92) Pulse Ox 100 98 98 O2 Delivery Bi-pap BiPAP/CPAP Nasal Cannula Nasal Cannula O2 Flow Rate 5.0 4.0 4.0 Intake and Output 03/16/19 03/16/19 03/17/19 15:00 23:00 07:00 Intake Total 100 ml 710 ml Output Total 1485 ml 1655 ml 1105 ml Balance -1385 ml -945 ml -1105 ml Problem List Problems Medical Problems: (1) Acute respiratory distress Status: Acute (2) Chronic anemia Status: Acute (3) Congestive heart failure Status: Acute (4) Elevated troponin I level Status: Acute (5) Hypomagnesemia Status: Acute (6) Hypoxia Status: Acute (7) Renal insufficiency Status: Acute (8) Restless leg syndrome Status: Acute (9) Sepsis Status: Acute (10) Tachycardia Status: Acute Assessment Ileus- improving, most likely multifactorial in etiology, continue with TPN, tube feeding early next week if mental status continues to improve PHILIP PALUMBO MD Mar 17, 2019 10:58
[2019-03-17] MEDS: diazePAM 5 MG TABLET NG PRN (12:08)
--- NOTE | 2019-03-17 12:33 | PDOC ---
Provider Note Provider Note glucose high despite more lantus and ss- inc from 40 to 60, high re steroids, more novolog also KATHLEEN ATWOOD MD Mar 17, 2019 12:33
[2019-03-17] MEDS ORDERED: INSULIN GLARGINE SYRINGE. SQ ONE (13:00)
--- NOTE | 2019-03-17 13:29 | PDOC2 ---
NEUROLOGY CONSULT Date of Admission Date of Admission DATE: 03/17/19 TIME: 13:29 Reason for Consult Reason for Consult: Altered mental status Referring Physician Referring Physician: Dr. Sullivan, Dr. Mcnulty History of Present Illness History of Present Illness The patient is a 78-year-old right-handed female whom I have seen in the past for restless leg syndrome and diabetic neuropathy who was admitted with COPD exacerbation 7 days ago. She has no history of lung disease, but felt weak and fatigued. There was also some congestive heart failure. She was transferred to the ICU and has been on BiPAP intermittently. She has been confused. There may be some aphasia, nurse thinks. There is no prior history of stroke, seizure, or head injury. Past Medical History Cardiovascular: CAD, HTN, Hyperlipidemia Pulmonary: Bronchitis, COPD, Pneumonia CENTRAL NERVOUS SYSTEM: Periperal neuropathy, Other (restless legs) GI: GERD Heme/Onc: Cancer (breast) Musculoskeletal: low back pain, Osteoarthritis Endocrine: Diabetes Past Surgical History Past Surgical History: Cholecystectomy, Cataract Removal, Mastectomy, Tonsillectomy, Hysterectomy, Other (coronary stent) Family History Family History: Cancer Social History Social History Maried, ex-smoker, no alcohol, retired Current Medications Current Medications Current Medications Sodium Chloride 1,000 ml @ 1,000 mls/hr 1X ONCE IV Last administered on 03/10/19at 06:02; Start 03/10/19 at 06:00; Stop 03/10/19 at 07:40; Status DC Morphine Sulfate (Morphine Sulfate) 4 mg 1X ONCE IV Last administered on 03/10/19at 06:02; Start 03/10/19 at 06:00; Stop 03/10/19 at 11:33; Status DC Ondansetron HCl (Zofran) 4 mg 1X ONCE IV Last administered on 03/10/19at 06:02; Start 03/10/19 at 06:00; Stop 03/10/19 at 06:01; Status DC Lorazepam (Ativan Inj) 1 mg 1X ONCE IV Last administered on 03/10/19at 06:02; Start 03/10/19 at 06:00; Stop 03/10/19 at 11:33; Status DC Magnesium Sulfate 50 ml @ 25 mls/hr 1X ONCE IV Last administered on 03/10/19at 07:17; Start 03/10/19 at 07:15; Stop 03/10/19 at 09:14; Status DC Methylprednisolone Sodium Succinate (SOLU-Medrol 125MG VIAL) 125 mg 1X ONCE IV Last administered on 03/10/19 07:54; Start 03/10/19 at 07:30; Stop 03/10/19 at 11:33; Status DC Ceftriaxone Sodium (Rocephin) 1 gm 1X ONCE IVP Last administered on 03/10/19 08:03; Start 03/10/19 at 08:00; Stop 03/10/19 at 11:33; Status DC Vancomycin HCl 250 ml @ 250 mls/hr 1X ONCE IV Last administered on 03/10/19 08:02; Start 03/10/19 at 08:15; Stop 03/10/19 at 11:33; Status DC Levalbuterol HCl (Xopenex) 1.25 mg 1X ONCE NEB Last administered on 03/10/19 08:00; Start 03/10/19 at 08:00; Stop 03/10/19 at 11:33; Status DC Sodium Chloride 1,000 ml @ 125 mls/hr 1X ONCE IV Last administered on 03/10/19 09:03; Start 03/10/19 at 09:00; Stop 03/10/19 at 16:59; Status DC Influenza Virus Vaccine Quadrival (Afluria Quad 2019-20 (3yr Up) Syringe) 0.5 ml ONCE ONCE VAX IM Last administered on 03/10/19at 10:57; Start 03/10/19 at 10:15; Stop 03/10/19 at 10:20; Status DC Diazepam (Valium) 5 mg PRN Q8HRS PRN PO ANXIETY Last administered on 03/12/19at 15:05; Start 03/10/19 at 11:30; Stop 03/16/19 at 09:58; Status DC Metformin HCl (Glucophage) 500 mg BIDWMEALS PO Last administered on 03/11/19 16:46; Start 03/10/19 at 17:00; Stop 03/14/19 at 14:08; Status DC Oxycodone/ Acetaminophen (Percocet 5/325) 1 tab PRN BID PRN PO MODERATE PAIN 4- 6 Last administered on 03/12/19at 16:49; Start 03/10/19 at 11:30; Stop 03/16/19 at 09:57; Status DC Diltiazem HCl (Cardizem 24hr Cd) 240 mg DAILY PO Last administered on 03/12/19at 08:39; Start 03/10/19 at 12:00; Stop 03/16/19 at 14:07; Status DC Pantoprazole Sodium (Protonix) 40 mg DAILYAC PO Last administered on 03/12/19at 08:29; Start 03/10/19 at 12:00; Stop 03/14/19 at 18:24; Status DC Albuterol/ Ipratropium (Duoneb) 3 ml RTQID NEB ; Start 03/10/19 at 12:00; Stop 03/10/19 at 12:02; Status DC Methylprednisolone Sodium Succinate (SOLU-Medrol 40MG VIAL) 60 mg Q12HR IV Last administered on 03/17/19at 08:45; Start 03/10/19 at 11:40 Gabapentin (Neurontin) 300 mg TID PO Last administered on 03/12/19at 15:05; Start 03/10/19 at 14:00; Stop 03/16/19 at 09:56; Status DC Sodium Bicarbonate (Sodium Bicarb Adult 8.4% Syr) 50 meq 1X ONCE IV Last administered on 03/10/19at 12:12; Start 03/10/19 at 12:00; Stop 03/10/19 at 12:05; Status DC Ipratropium Iona (Atrovent) 0.5 mg RTQID NEB Last administered on 03/17/19at 12:05; Start 03/10/19 at 12:00 Lorazepam (Ativan Inj) 1 mg PRN Q4HRS PRN IVP ANXIETY / AGITATION Last administered on 03/17/19at 12:08; Start 03/10/19 at 22:30 Ceftriaxone Sodium (Rocephin) 1 gm Q24H IVP Last administered on 03/11/19at 11:19; Start 03/11/19 at 11:00; Stop 03/11/19 at 16:24; Status DC Vancomycin HCl (Vanco Per Pharmacy) 1 each PRN DAILY PRN MC SEE COMMENTS Last administered on 03/11/19at 13:31; Start 03/11/19 at 10:15; Stop 03/12/19 at 07:06; Status DC Furosemide (Lasix) 40 mg 1X ONCE IVP Last administered on 03/11/19at 11:19; Start 03/11/19 at 10:30; Stop 03/11/19 at 10:31; Status DC Vancomycin HCl 1.25 gm/Sodium Chloride 250 ml @ 167 mls/hr Q24H IV Last administered on 03/11/19at 11:22; Start 03/11/19 at 11:00; Stop 03/12/19 at 07:06; Status DC Vancomycin HCl (Vancomycin Trough Level) 1 each 1X ONCE MC ; Start 03/13/19 at 10:30; Stop 03/12/19 at 07:11; Status DC Piperacillin Sod/ Tazobactam Sod (Zosyn Per Pharmacy) 1 each PRN DAILY PRN MC SEE COMMENTS; Start 03/11/19 at 16:30; Stop 03/15/19 at 07:18; Status DC Piperacillin Sod/ Tazobactam Sod 3.375 gm/Sodium Chloride 50 ml @ 100 mls/hr Q6HRS IV Last administered on 03/14/19at 12:37; Start 03/11/19 at 17:00; Stop 03/14/19 at 14:28; Status DC Iohexol (Omnipaque 350 Mg/ml) 75 ml 1X ONCE IV Last administered on 03/11/19at 17:49; Start 03/11/19 at 17:30; Stop 03/11/19 at 17:31; Status DC Furosemide (Lasix) 40 mg 1X ONCE IVP Last administered on 03/11/19at 18:41; Start 03/11/19 at 18:30; Stop 03/11/19 at 18:35; Status DC Furosemide (Lasix) 40 mg 1X ONCE IVP Last administered on 03/11/19at 22:01; Start 03/11/19 at 22:00; Stop 03/11/19 at 22:01; Status DC Doxycycline Hyclate 100 mg/ Dextrose 100 ml @ 50 mls/hr Q12HR IV Last administered on 03/17/19at 08:44; Start 03/12/19 at 09:00 Daptomycin 540 mg/ Sodium Chloride 50 ml @ 100 mls/hr ONCE ONCE IV Last administered on 03/12/19at 08:41; Start 03/12/19 at 08:30; Stop 03/12/19 at 08:59; Status DC Lactobacillus Rhamnosus (Culturelle) 1 cap BID PO Last administered on 03/12/19at 15:05; Start 03/12/19 at 09:00; Stop 03/16/19 at 09:56; Status DC Furosemide (Lasix) 20 mg 1X ONCE IVP Last administered on 03/12/19at 10:33; Start 03/12/19 at 10:00; Stop 03/12/19 at 10:01; Status DC Furosemide (Lasix) 20 mg 1X ONCE IVP Last administered on 03/12/19at 17:39; Start 03/12/19 at 17:30; Stop 03/12/19 at 17:31; Status DC Insulin Human Lispro (HumaLOG) 0-7 UNITS TIDWMEALS SQ Last administered on 03/14/19at 18:19; Start 03/12/19 at 22:00; Stop 03/14/19 at 23:18; Status DC Dextrose (Dextrose 50%-Water Syringe) 12.5 gm PRN Q15MIN PRN IV SEE COMMENTS; Start 03/12/19 at 19:45 Dexmedetomidine HCl 400 mcg/ Sodium Chloride 100 ml @ 0 mls/hr CONT PRN IV ANXIETY / AGITATION Last administered on 03/16/19at 13:01; Start 03/13/19 at 07:45; Stop 03/16/19 at 17:41; Status DC Sodium Chloride 500 ml @ 500 mls/hr 1X PRN PRN IV SEE I/O RECORD; Start 03/13/19 at 07:45; Stop 03/14/19 at 18:24; Status DC Atropine Sulfate (ATROPINE 0.5mg SYRINGE) 0.5 mg PRN Q5MIN PRN IV SEE COMMENTS; Start 03/13/19 at 07:45; Stop 03/16/19 at 17:41; Status DC Clonidine HCl (Catapres Tts-1) 1 patch WEEKLY TD Last administered on 03/13/19at 08:11; Start 03/13/19 at 09:00 Aspirin (Ecotrin) 81 mg DAILYWBKFT PO ; Start 03/14/19 at 08:00; Stop 03/16/19 at 09:58; Status DC Furosemide (Lasix) 40 mg 1X ONCE IVP Last administered on 03/13/19at 13:29; Start 03/13/19 at 11:30; Stop 03/13/19 at 11:34; Status DC Furosemide (Lasix) 40 mg DAILY IVP ; Start 03/14/19 at 09:00; Stop 03/13/19 at 13:13; Status DC Atorvastatin Calcium (Lipitor) 20 mg QHS PO Last administered on 03/16/19at 20:58; Start 03/13/19 at 21:00 Sodium Chloride 1,000 ml @ 75 mls/hr [id number] IV Last administered on 03/14/19at 14:14; Start 03/14/19 at 14:15; Stop 03/14/19 at 18:24; Status DC Piperacillin Sod/ Tazobactam Sod 2.25 gm/Sodium Chloride 50 ml @ 100 mls/hr Q6HRS IV Last administered on 03/15/19at 06:06; Start 03/14/19 at 18:00; Stop 03/15/19 at 07:18; Status DC Sodium Chloride 90 meq/Potassium Chloride 50 meq/ Potassium Phosphate 13.6 mmol/Magnesium Sulfate 10 meq/ Calcium Gluconate 10 meq/ Multivitamins 10 ml/Chromium/ Copper/Manganese/ Seleni/Zn 1 ml/ Total Parenteral Nutrition/Amino Acids/Dextrose/ Fat Emulsion Intravenous 87.0013 ml @ 3.625 mls/hr TPN CONT IV ; Start 03/14/19 at 22:00; Stop 03/15/19 at 21:59; Status UNV Info (Tpn Per Pharmacy) 1 each PRN DAILY PRN MC SEE COMMENTS Last administered on 03/16/19at 13:16; Start 03/14/19 at 15:30 Sodium Chloride 70 meq/Potassium Chloride 50 meq/ Potassium Phosphate 13.6 mmol/ Magnesium Sulfate 10 meq/ Calcium Gluconate 10 meq/ Multivitamins 10 ml/Chromium/ Copper/Manganese/ Seleni/Zn 1 ml/ Insulin Human Regular 10 unit/ Total Parenteral Nutrition/Amino Acids/Dextrose/ Fat Emuls... 1,512 ml @ 63 mls/hr TPN CONT IV Last administered on 03/14/19at 22:19; Start 03/14/19 at 22:00; Stop 03/15/19 at 21:59; Status DC Sodium Chloride 1,000 ml @ 10 mls/hr Q24H IV Last administered on 03/14/19at 18:30; Start 03/14/19 at 18:30; Stop 03/14/19 at 22:00; Status DC Pantoprazole Sodium (PROTONIX VIAL for IV PUSH) 40 mg HS IVP Last administered on 03/16/19at 20:58; Start 03/14/19 at 21:00 Insulin Human Lispro (HumaLOG) 0-7 UNITS Q6HRS SQ Last administered on 03/17/19at 12:18; Start 03/15/19 at 00:00; Stop 03/17/19 at 12:35; Status DC Sodium Chloride 40 meq/Potassium Chloride 50 meq/ Potassium Phosphate 8 mmol/ Magnesium Sulfate 3 meq/Calcium Gluconate 10 meq/ Multivitamins 10 ml/Chromium/ Copper/Manganese/ Seleni/Zn 1 ml/ Insulin Human Regular 20 unit/ Total Parenteral Nutrition/Amino Acids/Dextrose/ Fat Emulsion Intravenous 1,512 ml @ 63 mls/hr TPN CONT IV Last administered on 03/15/19at 21:49; Start 03/15/19 at 22:00; Stop 03/16/19 at 21:59; Status DC Insulin Glargine (Lantus Syringe) 20 unit QHS SQ ; Start 03/16/19 at 21:00; St op 03/16/19 at 06:13; Status DC Insulin Glargine (Lantus Syringe) 20 unit 1X SQ ; Start 03/15/19 at 15:30; Stop 03/15/19 at 16:56; Status DC Insulin Glargine (Lantus Syringe) 20 unit 1X ONCE SQ Last administered on 03/15/19at 17:02; Start 03/15/19 at 17:00; Stop 03/15/19 at 17:01; Status DC Insulin Glargine (Lantus Syringe) 20 unit BID SQ ; Start 03/16/19 at 07:00; Status Cancel Insulin Glargine (Lantus Syringe) 20 unit QHS SQ ; Start 03/16/19 at 21:00; Stop 03/16/19 at 08:04; Status DC Insulin Human Lispro (HumaLOG) 5 units 1X ONCE SQ Last administered on 03/16/19at 07:41; Start 03/16/19 at 07:15; Stop 03/16/19 at 07:20; Status DC Insulin Glargine (Lantus Syringe) 40 unit QHS SQ Last administered on 03/16/19 21:32; Start 03/16/19 at 21:00; Stop 03/17/19 at 12:32; Status DC Gabapentin (Neurontin Oral Soln) 300 mg [id number] PO Last administered on 03/17/19 08:44; Start 03/16/19 at 10:00 Oxycodone HCl 5 mg PRN BID PRN NG PAIN Last administered on 03/16/19 16:34; Start 03/16/19 at 10:00 Diazepam (Valium) 5 mg PRN Q8HRS PRN NG ANXIETY Last administered on 03/17/19 12:08; Start 03/16/19 at 09:58 Aspirin (Children'S Aspirin) 81 mg DAILYWBKFT PO Last administered on 03/17/19 08:44; Start 03/16/19 at 10:00 Polyethylene Glycol (miraLAX PACKET) 17 gm DAILY PO Last administered on 03/17/19 08:44; Start 03/16/19 at 11:00 Potassium Phosphate 8 mmol/ Magnesium Sulfate 3 meq/Calcium Gluconate 10 meq/ Multivitamins 10 ml/Chromium/ Copper/Manganese/ Seleni/Zn 1 ml/ Insulin Human Regular 20 unit/ Total Parenteral Nutrition/Amino Acids/Dextrose/ Fat Emulsion Intravenous 1,992 ml @ 83 mls/hr TPN CONT IV Last administered on 03/16/19 21:34; Start 03/16/19 at 22:00; Stop 03/17/19 at 21:59 Haloperidol Lactate (Haldol Inj) 5 mg PRN Q6HRS PRN IVP AGITATION Last administered on 03/16/19 23:59; Start 03/16/19 at 13:00 Diltiazem HCl (Cardizem) 60 mg Q6HRS PO Last administered on 03/17/19 12:17; Start 03/16/19 at 15:00 Insulin Human Lispro (HumaLOG) 5 units 1X ONCE SQ Last administered on 03/16/19 21:04; Start 03/16/19 at 21:00; Stop 03/16/19 at 21:01; Status DC Enoxaparin Sodium (Lovenox 40mg Syringe) 40 mg Q24H SQ Last administered on 03/17/19 08:44; Start 03/17/19 at 09:00 Potassium Phosphate 8 mmol/ Magnesium Sulfate 3 meq/Calcium Gluconate 5 meq/ Multivitamins 10 ml/Chromium/ Copper/Manganese/ Seleni/Zn 1 ml/ Insulin Human Regular 20 unit/ Total Parenteral Nutrition/Amino Acids/Dextrose/ Fat Emulsion Intravenous 1,992 ml @ 83 mls/hr TPN CONT IV ; Start 03/17/19 at 22:00; Stop 03/18/19 at 21:59 Insulin Glargine (Lantus Syringe) 30 unit [id number] SQ ; Start 03/17/19 at 18:00 Insulin Human Lispro (HumaLOG) 0-15 UNITS Q6HRS SQ ; Start 03/17/19 at 13:00 Insulin Glargine (Lantus Syringe) 30 unit 1X ONCE SQ ; Start 03/17/19 at 13:00; Stop 03/17/19 at 13:01; Status DC Active Scripts Active Prednisone 20 Mg Tablet 20 Mg PO DAILY Diazepam 5 Mg Tablet 5 Mg PO PRN Q8HRS PRN Reported Doxycycline Hyclate 50 Mg Capsule 1 Cap PO BID 7 Days Doxycycline Hyclate 50 Mg Capsule 1 Cap PO BID 7 Days Doxycycline Hyclate 50 Mg Capsule 1 Cap PO BID 7 Days Gabapentin (Gabapentin) 100 Mg Capsule 200 Mg PO TID Percocet 5-325 Mg Tablet (Oxycodone/Acetaminophen) 1 Each Tablet 1 Each PO 6X DAY PRN Aspir 81 (Aspirin) 81 Mg Tablet.dr 81 Mg PO DAILY Melcroft-3 (Melcroft-3 Fatty Acids) 1,000 Mg Capsule 1,200 Mg PO BID Omeprazole 20 Mg Capsule.dr 20 Mg PO BID Tiazac (Diltiazem Hcl) 240 Mg Capsule.er 240 Mg PO DAILY Xopenex Hfa (Levalbuterol Tartrate) 15 Gm Hfa.aer.ad 15 Gm IH BID PRN Metformin Hcl 500 Mg Tablet 500 Mg PO BID Allergies Allergies: Coded Allergies: albuterol (Verified Adverse Reaction, Severe, 03/13/19) severe shaking fluticasone propionate (Verified Adverse Reaction, Severe, 03/13/19) severe shaking hydrocodone (Verified Adverse Reaction, Severe, Nausea and Vomiting, 03/13/19) potassium (Verified Adverse Reaction, Severe, Nausea and Vomiting, 03/13/19) salmeterol xinafoate (Verified Adverse Reaction, Severe, 03/13/19) severe shaking ROS Review of System Negative for fever, chills, weight loss, shortness of breath, chest pain, indigestion, hematochezia, melena, and dysuria. Full 14-point review of systems is negative. Physical Exam Physical Examination General: Well-developed, well-nourished white female in no acute distress HEENT: Normocephalic andatraumatic. Temporal arteriespulsatile and nontender. Neck: Supple without bruit, no meningismus Musculoskeletal: Stability:see neurologic. Gait exam:see neurologic. Tone:see neurolog ic.Strength:see neurologic. Neurological: Mental Status:intact, orientation, memory, attention span/concentration, language, fund of knowledge: BiPAP is on, she just got sedation, no response to commands, nonverbal. Cranial Nerves:Pupils equal and reactive to light, extraocular movements areintact, visual ortiz are full to confrontation. Facial sensation is normal. There is no facial asymmetry. Vestibulo-ocular reflex is intact. Palate elevates and tongue protrudes in midline. All other cranial related problems are negative except as mentioned before.Reflexes:2+ and symmetric with flexor plantar responses. Motor:Normal tone, grasps with both hands, I think the right is weaker. Coordination and gait:not testable. Sensory:not testable Vitals VITALS Vital Signs Date Time Temp Pulse Resp B/P (MAP) Pulse Ox O2 Delivery O2 Flow Rate FiO2 03/17/19 12:17 118 166/67 03/17/19 12:06 96 High Flow Nasal Cannula 2.0 03/17/19 11:00 19 03/17/19 08:00 98.5 98.5 Labs Labs Laboratory Tests Test 03/15/19 13:55 03/15/19 17:33 03/16/19 00:00 03/16/19 04:50 Glucose (Fingerstick) 388 mg/dL (70-99) 327 mg/dL (70-99) 315 mg/dL (70-99) Sodium Level 153 mmol/L (136-145) Potassium Level 5.0 mmol/L (3.5-5.1) Chloride Level 118 mmol/L (98-107) Carbon Dioxide Level 26 mmol/L (21-32) Anion Gap 9 (6-14) Blood Urea Nitrogen 62 mg/dL (7-20) Creatinine 1.3 mg/dL (0.6-1.0) Estimated GFR (Cockcroft-Gault) 39.5 Glucose Level 395 mg/dL (70-99) Calcium Level 9.4 mg/dL (8.5-10.1) Phosphorus Level 4.2 mg/dL (2.6-4.7) Magnesium Level 2.7 mg/dL (1.8-2.4) Test 03/16/19 06:04 03/16/19 17:58 03/16/19 23:54 03/17/19 05:00 Glucose (Fingerstick) 366 mg/dL (70-99) 377 mg/dL (70-99) 297 mg/dL (70-99) White Blood Count 12.6 x10^3/uL (4.0-11.0) Red Blood Count 3.22 x10^6/uL (3.50-5.40) Hemoglobin 7.8 g/dL (12.0-15.5) Hematocrit 24.9 % (36.0-47.0) Mean Corpuscular Volume 77 fL (79-100) Mean Corpuscular Hemoglobin 24 pg (25-35) Mean Corpuscular Hemoglobin Concent 31 g/dL (31-37) Red Cell Distribution Width 17.4 % (11.5-14.5) Platelet Count 231 x10^3/uL (140-400) Neutrophils (%) (Auto) 90 % (31-73) Lymphocytes (%) (Auto) 7 % (24-48) Monocytes (%) (Auto) 3 % (0-9) Eosinophils (%) (Auto) 0 % (0-3) Basophils (%) (Auto) 0 % (0-3) Neutrophils # (Auto) 11.4 x10^3/uL (1.8-7.7) Lymphocytes # (Auto) 0.9 x10^3/uL (1.0-4.8) Monocytes # (Auto) 0.3 x10^3/uL (0.0-1.1) Eosinophils # (Auto) 0.0 x10^3/uL (0.0-0.7) Basophils # (Auto) 0.0 x10^3/uL (0.0-0.2) Sodium Level 150 mmol/L (136-145) Potassium Level 4.9 mmol/L (3.5-5.1) Chloride Level 113 mmol/L (98-107) Carbon Dioxide Level 27 mmol/L (21-32) Anion Gap 10 (6-14) Blood Urea Nitrogen 47 mg/dL (7-20) Creatinine 1.1 mg/dL (0.6-1.0) Estimated GFR (Cockcroft-Gault) 47.9 Glucose Level 283 mg/dL (70-99) Calcium Level 9.5 mg/dL (8.5-10.1) Phosphorus Level 4.4 mg/dL (2.6-4.7) Magnesium Level 2.4 mg/dL (1.8-2.4) Test 03/17/19 05:56 03/17/19 09:15 03/17/19 12:16 Glucose (Fingerstick) 282 mg/dL (70-99) 320 mg/dL (70-99) Erythrocyte Sedimentation Rate 67 (0-25) Laboratory Tests Test 03/16/19 17:58 03/16/19 23:54 03/17/19 05:00 03/17/19 05:56 Glucose (Fingerstick) 377 mg/dL (70-99) 297 mg/dL (70-99) 282 mg/dL (70-99) White Blood Count 12.6 x10^3/uL (4.0-11.0) Red Blood Count 3.22 x10^6/uL (3.50-5.40) Hemoglobin 7.8 g/dL (12.0-15.5) Hematocrit 24.9 % (36.0-47.0) Mean Corpuscular Volume 77 fL (79-100) Mean Corpuscular Hemoglobin 24 pg (25-35) Mean Corpuscular Hemoglobin Concent 31 g/dL (31-37) Red Cell Distribution Width 17.4 % (11.5-14.5) Platelet Count 231 x10^3/uL (140-400) Neutrophils (%) (Auto) 90 % (31-73) Lymphocytes (%) (Auto) 7 % (24-48) Monocytes (%) (Auto) 3 % (0-9) Eosinophils (%) (Auto) 0 % (0-3) Basophils (%) (Auto) 0 % (0-3) Neutrophils # (Auto) 11.4 x10^3/uL (1.8-7.7) Lymphocytes # (Auto) 0.9 x10^3/uL (1.0-4.8) Monocytes # (Auto) 0.3 x10^3/uL (0.0-1.1) Eosinophils # (Auto) 0.0 x10^3/uL (0.0-0.7) Basophils # (Auto) 0.0 x10^3/uL (0.0-0.2) Sodium Level 150 mmol/L (136-145) Potassium Level 4.9 mmol/L (3.5-5.1) Chloride Level 113 mmol/L (98-107) Carbon Dioxide Level 27 mmol/L (21-32) Anion Gap 10 (6-14) Blood Urea Nitrogen 47 mg/dL (7-20) Creatinine 1.1 mg/dL (0.6-1.0) Estimated GFR (Cockcroft-Gault) 47.9 Glucose Level 283 mg/dL (70-99) Calcium Level 9.5 mg/dL (8.5-10.1) Phosphorus Level 4.4 mg/dL (2.6-4.7) Magnesium Level 2.4 mg/dL (1.8-2.4) Test 03/17/19 09:15 03/17/19 12:16 Erythrocyte Sedimentation Rate 67 (0-25) Glucose (Fingerstick) 320 mg/dL (70-99) Images Images CT Head without IV contrast CLINICAL HISTORY: Encephalopathy COMPARISON: 10/12/2017 TECHNIQUE: Routine CT of the head without contrast. Soft tissues and bone windows were reviewed. PQRS compliance statement - One or more of the following individualized dose reduction techniques were utilized for this study: 1. Automated exposure control 2. Adjustment of the mA and/or kV according to patient size 3. Use of iterative reconstruction technique FINDINGS: There is no evidence of hemorrhage, mass or extra-axial fluid collection. Subcortical, periventricular and deep white matter hypoattenuation likely changes of chronic small vessel disease. There is no mass effect or shift of the intracranial structures. There is stable prominence of the ventricles and sulci bilaterally consistent with generalized atrophy. The cerebellum and brainstem are unremarkable. The calvarium demonstrates no evidence of fracture or focal lesion. There is normal aeration of the visualized paranasal sinuses and mastoid air cells. The visualized portions of the orbits are normal. Atherosclerotic calcifications of the intracranial internal carotid arteries is seen. IMPRESSION: No evidence for acute intracranial process. White matter changes likely from chronic small vessel disease. There is stable prominence of the ventricles and sulci bilaterally consistent with generalized atrophy. Assessment/Plan Assessment/Plan Impression: Metabolic encephalopathy, I am worried about some possible right hemiparesis. History of restless legs History of diabetic neuropathy. Medical issues include: SBO vs ileus, leukocytosis, lactic acidosis, elevated Troponin/NSTEMI, acure resp failure on Bipap, acute kidney injury, CHF/pulmonary edema Recommendations: I ordered a brain MRI, further tests or treatment depending on results. Hold on lumbar puncture Discussed with family. Thank you for letting me help with the patient's care. HUNTER ARREOLA MD Mar 17, 2019 13:29
[2019-03-17] MEDS: TPN PER PHARMACY MC PRN (13:35)
--- NOTE | 2019-03-17 13:35 | NUR ---
Pharmacy TPN Dosing Note S: THEODORE PADILLA is a 78 year old F Currently receiving Central Continuous TPN started 03/14/19 B:Pertinent PMH: NPO, ileus Height: 5 feet, 2 inches Weight: 85.8 kg Current diet: NPO LABS: Sodium: 150 Potassium: 4.9 Chloride: 113 Calcium: 9.5 Corrected Calcium: 10.46 Magnesium: 2.4 CO2: 27 SCr: 1.1 Glucose: 283, 282, 320 Albumin: 2.8 AST: 44 ALT: 92 TPN FORMULA: TPN TYPE: Central Continuous AMINO ACIDS: 70 gm DEXTROSE: 225 gm LIPIDS: 20 gm POTASSIUM PHOSPHATE: 8 mmol MAGNESIUM: 3 mEq CALCIUM: 5 mEq INSULIN: 20 units MULTIPLE VITAMIN: 10 ml TRACE ELEMENTS: 1 ml TPN PLAN: -Serum sodium trending down, no sodium in TPN. -Corrected calcium trending up, reduce calcium gluconate. -Hesitant to increase insulin in TPN any further as Lantus insulin is increased again today. Monitor blood glucose closely. -BMP, mag, phos tomorrow per protocol. R: Continue TPN @ current rate and with above changes. Will monitor electrolytes, glucose, and tolerance to TPN. JADE ORR, [facility], 03/17/19 [id number]
[2019-03-17] MEDS: oxyCODONE ORAL SOLUTION 5 MG/5 ML SOLUTION NG PRN (14:29)
--- NOTE | 2019-03-17 16:09 | RAD ---
Clinical indications: Altered mental status. Right-sided paresis. Technique: T1 and T2 and FLAIR MRI sequences of the whole brain were performed. Images were obtained in axial, coronal, and sagittal planes. Diffusion weighted MRI sequence was performed as well. Findings: No acute ischemia is seen on the diffusion weighted images. Mild bilateral periventricular white matter hyperintensities are seen consistent with chronic small vessel ischemic disease in this age group. There is a small area of cortical and subcortical hyperintensity of the lateral aspect of left temporal lobe. 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 No intracranial hemorrhage is seen otherwise.. No intracranial mass lesion or mass-effect is seen. No midline shift or extra-axial fluid collection is seen. There is mild ventriculomegaly in association with generalized sulci are enlarged consistent with generalized cerebral atrophy. Normal vascular flow signal voids are seen. The internal auditory canals have a symmetric appearance and no cerebellopontine angle mass is present. No opacification of the paranasal sinuses or mastoid sinuses is seen. No cerebellar tonsillar ectopia is seen. No pituitary mass is identified. However, there is low signal round area within the upper cervical cord seen at the C2 level. The cervical cord is not seen below this level. This is seen only in this sagittal sequence. Impression: No acute infarct. Chronic ischemic disease. No intracranial mass lesion. No intracranial hemorrhage. 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 This is not seen on the previous MRI of the cervical spine dated April 03, 2016. Recommend MRI study of the cervical spine with and without contrast for further evaluation. Electronically signed by: Phil Hendrix MD (03/17/2019 4:06 PM) [facility] [place]
[2019-03-17] MEDS: INSULIN GLARGINE SYRINGE. SQ SCH (17:54)
[2019-03-17] MEDS: PANTOPRAZOLE IV PUSH 40 MG VIAL. IVP SCH (21:03)
[2019-03-17] MEDS: ATORVASTATIN CALCIUM 20 MG TABLET PO SCH (21:04)
[2019-03-17] MEDS ORDERED: TOTAL PARENTERAL NUTRITION IV SCH ×9 (22:00)
[2019-03-17] MEDS ORDERED: [UNRECOGNIZED DRUG - OTHER] IV SCH ×9 (22:00)
[2019-03-17] MEDS ORDERED: AMINO ACID IV SCH ×9 (22:00)
[2019-03-17] MEDS ORDERED: DEXTROSE 70% IV SCH ×9 (22:00)
[2019-03-18] VITALS (24 sets, daily range): BP systolic 127–163; BP diastolic 56–75
[2019-03-18] MEDS: dilTIAZem HCL 30 MG TABLET PO SCH ×5 (00:03→23:50)
[2019-03-18] MEDS: INSULIN LISPRO 300 UNITS/3 ML VIAL. SQ SCH ×5 (05:47→23:56)
[2019-03-18] MEDS: INSULIN GLARGINE SYRINGE. SQ SCH ×2 (05:47→18:01)
[2019-03-18 06:25] LABS: CREATININE 0.9 mg/dL (0.6-1.0); GFR 60.4; MAGNESIUM 2.1 mg/dL (1.8-2.4); POTASSIUM 4.8 mmol/L (3.5-5.1)
[2019-03-18] MEDS: GABAPENTIN 250 MG/5 ML ORAL SOLUTION. PO SCH ×3 (08:05→20:36)
[2019-03-18] MEDS: DOXYCYCLINE HYCLATE 100 MG in IV DEXTROSE 5% 100ML 100 ML IV SCH ×2 (08:06→20:32)
[2019-03-18] MEDS: ASPIRIN CHEWABLE 81 MG TABLET. PO SCH (08:06)
[2019-03-18] MEDS: methylPREDNISolone SOD SUCC PF 40 MG/ML VIAL. IV SCH ×2 (08:06→20:32)
[2019-03-18] MEDS: POLYETHYLENE GLYCOL 3350 17 GM PACKET. PO SCH (08:06)
[2019-03-18] MEDS: ENOXAPARIN 40 MG/0.4 ML SYRINGE. SQ SCH (08:06)
[2019-03-18] MEDS: IPRATROPIUM BROMIDE 0.5 MG/2.5 ML NEBU. NEB SCH ×4 (08:12→19:37)
--- NOTE | 2019-03-18 08:12 | PDOC ---
Infectious Disease Note Subjective Subjective More alert and responsive this morning c/o some abdominal discomfort Last BM about 2 days ago No fevers TPN ROS ROS per HPI Vital Sign Vital Signs Vital Signs Date Time Temp Pulse Resp B/P (MAP) Pulse Ox O2 Delivery O2 Flow Rate FiO2 03/18/19 07:00 89 20 145/62 (89) 100 BiPAP/CPAP 03/18/19 04:15 5.0 03/18/19 04:00 98.6 98.6 Physical Exam PHYSICAL EXAM GENERAL: Lying down, awake, calm, venti-mask HEENT: Pupils are equal and reactive. Oral cavity dry. [place] NECK: Supple. LUNGS: Clear anteriorly HEART: S1, S2. regular ABDOMEN: Obese, soft, no guarding, + BS : Indwelling Oakes in place EXTREMITIES: Without clubbing or cyanosis. No gross edema. SKIN: Warm, without generalized signs of rash. NEUROLOGICAL: Awake, answersa several quesitions appropriately, follows commands Equal rn ortho strength, Feng, left arm raise weaker than right RIJ clean Labs Lab Laboratory Tests Test 03/17/19 09:15 03/17/19 12:16 03/17/19 17:33 03/17/19 23:58 Erythrocyte Sedimentation Rate 67 (0-25) Glucose (Fingerstick) 320 mg/dL (70-99) 265 mg/dL (70-99) 206 mg/dL (70-99) Test 03/18/19 05:45 03/18/19 06:00 Glucose (Fingerstick) 243 mg/dL (70-99) Sodium Level 144 mmol/L (136-145) Potassium Level 4.8 mmol/L (3.5-5.1) Chloride Level 109 mmol/L (98-107) Carbon Dioxide Level 28 mmol/L (21-32) Anion Gap 7 (6-14) Blood Urea Nitrogen 42 mg/dL (7-20) Creatinine 0.9 mg/dL (0.6-1.0) Estimated GFR (Cockcroft-Gault) 60.4 Glucose Level 255 mg/dL (70-99) Calcium Level 9.0 mg/dL (8.5-10.1) Magnesium Level 2.1 mg/dL (1.8-2.4) Micro Objective Assessment ? SBO vs ileus. GI following Leukocytosis - ? reactive/Steroids Lactic acidosis - better nml procalcitonin 03/13 Elevated Troponin/NSTEMI Acure resp failure -now on venti-mask ANNE - little worse Pulm edema Encephalopathy , better today. MRI reviewed. ? cervical cord lesion Diabetes Plan Plan of Care Cont Doxy for now (03/12) (Previous Rocephin 03/10) - will wean soon - Previously on Zosyn 03/11 - 03/15 - no gross sign of infection currently. - Previous Dapto times one 03/12 Cultures neg Appreciate neuro input MRI reviewed CBC in am D/w nursing Attending Co-Sign The patient was seen and interviewed as well as examined at the bedside. The chart was reviewed. The case was discussed. Agree with the plan of care. Appreciate Neurology input d/w CALLI Garcia APRN Mar 18, 2019 08:12 LILIA BOWLING MD Mar 18, 2019 11:07
--- NOTE | 2019-03-18 08:18 | PDOC ---
PULMONARY PROGRESS NOTES Subjective Pt. is much more interactive today, awake and alert Resting on 40% venti-mask. Vitals Vital Signs Date Time Temp Pulse Resp B/P (MAP) Pulse Ox O2 Delivery O2 Flow Rate FiO2 03/18/19 07:00 89 20 145/62 (89) 100 BiPAP/CPAP 03/18/19 04:15 5.0 03/18/19 04:00 98.6 98.6 ROS: No Nausea, No Chest Pain, No Abdominal Pain, No Increase Cough General: Alert, Oriented X4 Lungs: Clear Cardiovascular: S1, S2 Abdomen: Soft Neuro Exam: Alert Skin: Warm Labs Laboratory Tests Test 03/16/19 17:58 03/16/19 23:54 03/17/19 05:00 03/17/19 05:56 Glucose (Fingerstick) 377 mg/dL (70-99) 297 mg/dL (70-99) 282 mg/dL (70-99) White Blood Count 12.6 x10^3/uL (4.0-11.0) Red Blood Count 3.22 x10^6/uL (3.50-5.40) Hemoglobin 7.8 g/dL (12.0-15.5) Hematocrit 24.9 % (36.0-47.0) Mean Corpuscular Volume 77 fL (79-100) Mean Corpuscular Hemoglobin 24 pg (25-35) Mean Corpuscular Hemoglobin Concent 31 g/dL (31-37) Red Cell Distribution Width 17.4 % (11.5-14.5) Platelet Count 231 x10^3/uL (140-400) Neutrophils (%) (Auto) 90 % (31-73) Lymphocytes (%) (Auto) 7 % (24-48) Monocytes (%) (Auto) 3 % (0-9) Eosinophils (%) (Auto) 0 % (0-3) Basophils (%) (Auto) 0 % (0-3) Neutrophils # (Auto) 11.4 x10^3/uL (1.8-7.7) Lymphocytes # (Auto) 0.9 x10^3/uL (1.0-4.8) Monocytes # (Auto) 0.3 x10^3/uL (0.0-1.1) Eosinophils # (Auto) 0.0 x10^3/uL (0.0-0.7) Basophils # (Auto) 0.0 x10^3/uL (0.0-0.2) Sodium Level 150 mmol/L (136-145) Potassium Level 4.9 mmol/L (3.5-5.1) Chloride Level 113 mmol/L (98-107) Carbon Dioxide Level 27 mmol/L (21-32) Anion Gap 10 (6-14) Blood Urea Nitrogen 47 mg/dL (7-20) Creatinine 1.1 mg/dL (0.6-1.0) Estimated GFR (Cockcroft-Gault) 47.9 Glucose Level 283 mg/dL (70-99) Calcium Level 9.5 mg/dL (8.5-10.1) Phosphorus Level 4.4 mg/dL (2.6-4.7) Magnesium Level 2.4 mg/dL (1.8-2.4) Test 03/17/19 09:15 03/17/19 12:16 03/17/19 17:33 03/17/19 23:58 Erythrocyte Sedimentation Rate 67 (0-25) Glucose (Fingerstick) 320 mg/dL (70-99) 265 mg/dL (70-99) 206 mg/dL (70-99) Test 03/18/19 05:45 03/18/19 06:00 Glucose (Fingerstick) 243 mg/dL (70-99) Sodium Level 144 mmol/L (136-145) Potassium Level 4.8 mmol/L (3.5-5.1) Chloride Level 109 mmol/L (98-107) Carbon Dioxide Level 28 mmol/L (21-32) Anion Gap 7 (6-14) Blood Urea Nitrogen 42 mg/dL (7-20) Creatinine 0.9 mg/dL (0.6-1.0) Estimated GFR (Cockcroft-Gault) 60.4 Glucose Level 255 mg/dL (70-99) Calcium Level 9.0 mg/dL (8.5-10.1) Magnesium Level 2.1 mg/dL (1.8-2.4) Laboratory Tests Test 03/17/19 09:15 03/17/19 12:16 03/17/19 17:33 03/17/19 23:58 Erythrocyte Sedimentation Rate 67 (0-25) Glucose (Fingerstick) 320 mg/dL (70-99) 265 mg/dL (70-99) 206 mg/dL (70-99) Test 03/18/19 05:45 03/18/19 06:00 Glucose (Fingerstick) 243 mg/dL (70-99) Sodium Level 144 mmol/L (136-145) Potassium Level 4.8 mmol/L (3.5-5.1) Chloride Level 109 mmol/L (98-107) Carbon Dioxide Level 28 mmol/L (21-32) Anion Gap 7 (6-14) Blood Urea Nitrogen 42 mg/dL (7-20) Creatinine 0.9 mg/dL (0.6-1.0) Estimated GFR (Cockcroft-Gault) 60.4 Glucose Level 255 mg/dL (70-99) Calcium Level 9.0 mg/dL (8.5-10.1) Magnesium Level 2.1 mg/dL (1.8-2.4) Medications Active Scripts Medications Dose Route/Sig Max Daily Dose Days Date Category Doxycycline Hyclate 50 Mg Capsule 1 Cap PO BID 7 10/15/17 Reported Doxycycline Hyclate 50 Mg Capsule 1 Cap PO BID 7 10/15/17 Reported Doxycycline Hyclate 50 Mg Capsule 1 Cap PO BID 7 10/15/17 Reported Gabapentin (Gabapentin) 100 Mg Capsule 200 Mg PO TID 10/12/17 Reported Prednisone 20 Mg Tablet 20 Mg PO DAILY 04/06/16 Rx Diazepam 5 Mg Tablet 5 Mg PO PRN Q8HRS PRN 04/06/16 Rx Percocet 5-325 Mg Tablet (Oxycodone/Acetaminophen) 1 Each Tablet 1 Each PO 6XDAY PRN 08/07/13 Reported Aspir 81 (Aspirin) 81 Mg Tablet.dr 81 Mg PO DAILY 08/07/13 Reported [place]-3 ([place]-3 Fatty Acids) 1,000 Mg Capsule 1,200 Mg PO BID 08/07/13 Reported Omeprazole 20 Mg Capsule.dr 20 Mg PO BID 08/07/13 Reported Tiazac (Diltiazem Hcl) 240 Mg Capsule.er 240 Mg PO DAILY 08/07/13 Reported Xopenex Hfa (Levalbuterol Tartrate) 15 Gm Hfa.aer.ad 15 Gm IH BID PRN 08/07/13 Reported Metformin Hcl 500 Mg Tablet 500 Mg PO BID 08/07/13 Reported Comments Impression . 1. Acute hypoxic respiratory failure secondary to diffuse interstitial edema- improving 2. Abnormal echo with a low normal ejection fraction of 50% and grade 1 diastolic dysfunction 3. NSTEMI 5. Obesity-ongoing 6. h/o CAD, stents 7. ANNE- improved 8. Non-specific Alveolitis - likely not infectious 9.Hypernatermia-resolved 10. concern for gastric illeus--improving MRI Impression: No acute infarct. Chronic ischemic disease. No intracranial mass lesion. No intracranial hemorrhage. 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 This is not seen on the previous MRI of the cervical spine dated April 03, 2016. Recommend MRI study of the cervical spine with and without contrast for further evaluation. Plan . MUCH BETTER TODAY UP TO CHAIR D/W 1. repeat sed rate 67 2. cont. antibiotics currently doxy per ID 3. cont. steroids with taper 4.CT of head was (-) for acute abnormal., neurology following MRI reviewed 5. BIPAP HS and PRN during the day with napping N/C during the day 6. avoid sedation if possible 7. OOB as tolerated :PT/OT 8. illeus, cont. TPN rec per GI 9. supplemental oxygen to keep sats above 92 % 10. recs per cardiology DVT:lovenox GI PPX: BRADLEY Champagne MD Mar 18, 2019 08:18
--- NOTE | 2019-03-18 11:12 | PDOC ---
Provider Note Provider Note hb stable, glucose still high re steroids- RLS likely from microcytic anemia- will need panendo re etiology but anticoagulated now- mri ok, alert, d/w family KATHLEEN ATWOOD MD Mar 18, 2019 11:12
--- NOTE | 2019-03-18 11:18 | PDOC ---
PROGRESS NOTES Assessment Problems Medical Problems: (1) Acute respiratory distress Status: Acute (2) Chronic anemia Status: Acute (3) Congestive heart failure Status: Acute (4) Elevated troponin I level Status: Acute (5) Hypomagnesemia Status: Acute (6) Hypoxia Status: Acute (7) Renal insufficiency Status: Acute (8) Restless leg syndrome Status: Acute (9) Sepsis Status: Acute (10) Tachycardia Status: Acute Metabolic encephalopathy, much better, MRI negative Possible cord lesion on MRI, no evidence of myelopathy or cervical radiculo karoline, hold on MRI cspine for now History of restless legs History of diabetic neuropathy. Medical issues include: SBO vs ileus, leukocytosis, lactic acidosis, elevated Troponin/NSTEMI, acure resp failure on Bipap, acute kidney injury, CHF/pulmonary edema Plan Hold on lumbar puncture Discussed with family. Subjective No complaints Objective Vital Signs Date Time Temp Pulse Resp B/P (MAP) Pulse Ox O2 Delivery O2 Flow Rate FiO2 03/18/19 10:00 90 16 149/70 (96) 99 Nasal Cannula 3.0 03/18/19 08:00 97.9 97.9 Intake and Output 03/18/19 07:00 Intake Total 1426 ml Output Total 1905 ml Balance -479 ml IV Total 1426 ml Output Urine Total 1905 ml PHYSICAL EXAM Alert. Oriented to place and person. PERRL. EOMI. CN: no focal findings. Muscle tone: normal. Muscle strength: 4/5 DTR: 1+ Plantar reflex: flexor Gait: not examined in bed. Sensory exam: stocking loss. No cerebellar signs elicited. Review of Relevant I have reviewed the following items anni (where applicable) has been applied. Labs Laboratory Tests Test 03/16/19 17:58 03/16/19 23:54 03/17/19 05:00 03/17/19 05:56 Glucose (Fingerstick) 377 mg/dL (70-99) 297 mg/dL (70-99) 282 mg/dL (70-99) White Blood Count 12.6 x10^3/uL (4.0-11.0) Red Blood Count 3.22 x10^6/uL (3.50-5.40) Hemoglobin 7.8 g/dL (12.0-15.5) Hematocrit 24.9 % (36.0-47.0) Mean Corpuscular Volume 77 fL (79-100) Mean Corpuscular Hemoglobin 24 pg (25-35) Mean Corpuscular Hemoglobin Concent 31 g/dL (31-37) Red Cell Distribution Width 17.4 % (11.5-14.5) Platelet Count 231 x10^3/uL (140-400) Neutrophils (%) (Auto) 90 % (31-73) Lymphocytes (%) (Auto) 7 % (24-48) Monocytes (%) (Auto) 3 % (0-9) Eosinophils (%) (Auto) 0 % (0-3) Basophils (%) (Auto) 0 % (0-3) Neutrophils # (Auto) 11.4 x10^3/uL (1.8-7.7) Lymphocytes # (Auto) 0.9 x10^3/uL (1.0-4.8) Monocytes # (Auto) 0.3 x10^3/uL (0.0-1.1) Eosinophils # (Auto) 0.0 x10^3/uL (0.0-0.7) Basophils # (Auto) 0.0 x10^3/uL (0.0-0.2) Sodium Level 150 mmol/L (136-145) Potassium Level 4.9 mmol/L (3.5-5.1) Chloride Level 113 mmol/L (98-107) Carbon Dioxide Level 27 mmol/L (21-32) Anion Gap 10 (6-14) Blood Urea Nitrogen 47 mg/dL (7-20) Creatinine 1.1 mg/dL (0.6-1.0) Estimated GFR (Cockcroft-Gault) 47.9 Glucose Level 283 mg/dL (70-99) Calcium Level 9.5 mg/dL (8.5-10.1) Phosphorus Level 4.4 mg/dL (2.6-4.7) Magnesium Level 2.4 mg/dL (1.8-2.4) Test 03/17/19 09:15 03/17/19 12:16 03/17/19 17:33 03/17/19 23:58 Erythrocyte Sedimentation Rate 67 (0-25) Glucose (Fingerstick) 320 mg/dL (70-99) 265 mg/dL (70-99) 206 mg/dL (70-99) Test 03/18/19 05:45 03/18/19 06:00 Glucose (Fingerstick) 243 mg/dL (70-99) Sodium Level 144 mmol/L (136-145) Potassium Level 4.8 mmol/L (3.5-5.1) Chloride Level 109 mmol/L (98-107) Carbon Dioxide Level 28 mmol/L (21-32) Anion Gap 7 (6-14) Blood Urea Nitrogen 42 mg/dL (7-20) Creatinine 0.9 mg/dL (0.6-1.0) Estimated GFR (Cockcroft-Gault) 60.4 Glucose Level 255 mg/dL (70-99) Calcium Level 9.0 mg/dL (8.5-10.1) Magnesium Level 2.1 mg/dL (1.8-2.4) Laboratory Tests Test 03/17/19 12:16 03/17/19 17:33 03/17/19 23:58 03/18/19 05:45 Glucose (Fingerstick) 320 mg/dL (70-99) 265 mg/dL (70-99) 206 mg/dL (70-99) 243 mg/dL (70-99) Test 03/18/19 06:00 Sodium Level 144 mmol/L (136-145) Potassium Level 4.8 mmol/L (3.5-5.1) Chloride Level 109 mmol/L (98-107) Carbon Dioxide Level 28 mmol/L (21-32) Anion Gap 7 (6-14) Blood Urea Nitrogen 42 mg/dL (7-20) Creatinine 0.9 mg/dL (0.6-1.0) Estimated GFR (Cockcroft-Gault) 60.4 Glucose Level 255 mg/dL (70-99) Calcium Level 9.0 mg/dL (8.5-10.1) Magnesium Level 2.1 mg/dL (1.8-2.4) Microbiology 03/10/19 Urine Culture - Final, Complete 03/10/19 Urine Culture Result 1 ([facility]) - Final, Complete 03/10/19 Blood Culture - Final, Complete NO GROWTH AFTER 5 DAYS Medications Current Medications Sodium Chloride 1,000 ml @ 1,000 mls/hr 1X ONCE IV Last administered on 03/10/19at 06:02; Start 03/10/19 at 06:00; Stop 03/10/19 at 07:40; Status DC Morphine Sulfate (Morphine Sulfate) 4 mg 1X ONCE IV Last administered on 03/10/19at 06:02; Start 03/10/19 at 06:00; Stop 03/10/19 at 11:33; Status DC Ondansetron HCl (Zofran) 4 mg 1X ONCE IV Last administered on 03/10/19at 06:02; Start 03/10/19 at 06:00; Stop 03/10/19 at 06:01; Status DC Lorazepam (Ativan Inj) 1 mg 1X ONCE IV Last administered on 03/10/19at 06:02; Start 03/10/19 at 06:00; Stop 03/10/19 at 11:33; Status DC Magnesium Sulfate 50 ml @ 25 mls/hr 1X ONCE IV Last administered on 03/10/19at 07:17; Start 03/10/19 at 07:15; Stop 03/10/19 at 09:14; Status DC Methylprednisolone Sodium Succinate (SOLU-Medrol 125MG VIAL) 125 mg 1X ONCE IV Last administered on 03/10/19at 07:54; Start 03/10/19 at 07:30; Stop 03/10/19 at 11:33; Status DC Ceftriaxone Sodium (Rocephin) 1 gm 1X ONCE IVP Last administered on 03/10/19at 08:03; Start 03/10/19 at 08:00; Stop 03/10/19 at 11:33; Status DC Vancomycin HCl 250 ml @ 250 mls/hr 1X ONCE IV Last administered on 03/10/19at 08:02; Start 03/10/19 at 08:15; Stop 03/10/19 at 11:33; Status DC Levalbuterol HCl (Xopenex) 1.25 mg 1X ONCE NEB Last administered on 03/10/19at 08:00; Start 03/10/19 at 08:00; Stop 03/10/19 at 11:33; Status DC Sodium Chloride 1,000 ml @ 125 mls/hr 1X ONCE IV Last administered on 03/10/19at 09:03; Start 03/10/19 at 09:00; Stop 03/10/19 at 16:59; Status DC Influenza Virus Vaccine Quadrival (Afluria Quad 2019-20 (3yr Up) Syringe) 0.5 ml ONCE ONCE VAX IM Last administered on 03/10/19 10:57; Start 03/10/19 at 10:15; Stop 03/10/19 at 10:20; Status DC Diazepam (Valium) 5 mg PRN Q8HRS PRN PO ANXIETY Last administered on 03/12/19 15:05; Start 03/10/19 at 11:30; Stop 03/16/19 at 09:58; Status DC Metformin HCl (Glucophage) 500 mg BIDWMEALS PO Last administered on 03/11/19 16:46; Start 03/10/19 at 17:00; Stop 03/14/19 at 14:08; Status DC Oxycodone/ Acetaminophen (Percocet 5/325) 1 tab PRN BID PRN PO MODERATE PAIN 4- 6 Last administered on 03/12/19 16:49; Start 03/10/19 at 11:30; Stop 03/16/19 at 09:57; Status DC Diltiazem HCl (Cardizem 24hr Cd) 240 mg DAILY PO Last administered on 03/12/19at 08:39; Start 03/10/19 at 12:00; Stop 03/16/19 at 14:07; Status DC Pantoprazole Sodium (Protonix) 40 mg DAILYAC PO Last administered on 03/12/19 08:29; Start 03/10/19 at 12:00; Stop 03/14/19 at 18:24; Status DC Albuterol/ Ipratropium (Duoneb) 3 ml RTQID NEB ; Start 03/10/19 at 12:00; Stop 03/10/19 at 12:02; Status DC Methylprednisolone Sodium Succinate (SOLU-Medrol 40MG VIAL) 60 mg Q12HR IV Last administered on 03/18/19 08:06; Start 03/10/19 at 11:40; Stop 03/18/19 at 08:17; Status DC Gabapentin (Neurontin) 300 mg TID PO Last administered on 03/12/19 15:05; Start 03/10/19 at 14:00; Stop 03/16/19 at 09:56; Status DC Sodium Bicarbonate (Sodium Bicarb Adult 8.4% Syr) 50 meq 1X ONCE IV Last administered on 03/10/19 12:12; Start 03/10/19 at 12:00; Stop 03/10/19 at 12:05; Status DC Ipratropium [place] (Atrovent) 0.5 mg RTQID NEB Last administered on 03/18/19at 08:12; Start 03/10/19 at 12:00 Lorazepam (Ativan Inj) 1 mg PRN Q4HRS PRN IVP ANXIETY/AGITATION, 1ST CHOICE Last administered on 03/17/19at 12:08; Start 03/10/19 at 22:30 Ceftriaxone Sodium (Rocephin) 1 gm Q24H IVP Last administered on 03/11/19at 11:19; Start 03/11/19 at 11:00; Stop 03/11/19 at 16:24; Status DC Vancomycin HCl (Vanco Per Pharmacy) 1 each PRN DAILY PRN MC SEE COMMENTS Last administered on 03/11/19at 13:31; Start 03/11/19 at 10:15; Stop 03/12/19 at 07:06; Status DC Furosemide (Lasix) 40 mg 1X ONCE IVP Last administered on 03/11/19at 11:19; Start 03/11/19 at 10:30; Stop 03/11/19 at 10:31; Status DC Vancomycin HCl 1.25 gm/Sodium Chloride 250 ml @ 167 mls/hr Q24H IV Last administered on 03/11/19at 11:22; Start 03/11/19 at 11:00; Stop 03/12/19 at 07:06; Status DC Vancomycin HCl (Vancomycin Trough Level) 1 each 1X ONCE MC ; Start 03/13/19 at 10:30; Stop 03/12/19 at 07:11; Status DC Piperacillin Sod/ Tazobactam Sod (Zosyn Per Pharmacy) 1 each PRN DAILY PRN MC SEE COMMENTS; Start 03/11/19 at 16:30; Stop 03/15/19 at 07:18; Status DC Piperacillin Sod/ Tazobactam Sod 3.375 gm/Sodium Chloride 50 ml @ 100 mls/hr Q6HRS IV Last administered on 03/14/19at 12:37; Start 03/11/19 at 17:00; Stop 03/14/19 at 14:28; Status DC Iohexol (Omnipaque 350 Mg/ml) 75 ml 1X ONCE IV Last administered on 03/11/19at 17:49; Start 03/11/19 at 17:30; Stop 03/11/19 at 17:31; Status DC Furosemide (Lasix) 40 mg 1X ONCE IVP Last administered on 03/11/19at 18:41; Start 03/11/19 at 18:30; Stop 03/11/19 at 18:35; Status DC Furosemide (Lasix) 40 mg 1X ONCE IVP Last administered on 03/11/19at 22:01; Start 03/11/19 at 22:00; Stop 03/11/19 at 22:01; Status DC Doxycycline Hyclate 100 mg/ Dextrose 100 ml @ 50 mls/hr Q12HR IV Last administered on 03/18/19at 08:06; Start 03/12/19 at 09:00 Daptomycin 540 mg/ Sodium Chloride 50 ml @ 100 mls/hr ONCE ONCE IV Last administered on 03/12/19at 08:41; Start 03/12/19 at 08:30; Stop 03/12/19 at 08:59; Status DC Lactobacillus Rhamnosus (Culturelle) 1 cap BID PO Last administered on 03/12/19at 15:05; Start 03/12/19 at 09:00; Stop 03/16/19 at 09:56; Status DC Furosemide (Lasix) 20 mg 1X ONCE IVP Last administered on 03/12/19at 10:33; Start 03/12/19 at 10:00; Stop 03/12/19 at 10:01; Status DC Furosemide (Lasix) 20 mg 1X ONCE IVP Last administered on 03/12/19at 17:39; Start 03/12/19 at 17:30; Stop 03/12/19 at 17:31; Status DC Insulin Human Lispro (HumaLOG) 0-7 UNITS TIDWMEALS SQ Last administered on 03/14/19 18:19; Start 03/12/19 at 22:00; Stop 03/14/19 at 23:18; Status DC Dextrose (Dextrose 50%-Water Syringe) 12.5 gm PRN Q15MIN PRN IV SEE COMMENTS; Start 03/12/19 at 19:45 Dexmedetomidine HCl 400 mcg/ Sodium Chloride 100 ml @ 0 mls/hr CONT PRN IV ANXIETY / AGITATION Last administered on 03/16/19at 13:01; Start 03/13/19 at 07:45; Stop 03/16/19 at 17:41; Status DC Sodium Chloride 500 ml @ 500 mls/hr 1X PRN PRN IV SEE I/O RECORD; Start 03/13/19 at 07:45; Stop 03/14/19 at 18:24; Status DC Atropine Sulfate (ATROPINE 0.5mg SYRINGE) 0.5 mg PRN Q5MIN PRN IV SEE COMMENTS; Start 03/13/19 at 07:45; Stop 03/16/19 at 17:41; Status DC Clonidine HCl (Catapres Tts-1) 1 patch WEEKLY TD Last administered on 03/13/19at 08:11; Start 03/13/19 at 09:00 Aspirin (Ecotrin) 81 mg DAILYWBKFT PO ; Start 03/14/19 at 08:00; Stop 03/16/19 at 09:58; Status DC Furosemide (Lasix) 40 mg 1X ONCE IVP Last administered on 03/13/19at 13:29; Start 03/13/19 at 11:30; Stop 03/13/19 at 11:34; Status DC Furosemide (Lasix) 40 mg DAILY IVP ; Start 03/14/19 at 09:00; Stop 03/13/19 at 13:13; Status DC Atorvastatin Calcium (Lipitor) 20 mg QHS PO Last administered on 03/17/19at 21:04; Start 03/13/19 at 21:00 Sodium Chloride 1,000 ml @ 75 mls/hr [id number] IV Last administered on 03/14/19at 14:14; Start 03/14/19 at 14:15; Stop 03/14/19 at 18:24; Status DC Piperacillin Sod/ Tazobactam Sod 2.25 gm/Sodium Chloride 50 ml @ 100 mls/hr Q6HRS IV Last administered on 03/15/19at 06:06; Start 03/14/19 at 18:00; Stop 03/15/19 at 07:18; Status DC Sodium Chloride 90 meq/Potassium Chloride 50 meq/ Potassium Phosphate 13.6 mmol/Magnesium Sulfate 10 meq/ Calcium Gluconate 10 meq/ Multivitamins 10 ml/Chromium/ Copper/Manganese/ Seleni/Zn 1 ml/ Total Parenteral Nutrition/Amino Acids/Dextrose/ Fat Emulsion Intravenous 87.0013 ml @ 3.625 mls/hr TPN CONT IV ; Start 03/14/19 at 22:00; Stop 03/15/19 at 21:59; Status UNV Info (Tpn Per Pharmacy) 1 each PRN DAILY PRN MC SEE COMMENTS Last administered on 03/17/19at 13:35; Start 03/14/19 at 15:30 Sodium Chloride 70 meq/Potassium Chloride 50 meq/ Potassium Phosphate 13.6 mmol/Magnesium Sulfate 10 meq/ Calcium Gluconate 10 meq/ Multivitamins 10 ml/Chromium/ Copper/Manganese/ Seleni/Zn 1 ml/ Insulin Human Regular 10 unit/ Total Parenteral Nutrition/Amino Acids/Dextrose/ Fat Emuls... 1,512 ml @ 63 mls/hr TPN CONT IV Last administered on 03/14/19at 22:19; Start 03/14/19 at 22:00; Stop 03/15/19 at 21:59; Status DC Sodium Chloride 1,000 ml @ 10 mls/hr Q24H IV Last administered on 03/14/19at 18:30; Start 03/14/19 at 18:30; Stop 03/14/19 at 22:00; Status DC Pantoprazole Sodium (PROTONIX VIAL for IV PUSH) 40 mg HS IVP Last administered on 03/17/19at 21:03; Start 03/14/19 at 21:00 Insulin Human Lispro (HumaLOG) 0-7 UNITS Q6HRS SQ Last administered on 05/24at 12:18; Start 03/15/19 at 00:00; Stop 03/17/19 at 12:35; Status DC Sodium Chloride 40 meq/Potassium Chloride 50 meq/ Potassium Phosphate 8 mmol/ Magnesium Sulfate 3 meq/Calcium Gluconate 10 meq/ Multivitamins 10 ml/Chromium/ Copper/Manganese/ Seleni/Zn 1 ml/ Insulin Human Regular 20 unit/ Total Parenteral Nutrition/Amino Acids/Dextrose/ Fat Emulsion Intravenous 1,512 ml @ 63 mls/hr TPN CONT IV Last administered on 03/15/19at 21:49; Start 03/15/19 at 22:00; Stop 03/16/19 at 21:59; Status DC Insulin Glargine (Lantus Syringe) 20 unit QHS SQ ; Start 03/16/19 at 21:00; Stop 03/16/19 at 06:13; Status DC Insulin Glargine (Lantus Syringe) 20 unit 1X SQ ; Start 03/15/19 at 15:30; Stop 03/15/19 at 16:56; Status DC Insulin Glargine (Lantus Syringe) 20 unit 1X ONCE SQ Last administered on 03/15/19at 17:02; Start 03/15/19 at 17:00; Stop 03/15/19 at 17:01; Status DC Insulin Glargine (Lantus Syringe) 20 unit BID SQ ; Start 03/16/19 at 07:00; Status Cancel Insulin Glargine (Lantus Syringe) 20 unit QHS SQ ; Start 03/16/19 at 21:00; Stop 03/16/19 at 08:04; Status DC Insulin Human Lispro (HumaLOG) 5 units 1X ONCE SQ Last administered on 03/16/19at 07:41; Start 03/16/19 at 07:15; Stop 03/16/19 at 07:20; Status DC Insulin Glargine (Lantus Syringe) 40 unit QHS SQ Last administered on 03/16/19at 21:32; Start 03/16/19 at 21:00; Stop 03/17/19 at 12:32; Status DC Gabapentin (Neurontin Oral Soln) 300 mg [id number] PO Last administered on 03/18/19at 08:05; Start 03/16/19 at 10:00 Oxycodone HCl 5 mg PRN BID PRN NG PAIN Last administered on 03/17/19at 14:29; Start 03/16/19 at 10:00 Diazepam (Valium) 5 mg PRN Q8HRS PRN NG ANXIETY Last administered on 03/17/19at 12:08; Start 03/16/19 at 09:58 Aspirin (Children'S Aspirin) 81 mg DAILYWBKFT PO Last administered on 03/18/19at 08:06; Start 03/16/19 at 10:00 Polyethylene Glycol (miraLAX PACKET) 17 gm DAILY PO Last administered on 03/18/19at 08:06; Start 03/16/19 at 11:00 Potassium Phosphate 8 mmol/ Magnesium Sulfate 3 meq/Calcium Gluconate 10 meq/ Multivitamins 10 ml/Chromium/ Copper/Manganese/ Seleni/Zn 1 ml/ Insulin Human Regular 20 unit/ Total Parenteral Nutrition/Amino Acids/Dextrose/ Fat Emulsion Intravenous 1,992 ml @ 83 mls/hr TPN CONT IV Last administered on 03/16/19at 21:34; Start 03/16/19 at 22:00; Stop 03/17/19 at 21:59; Status DC Haloperidol Lactate (Haldol Inj) 5 mg PRN Q6HRS PRN IVP AGITATION, 2ND CHOICE Last administered on 03/16/19at 23:59; Start 03/16/19 at 13:00 Diltiazem HCl (Cardizem) 60 mg Q6HRS PO Last administered on 03/18/19at 05:46; Start 03/16/19 at 15:00 Insulin Human Lispro (HumaLOG) 5 units 1X ONCE SQ Last administered on 03/16/19at 21:04; Start 03/16/19 at 21:00; Stop 03/16/19 at 21:01; Status DC Enoxaparin Sodium (Lovenox 40mg Syringe) 40 mg Q24H SQ Last administered on 03/18/19at 08:06; Start 03/17/19 at 09:00 Potassium Phosphate 8 mmol/ Magnesium Sulfate 3 meq/Calcium Gluconate 5 meq/ Multivitamins 10 ml/Chromium/ Copper/Manganese/ Seleni/Zn 1 ml/ Insulin Human Regular 20 unit/ Total Parenteral Nutrition/Amino Acids/Dextrose/ Fat Emulsion Intravenous 1,992 ml @ 83 mls/hr TPN CONT IV Last administered on 03/17/19at 21:05; Start 03/17/19 at 22:00; Stop 03/18/19 at 21:59 Insulin Glargine (Lantus Syringe) 30 unit [id number] SQ Last administered on 03/18/19at 05:47; Start 03/17/19 at 18:00 Insulin Human Lispro (HumaLOG) 0-15 UNITS Q6HRS SQ Last administered on 03/18/19at 05:47; Start 03/17/19 at 13:00 Insulin Glargine (Lantus Syringe) 30 unit 1X ONCE SQ Last administered on 03/17/19at 13:39; Start 03/17/19 at 13:00; Stop 03/17/19 at 13:01; Status DC Methylprednisolone Sodium Succinate (SOLU-Medrol 40MG VIAL) 40 mg Q12HR IV ; Start 03/18/19 at 21:00 Active Scripts Active Prednisone 20 Mg Tablet 20 Mg PO DAILY Diazepam 5 Mg Tablet 5 Mg PO PRN Q8HRS PRN Reported Doxycycline Hyclate 50 Mg Capsule 1 Cap PO BID 7 Days Doxycycline Hyclate 50 Mg Capsule 1 Cap PO BID 7 Days Doxycycline Hyclate 50 Mg Capsule 1 Cap PO BID 7 Days Gabapentin (Gabapentin) 100 Mg Capsule 200 Mg PO TID Percocet 5-325 Mg Tablet (Oxycodone/Acetaminophen) 1 Each Tablet 1 Each PO 6XDAY PRN Aspir 81 (Aspirin) 81 Mg Tablet.dr 81 Mg PO DAILY [place]-3 ([place]-3 Fatty Acids) 1,000 Mg Capsule 1,200 Mg PO BID Omeprazole 20 Mg Capsule.dr 20 Mg PO BID Tiazac (Diltiazem Hcl) 240 Mg Capsule.er 240 Mg PO DAILY Xopenex Hfa (Levalbuterol Tartrate) 15 Gm Hfa.aer.ad 15 Gm IH BID PRN Metformin Hcl 500 Mg Tablet 500 Mg PO BID Vitals/I & O Vital Sign - Last 24 Hours 03/17/19 03/17/19 03/17/19 03/17/19 12:00 12:00 12:00 12:06 Temp 97.9 97.9 Pulse 125 Resp 30 B/P (MAP) 142/58 (86) Pulse Ox 95 96 O2 Delivery Nasal Cannula Bi-pap High Flow Nasal Cannula O2 Flow Rate 2.0 5.0 5.0 2.0 03/17/19 03/17/19 03/17/19 03/17/19 12:17 13:00 14:00 14:29 Pulse 118 93 106 Resp 24 21 26 B/P (MAP) 166/67 151/62 (91) 140/56 (84) Pulse Ox 99 100 99 O2 Delivery BiPAP/CPAP BiPAP/CPAP 03/17/19 03/17/19 03/17/19 03/17/19 15:00 15:29 16:00 16:00 Temp 98.0 98.0 Pulse 105 103 Resp 25 25 23 B/P (MAP) 158/72 (100) 150/68 (95) Pulse Ox 99 99 97 O2 Delivery Venturi Mask Venturi Mask Venturi Mask O2 Flow Rate 15.0 15.0 15.0 5.0 03/17/19 03/17/19 03/17/19 03/17/19 16:00 16:07 17:00 17:32 Pulse 98 100 Resp 20 B/P (MAP) 156/75 (102) 156/75 Pulse Ox 99 97 O2 Delivery Bi-pap Venturi Mask Venturi Mask O2 Flow Rate 5.0 15.0 15.0 03/17/19 03/17/19 03/17/19 03/17/19 18:00 19:00 19:08 19:45 Temp 98.0 98.0 Pulse 102 101 Resp 20 20 B/P (MAP) 119/72 (88) 113/75 (88) Pulse Ox 97 98 99 O2 Delivery Venturi Mask Venturi Mask Venturi Mask Venturi Mask O2 Flow Rate 15.0 15.0 15.0 15.0 03/17/19 03/17/19 03/17/19 03/17/19 20:00 21:00 22:00 23:00 Pulse 108 102 94 90 Resp 18 18 18 18 B/P (MAP) 144/74 (97) 142/66 (91) 148/77 (100) 151/66 (94) Pulse Ox 98 98 98 100 O2 Delivery Venturi Mask Venturi Mask Venturi Mask BiPAP/CPAP O2 Flow Rate 15.0 15.0 15.0 03/17/19 03/18/19 03/18/19 03/18/19 23:15 00:00 00:00 00:00 Temp 98.1 98.1 Pulse 84 Resp 20 B/P (MAP) 160/73 (102) Pulse Ox 100 99 O2 Delivery BiPAP/CPAP BiPAP/CPAP Bi-pap O2 Flow Rate 5.0 03/18/19 03/18/19 03/18/19 03/18/19 00:03 00:10 01:00 02:00 Pulse 98 82 84 Resp 25 22 B/P (MAP) 151/66 160/73 (102) 162/71 (101) Pulse Ox 100 100 99 O2 Delivery BiPAP/CPAP BiPAP/CPAP BiPAP/CPAP 03/18/19 03/18/19 03/18/19 03/18/19 02:26 03:00 04:00 04:15 Temp 98.6 98.6 Pulse 76 86 Resp 22 22 B/P (MAP) 141/71 (94) 148/75 (99) Pulse Ox 100 100 100 O2 Delivery BiPAP/CPAP BiPAP/CPAP BiPAP/CPAP Bi-pap 03/18/19 03/18/19 03/18/19 03/18/19 04:15 05:00 05:31 05:46 Pulse 88 89 Resp 22 B/P (MAP) 143/69 (93) 144/64 Pulse Ox 100 99 O2 Delivery BiPAP/CPAP BiPAP/CPAP O2 Flow Rate 5.0 03/18/19 03/18/19 03/18/19 03/18/19 06:00 07:00 08:00 08:00 Temp 97.9 97.9 Pulse 87 89 88 Resp 26 20 14 B/P (MAP) 149/56 (87) 145/62 (89) 127/63 (84) Pulse Ox 100 100 100 O2 Delivery BiPAP/CPAP BiPAP/CPAP Venturi Mask O2 Flow Rate 5.0 15.0 03/18/19 03/18/19 03/18/19 03/18/19 08:00 08:12 09:00 10:00 Pulse 85 90 Resp 14 16 B/P (MAP) 144/64 (90) 149/70 (96) Pulse Ox 99 100 99 O2 Delivery Venturi Mask Venturi Mask Nasal Cannula Nasal Cannula O2 Flow Rate 15.0 9.0 3.0 3.0 Intake and Output 03/17/19 03/17/19 03/18/19 15:00 23:00 07:00 Intake Total 1426 ml Output Total 875 ml 515 ml 515 ml Balance -875 ml -515 ml 911 ml Images BRAIN W/O CONTRAST Clinical indications: Altered mental status. Right-sided paresis. Technique: T1 and T2 and FLAIR MRI sequences of the whole brain were performed. Images were obtained in axial, coronal, and sagittal planes. Diffusion weighted MRI sequence was performed as well. Findings: No acute ischemia is seen on the diffusion weighted images. Mild bilateral periventricular white matter hyperintensities are seen consistent with chronic small vessel ischemic disease in this age group. There is a small area of cortical and subcortical hyperintensity of the lateral aspect of left temporal lobe. 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 No intracranial hemorrhage is seen otherwise.. No intracranial mass lesion or mass-effect is seen. No midline shift or extra-axial fluid collection is seen. There is mild ventriculomegaly in association with generalized sulci are enlarged consistent with generalized cerebral atrophy. Normal vascular flow signal voids are seen. The internal auditory canals have a symmetric appearance and no cerebellopontine angle mass is present. No opacification of the paranasal sinuses or mastoid sinuses is seen. No cerebellar tonsillar ectopia is seen. No pituitary mass is identified. However, there is low signal round area within the upper cervical cord seen at the C2 level. The cervical cord is not seen below this level. This is seen only in this sagittal sequence. Impression: No acute infarct. Chronic ischemic disease. No intracranial mass lesion. No intracranial hemorrhage. 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 This is not seen on the previous MRI of the cervical spine dated April 03, 2016. Recommend MRI study of the cervical spine with and without contrast for further evaluation. HUNTER ARREOLA MD Mar 18, 2019 11:18
[2019-03-18] MEDS: TPN PER PHARMACY MC PRN (12:59)
--- NOTE | 2019-03-18 13:00 | NUR ---
Pharmacy TPN Dosing Note S: THEODORE PADILLA is a 78 year old F Currently receiving Central Continuous TPN started 03/14/19 B:Pertinent PMH: NPO, ileus Height: 5 feet, 2 inches Weight: 86.4 kg Current diet: NPO LABS: Sodium: 144 Potassium: 4.8 Chloride: 109 Calcium: 9.0 Corrected Calcium: 9.96 Magnesium: 2.1 CO2: 28 SCr: 0.9 Glucose: 243, 255 Albumin: 2.8 AST: 44 ALT: 92 TPN FORMULA: TPN TYPE: Central Continuous AMINO ACIDS: 70 gm DEXTROSE: 225 gm LIPIDS: 20 gm POTASSIUM PHOSPHATE: 8 mmol MAGNESIUM: 3 mEq CALCIUM: 5 mEq INSULIN: 30 units MULTIPLE VITAMIN: 10 ml TRACE ELEMENTS: 1 ml TPN PLAN: -Electrolytes appear WNL and stable. -Blood glucose still elevated. IV steroids reduced today - will slightly increase insulin in TPN. Monitor closely for further steroid reduction. -CMP, mag, phos, triglycerides tomorrow per protocol. R: Continue TPN @ current rate and above formula. Will monitor electrolytes, glucose, and tolerance to TPN. JADE ORR [facility], 03/18/19 1300
--- NOTE | 2019-03-18 13:38 | PDOC ---
G I PROGRESS NOTE Reason for Follow-up ABd distention/ileus Subjective Patient alert/wants to eat Physical Exam Lungs decreased BS CV S1 S2 ABD +BS, soft, less distended, nontender Review of Relevant I have reviewed the following items anni (where applicable) has been applied. Labs Laboratory Tests Test 03/16/19 17:58 03/16/19 23:54 03/17/19 05:00 03/17/19 05:56 Glucose (Fingerstick) 377 mg/dL (70-99) 297 mg/dL (70-99) 282 mg/dL (70-99) White Blood Count 12.6 x10^3/uL (4.0-11.0) Red Blood Count 3.22 x10^6/uL (3.50-5.40) Hemoglobin 7.8 g/dL (12.0-15.5) Hematocrit 24.9 % (36.0-47.0) Mean Corpuscular Volume 77 fL (79-100) Mean Corpuscular Hemoglobin 24 pg (25-35) Mean Corpuscular Hemoglobin Concent 31 g/dL (31-37) Red Cell Distribution Width 17.4 % (11.5-14.5) Platelet Count 231 x10^3/uL (140-400) Neutrophils (%) (Auto) 90 % (31-73) Lymphocytes (%) (Auto) 7 % (24-48) Monocytes (%) (Auto) 3 % (0-9) Eosinophils (%) (Auto) 0 % (0-3) Basophils (%) (Auto) 0 % (0-3) Neutrophils # (Auto) 11.4 x10^3/uL (1.8-7.7) Lymphocytes # (Auto) 0.9 x10^3/uL (1.0-4.8) Monocytes # (Auto) 0.3 x10^3/uL (0.0-1.1) Eosinophils # (Auto) 0.0 x10^3/uL (0.0-0.7) Basophils # (Auto) 0.0 x10^3/uL (0.0-0.2) Sodium Level 150 mmol/L (136-145) Potassium Level 4.9 mmol/L (3.5-5.1) Chloride Level 113 mmol/L (98-107) Carbon Dioxide Level 27 mmol/L (21-32) Anion Gap 10 (6-14) Blood Urea Nitrogen 47 mg/dL (7-20) Creatinine 1.1 mg/dL (0.6-1.0) Estimated GFR (Cockcroft-Gault) 47.9 Glucose Level 283 mg/dL (70-99) Calcium Level 9.5 mg/dL (8.5-10.1) Phosphorus Level 4.4 mg/dL (2.6-4.7) Magnesium Level 2.4 mg/dL (1.8-2.4) Test 03/17/19 09:15 03/17/19 12:16 03/17/19 17:33 03/17/19 23:58 Erythrocyte Sedimentation Rate 67 (0-25) Glucose (Fingerstick) 320 mg/dL (70-99) 265 mg/dL (70-99) 206 mg/dL (70-99) Test 03/18/19 05:45 03/18/19 06:00 Glucose (Fingerstick) 243 mg/dL (70-99) Sodium Level 144 mmol/L (136-145) Potassium Level 4.8 mmol/L (3.5-5.1) Chloride Level 109 mmol/L (98-107) Carbon Dioxide Level 28 mmol/L (21-32) Anion Gap 7 (6-14) Blood Urea Nitrogen 42 mg/dL (7-20) Creatinine 0.9 mg/dL (0.6-1.0) Estimated GFR (Cockcroft-Gault) 60.4 Glucose Level 255 mg/dL (70-99) Calcium Level 9.0 mg/dL (8.5-10.1) Magnesium Level 2.1 mg/dL (1.8-2.4) Laboratory Tests Test 03/17/19 17:33 03/17/19 23:58 03/18/19 05:45 03/18/19 06:00 Glucose (Fingerstick) 265 mg/dL (70-99) 206 mg/dL (70-99) 243 mg/dL (70-99) Sodium Level 144 mmol/L (136-145) Potassium Level 4.8 mmol/L (3.5-5.1) Chloride Level 109 mmol/L (98-107) Carbon Dioxide Level 28 mmol/L (21-32) Anion Gap 7 (6-14) Blood Urea Nitrogen 42 mg/dL (7-20) Creatinine 0.9 mg/dL (0.6-1.0) Estimated GFR (Cockcroft-Gault) 60.4 Glucose Level 255 mg/dL (70-99) Calcium Level 9.0 mg/dL (8.5-10.1) Magnesium Level 2.1 mg/dL (1.8-2.4) Microbiology 03/10/19 Urine Culture - Final, Complete 03/10/19 Urine Culture Result 1 ([facility]) - Final, Complete 03/10/19 Blood Culture - Final, Complete NO GROWTH AFTER 5 DAYS Medications Current Medications Sodium Chloride 1,000 ml @ 1,000 mls/hr 1X ONCE IV Last administered on 03/10/19at 06:02; Start 03/10/19 at 06:00; Stop 03/10/19 at 07:40; Status DC Morphine Sulfate (Morphine Sulfate) 4 mg 1X ONCE IV Last administered on 03/10/19at 06:02; Start 03/10/19 at 06:00; Stop 03/10/19 at 11:33; Status DC Ondansetron HCl (Zofran) 4 mg 1X ONCE IV Last administered on 03/10/19at 06:02; Start 03/10/19 at 06:00; Stop 03/10/19 at 06:01; Status DC Lorazepam (Ativan Inj) 1 mg 1X ONCE IV Last administered on 03/10/19at 06:02; Start 03/10/19 at 06:00; Stop 03/10/19 at 11:33; Status DC Magnesium Sulfate 50 ml @ 25 mls/hr 1X ONCE IV Last administered on 03/10/19at 07:17; Start 03/10/19 at 07:15; Stop 03/10/19 at 09:14; Status DC Methylprednisolone Sodium Succinate (SOLU-Medrol 125MG VIAL) 125 mg 1X ONCE IV Last administered on 03/10/19at 07:54; Start 03/10/19 at 07:30; Stop 03/10/19 at 11:33; Status DC Ceftriaxone Sodium (Rocephin) 1 gm 1X ONCE IVP Last administered on 03/10/19at 08:03; Start 03/10/19 at 08:00; Stop 03/10/19 at 11:33; Status DC Vancomycin HCl 250 ml @ 250 mls/hr 1X ONCE IV Last administered on 03/10/19 08:02; Start 03/10/19 at 08:15; Stop 03/10/19 at 11:33; Status DC Levalbuterol HCl (Xopenex) 1.25 mg 1X ONCE NEB Last administered on 03/10/19at 08:00; Start 03/10/19 at 08:00; Stop 03/10/19 at 11:33; Status DC Sodium Chloride 1,000 ml @ 125 mls/hr 1X ONCE IV Last administered on 03/10/19 09:03; Start 03/10/19 at 09:00; Stop 03/10/19 at 16:59; Status DC Influenza Virus Vaccine Quadrival (Afluria Quad 2019-20 (3yr Up) Syringe) 0.5 ml ONCE ONCE VAX IM Last administered on 03/10/19at 10:57; Start 03/10/19 at 10:15; Stop 03/10/19 at 10:20; Status DC Diazepam (Valium) 5 mg PRN Q8HRS PRN PO ANXIETY Last administered on 03/12/19at 15:05; Start 03/10/19 at 11:30; Stop 03/16/19 at 09:58; Status DC Metformin HCl (Glucophage) 500 mg BIDWMEALS PO Last administered on 03/11/19 16:46; Start 03/10/19 at 17:00; Stop 03/14/19 at 14:08; Status DC Oxycodone/ Acetaminophen (Percocet 5/325) 1 tab PRN BID PRN PO MODERATE PAIN 4- 6 Last administered on 03/12/19at 16:49; Start 03/10/19 at 11:30; Stop 03/16/19 at 09:57; Status DC Diltiazem HCl (Cardizem 24hr Cd) 240 mg DAILY PO Last administered on 03/12/19 08:39; Start 03/10/19 at 12:00; Stop 03/16/19 at 14:07; Status DC Pantoprazole Sodium (Protonix) 40 mg DAILYAC PO Last administered on 03/12/19 08:29; Start 03/10/19 at 12:00; Stop 03/14/19 at 18:24; Status DC Albuterol/ Ipratropium (Duoneb) 3 ml RTQID NEB ; Start 03/10/19 at 12:00; Stop 03/10/19 at 12:02; Status DC Methylprednisolone Sodium Succinate (SOLU-Medrol 40MG VIAL) 60 mg Q12HR IV Last administered on 03/18/19at 08:06; Start 03/10/19 at 11:40; Stop 03/18/19 at 08:17; Status DC Gabapentin (Neurontin) 300 mg TID PO Last administered on 03/12/19at 15:05; Start 03/10/19 at 14:00; Stop 03/16/19 at 09:56; Status DC Sodium Bicarbonate (Sodium Bicarb Adult 8.4% Syr) 50 meq 1X ONCE IV Last administered on 03/10/19at 12:12; Start 03/10/19 at 12:00; Stop 03/10/19 at 12:05; Status DC Ipratropium [place] (Atrovent) 0.5 mg RTQID NEB Last administered on 03/18/19at 11:49; Start 03/10/19 at 12:00 Lorazepam (Ativan Inj) 1 mg PRN Q4HRS PRN IVP ANXIETY/AGITATION, 1ST CHOICE Last administered on 03/17/19at 12:08; Start 03/10/19 at 22:30 Ceftriaxone Sodium (Rocephin) 1 gm Q24H IVP Last administered on 03/11/19 11: 19; Start 03/11/19 at 11:00; Stop 03/11/19 at 16:24; Status DC Vancomycin HCl (Vanco Per Pharmacy) 1 each PRN DAILY PRN MC SEE COMMENTS Last administered on 03/11/19at 13:31; Start 03/11/19 at 10:15; Stop 03/12/19 at 07:06; Status DC Furosemide (Lasix) 40 mg 1X ONCE IVP Last administered on 03/11/19 11:19; Start 03/11/19 at 10:30; Stop 03/11/19 at 10:31; Status DC Vancomycin HCl 1.25 gm/Sodium Chloride 250 ml @ 167 mls/hr Q24H IV Last administered on 03/11/19at 11:22; Start 03/11/19 at 11:00; Stop 03/12/19 at 07:06; Status DC Vancomycin HCl (Vancomycin Trough Level) 1 each 1X ONCE MC ; Start 03/13/19 at 10:30; Stop 03/12/19 at 07:11; Status DC Piperacillin Sod/ Tazobactam Sod (Zosyn Per Pharmacy) 1 each PRN DAILY PRN MC SEE COMMENTS; Start 03/11/19 at 16:30; Stop 03/15/19 at 07:18; Status DC Piperacillin Sod/ Tazobactam Sod 3.375 gm/Sodium Chloride 50 ml @ 100 mls/hr Q6 HRS IV Last administered on 03/14/19at 12:37; Start 03/11/19 at 17:00; Stop 03/14/19 at 14:28; Status DC Iohexol (Omnipaque 350 Mg/ml) 75 ml 1X ONCE IV Last administered on 03/11/19at 17:49; Start 03/11/19 at 17:30; Stop 03/11/19 at 17:31; Status DC Furosemide (Lasix) 40 mg 1X ONCE IVP Last administered on 03/11/19at 18:41; Start 03/11/19 at 18:30; Stop 03/11/19 at 18:35; Status DC Furosemide (Lasix) 40 mg 1X ONCE IVP Last administered on 03/11/19at 22:01; Start 03/11/19 at 22:00; Stop 03/11/19 at 22:01; Status DC Doxycycline Hyclate 100 mg/ Dextrose 100 ml @ 50 mls/hr Q12HR IV Last administered on 03/18/19at 08:06; Start 03/12/19 at 09:00 Daptomycin 540 mg/ Sodium Chloride 50 ml @ 100 mls/hr ONCE ONCE IV Last administered on 03/12/19at 08:41; Start 03/12/19 at 08:30; Stop 03/12/19 at 08:59; Status DC Lactobacillus Rhamnosus (Culturelle) 1 cap BID PO Last administered on 03/12/19at 15:05; Start 03/12/19 at 09:00; Stop 03/16/19 at 09:56; Status DC Furosemide (Lasix) 20 mg 1X ONCE IVP Last administered on 03/12/19at 10:33; Start 03/12/19 at 10:00; Stop 03/12/19 at 10:01; Status DC Furosemide (Lasix) 20 mg 1X ONCE IVP Last administered on 03/12/19at 17:39; Start 03/12/19 at 17:30; Stop 03/12/19 at 17:31; Status DC Insulin Human Lispro (HumaLOG) 0-7 UNITS TIDWMEALS SQ Last administered on 03/14/19at 18:19; Start 03/12/19 at 22:00; Stop 03/14/19 at 23:18; Status DC Dextrose (Dextrose 50%-Water Syringe) 12.5 gm PRN Q15MIN PRN IV SEE COMMENTS; Start 03/12/19 at 19:45 Dexmedetomidine HCl 400 mcg/ Sodium Chloride 100 ml @ 0 mls/hr CONT PRN IV ANXIETY / AGITATION Last administered on 03/16/19at 13:01; Start 03/13/19 at 07:45; Stop 03/16/19 at 17:41; Status DC Sodium Chloride 500 ml @ 500 mls/hr 1X PRN PRN IV SEE I/O RECORD; Start 03/13/19 at 07:45; Stop 03/14/19 at 18:24; Status DC Atropine Sulfate (ATROPINE 0.5mg SYRINGE) 0.5 mg PRN Q5MIN PRN IV SEE COMMENTS; Start 03/13/19 at 07:45; Stop 03/16/19 at 17:41; Status DC Clonidine HCl (Catapres Tts-1) 1 patch WEEKLY TD Last administered on 03/13/19at 08:11; Start 03/13/19 at 09:00 Aspirin (Ecotrin) 81 mg DAILYWBKFT PO ; Start 03/14/19 at 08:00; Stop 03/16/19 at 09:58; Status DC Furosemide (Lasix) 40 mg 1X ONCE IVP Last administered on 03/13/19at 13:29; Start 03/13/19 at 11:30; Stop 03/13/19 at 11:34; Status DC Furosemide (Lasix) 40 mg DAILY IVP ; Start 03/14/19 at 09:00; Stop 03/13/19 at 13:13; Status DC Atorvastatin Calcium (Lipitor) 20 mg QHS PO Last administered on 03/17/19at 21:04; Start 03/13/19 at 21:00 Sodium Chloride 1,000 ml @ 75 mls/hr [id number] IV Last administered on 03/14/19at 14:14; Start 03/14/19 at 14:15; Stop 03/14/19 at 18:24; Status DC Piperacillin Sod/ Tazobactam Sod 2.25 gm/Sodium Chloride 50 ml @ 100 mls/hr Q6HRS IV Last administered on 03/15/19at 06:06; Start 03/14/19 at 18:00; Stop 03/15/19 at 07:18; Status DC Sodium Chloride 90 meq/Potassium Chloride 50 meq/ Potassium Phosphate 13.6 mmol/Magnesium Sulfate 10 meq/ Calcium Gluconate 10 meq/ Multivitamins 10 ml/Chromium/ Copper/Manganese/ Seleni/Zn 1 ml/ Total Parenteral Nutrition/Amino Acids/Dextrose/ Fat Emulsion Intravenous 87.0013 ml @ 3.625 mls/hr TPN CONT IV ; Start 03/14/19 at 22:00; Stop 03/15/19 at 21:59; Status UNV Info (Tpn Per Pharmacy) 1 each PRN DAILY PRN MC SEE COMMENTS Last administered on 03/18/19at 12:59; Start 03/14/19 at 15:30 Sodium Chloride 70 meq/Potassium Chloride 50 meq/ Potassium Phosphate 13.6 mmol/Magnesium Sulfate 10 meq/ Calcium Gluconate 10 meq/ Multivitamins 10 ml/Chromium/ Copper/Manganese/ Seleni/Zn 1 ml/ Insulin Human Regular 10 unit/ Total Parenteral Nutrition/Amino Acids/Dextrose/ Fat Emuls... 1,512 ml @ 63 mls/hr TPN CONT IV Last administered on 03/14/19at 22:19; Start 03/14/19 at 22:00; Stop 03/15/19 at 21:59; Status DC Sodium Chloride 1,000 ml @ 10 mls/hr Q24H IV Last administered on 03/14/19at 18:30; Start 03/14/19 at 18:30; Stop 03/14/19 at 22:00; Status DC Pantoprazole Sodium (PROTONIX VIAL for IV PUSH) 40 mg HS IVP Last administered on 03/17/19at 21:03; Start 03/14/19 at 21:00 Insulin Human Lispro (HumaLOG) 0-7 UNITS Q6HRS SQ Last administered on 03/17/19at 12:18; Start 03/15/19 at 00:00; Stop 03/17/19 at 12:35; Status DC Sodium Chloride 40 meq/Potassium Chloride 50 meq/ Potassium Phosphate 8 mmol/ Magnesium Sulfate 3 meq/Calcium Gluconate 10 meq/ Multivitamins 10 ml/Chromium/ Copper/Manganese/ Seleni/Zn 1 ml/ Insulin Human Regular 20 unit/ Total Parenteral Nutrition/Amino Acids/Dextrose/ Fat Emulsion Intravenous 1,512 ml @ 63 mls/hr TPN CONT IV Last administered on 03/15/19at 21:49; Start 03/15/19 at 22:00; Stop 03/16/19 at 21:59; Status DC Insulin Glargine (Lantus Syringe) 20 unit QHS SQ ; Start 03/16/19 at 21:00; Stop 03/16/19 at 06:13; Status DC Insulin Glargine (Lantus Syringe) 20 unit 1X SQ ; Start 03/15/19 at 15:30; Stop 03/15/19 at 16:56; Status DC Insulin Glargine (Lantus Syringe) 20 unit 1X ONCE SQ Last administered on 03/15/19at 17:02; Start 03/15/19 at 17:00; Stop 03/15/19 at 17:01; Status DC Insulin Glargine (Lantus Syringe) 20 unit BID SQ ; Start 03/16/19 at 07:00; Status Cancel Insulin Glargine (Lantus Syringe) 20 unit QHS SQ ; Start 03/16/19 at 21:00; Stop 03/16/19 at 08:04; Status DC Insulin Human Lispro (HumaLOG) 5 units 1X ONCE SQ Last administered on 03/16/19at 07:41; Start 03/16/19 at 07:15; Stop 03/16/19 at 07:20; Status DC Insulin Glargine (Lantus Syringe) 40 unit QHS SQ Last administered on 03/16/19at 21:32; Start 03/16/19 at 21:00; Stop 03/17/19 at 12:32; Status DC Gabapentin (Neurontin Oral Soln) 300 mg [id number] PO Last administered on 03/18/19at 08:05; Start 03/16/19 at 10:00 Oxycodone HCl 5 mg PRN BID PRN NG PAIN Last administered on 03/17/19at 14:29; Start 03/16/19 at 10:00 Diazepam (Valium) 5 mg PRN Q8HRS PRN NG ANXIETY Last administered on 03/17/19 12:08; Start 03/16/19 at 09:58 Aspirin (Children'S Aspirin) 81 mg DAILYWBKFT PO Last administered on 03/18/19at 08:06; Start 03/16/19 at 10:00 Polyethylene Glycol (miraLAX PACKET) 17 gm DAILY PO Last administered on 03/18/19 08:06; Start 03/16/19 at 11:00 Potassium Phosphate 8 mmol/ Magnesium Sulfate 3 meq/Calcium Gluconate 10 meq/ Multivitamins 10 ml/Chromium/ Copper/Manganese/ Seleni/Zn 1 ml/ Insulin Human Regular 20 unit/ Total Parenteral Nutrition/Amino Acids/Dextrose/ Fat Emulsion Intravenous 1,992 ml @ 83 mls/hr TPN CONT IV Last administered on 03/16/19at 21:34; Start 03/16/19 at 22:00; Stop 03/17/19 at 21:59; Status DC Haloperidol Lactate (Haldol Inj) 5 mg PRN Q6HRS PRN IVP AGITATION, 2ND CHOICE Last administered on 03/16/19at 23:59; Start 03/16/19 at 13:00 Diltiazem HCl (Cardizem) 60 mg Q6HRS PO Last administered on 03/18/19at 12:24; Start 03/16/19 at 15:00 Insulin Human Lispro (HumaLOG) 5 units 1X ONCE SQ Last administered on 03/16/19at 21:04; Start 03/16/19 at 21:00; Stop 03/16/19 at 21:01; Status DC Enoxaparin Sodium (Lovenox 40mg Syringe) 40 mg Q24H SQ Last administered on 03/18/19 08:06; Start 03/17/19 at 09:00 Potassium Phosphate 8 mmol/ Magnesium Sulfate 3 meq/Calcium Gluconate 5 meq/ Multivitamins 10 ml/Chromium/ Copper/Manganese/ Seleni/Zn 1 ml/ Insulin Human Regular 20 unit/ Total Parenteral Nutrition/Amino Acids/Dextrose/ Fat Emulsion Intravenous 1,992 ml @ 83 mls/hr TPN CONT IV Last administered on 03/17/19at 21:05; Start 03/17/19 at 22:00; Stop 03/18/19 at 21:59 Insulin Glargine (Lantus Syringe) 30 unit [id number] SQ Last administered on 03/18/19at 05:47; Start 03/17/19 at 18:00 Insulin Human Lispro (HumaLOG) 0-15 UNITS Q6HRS SQ Last administered on 03/18/19at 12:25; Start 03/17/19 at 13:00 Insulin Glargine (Lantus Syringe) 30 unit 1X ONCE SQ Last administered on 05/24at 13:39; Start 03/17/19 at 13:00; Stop 03/17/19 at 13:01; Status DC Methylprednisolone Sodium Succinate (SOLU-Medrol 40MG VIAL) 40 mg Q12HR IV ; Start 03/18/19 at 21:00 Potassium Phosphate 8 mmol/ Magnesium Sulfate 3 meq/Calcium Gluconate 5 meq/ Multivitamins 10 ml/Chromium/ Copper/Manganese/ Seleni/Zn 1 ml/ Insulin Human Regular 30 unit/ Total Parenteral Nutrition/Amino Acids/Dextrose/ Fat Emulsion Intravenous 1,992 ml @ 83 mls/hr TPN CONT IV ; Start 03/18/19 at 22:00; Stop 03/19/19 at 21:59 Active Scripts Active Prednisone 20 Mg Tablet 20 Mg PO DAILY Diazepam 5 Mg Tablet 5 Mg PO PRN Q8HRS PRN Reported Doxycycline Hyclate 50 Mg Capsule 1 Cap PO BID 7 Days Doxycycline Hyclate 50 Mg Capsule 1 Cap PO BID 7 Days Doxycycline Hyclate 50 Mg Capsule 1 Cap PO BID 7 Days Gabapentin (Gabapentin) 100 Mg Capsule 200 Mg PO TID Percocet 5-325 Mg Tablet (Oxycodone/Acetaminophen) 1 Each Tablet 1 Each PO 6XDAY PRN Aspir 81 (Aspirin) 81 Mg Tablet.dr 81 Mg PO DAILY [place]-3 ([place]-3 Fatty Acids) 1,000 Mg Capsule 1,200 Mg PO BID Omeprazole 20 Mg Capsule.dr 20 Mg PO BID Tiazac (Diltiazem Hcl) 240 Mg Capsule.er 240 Mg PO DAILY Xopenex Hfa (Levalbuterol Tartrate) 15 Gm Hfa.aer.ad 15 Gm IH BID PRN Metformin Hcl 500 Mg Tablet 500 Mg PO BID Vitals/I & O Vital Sign - Last 24 Hours 03/17/19 03/17/19 03/17/19 03/17/19 14:00 14:29 15:00 15:29 Pulse 106 105 Resp 21 26 25 25 B/P (MAP) 140/56 (84) 158/72 (100) Pulse Ox 100 99 99 99 O2 Delivery BiPAP/CPAP Venturi Mask Venturi Mask O2 Flow Rate 15.0 15.0 03/17/19 03/17/19 03/17/19 03/17/19 16:00 16:00 16:00 16:07 Temp 98.0 98.0 Pulse 103 Resp 23 B/P (MAP) 150/68 (95) Pulse Ox 97 99 O2 Delivery Venturi Mask Bi-pap Venturi Mask O2 Flow Rate 15.0 5.0 5.0 15.0 03/17/19 03/17/19 03/17/19 03/17/19 17:00 17:32 18:00 19:00 Temp 98.0 98.0 Pulse 98 100 102 101 Resp 20 20 20 B/P (MAP) 156/75 (102) 156/75 119/72 (88) 113/75 (88) Pulse Ox 97 97 98 O2 Delivery Venturi Mask Venturi Mask Venturi Mask O2 Flow Rate 15.0 15.0 15.0 03/17/19 03/17/19 03/17/19 03/17/19 19:08 19:45 20:00 21:00 Pulse 108 102 Resp 18 18 B/P (MAP) 144/74 (97) 142/66 (91) Pulse Ox 99 98 98 O2 Delivery Venturi Mask Venturi Mask Venturi Mask Venturi Mask O2 Flow Rate 15.0 15.0 15.0 15.0 03/17/19 03/17/19 03/17/19 03/18/19 22:00 23:00 23:15 00:00 Temp 98.1 98.1 Pulse 94 90 84 Resp 18 18 20 B/P (MAP) 148/77 (100) 151/66 (94) 160/73 (102) Pulse Ox 98 100 100 99 O2 Delivery Venturi Mask BiPAP/CPAP BiPAP/CPAP BiPAP/CPAP O2 Flow Rate 15.0 03/18/19 03/18/19 03/18/19 03/18/19 00:00 00:00 00:03 00:10 Pulse 98 B/P (MAP) 151/66 Pulse Ox 100 O2 Delivery Bi-pap BiPAP/CPAP O2 Flow Rate 5.0 03/18/19 03/18/19 03/18/19 03/18/19 01:00 02:00 02:26 03:00 Pulse 82 84 76 Resp 25 22 B/P (MAP) 160/73 (102) 162/71 (101) 141/71 (94) Pulse Ox 100 99 100 100 O2 Delivery BiPAP/CPAP BiPAP/CPAP BiPAP/CPAP BiPAP/CPAP 03/18/19 03/18/19 03/18/19 03/18/19 04:00 04:15 04:15 05:00 Temp 98.6 98.6 Pulse 86 88 Resp 22 B/P (MAP) 148/75 (99) 143/69 (93) Pulse Ox 100 100 O2 Delivery BiPAP/CPAP Bi-pap BiPAP/CPAP O2 Flow Rate 5.0 03/18/19 03/18/19 03/18/19 03/18/19 05:31 05:46 06:00 07:00 Pulse 89 87 89 Resp 20 B/P (MAP) 144/64 149/56 (87) 145/62 (89) Pulse Ox 99 100 100 O2 Delivery BiPAP/CPAP BiPAP/CPAP BiPAP/CPAP 03/18/19 03/18/19 03/18/19 03/18/19 08:00 08:00 08:00 08:12 Temp 97.9 97.9 Pulse 88 Resp 14 B/P (MAP) 127/63 (84) Pulse Ox 100 99 O2 Delivery Venturi Mask Venturi Mask Venturi Mask O2 Flow Rate 5.0 15.0 15.0 9.0 03/18/19 03/18/19 03/18/19 03/18/19 09:00 10:00 11:00 11:49 Pulse 85 90 86 Resp 14 16 16 B/P (MAP) 144/64 (90) 149/70 (96) 151/62 (91) Pulse Ox 100 99 99 97 O2 Delivery Nasal Cannula Nasal Cannula Nasal Cannula Nasal Cannula O2 Flow Rate 3.0 3.0 3.0 3.0 03/18/19 03/18/19 03/18/19 03/18/19 12:00 12:00 12:00 12:24 Temp 97.8 97.8 Pulse 96 79 Resp 18 B/P (MAP) 160/64 (96) 160/84 Pulse Ox 96 O2 Delivery Nasal Cannula Nasal Cannula O2 Flow Rate 3.0 5.0 3.0 03/18/19 13:00 Pulse 96 Resp 18 B/P (MAP) 155/70 (98) Pulse Ox 96 O2 Delivery Nasal Cannula O2 Flow Rate 3.0 Intake and Output 0 03/17/19 03/17/19 03/18/19 15:00 23:00 07:00 Intake Total 1426 ml Output Total 875 ml 515 ml 515 ml Balance -875 ml -515 ml 911 ml Problem List Problems Medical Problems: (1) Acute respiratory distress Status: Acute (2) Chronic anemia Status: Acute (3) Congestive heart failure Status: Acute (4) Elevated troponin I level Status: Acute (5) Hypomagnesemia Status: Acute (6) Hypoxia Status: Acute (7) Renal insufficiency Status: Acute (8) Restless leg syndrome Status: Acute (9) Sepsis Status: Acute (10) Tachycardia Status: Acute Assessment Ileus- improving, with chronic illness anemia, trial of liquids if patient pass ess bed side swallow, o/p evaluation of anemia if patient interested PHILIP PALUMBO MD Mar 18, 2019 13:38
[2019-03-18] MEDS: ATORVASTATIN CALCIUM 20 MG TABLET PO SCH (20:33)
[2019-03-18] MEDS: PANTOPRAZOLE IV PUSH 40 MG VIAL. IVP SCH (20:33)
[2019-03-18] MEDS ORDERED: [UNRECOGNIZED DRUG - OTHER] IV SCH ×9 (22:00)
[2019-03-18] MEDS ORDERED: TOTAL PARENTERAL NUTRITION IV SCH ×9 (22:00)
[2019-03-18] MEDS ORDERED: DEXTROSE 70% IV SCH ×9 (22:00)
[2019-03-18] MEDS ORDERED: AMINO ACID IV SCH ×9 (22:00)
[2019-03-19] VITALS (17 sets, daily range): BP systolic 117–169; BP diastolic 53–81
[2019-03-19 04:55] LABS: BASO % 0 % (0-3); EOS % 0 % (0-3); HEMATOCRIT 26.4 % (36.0-47.0); HEMOGLOBIN 8.3 g/dL (12.0-15.5); LYMPH # 0.9 x10^3/uL (1.0-4.8); LYMPH % 7 % (24-48); MEAN CORPUSCULAR HEMOGLOBIN 24 pg (25-35); MEAN CORPUSCULAR HGB CONC 32 g/dL (31-37); MEAN CORPUSCULAR VOLUME 76 fL (79-100); MONO % 7 % (0-9); NEUT % 87 % (31-73); PLATELET COUNT 253 x10^3/uL (140-400); RED BLOOD COUNT 3.48 x10^6/uL (3.50-5.40); RED CELL DISTRIBUTION WIDTH 16.9 % (11.5-14.5); WHITE BLOOD COUNT 13.8 x10^3/uL (4.0-11.0)
[2019-03-19] MEDS: dilTIAZem HCL 30 MG TABLET PO SCH ×3 (05:30→18:10)
[2019-03-19] MEDS: INSULIN LISPRO 300 UNITS/3 ML VIAL. SQ SCH ×3 (05:35→18:15)
[2019-03-19] MEDS: INSULIN GLARGINE SYRINGE. SQ SCH ×2 (05:35→18:16)
[2019-03-19 05:46] LABS: ALBUMIN 2.3 g/dL (3.4-5.0); ALBUMIN/GLOBULIN RATIO 0.6 (1.0-1.7); CALCIUM 8.7 mg/dL (8.5-10.1); CREATININE 0.9 mg/dL (0.6-1.0); GFR 60.4; MAGNESIUM 2.1 mg/dL (1.8-2.4); TOTAL BILIRUBIN 0.6 mg/dL (0.2-1.0); TOTAL PROTEIN 5.9 g/dL (6.4-8.2)
--- NOTE | 2019-03-19 07:20 | PDOC ---
Infectious Disease Note Subjective Subjective pt is awake, says feeling better, on bipap at night ROS ROS no n/v/d/fever Vital Sign Vital Signs Vital Signs Date Time Temp Pulse Resp B/P (MAP) Pulse Ox O2 Delivery O2 Flow Rate FiO2 03/19/19 06:00 66 21 144/63 (90) 100 BiPAP/CPAP 03/19/19 03:58 97.2 97.2 03/19/19 00:00 Physical Exam PHYSICAL EXAM GENERAL: Lying down, awake, calm, BIPAP at night, HEENT: Pupils are equal and reactive. Oral cavity dry. [place] NECK: Supple. LUNGS: Clear anteriorly HEART: S1, S2. regular ABDOMEN: Obese, soft, no guarding, + BS : Indwelling [place] in place EXTREMITIES: Without clubbing or cyanosis. No gross edema. SKIN: Warm, without generalized signs of rash. NEUROLOGICAL: Awake, answersa several quesitions appropriately, follows commands Equal [employer] supervisor strength, Feng, left arm raise weaker than right RIJ clean Labs Lab Laboratory Tests Test 03/18/19 12:22 03/18/19 17:58 03/18/19 23:52 03/19/19 04:50 Glucose (Fingerstick) 244 mg/dL (70-99) 224 mg/dL (70-99) 216 mg/dL (70-99) White Blood Count 13.8 x10^3/uL (4.0-11.0) Red Blood Count 3.48 x10^6/uL (3.50-5.40) Hemoglobin 8.3 g/dL (12.0-15.5) Hematocrit 26.4 % (36.0-47.0) Mean Corpuscular Volume 76 fL (79-100) Mean Corpuscular Hemoglobin 24 pg (25-35) Mean Corpuscular Hemoglobin Concent 32 g/dL (31-37) Red Cell Distribution Width 16.9 % (11.5-14.5) Platelet Count 253 x10^3/uL (140-400) Neutrophils (%) (Auto) 87 % (31-73) Lymphocytes (%) (Auto) 7 % (24-48) Monocytes (%) (Auto) 7 % (0-9) Eosinophils (%) (Auto) 0 % (0-3) Basophils (%) (Auto) 0 % (0-3) Neutrophils # (Auto) 12.0 x10^3/uL (1.8-7.7) Lymphocytes # (Auto) 0.9 x10^3/uL (1.0-4.8) Monocytes # (Auto) 1.0 x10^3/uL (0.0-1.1) Eosinophils # (Auto) 0.0 x10^3/uL (0.0-0.7) Basophils # (Auto) 0.0 x10^3/uL (0.0-0.2) Sodium Level 141 mmol/L (136-145) Potassium Level 4.0 mmol/L (3.5-5.1) Chloride Level 108 mmol/L (98-107) Carbon Dioxide Level 28 mmol/L (21-32) Anion Gap 5 (6-14) Blood Urea Nitrogen 40 mg/dL (7-20) Creatinine 0.9 mg/dL (0.6-1.0) Estimated GFR (Cockcroft-Gault) 60.4 BUN/Creatinine Ratio 44 (6-20) Glucose Level 208 mg/dL (70-99) Calcium Level 8.7 mg/dL (8.5-10.1) Phosphorus Level 4.0 mg/dL (2.6-4.7) Magnesium Level 2.1 mg/dL (1.8-2.4) Total Bilirubin 0.6 mg/dL (0.2-1.0) Aspartate Amino Transf (AST/SGOT) 28 U/L (15-37) Alanine Aminotransferase (ALT/SGPT) 99 U/L (14-59) Alkaline Phosphatase 44 U/L (46-116) Total Protein 5.9 g/dL (6.4-8.2) Albumin 2.3 g/dL (3.4-5.0) Albumin/Globulin Ratio 0.6 (1.0-1.7) Triglycerides Level 155 mg/dL (0-150) Test 03/19/19 05:26 Glucose (Fingerstick) 202 mg/dL (70-99) Micro Microbiology 03/10/19 Urine Culture - Final, Complete 03/10/19 Urine Culture Result 1 ([facility]) - Final, Complete 03/10/19 Blood Culture - Final, Complete NO GROWTH AFTER 5 DAYS Objective Assessment ? SBO vs ileus. GI following Leukocytosis - ? reactive/Steroids Lactic acidosis - better nml procalcitonin 03/13 Elevated Troponin/NSTEMI Acure resp failure -now on venti-mask ANNE - little worse Pulm edema Encephalopathy , better today. MRI reviewed. ? cervical cord lesion Diabetes Plan Plan of Care Cont Doxy for now (03/12) (Previous Rocephin 03/10) - will wean soon - Previously on Zosyn 03/11 - 03/15 - no gross sign of infection currently. - Previous Dapto times one 03/12 Cultures neg Appreciate neuro input MRI reviewed CBC in am D/w nursing LILIA BOWLING MD Mar 19, 2019 07:20
[2019-03-19] MEDS: IPRATROPIUM BROMIDE 0.5 MG/2.5 ML NEBU. NEB SCH ×4 (08:00→19:21)
[2019-03-19] MEDS: POLYETHYLENE GLYCOL 3350 17 GM PACKET. PO SCH (09:00)
--- NOTE | 2019-03-19 09:59 | PDOC ---
PULMONARY PROGRESS NOTES Subjective UP TO CHAIR WANTS TO EAT . Vitals Vital Signs Date Time Temp Pulse Resp B/P (MAP) Pulse Ox O2 Delivery O2 Flow Rate FiO2 03/19/19 06:00 66 21 144/63 (90) 100 BiPAP/CPAP 03/19/19 03:58 97.2 97.2 03/19/19 00:00 ROS: No Nausea, No Chest Pain, No Abdominal Pain, No Increase Cough General: Alert Lungs: Clear Cardiovascular: S1, S2 Abdomen: Soft Neuro Exam: Alert Skin: Warm Labs Laboratory Tests Test 03/17/19 12:16 03/17/19 17:33 03/17/19 23:58 03/18/19 05:45 Glucose (Fingerstick) 320 mg/dL (70-99) 265 mg/dL (70-99) 206 mg/dL (70-99) 243 mg/dL (70-99) Test 03/18/19 06:00 03/18/19 12:22 03/18/19 17:58 03/18/19 23:52 Sodium Level 144 mmol/L (136-145) Potassium Level 4.8 mmol/L (3.5-5.1) Chloride Level 109 mmol/L (98-107) Carbon Dioxide Level 28 mmol/L (21-32) Anion Gap 7 (6-14) Blood Urea Nitrogen 42 mg/dL (7-20) Creatinine 0.9 mg/dL (0.6-1.0) Estimated GFR (Cockcroft-Gault) 60.4 Glucose Level 255 mg/dL (70-99) Calcium Level 9.0 mg/dL (8.5-10.1) Magnesium Level 2.1 mg/dL (1.8-2.4) Glucose (Fingerstick) 244 mg/dL (70-99) 224 mg/dL (70-99) 216 mg/dL (70-99) Test 03/19/19 04:50 03/19/19 05:26 White Blood Count 13.8 x10^3/uL (4.0-11.0) Red Blood Count 3.48 x10^6/uL (3.50-5.40) Hemoglobin 8.3 g/dL (12.0-15.5) Hematocrit 26.4 % (36.0-47.0) Mean Corpuscular Volume 76 fL (79-100) Mean Corpuscular Hemoglobin 24 pg (25-35) Mean Corpuscular Hemoglobin Concent 32 g/dL (31-37) Red Cell Distribution Width 16.9 % (11.5-14.5) Platelet Count 253 x10^3/uL (140-400) Neutrophils (%) (Auto) 87 % (31-73) Lymphocytes (%) (Auto) 7 % (24-48) Monocytes (%) (Auto) 7 % (0-9) Eosinophils (%) (Auto) 0 % (0-3) Basophils (%) (Auto) 0 % (0-3) Neutrophils # (Auto) 12.0 x10^3/uL (1.8-7.7) Lymphocytes # (Auto) 0.9 x10^3/uL (1.0-4.8) Monocytes # (Auto) 1.0 x10^3/uL (0.0-1.1) Eosinophils # (Auto) 0.0 x10^3/uL (0.0-0.7) Basophils # (Auto) 0.0 x10^3/uL (0.0-0.2) Sodium Level 141 mmol/L (136-145) Potassium Level 4.0 mmol/L (3.5-5.1) Chloride Level 108 mmol/L (98-107) Carbon Dioxide Level 28 mmol/L (21-32) Anion Gap 5 (6-14) Blood Urea Nitrogen 40 mg/dL (7-20) Creatinine 0.9 mg/dL (0.6-1.0) Estimated GFR (Cockcroft-Gault) 60.4 BUN/Creatinine Ratio 44 (6-20) Glucose Level 208 mg/dL (70-99) Calcium Level 8.7 mg/dL (8.5-10.1) Phosphorus Level 4.0 mg/dL (2.6-4.7) Magnesium Level 2.1 mg/dL (1.8-2.4) Total Bilirubin 0.6 mg/dL (0.2-1.0) Aspartate Amino Transf (AST/SGOT) 28 U/L (15-37) Alanine Aminotransferase (ALT/SGPT) 99 U/L (14-59) Alkaline Phosphatase 44 U/L (46-116) Total Protein 5.9 g/dL (6.4-8.2) Albumin 2.3 g/dL (3.4-5.0) Albumin/Globulin Ratio 0.6 (1.0-1.7) Triglycerides Level 155 mg/dL (0-150) Glucose (Fingerstick) 202 mg/dL (70-99) Laboratory Tests Test 03/18/19 12:22 03/18/19 17:58 03/18/19 23:52 03/19/19 04:50 Glucose (Fingerstick) 244 mg/dL (70-99) 224 mg/dL (70-99) 216 mg/dL (70-99) White Blood Count 13.8 x10^3/uL (4.0-11.0) Red Blood Count 3.48 x10^6/uL (3.50-5.40) Hemoglobin 8.3 g/dL (12.0-15.5) Hematocrit 26.4 % (36.0-47.0) Mean Corpuscular Volume 76 fL (79-100) Mean Corpuscular Hemoglobin 24 pg (25-35) Mean Corpuscular Hemoglobin Concent 32 g/dL (31-37) Red Cell Distribution Width 16.9 % (11.5-14.5) Platelet Count 253 x10^3/uL (140-400) Neutrophils (%) (Auto) 87 % (31-73) Lymphocytes (%) (Auto) 7 % (24-48) Monocytes (%) (Auto) 7 % (0-9) Eosinophils (%) (Auto) 0 % (0-3) Basophils (%) (Auto) 0 % (0-3) Neutrophils # (Auto) 12.0 x10^3/uL (1.8-7.7) Lymphocytes # (Auto) 0.9 x10^3/uL (1.0-4.8) Monocytes # (Auto) 1.0 x10^3/uL (0.0-1.1) Eosinophils # (Auto) 0.0 x10^3/uL (0.0-0.7) Basophils # (Auto) 0.0 x10^3/uL (0.0-0.2) Sodium Level 141 mmol/L (136-145) Potassium Level 4.0 mmol/L (3.5-5.1) Chloride Level 108 mmol/L (98-107) Carbon Dioxide Level 28 mmol/L (21-32) Anion Gap 5 (6-14) Blood Urea Nitrogen 40 mg/dL (7-20) Creatinine 0.9 mg/dL (0.6-1.0) Estimated GFR (Cockcroft-Gault) 60.4 BUN/Creatinine Ratio 44 (6-20) Glucose Level 208 mg/dL (70-99) Calcium Level 8.7 mg/dL (8.5-10.1) Phosphorus Level 4.0 mg/dL (2.6-4.7) Magnesium Level 2.1 mg/dL (1.8-2.4) Total Bilirubin 0.6 mg/dL (0.2-1.0) Aspartate Amino Transf (AST/SGOT) 28 U/L (15-37) Alanine Aminotransferase (ALT/SGPT) 99 U/L (14-59) Alkaline Phosphatase 44 U/L (46-116) Total Protein 5.9 g/dL (6.4-8.2) Albumin 2.3 g/dL (3.4-5.0) Albumin/Globulin Ratio 0.6 (1.0-1.7) Triglycerides Level 155 mg/dL (0-150) Test 03/19/19 05:26 Glucose (Fingerstick) 202 mg/dL (70-99) Medications Active Scripts Medications Dose Route/Sig Max Daily Dose Days Date Category Doxycycline Hyclate 50 Mg Capsule 1 Cap PO BID 7 10/15/17 Reported Doxycycline Hyclate 50 Mg Capsule 1 Cap PO BID 7 10/15/17 Reported Doxycycline Hyclate 50 Mg Capsule 1 Cap PO BID 7 10/15/17 Reported Gabapentin (Gabapentin) 100 Mg Capsule 200 Mg PO TID 10/12/17 Reported Prednisone 20 Mg Tablet 20 Mg PO DAILY 04/06/16 Rx Diazepam 5 Mg Tablet 5 Mg PO PRN Q8HRS PRN 04/06/16 Rx Percocet 5-325 Mg Tablet (Oxycodone/Acetaminophen) 1 Each Tablet 1 Each PO 6XDAY PRN 08/07/13 Reported Aspir 81 (Aspirin) 81 Mg Tablet.dr 81 Mg PO DAILY 08/07/13 Reported [place]-3 ([place]lando-3 Fatty Acids) 1,000 Mg Capsule 1,200 Mg PO BID 08/07/13 Reported Omeprazole 20 Mg Capsule.dr 20 Mg PO BID 08/07/13 Reported Tiazac (Diltiazem Hcl) 240 Mg Capsule.er 240 Mg PO DAILY 08/07/13 Reported Xopenex Hfa (Levalbuterol Tartrate) 15 Gm Hfa.aer.ad 15 Gm IH BID PRN 08/07/13 Reported Metformin Hcl 500 Mg Tablet 500 Mg PO BID 08/07/13 Reported Comments Impression . 1. Acute hypoxic respiratory failure secondary to diffuse interstitial edema- improving 2. Abnormal echo with a low normal ejection fraction of 50% and grade 1 diastolic dysfunction 3. NSTEMI 5. Obesity-ongoing 6. h/o CAD, stents 7. ANNE- improved 8. Non-specific Alveolitis - likely not infectious 9.Hypernatermia-resolved 10. concern for gastric illeus--improving MRI Impression: No acute infarct. Chronic ischemic disease. No intracranial mass lesion. No intracranial hemorrhage. 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 This is not seen on the previous MRI of the cervical spine dated April 03, 2016. Recommend MRI study of the cervical spine with and without contrast for further evaluation. Plan . MUCH BETTER TODAY UP TO CHAIR D/W NPO NEEDS SNU/REHAB PRN BIPAP 1. repeat sed rate 67 2. cont. antibiotics currently doxy per ID 3. cont. steroids with taper 4.CT of head was (-) for acute abnormal., neurology following MRI reviewed 5. BIPAP HS and PRN during the day with napping N/C during the day 6. avoid sedation if possible 7. OOB as tolerated :PT/OT 8. illeus, cont. TPN rec per GI 9. supplemental oxygen to keep sats above 92 % 10. recs per cardiology DVT:lovenox GI PPX: BRADLEY Champagne MD Mar 19, 2019 09:59
[2019-03-19] MEDS: methylPREDNISolone SOD SUCC PF 40 MG/ML VIAL. IV SCH ×2 (10:08→21:25)
[2019-03-19] MEDS: ASPIRIN CHEWABLE 81 MG TABLET. PO SCH (10:08)
[2019-03-19] MEDS: ENOXAPARIN 40 MG/0.4 ML SYRINGE. SQ SCH (10:09)
[2019-03-19] MEDS: DOXYCYCLINE HYCLATE 100 MG in IV DEXTROSE 5% 100ML 100 ML IV SCH ×2 (10:10→21:27)
[2019-03-19] MEDS: GABAPENTIN 250 MG/5 ML ORAL SOLUTION. PO SCH ×3 (10:13→21:25)
--- NOTE | 2019-03-19 11:17 | PDOC ---
PROGRESS NOTES Assessment Problems Medical Problems: (1) Acute respiratory distress Status: Acute (2) Chronic anemia Status: Acute (3) Congestive heart failure Status: Acute (4) Elevated troponin I level Status: Acute (5) Hypomagnesemia Status: Acute (6) Hypoxia Status: Acute (7) Renal insufficiency Status: Acute (8) Restless leg syndrome Status: Acute (9) Sepsis Status: Acute (10) Tachycardia Status: Acute Metabolic encephalopathy, much better, MRI negative Possible cord lesion on MRI, no evidence of myelopathy or cervical radiculo karoline, hold on MRI cspine for now History of restless legs History of diabetic neuropathy. Medical issues include: SBO vs ileus, leukocytosis, lactic acidosis, elevated Troponin/NSTEMI, acure resp failure on Bipap, acute kidney injury, CHF/pulmonary edema Plan Continue ICU care I will follow along Subjective No complaints Objective Vital Signs Date Time Temp Pulse Resp B/P (MAP) Pulse Ox O2 Delivery O2 Flow Rate FiO2 03/19/19 08:00 Nasal Cannula 3.0 03/19/19 06:00 66 21 144/63 (90) 100 03/19/19 03:58 97.2 97.2 Intake and Output 03/19/19 07:00 Intake Total 556 ml Output Total 1363 ml Balance -807 ml IV Total 556 ml Output Urine Total 1360 ml Stool Total 3 ml PHYSICAL EXAM Alert. Oriented to place and person. She is on her BiPAP. PERRL. EOMI. CN: no focal findings. Muscle tone: normal. Muscle strength: 4/5 DTR: 1+ Plantar reflex: flexor Gait: not examined in bed. Sensory exam: stocking loss. No cerebellar signs elicited. Review of Relevant I have reviewed the following items anni (where applicable) has been applied. Labs Laboratory Tests Test 03/17/19 12:16 03/17/19 17:33 03/17/19 23:58 03/18/19 05:45 Glucose (Fingerstick) 320 mg/dL (70-99) 265 mg/dL (70-99) 206 mg/dL (70-99) 243 mg/dL (70-99) Test 03/18/19 06:00 03/18/19 12:22 03/18/19 17:58 03/18/19 23:52 Sodium Level 144 mmol/L (136-145) Potassium Level 4.8 mmol/L (3.5-5.1) Chloride Level 109 mmol/L (98-107) Carbon Dioxide Level 28 mmol/L (21-32) Anion Gap 7 (6-14) Blood Urea Nitrogen 42 mg/dL (7-20) Creatinine 0.9 mg/dL (0.6-1.0) Estimated GFR (Cockcroft-Gault) 60.4 Glucose Level 255 mg/dL (70-99) Calcium Level 9.0 mg/dL (8.5-10.1) Magnesium Level 2.1 mg/dL (1.8-2.4) Glucose (Fingerstick) 244 mg/dL (70-99) 224 mg/dL (70-99) 216 mg/dL (70-99) Test 03/19/19 04:50 03/19/19 05:26 White Blood Count 13.8 x10^3/uL (4.0-11.0) Red Blood Count 3.48 x10^6/uL (3.50-5.40) Hemoglobin 8.3 g/dL (12.0-15.5) Hematocrit 26.4 % (36.0-47.0) Mean Corpuscular Volume 76 fL (79-100) Mean Corpuscular Hemoglobin 24 pg (25-35) Mean Corpuscular Hemoglobin Concent 32 g/dL (31-37) Red Cell Distribution Width 16.9 % (11.5-14.5) Platelet Count 253 x10^3/uL (140-400) Neutrophils (%) (Auto) 87 % (31-73) Lymphocytes (%) (Auto) 7 % (24-48) Monocytes (%) (Auto) 7 % (0-9) Eosinophils (%) (Auto) 0 % (0-3) Basophils (%) (Auto) 0 % (0-3) Neutrophils # (Auto) 12.0 x10^3/uL (1.8-7.7) Lymphocytes # (Auto) 0.9 x10^3/uL (1.0-4.8) Monocytes # (Auto) 1.0 x10^3/uL (0.0-1.1) Eosinophils # (Auto) 0.0 x10^3/uL (0.0-0.7) Basophils # (Auto) 0.0 x10^3/uL (0.0-0.2) Sodium Level 141 mmol/L (136-145) Potassium Level 4.0 mmol/L (3.5-5.1) Chloride Level 108 mmol/L (98-107) Carbon Dioxide Level 28 mmol/L (21-32) Anion Gap 5 (6-14) Blood Urea Nitrogen 40 mg/dL (7-20) Creatinine 0.9 mg/dL (0.6-1.0) Estimated GFR (Cockcroft-Gault) 60.4 BUN/Creatinine Ratio 44 (6-20) Glucose Level 208 mg/dL (70-99) Calcium Level 8.7 mg/dL (8.5-10.1) Phosphorus Level 4.0 mg/dL (2.6-4.7) Magnesium Level 2.1 mg/dL (1.8-2.4) Total Bilirubin 0.6 mg/dL (0.2-1.0) Aspartate Amino Transf (AST/SGOT) 28 U/L (15-37) Alanine Aminotransferase (ALT/SGPT) 99 U/L (14-59) Alkaline Phosphatase 44 U/L (46-116) Total Protein 5.9 g/dL (6.4-8.2) Albumin 2.3 g/dL (3.4-5.0) Albumin/Globulin Ratio 0.6 (1.0-1.7) Triglycerides Level 155 mg/dL (0-150) Glucose (Fingerstick) 202 mg/dL (70-99) Laboratory Tests Test 03/18/19 12:22 03/18/19 17:58 03/18/19 23:52 03/19/19 04:50 Glucose (Fingerstick) 244 mg/dL (70-99) 224 mg/dL (70-99) 216 mg/dL (70-99) White Blood Count 13.8 x10^3/uL (4.0-11.0) Red Blood Count 3.48 x10^6/uL (3.50-5.40) Hemoglobin 8.3 g/dL (12.0-15.5) Hematocrit 26.4 % (36.0-47.0) Mean Corpuscular Volume 76 fL (79-100) Mean Corpuscular Hemoglobin 24 pg (25-35) Mean Corpuscular Hemoglobin Concent 32 g/dL (31-37) Red Cell Distribution Width 16.9 % (11.5-14.5) Platelet Count 253 x10^3/uL (140-400) Neutrophils (%) (Auto) 87 % (31-73) Lymphocytes (%) (Auto) 7 % (24-48) Monocytes (%) (Auto) 7 % (0-9) Eosinophils (%) (Auto) 0 % (0-3) Basophils (%) (Auto) 0 % (0-3) Neutrophils # (Auto) 12.0 x10^3/uL (1.8-7.7) Lymphocytes # (Auto) 0.9 x10^3/uL (1.0-4.8) Monocytes # (Auto) 1.0 x10^3/uL (0.0-1.1) Eosinophils # (Auto) 0.0 x10^3/uL (0.0-0.7) Basophils # (Auto) 0.0 x10^3/uL (0.0-0.2) Sodium Level 141 mmol/L (136-145) Potassium Level 4.0 mmol/L (3.5-5.1) Chloride Level 108 mmol/L (98-107) Carbon Dioxide Level 28 mmol/L (21-32) Anion Gap 5 (6-14) Blood Urea Nitrogen 40 mg/dL (7-20) Creatinine 0.9 mg/dL (0.6-1.0) Estimated GFR (Cockcroft-Gault) 60.4 BUN/Creatinine Ratio 44 (6-20) Glucose Level 208 mg/dL (70-99) Calcium Level 8.7 mg/dL (8.5-10.1) Phosphorus Level 4.0 mg/dL (2.6-4.7) Magnesium Level 2.1 mg/dL (1.8-2.4) Total Bilirubin 0.6 mg/dL (0.2-1.0) Aspartate Amino Transf (AST/SGOT) 28 U/L (15-37) Alanine Aminotransferase (ALT/SGPT) 99 U/L (14-59) Alkaline Phosphatase 44 U/L (46-116) Total Protein 5.9 g/dL (6.4-8.2) Albumin 2.3 g/dL (3.4-5.0) Albumin/Globulin Ratio 0.6 (1.0-1.7) Triglycerides Level 155 mg/dL (0-150) Test 03/19/19 05:26 Glucose (Fingerstick) 202 mg/dL (70-99) Microbiology 03/10/19 Urine Culture - Final, Complete 03/10/19 Urine Culture Result 1 ([facility]) - Final, Complete 03/10/19 Blood Culture - Final, Complete NO GROWTH AFTER 5 DAYS Medications Current Medications Sodium Chloride 1,000 ml @ 1,000 mls/hr 1X ONCE IV Last administered on 03/10/19at 06:02; Start 03/10/19 at 06:00; Stop 03/10/19 at 07:40; Status DC Morphine Sulfate (Morphine Sulfate) 4 mg 1X ONCE IV Last administered on 03/10/19at 06:02; Start 03/10/19 at 06:00; Stop 03/10/19 at 11:33; Status DC Ondansetron HCl (Zofran) 4 mg 1X ONCE IV Last administered on 03/10/19at 06:02; Start 03/10/19 at 06:00; Stop 03/10/19 at 06:01; Status DC Lorazepam (Ativan Inj) 1 mg 1X ONCE IV Last administered on 03/10/19at 06:02; Start 03/10/19 at 06:00; Stop 03/10/19 at 11:33; Status DC Magnesium Sulfate 50 ml @ 25 mls/hr 1X ONCE IV Last administered on 03/10/19at 07:17; Start 03/10/19 at 07:15; Stop 03/10/19 at 09:14; Status DC Methylprednisolone Sodium Succinate (SOLU-Medrol 125MG VIAL) 125 mg 1X ONCE IV Last administered on 03/10/19at 07:54; Start 03/10/19 at 07:30; Stop 03/10/19 at 11:33; Status DC Ceftriaxone Sodium (Rocephin) 1 gm 1X ONCE IVP Last administered on 03/10/19at 08:03; Start 03/10/19 at 08:00; Stop 03/10/19 at 11:33; Status DC Vancomycin HCl 250 ml @ 250 mls/hr 1X ONCE IV Last administered on 03/10/19at 08:02; Start 03/10/19 at 08:15; Stop 03/10/19 at 11:33; Status DC Levalbuterol HCl (Xopenex) 1.25 mg 1X ONCE NEB Last administered on 03/10/19at 08:00; Start 03/10/19 at 08:00; Stop 03/10/19 at 11:33; Status DC Sodium Chloride 1,000 ml @ 125 mls/hr 1X ONCE IV Last administered on 03/10/19at 09:03; Start 03/10/19 at 09:00; Stop 03/10/19 at 16:59; Status DC Influenza Virus Vaccine Quadrival (Afluria Quad 2019-20 (3yr Up) Syringe) 0.5 ml ONCE ONCE VAX IM Last administered on 03/10/19at 10:57; Start 03/10/19 at 10:15; Stop 03/10/19 at 10:20; Status DC Diazepam (Valium) 5 mg PRN Q8HRS PRN PO ANXIETY Last administered on 03/12/19at 15:05; Start 03/10/19 at 11:30; Stop 03/16/19 at 09:58; Status DC Metformin HCl (Glucophage) 500 mg BIDWMEALS PO Last administered on 03/11/19at 16:46; Start 03/10/19 at 17:00; Stop 03/14/19 at 14:08; Status DC Oxycodone/ Acetaminophen (Percocet 5/325) 1 tab PRN BID PRN PO MODERATE PAIN 4- 6 Last administered on 03/12/19at 16:49; Start 03/10/19 at 11:30; Stop 03/16/19 at 09:57; Status DC Diltiazem HCl (Cardizem 24hr Cd) 240 mg DAILY PO Last administered on 03/12/19at 08:39; Start 03/10/19 at 12:00; Stop 03/16/19 at 14:07; Status DC Pantoprazole Sodium (Protonix) 40 mg DAILYAC PO Last administered on 03/12/19at 08:29; Start 03/10/19 at 12:00; Stop 03/14/19 at 18:24; Status DC Albuterol/ Ipratropium (Duoneb) 3 ml RTQID NEB ; Start 03/10/19 at 12:00; Stop 03/10/19 at 12:02; Status DC Methylprednisolone Sodium Succinate (SOLU-Medrol 40MG VIAL) 60 mg Q12HR IV Last administered on 03/18/19at 08:06; Start 03/10/19 at 11:40; Stop 03/18/19 at 08:17; Status DC Gabapentin (Neurontin) 300 mg TID PO Last administered on 03/12/19at 15:05; Start 03/10/19 at 14:00; Stop 03/16/19 at 09:56; Status DC Sodium Bicarbonate (Sodium Bicarb Adult 8.4% Syr) 50 meq 1X ONCE IV Last administered on 03/10/19at 12:12; Start 03/10/19 at 12:00; Stop 03/10/19 at 12:05; Status DC Ipratropium [place] (Atrovent) 0.5 mg RTQID NEB Last administered on 03/19/19at 11:15; Start 03/10/19 at 12:00 Lorazepam (Ativan Inj) 1 mg PRN Q4HRS PRN IVP ANXIETY/AGITATION, 1ST CHOICE Last administered on 03/17/19at 12:08; Start 03/10/19 at 22:30 Ceftriaxone Sodium (Rocephin) 1 gm Q24H IVP Last administered on 03/11/19at 11:19; Start 03/11/19 at 11:00; Stop 03/11/19 at 16:24; Status DC Vancomycin HCl (Vanco Per Pharmacy) 1 each PRN DAILY PRN MC SEE COMMENTS Last administered on 03/11/19at 13:31; Start 03/11/19 at 10:15; Stop 03/12/19 at 07:06; Status DC Furosemide (Lasix) 40 mg 1X ONCE IVP Last administered on 03/11/19at 11:19; Start 03/11/19 at 10:30; Stop 03/11/19 at 10:31; Status DC Vancomycin HCl 1.25 gm/Sodium Chloride 250 ml @ 167 mls/hr Q24H IV Last administered on 03/11/19at 11:22; Start 03/11/19 at 11:00; Stop 03/12/19 at 07:06; Status DC Vancomycin HCl (Vancomycin Trough Level) 1 each 1X ONCE MC ; Start 03/13/19 at 10:30; Stop 03/12/19 at 07:11; Status DC Piperacillin Sod/ Tazobactam Sod (Zosyn Per Pharmacy) 1 each PRN DAILY PRN MC SEE COMMENTS; Start 03/11/19 at 16:30; Stop 03/15/19 at 07:18; Status DC Piperacillin Sod/ Tazobactam Sod 3.375 gm/Sodium Chloride 50 ml @ 100 mls/hr Q6HRS IV Last administered on 03/14/19at 12:37; Start 03/11/19 at 17:00; Stop 03/14/19 at 14:28; Status DC Iohexol (Omnipaque 350 Mg/ml) 75 ml 1X ONCE IV Last administered on 03/11/19at 17:49; Start 03/11/19 at 17:30; Stop 03/11/19 at 17:31; Status DC Furosemide (Lasix) 40 mg 1X ONCE IVP Last administered on 03/11/19at 18:41; Start 03/11/19 at 18:30; Stop 03/11/19 at 18:35; Status DC Furosemide (Lasix) 40 mg 1X ONCE IVP Last administered on 03/11/19at 22:01; Start 03/11/19 at 22:00; Stop 03/11/19 at 22:01; Status DC Doxycycline Hyclate 100 mg/ Dextrose 100 ml @ 50 mls/hr Q12HR IV Last administered on 03/19/19at 10:10; Start 03/12/19 at 09:00 Daptomycin 540 mg/ Sodium Chloride 50 ml @ 100 mls/hr ONCE ONCE IV Last administered on 03/12/19at 08:41; Start 03/12/19 at 08:30; Stop 03/12/19 at 08:59; Status DC Lactobacillus Rhamnosus (Culturelle) 1 cap BID PO Last administered on 03/12/19at 15:05; Start 03/12/19 at 09:00; Stop 03/16/19 at 09:56; Status DC Furosemide (Lasix) 20 mg 1X ONCE IVP Last administered on 03/12/19at 10:33; Start 03/12/19 at 10:00; Stop 03/12/19 at 10:01; Status DC Furosemide (Lasix) 20 mg 1X ONCE IVP Last administered on 03/12/19at 17:39; Start 03/12/19 at 17:30; Stop 03/12/19 at 17:31; Status DC Insulin Human Lispro (HumaLOG) 0-7 UNITS TIDWMEALS SQ Last administered on 03/14/19at 18:19; Start 03/12/19 at 22:00; Stop 03/14/19 at 23:18; Status DC Dextrose (Dextrose 50%-Water Syringe) 12.5 gm PRN Q15MIN PRN IV SEE COMMENTS; Start 03/12/19 at 19:45 Dexmedetomidine HCl 400 mcg/ Sodium Chloride 100 ml @ 0 mls/hr CONT PRN IV ANXIETY / AGITATION Last administered on 03/16/19at 13:01; Start 03/13/19 at 07:45; Stop 03/16/19 at 17:41; Status DC Sodium Chloride 500 ml @ 500 mls/hr 1X PRN PRN IV SEE I/O RECORD; Start 03/13/19 at 07:45; Stop 03/14/19 at 18:24; Status DC Atropine Sulfate (ATROPINE 0.5mg SYRINGE) 0.5 mg PRN Q5MIN PRN IV SEE COMMENTS; Start 03/13/19 at 07:45; Stop 03/16/19 at 17:41; Status DC Clonidine HCl (Catapres Tts-1) 1 patch WEEKLY TD Last administered on 03/13/19at 08:11; Start 03/13/19 at 09:00 Aspirin (Ecotrin) 81 mg DAILYWBKFT PO ; Start 03/14/19 at 08:00; Stop 03/16/19 at 09:58; Status DC Furosemide (Lasix) 40 mg 1X ONCE IVP Last administered on 03/13/19at 13:29; Start 03/13/19 at 11:30; Stop 03/13/19 at 11:34; Status DC Furosemide (Lasix) 40 mg DAILY IVP ; Start 03/14/19 at 09:00; Stop 03/13/19 at 13:13; Status DC Atorvastatin Calcium (Lipitor) 20 mg QHS PO Last administered on 03/18/19at 20:33; Start 03/13/19 at 21:00 Sodium Chloride 1,000 ml @ 75 mls/hr [id number] IV Last administered on 03/14/19at 14:14; Start 03/14/19 at 14:15; Stop 03/14/19 at 18:24; Status DC Piperacillin Sod/ Tazobactam Sod 2.25 gm/Sodium Chloride 50 ml @ 100 mls/hr Q6HRS IV Last administered on 03/15/19at 06:06; Start 03/14/19 at 18:00; Stop 03/15/19 at 07:18; Status DC Sodium Chloride 90 meq/Potassium Chloride 50 meq/ Potassium Phosphate 13.6 mm ol/Magnesium Sulfate 10 meq/ Calcium Gluconate 10 meq/ Multivitamins 10 ml/Chromium/ Copper/Manganese/ Seleni/Zn 1 ml/ Total Parenteral Nutrition/Amino Acids/Dextrose/ Fat Emulsion Intravenous 87.0013 ml @ 3.625 mls/hr TPN CONT IV ; Start 03/14/19 at 22:00; Stop 03/15/19 at 21:59; Status UNV Info (Tpn Per Pharmacy) 1 each PRN DAILY PRN MC SEE COMMENTS Last administered on 03/18/19at 12:59; Start 03/14/19 at 15:30 Sodium Chloride 70 meq/Potassium Chloride 50 meq/ Potassium Phosphate 13.6 mmol/Magnesium Sulfate 10 meq/ Calcium Gluconate 10 meq/ Multivitamins 10 ml/Chromium/ Copper/Manganese/ Seleni/Zn 1 ml/ Insulin Human Regular 10 unit/ Total Parenteral Nutrition/Amino Acids/Dextrose/ Fat Emuls... 1,512 ml @ 63 mls/hr TPN CONT IV Last administered on 03/14/19at 22:19; Start 03/14/19 at 22:00; Stop 03/15/19 at 21:59; Status DC Sodium Chloride 1,000 ml @ 10 mls/hr Q24H IV Last administered on 03/14/19at 18:30; Start 03/14/19 at 18:30; Stop 03/14/19 at 22:00; Status DC Pantoprazole Sodium (PROTONIX VIAL for IV PUSH) 40 mg HS IVP Last administered on 03/18/19at 20:33; Start 03/14/19 at 21:00 Insulin Human Lispro (HumaLOG) 0-7 UNITS Q6HRS SQ Last administered on 03/17/19at 12:18; Start 03/15/19 at 00:00; Stop 03/17/19 at 12:35; Status DC Sodium Chloride 40 meq/Potassium Chloride 50 meq/ Potassium Phosphate 8 mmol/ Magnesium Sulfate 3 meq/Calcium Gluconate 10 meq/ Multivitamins 10 ml/Chromium/ Copper/Manganese/ Seleni/Zn 1 ml/ Insulin Human Regular 20 unit/ Total Parenteral Nutrition/Amino Acids/Dextrose/ Fat Emulsion Intravenous 1,512 ml @ 63 mls/hr TPN CONT IV Last administered on 03/15/19at 21:49; Start 03/15/19 at 22:00; Stop 03/16/19 at 21:59; Status DC Insulin Glargine (Lantus Syringe) 20 unit QHS SQ ; Start 03/16/19 at 21:00; Stop 03/16/19 at 06:13; Status DC Insulin Glargine (Lantus Syringe) 20 unit 1X SQ ; Start 03/15/19 at 15:30; Stop 03/15/19 at 16:56; Status DC Insulin Glargine (Lantus Syringe) 20 unit 1X ONCE SQ Last administered on 03/15/19at 17:02; Start 03/15/19 at 17:00; Stop 03/15/19 at 17:01; Status DC Insulin Glargine (Lantus Syringe) 20 unit BID SQ ; Start 03/16/19 at 07:00; Status Cancel Insulin Glargine (Lantus Syringe) 20 unit QHS SQ ; Start 03/16/19 at 21:00; Stop 03/16/19 at 08:04; Status DC Insulin Human Lispro (HumaLOG) 5 units 1X ONCE SQ Last administered on 03/16/19at 07:41; Start 03/16/19 at 07:15; Stop 03/16/19 at 07:20; Status DC Insulin Glargine (Lantus Syringe) 40 unit QHS SQ Last administered on 03/16/19at 21:32; Start 03/16/19 at 21:00; Stop 03/17/19 at 12:32; Status DC Gabapentin (Neurontin Oral Soln) 300 mg [id number] PO Last administered on 03/19/19at 10:13; Start 03/16/19 at 10:00 Oxycodone HCl 5 mg PRN BID PRN NG PAIN Last administered on 03/17/19at 14:29; Start 03/16/19 at 10:00 Diazepam (Valium) 5 mg PRN Q8HRS PRN NG ANXIETY Last administered on 03/17/19at 12:08; Start 03/16/19 at 09:58 Aspirin (Children'S Aspirin) 81 mg DAILYWBKFT PO Last administered on 03/19/19at 10:08; Start 03/16/19 at 10:00 Polyethylene Glycol (miraLAX PACKET) 17 gm DAILY PO Last administered on 03/18/19at 08:06; Start 03/16/19 at 11:00 Potassium Phosphate 8 mmol/ Magnesium Sulfate 3 meq/Calcium Gluconate 10 meq/ Multivitamins 10 ml/Chromium/ Copper/Manganese/ Seleni/Zn 1 ml/ Insulin Human Regular 20 unit/ Total Parenteral Nutrition/Amino Acids/Dextrose/ Fat Emulsion Intravenous 1,992 ml @ 83 mls/hr TPN CONT IV Last administered on 03/16/19at 21:34; Start 03/16/19 at 22:00; Stop 03/17/19 at 21:59; Status DC Haloperidol Lactate (Haldol Inj) 5 mg PRN Q6HRS PRN IVP AGITATION, 2ND CHOICE Last administered on 03/16/19at 23:59; Start 03/16/19 at 13:00 Diltiazem HCl (Cardizem) 60 mg Q6HRS PO Last administered on 03/19/19at 05:30; Start 03/16/19 at 15:00 Insulin Human Lispro (HumaLOG) 5 units 1X ONCE SQ Last administered on 03/16/19at 21:04; Start 03/16/19 at 21:00; Stop 03/16/19 at 21:01; Status DC Enoxaparin Sodium (Lovenox 40mg Syringe) 40 mg Q24H SQ Last administered on 03/19/19at 10:09; Start 03/17/19 at 09:00 Potassium Phosphate 8 mmol/ Magnesium Sulfate 3 meq/Calcium Gluconate 5 meq/ Multivitamins 10 ml/Chromium/ Copper/Manganese/ Seleni/Zn 1 ml/ Insulin Human Regular 20 unit/ Total Parenteral Nutrition/Amino Acids/Dextrose/ Fat Emulsion Intravenous 1,992 ml @ 83 mls/hr TPN CONT IV Last administered on 03/17/19at 21:05; Start 03/17/19 at 22:00; Stop 03/18/19 at 21:59; Status DC Insulin Glargine (Lantus Syringe) 30 unit [id number] SQ Last administered on 03/19/19at 05:35; Start 03/17/19 at 18:00 Insulin Human Lispro (HumaLOG) 0-15 UNITS Q6HRS SQ Last administered on 03/19/19at 05:35; Start 03/17/19 at 13:00 Insulin Glargine (Lantus Syringe) 30 unit 1X ONCE SQ Last administered on 03/17/19at 13:39; Start 03/17/19 at 13:00; Stop 03/17/19 at 13:01; Status DC Methylprednisolone Sodium Succinate (SOLU-Medrol 40MG VIAL) 40 mg Q12HR IV Last administered on 03/19/19at 10:08; Start 03/18/19 at 21:00 Potassium Phosphate 8 mmol/ Magnesium Sulfate 3 meq/Calcium Gluconate 5 meq/ Multivitamins 10 ml/Chromium/ Copper/Manganese/ Seleni/Zn 1 ml/ Insulin Human Regular 30 unit/ Total Parenteral Nutrition/Amino Acids/Dextrose/ Fat Emulsion Intravenous 1,992 ml @ 83 mls/hr TPN CONT IV Last administered on 03/18/19at 21:55; Start 03/18/19 at 22:00; Stop 03/19/19 at 21:59 Active Scripts Active Prednisone 20 Mg Tablet 20 Mg PO DAILY Diazepam 5 Mg Tablet 5 Mg PO PRN Q8HRS PRN Reported Doxycycline Hyclate 50 Mg Capsule 1 Cap PO BID 7 Days Doxycycline Hyclate 50 Mg Capsule 1 Cap PO BID 7 Days Doxycycline Hyclate 50 Mg Capsule 1 Cap PO BID 7 Days Gabapentin (Gabapentin) 100 Mg Capsule 200 Mg PO TID Percocet 5-325 Mg Tablet (Oxycodone/Acetaminophen) 1 Each Tablet 1 Each PO 6XDAY PRN Aspir 81 (Aspirin) 81 Mg Tablet.dr 81 Mg PO DAILY [place]-3 ([place]-3 Fatty Acids) 1,000 Mg Capsule 1,200 Mg PO BID Omeprazole 20 Mg Capsule.dr 20 Mg PO BID Tiazac (Diltiazem Hcl) 240 Mg Capsule.er 240 Mg PO DAILY Xopenex Hfa (Levalbuterol Tartrate) 15 Gm Hfa.aer.ad 15 Gm IH BID PRN Metformin Hcl 500 Mg Tablet 500 Mg PO BID Vitals/I & O Vital Sign - Last 24 Hours 03/18/19 03/18/19 03/18/19 03/18/19 11:49 12:00 12:00 12:00 Temp 97.8 97.8 Pulse 96 Resp 18 B/P (MAP) 160/64 (96) Pulse Ox 97 96 O2 Delivery Nasal Cannula Nasal Cannula Nasal Cannula O2 Flow Rate 3.0 3.0 5.0 3.0 03/18/19 03/18/19 03/18/19 03/18/19 12:24 13:00 14:00 15:00 Pulse 79 96 99 87 Resp 18 18 15 B/P (MAP) 160/84 155/70 (98) 149/66 (93) 157/75 (102) Pulse Ox 96 97 97 O2 Delivery Nasal Cannula Nasal Cannula Nasal Cannula O2 Flow Rate 3.0 3.0 3.0 03/18/19 03/18/19 03/18/19 03/18/19 16:00 16:00 16:00 16:07 Temp 97.9 97.9 Pulse 97 Resp 17 B/P (MAP) 149/68 (95) Pulse Ox 97 O2 Delivery Nasal Cannula Nasal Cannula Nasal Cannula O2 Flow Rate 5.0 3.0 3.0 3.0 03/18/19 03/18/19 03/18/19 03/18/19 17:00 18:00 18:00 19:03 Pulse 96 97 97 93 Resp 14 14 16 B/P (MAP) 151/66 (94) 159/72 159/72 (101) 160/57 (91) Pulse Ox 97 99 98 O2 Delivery Nasal Cannula Nasal Cannula Nasal Cannula O2 Flow Rate 3.0 3.0 3.0 03/18/19 03/18/19 03/18/19 03/18/19 19:38 19:40 19:58 20:50 Temp 97.5 97.5 Pulse 95 97 Resp 15 15 B/P (MAP) 147/60 (89) 135/65 (88) Pulse Ox 98 95 97 O2 Delivery Nasal Cannula Nasal Cannula Nasal Cannula Nasal Cannula O2 Flow Rate 3.0 3.0 3.0 3.0 03/18/19 03/18/19 03/18/19 03/18/19 22:00 23:00 23:50 23:59 Pulse 98 96 98 Resp 16 17 B/P (MAP) 151/62 (91) 163/73 (103) 169/79 Pulse Ox 98 98 O2 Delivery Nasal Cannula Nasal Cannula Bi-pap O2 Flow Rate 3.0 3.0 03/19/19 03/19/19 03/19/19 03/19/19 00:00 00:30 01:00 02:00 Temp 97.4 97.4 Pulse 98 71 72 Resp 14 14 20 B/P (MAP) 169/79 (109) 149/64 (92) 127/66 (86) Pulse Ox 97 99 100 100 O2 Delivery BiPAP/CPAP BiPAP/CPAP BiPAP/CPAP BiPAP/CPAP O2 Flow Rate 03/19/19 03/19/19 03/19/19 03/19/19 02:58 03:54 03:55 03:58 Temp 97.2 97.2 Pulse 78 76 Resp 20 26 B/P (MAP) 145/71 (95) 141/56 (84) Pulse Ox 100 100 100 O2 Delivery BiPAP/CPAP BiPAP/CPAP Bi-pap BiPAP/CPAP 03/19/19 03/19/19 03/19/19 03/19/19 04:57 05:30 06:00 08:00 Pulse 75 74 66 Resp 19 21 B/P (MAP) 158/60 (92) 158/60 144/63 (90) Pulse Ox 100 100 O2 Delivery BiPAP/CPAP BiPAP/CPAP Nasal Cannula O2 Flow Rate 3.0 Intake and Output 03/18/19 03/18/19 03/19/19 15:00 23:00 07:00 Intake Total 100 ml 456 ml Output Total 578 ml 435 ml 350 ml Balance -578 ml -335 ml 106 ml HUNTER ARREOLA MD Mar 19, 2019 11:17
--- NOTE | 2019-03-19 11:48 | PDOC ---
Subjective: Subjective: Family wonders if Dobhoff feeds would be better than TPN - she really wants to eat/drink. Objective: Objective: D/w staff - "blowout" yesterday, more awake today. Vital Signs: Vital Signs Date Time Temp Pulse Resp B/P (MAP) Pulse Ox O2 Delivery O2 Flow Rate FiO2 03/19/19 11:15 98 Nasal Cannula 3.0 03/19/19 06:00 66 21 144/63 (90) 03/19/19 03:58 97.2 97.2 Labs: Laboratory Tests Test 03/18/19 12:22 03/18/19 17:58 03/18/19 23:52 03/19/19 04:50 Glucose (Fingerstick) 244 mg/dL 224 mg/dL 216 mg/dL White Blood Count 13.8 x10^3/uL Red Blood Count 3.48 x10^6/uL Hemoglobin 8.3 g/dL Hematocrit 26.4 % Mean Corpuscular Volume 76 fL Mean Corpuscular Hemoglobin 24 pg Mean Corpuscular Hemoglobin Concent 32 g/dL Red Cell Distribution Width 16.9 % Platelet Count 253 x10^3/uL Neutrophils (%) (Auto) 87 % Lymphocytes (%) (Auto) 7 % Monocytes (%) (Auto) 7 % Eosinophils (%) (Auto) 0 % Basophils (%) (Auto) 0 % Neutrophils # (Auto) 12.0 x10^3/uL Lymphocytes # (Auto) 0.9 x10^3/uL Monocytes # (Auto) 1.0 x10^3/uL Eosinophils # (Auto) 0.0 x10^3/uL Basophils # (Auto) 0.0 x10^3/uL Sodium Level 141 mmol/L Potassium Level 4.0 mmol/L Chloride Level 108 mmol/L Carbon Dioxide Level 28 mmol/L Anion Gap 5 Blood Urea Nitrogen 40 mg/dL Creatinine 0.9 mg/dL Estimated GFR (Cockcroft-Gault) 60.4 BUN/Creatinine Ratio 44 Glucose Level 208 mg/dL Calcium Level 8.7 mg/dL Phosphorus Level 4.0 mg/dL Magnesium Level 2.1 mg/dL Total Bilirubin 0.6 mg/dL Aspartate Amino Transf (AST/SGOT) 28 U/L Alanine Aminotransferase (ALT/SGPT) 99 U/L Alkaline Phosphatase 44 U/L Total Protein 5.9 g/dL Albumin 2.3 g/dL Albumin/Globulin Ratio 0.6 Triglycerides Level 155 mg/dL Test 03/19/19 05:26 Glucose (Fingerstick) 202 mg/dL Imaging: [facility] Bedside Swallow Eval 03/18 Bedside swallow eval completed. Pt's present. IMPRESSIONS: Intermittent s/s aspiration corresponding w/variable delay of swallow. Verbal responses also delayed. Cued pt to swallow MINERVA which was not consistently effective. Pt w/overt and subtle s/s aspiration on limited trials of small amts puree and honey thick liquids via cup. Would con't NPO and f/u for improvement. Suspect general weakness r/t acute illness as primary contributing factor. RECOMMENDATIONS: NPO meds and nutrition. NPO posted. Explained to pt and . ABEL Salgado. PE: GEN: NAD - in recliner, and son present HEENT: has Dobhoff LUNGS: NC 3L HEART: RRR ABD: NABS, S/ND/NT NEURO/PSYCH: awake/alert A/P: Ileus/constipation - resolved TIFFANIE Elevated AST and ALT -- Okay to try Dobhoff feeds. Monitor Hgb and LFTs. Continue PPI and Miralax. Follow [facility] recs. AGUSTINA LEE Mar 19, 2019 11:48
--- NOTE | 2019-03-19 11:53 | NUR ---
SS following up with discharge planning. Pt accepted at [facility], ; fax [phone]. Pt's family requesting that referrals be phoned and faxed to [facility], ; fax [phone], and [facility]. Referrals phoned and faxed to [facility], ; fax [phone]. Referrals phoned and faxed to both facilities. SS spoke with admissions at [facility] and they reported that they cannot do Dobhoffs at facility but will double check with nursing and discuss with family. SS w ill await acceptance decision from both facilities and will proceed accordingly with discharge planning.
[2019-03-19] MEDS: TPN PER PHARMACY MC PRN (14:29)
[2019-03-19] MEDS: PANTOPRAZOLE IV PUSH 40 MG VIAL. IVP SCH (21:25)
[2019-03-19] MEDS: ATORVASTATIN CALCIUM 20 MG TABLET PO SCH (21:25)
[2019-03-19] MEDS ORDERED: TOTAL PARENTERAL NUTRITION IV SCH ×9 (22:00)
[2019-03-19] MEDS ORDERED: DEXTROSE 70% IV SCH ×9 (22:00)
[2019-03-19] MEDS ORDERED: [UNRECOGNIZED DRUG - OTHER] IV SCH ×9 (22:00)
[2019-03-19] MEDS ORDERED: AMINO ACID IV SCH ×9 (22:00)
[2019-03-20] VITALS (14 sets, daily range): BP systolic 123–153; BP diastolic 48–80
[2019-03-20] MEDS: dilTIAZem HCL 30 MG TABLET PO SCH ×4 (01:07→17:31)
[2019-03-20] MEDS: INSULIN LISPRO 300 UNITS/3 ML VIAL. SQ SCH ×4 (01:13→18:01)
[2019-03-20] MEDS: INSULIN GLARGINE SYRINGE. SQ SCH ×3 (06:24→18:01)
[2019-03-20] MEDS: IPRATROPIUM BROMIDE 0.5 MG/2.5 ML NEBU. NEB SCH ×4 (07:12→20:55)
[2019-03-20] MEDS: ASPIRIN CHEWABLE 81 MG TABLET. PO SCH (08:00)
--- NOTE | 2019-03-20 08:31 | PDOC ---
Infectious Disease Note Subjective Subjective pt is awake, says feeling better, on bipap at night ROS ROS no n/v/d/sob Vital Sign Vital Signs Vital Signs Date Time Temp Pulse Resp B/P (MAP) Pulse Ox O2 Delivery O2 Flow Rate FiO2 03/20/19 07:13 98 Nasal Cannula 3.0 03/20/19 06:00 72 17 153/62 (92) 03/20/19 04:00 98.0 98.0 Physical Exam PHYSICAL EXAM GENERAL: Lying down, awake, calm, HEENT: Pupils are equal and reactive. Oral cavity dry. Dobbhoff NECK: Supple. LUNGS: Clear anteriorly HEART: S1, S2. regular ABDOMEN: Obese, soft, no guarding, + BS : Indwelling Oakes in place EXTREMITIES: Without clubbing or cyanosis. No gross edema. SKIN: Warm, without generalized signs of rash. NEUROLOGICAL: Awake, answersa several quesitions appropriately, follows commands Equal wheel filler strength, Feng, left arm raise weaker than right RIJ clean Labs Lab Laboratory Tests Test 03/19/19 18:13 03/20/19 01:11 03/20/19 06:21 Glucose (Fingerstick) 261 mg/dL (70-99) 242 mg/dL (70-99) 212 mg/dL (70-99) Micro Microbiology 03/10/19 Urine Culture - Final, Complete 03/10/19 Urine Culture Result 1 ([facility]) - Final, Complete 03/10/19 Blood Culture - Final, Complete NO GROWTH AFTER 5 DAYS Objective Assessment ? SBO vs ileus. GI following Leukocytosis - ? reactive/Steroids Lactic acidosis - better nml procalcitonin 03/13 Elevated Troponin/NSTEMI Acure resp failure -now on venti-mask ANNE - little worse Pulm edema Encephalopathy , better today. MRI reviewed. ? cervical cord lesion Diabetes Plan Plan of Care Cont Doxy for now (03/12) (Previous Rocephin 03/10) - will wean soon - Previously on Zosyn 03/11 - 03/15 - no gross sign of infection currently. - Previous Dapto times one 03/12 Cultures neg Appreciate neuro input MRI reviewed CBC in am D/w nursing LILIA BOWLING MD Mar 20, 2019 08:31
[2019-03-20] MEDS: GABAPENTIN 250 MG/5 ML ORAL SOLUTION. PO SCH ×3 (09:00→20:43)
[2019-03-20] MEDS: POLYETHYLENE GLYCOL 3350 17 GM PACKET. PO SCH (09:00)
--- NOTE | 2019-03-20 09:08 | PDOC ---
Provider Note Provider Note glucose still high despite lantus , will reduce steroid and add more lantus, rest same KATHLEEN ATWOOD MD Mar 20, 2019 09:08
--- NOTE | 2019-03-20 09:15 | PDOC ---
Subjective: Subjective: Dobhoff out - she said someone told her not to worry about it. Denies abd pain. Wants to eat. Objective: Objective: D/w nurse - stooled last night. Vital Signs: Vital Signs Date Time Temp Pulse Resp B/P (MAP) Pulse Ox O2 Delivery O2 Flow Rate FiO2 03/20/19 08:39 Nasal Cannula 3.0 03/20/19 08:00 78 16 138/54 (82) 99 03/20/19 07:00 97.5 97.5 Labs: Laboratory Tests Test 03/19/19 18:13 03/20/19 01:11 03/20/19 06:21 Glucose (Fingerstick) 261 mg/dL 242 mg/dL 212 mg/dL PE: GEN: NAD LUNGS: NC 3L HEART: RRR ABD: NABS, S/ND/NT NEURO/PSYCH: a little confused A/P: Dysphagia Ileus/constipation - resolved TIFFANIE Elevated AST and ALT -- Dobhoff out - could replace or await LENS [employer] GAUGER follow-up since still has TPN. Monitor labs. AGUSTINA LEE Mar 20, 2019 09:15
[2019-03-20] MEDS: ENOXAPARIN 40 MG/0.4 ML SYRINGE. SQ SCH (09:58)
[2019-03-20] MEDS: methylPREDNISolone SOD SUCC PF 40 MG/ML VIAL. IV SCH (09:58)
[2019-03-20] MEDS: DOXYCYCLINE HYCLATE 100 MG in IV DEXTROSE 5% 100ML 100 ML IV SCH ×2 (09:59→20:50)
[2019-03-20] MEDS: cloNIDine TTS-1 1 PATCH PATCH.TDWK TD SCH (09:59)
--- NOTE | 2019-03-20 10:08 | NUR ---
SS following up with discharge planning. Pt accepted at [facility] and [facility]. [facility] detention unit contacted SS and reported that they could do TPN and IV abx but could not do dobhoff and pt would need to be on some form of diet prior to being clinically accepted. SS discussed with pt's spouse and discussed possibility of pt needing to transfer to LTAC prior to going to detention unit at [facility]. Pt's spouse reported understanding and reported that if needed they would transfer pt to [facility] since it is close to home. Per RN, pt is transferring up to 5th floor. CHRISTOPHER Tariq, notified.
--- NOTE | 2019-03-20 10:29 | PDOC ---
PULMONARY PROGRESS NOTES Subjective NO NEW COMPLAINTS WANTS TO GO HOME . Vitals Vital Signs Date Time Temp Pulse Resp B/P (MAP) Pulse Ox O2 Delivery O2 Flow Rate FiO2 03/20/19 09:17 74 22 133/50 (77) 95 Nasal Cannula 3.0 03/20/19 07:00 97.5 97.5 ROS: No Nausea, No Chest Pain, No Abdominal Pain, No Increase Cough General: Alert Lungs: Clear Cardiovascular: S1, S2 Abdomen: Soft Neuro Exam: Alert Skin: Warm Labs Laboratory Tests Test 03/18/19 12:22 03/18/19 17:58 03/18/19 23:52 03/19/19 04:50 Glucose (Fingerstick) 244 mg/dL (70-99) 224 mg/dL (70-99) 216 mg/dL (70-99) White Blood Count 13.8 x10^3/uL (4.0-11.0) Red Blood Count 3.48 x10^6/uL (3.50-5.40) Hemoglobin 8.3 g/dL (12.0-15.5) Hematocrit 26.4 % (36.0-47.0) Mean Corpuscular Volume 76 fL (79-100) Mean Corpuscular Hemoglobin 24 pg (25-35) Mean Corpuscular Hemoglobin Concent 32 g/dL (31-37) Red Cell Distribution Width 16.9 % (11.5-14.5) Platelet Count 253 x10^3/uL (140-400) Neutrophils (%) (Auto) 87 % (31-73) Lymphocytes (%) (Auto) 7 % (24-48) Monocytes (%) (Auto) 7 % (0-9) Eosinophils (%) (Auto) 0 % (0-3) Basophils (%) (Auto) 0 % (0-3) Neutrophils # (Auto) 12.0 x10^3/uL (1.8-7.7) Lymphocytes # (Auto) 0.9 x10^3/uL (1.0-4.8) Monocytes # (Auto) 1.0 x10^3/uL (0.0-1.1) Eosinophils # (Auto) 0.0 x10^3/uL (0.0-0.7) Basophils # (Auto) 0.0 x10^3/uL (0.0-0.2) Sodium Level 141 mmol/L (136-145) Potassium Level 4.0 mmol/L (3.5-5.1) Chloride Level 108 mmol/L (98-107) Carbon Dioxide Level 28 mmol/L (21-32) Anion Gap 5 (6-14) Blood Urea Nitrogen 40 mg/dL (7-20) Creatinine 0.9 mg/dL (0.6-1.0) Estimated GFR (Cockcroft-Gault) 60.4 BUN/Creatinine Ratio 44 (6-20) Glucose Level 208 mg/dL (70-99) Calcium Level 8.7 mg/dL (8.5-10.1) Phosphorus Level 4.0 mg/dL (2.6-4.7) Magnesium Level 2.1 mg/dL (1.8-2.4) Total Bilirubin 0.6 mg/dL (0.2-1.0) Aspartate Amino Transf (AST/SGOT) 28 U/L (15-37) Alanine Aminotransferase (ALT/SGPT) 99 U/L (14-59) Alkaline Phosphatase 44 U/L (46-116) Total Protein 5.9 g/dL (6.4-8.2) Albumin 2.3 g/dL (3.4-5.0) Albumin/Globulin Ratio 0.6 (1.0-1.7) Triglycerides Level 155 mg/dL (0-150) Test 03/19/19 05:26 03/19/19 18:13 03/20/19 01:11 03/20/19 06:21 Glucose (Fingerstick) 202 mg/dL (70-99) 261 mg/dL (70-99) 242 mg/dL (70-99) 212 mg/dL (70-99) Test 03/20/19 10:02 Glucose (Fingerstick) 171 mg/dL (70-99) Laboratory Tests Test 03/19/19 18:13 03/20/19 01:11 03/20/19 06:21 03/20/19 10:02 Glucose (Fingerstick) 261 mg/dL (70-99) 242 mg/dL (70-99) 212 mg/dL (70-99) 171 mg/dL (70-99) Medications Active Scripts Medications Dose Route/Sig Max Daily Dose Days Date Category Doxycycline Hyclate 50 Mg Capsule 1 Cap PO BID 7 10/15/17 Reported Doxycycline Hyclate 50 Mg Capsule 1 Cap PO BID 7 10/15/17 Reported Doxycycline Hyclate 50 Mg Capsule 1 Cap PO BID 7 10/15/17 Reported Gabapentin (Gabapentin) 100 Mg Capsule 200 Mg PO TID 10/12/17 Reported Prednisone 20 Mg Tablet 20 Mg PO DAILY 04/06/16 Rx Diazepam 5 Mg Tablet 5 Mg PO PRN Q8HRS PRN 04/06/16 Rx Percocet 5-325 Mg Tablet (Oxycodone/Acetaminophen) 1 Each Tablet 1 Each PO 6XDAY PRN 08/07/13 Reported Aspir 81 (Aspirin) 81 Mg Tablet.dr 81 Mg PO DAILY 08/07/13 Reported [place]-3 ([place]-3 Fatty Acids) 1,000 Mg Capsule 1,200 Mg PO BID 08/07/13 Reported Omeprazole 20 Mg Capsule.dr 20 Mg PO BID 08/07/13 Reported Tiazac (Diltiazem Hcl) 240 Mg Capsule.er 240 Mg PO DAILY 08/07/13 Reported Xopenex Hfa (Levalbuterol Tartrate) 15 Gm Hfa.aer.ad 15 Gm IH BID PRN 08/07/13 Reported Metformin Hcl 500 Mg Tablet 500 Mg PO BID 08/07/13 Reported Comments Impression . 1. Acute hypoxic respiratory failure secondary to diffuse interstitial edema- improving 2. Abnormal echo with a low normal ejection fraction of 50% and grade 1 diastolic dysfunction 3. NSTEMI 5. Obesity-ongoing 6. h/o CAD, stents 7. ANNE- improved 8. Non-specific Alveolitis - likely not infectious 9. Hypernatermia-resolved 10. gastric illeus--improving 11. DYSPHAGIA 12. ENCEPHALOPATHY MRI Impression: No acute infarct. Chronic ischemic disease. No intracranial mass lesion. No intracranial hemorrhage. 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 This is not seen on the previous MRI of the cervical spine dated April 03, 2016. Recommend MRI study of the cervical spine with and without contrast for further evaluation. Plan . NEEDS LTAC FULL SUPPORT UP TO CHAIR D/W NPO PRN BIPAP MRI NEGATIVE FOR ACUTE CHANGES D/W SS BRADLEY DE LOS SANTOS MD Mar 20, 2019 10:29
--- NOTE | 2019-03-20 11:34 | PDOC ---
PROGRESS NOTES Assessment Problems Medical Problems: (1) Acute respiratory distress Status: Acute (2) Chronic anemia Status: Acute (3) Congestive heart failure Status: Acute (4) Elevated troponin I level Status: Acute (5) Hypomagnesemia Status: Acute (6) Hypoxia Status: Acute (7) Renal insufficiency Status: Acute (8) Restless leg syndrome Status: Acute (9) Sepsis Status: Acute (10) Tachycardia Status: Acute Metabolic encephalopathy, much better, MRI negative Possible cord lesion on MRI, no evidence of myelopathy or cervical radiculo karoline, hold on MRI cspine for now History of restless legs History of diabetic neuropathy. Medical issues include: SBO vs ileus, leukocytosis, lactic acidosis, elevated Troponin/NSTEMI, acure resp failure on Bipap, acute kidney injury, CHF/pulmonary edema Plan Continue treating medical diseases Subjective No complaints Objective Vital Signs Date Time Temp Pulse Resp B/P (MAP) Pulse Ox O2 Delivery O2 Flow Rate FiO2 03/20/19 11:10 97.6 79 16 123/49 (73) 94 Room Air 97.6 03/20/19 09:17 3.0 Intake and Output 03/20/19 07:00 Intake Total 3127 ml Output Total 1175 ml Balance 1952 ml Intake Oral 0 ml IV Total 2580 ml Tube Feeding 246 ml Other 301 ml Output Urine Total 1175 ml # Bowel Movements 1 PHYSICAL EXAM Alert. Oriented to place and person. PERRL. EOMI. CN: no focal findings. Muscle tone: normal. Muscle strength: 4/5 DTR: 1+ Plantar reflex: flexor Gait: not examined in bed. Sensory exam: stocking loss. No cerebellar signs elicited. Review of Relevant I have reviewed the following items anni (where applicable) has been applied. Labs Laboratory Tests Test 03/18/19 12:22 03/18/19 17:58 03/18/19 23:52 03/19/19 04:50 Glucose (Fingerstick) 244 mg/dL (70-99) 224 mg/dL (70-99) 216 mg/dL (70-99) White Blood Count 13.8 x10^3/uL (4.0-11.0) Red Blood Count 3.48 x10^6/uL (3.50-5.40) Hemoglobin 8.3 g/dL (12.0-15.5) Hematocrit 26.4 % (36.0-47.0) Mean Corpuscular Volume 76 fL (79-100) Mean Corpuscular Hemoglobin 24 pg (25-35) Mean Corpuscular Hemoglobin Concent 32 g/dL (31-37) Red Cell Distribution Width 16.9 % (11.5-14.5) Platelet Count 253 x10^3/uL (140-400) Neutrophils (%) (Auto) 87 % (31-73) Lymphocytes (%) (Auto) 7 % (24-48) Monocytes (%) (Auto) 7 % (0-9) Eosinophils (%) (Auto) 0 % (0-3) Basophils (%) (Auto) 0 % (0-3) Neutrophils # (Auto) 12.0 x10^3/uL (1.8-7.7) Lymphocytes # (Auto) 0.9 x10^3/uL (1.0-4.8) Monocytes # (Auto) 1.0 x10^3/uL (0.0-1.1) Eosinophils # (Auto) 0.0 x10^3/uL (0.0-0.7) Basophils # (Auto) 0.0 x10^3/uL (0.0-0.2) Sodium Level 141 mmol/L (136-145) Potassium Level 4.0 mmol/L (3.5-5.1) Chloride Level 108 mmol/L (98-107) Carbon Dioxide Level 28 mmol/L (21-32) Anion Gap 5 (6-14) Blood Urea Nitrogen 40 mg/dL (7-20) Creatinine 0.9 mg/dL (0.6-1.0) Estimated GFR (Cockcroft-Gault) 60.4 BUN/Creatinine Ratio 44 (6-20) Glucose Level 208 mg/dL (70-99) Calcium Level 8.7 mg/dL (8.5-10.1) Phosphorus Level 4.0 mg/dL (2.6-4.7) Magnesium Level 2.1 mg/dL (1.8-2.4) Total Bilirubin 0.6 mg/dL (0.2-1.0) Aspartate Amino Transf (AST/SGOT) 28 U/L (15-37) Alanine Aminotransferase (ALT/SGPT) 99 U/L (14-59) Alkaline Phosphatase 44 U/L (46-116) Total Protein 5.9 g/dL (6.4-8.2) Albumin 2.3 g/dL (3.4-5.0) Albumin/Globulin Ratio 0.6 (1.0-1.7) Triglycerides Level 155 mg/dL (0-150) Test 03/19/19 05:26 03/19/19 18:13 03/20/19 01:11 03/20/19 06:21 Glucose (Fingerstick) 202 mg/dL (70-99) 261 mg/dL (70-99) 242 mg/dL (70-99) 212 mg/dL (70-99) Test 03/20/19 10:02 Glucose (Fingerstick) 171 mg/dL (70-99) Laboratory Tests Test 03/19/19 18:13 03/20/19 01:11 03/20/19 06:21 03/20/19 10:02 Glucose (Fingerstick) 261 mg/dL (70-99) 242 mg/dL (70-99) 212 mg/dL (70-99) 171 mg/dL (70-99) Microbiology 03/10/19 Urine Culture - Final, Complete 03/10/19 Urine Culture Result 1 ([facility]) - Final, Complete 03/10/19 Blood Culture - Final, Complete NO GROWTH AFTER 5 DAYS Medications Current Medications Sodium Chloride 1,000 ml @ 1,000 mls/hr 1X ONCE IV Last administered on 03/10/19at 06:02; Start 03/10/19 at 06:00; Stop 03/10/19 at 07:40; Status DC Morphine Sulfate (Morphine Sulfate) 4 mg 1X ONCE IV Last administered on 03/10/19at 06:02; Start 03/10/19 at 06:00; Stop 03/10/19 at 11:33; Status DC Ondansetron HCl (Zofran) 4 mg 1X ONCE IV Last administered on 03/10/19at 06:02; Start 03/10/19 at 06:00; Stop 03/10/19 at 06:01; Status DC Lorazepam (Ativan Inj) 1 mg 1X ONCE IV Last administered on 03/10/19at 06:02; Start 03/10/19 at 06:00; Stop 03/10/19 at 11:33; Status DC Magnesium Sulfate 50 ml @ 25 mls/hr 1X ONCE IV Last administered on 03/10/19 07:17; Start 03/10/19 at 07:15; Stop 03/10/19 at 09:14; Status DC Methylprednisolone Sodium Succinate (SOLU-Medrol 125MG VIAL) 125 mg 1X ONCE IV Last administered on 03/10/19at 07:54; Start 03/10/19 at 07:30; Stop 03/10/19 at 11:33; Status DC Ceftriaxone Sodium (Rocephin) 1 gm 1X ONCE IVP Last administered on 03/10/19at 08:03; Start 03/10/19 at 08:00; Stop 03/10/19 at 11:33; Status DC Vancomycin HCl 250 ml @ 250 mls/hr 1X ONCE IV Last administered on 03/10/19at 08:02; Start 03/10/19 at 08:15; Stop 03/10/19 at 11:33; Status DC Levalbuterol HCl (Xopenex) 1.25 mg 1X ONCE NEB Last administered on 03/10/19at 08:00; Start 03/10/19 at 08:00; Stop 03/10/19 at 11:33; Status DC Sodium Chloride 1,000 ml @ 125 mls/hr 1X ONCE IV Last administered on 03/10/19at 09:03; Start 03/10/19 at 09:00; Stop 03/10/19 at 16:59; Status DC Influenza Virus Vaccine Quadrival (Afluria Quad 2019-20 (3yr Up) Syringe) 0.5 ml ONCE ONCE VAX IM Last administered on 03/10/19at 10:57; Start 03/10/19 at 10:15; Stop 03/10/19 at 10:20; Status DC Diazepam (Valium) 5 mg PRN Q8HRS PRN PO ANXIETY Last administered on 03/12/19at 15:05; Start 03/10/19 at 11:30; Stop 03/16/19 at 09:58; Status DC Metformin HCl (Glucophage) 500 mg BIDWMEALS PO Last administered on 03/11/19at 16:46; Start 03/10/19 at 17:00; Stop 03/14/19 at 14:08; Status DC Oxycodone/ Acetaminophen (Percocet 5/325) 1 tab PRN BID PRN PO MODERATE PAIN 4- 6 Last administered on 03/12/19at 16:49; Start 03/10/19 at 11:30; Stop 03/16/19 at 09:57; Status DC Diltiazem HCl (Cardizem 24hr Cd) 240 mg DAILY PO Last administered on 03/12/19at 08:39; Start 03/10/19 at 12:00; Stop 03/16/19 at 14:07; Status DC Pantoprazole Sodium (Protonix) 40 mg DAILYAC PO Last administered on 03/12/19at 08:29; Start 03/10/19 at 12:00; Stop 03/14/19 at 18:24; Status DC Albuterol/ Ipratropium (Duoneb) 3 ml RTQID NEB ; Start 03/10/19 at 12:00; Stop 03/10/19 at 12:02; Status DC Methylprednisolone Sodium Succinate (SOLU-Medrol 40MG VIAL) 60 mg Q12HR IV Last administered on 03/18/19at 08:06; Start 03/10/19 at 11:40; Stop 03/18/19 at 08:17; Status DC Gabapentin (Neurontin) 300 mg TID PO Last administered on 03/12/19at 15:05; Start 03/10/19 at 14:00; Stop 03/16/19 at 09:56; Status DC Sodium Bicarbonate (Sodium Bicarb Adult 8.4% Syr) 50 meq 1X ONCE IV Last administered on 03/10/19 12:12; Start 03/10/19 at 12:00; Stop 03/10/19 at 12:05; Status DC Ipratropium [place] (Atrovent) 0.5 mg RTQID NEB Last administered on 03/20/19at 07:12; Start 03/10/19 at 12:00 Lorazepam (Ativan Inj) 1 mg PRN Q4HRS PRN IVP ANXIETY/AGITATION, 1ST CHOICE Last administered on 03/17/19at 12:08; Start 03/10/19 at 22:30 Ceftriaxone Sodium (Rocephin) 1 gm Q24H IVP Last administered on 03/11/19at 11:19; Start 03/11/19 at 11:00; Stop 03/11/19 at 16:24; Status DC Vancomycin HCl (Vanco Per Pharmacy) 1 each PRN DAILY PRN MC SEE COMMENTS Last administered on 03/11/19at 13:31; Start 03/11/19 at 10:15; Stop 03/12/19 at 07:06; Status DC Furosemide (Lasix) 40 mg 1X ONCE IVP Last administered on 03/11/19at 11:19; Start 03/11/19 at 10:30; Stop 03/11/19 at 10:31; Status DC Vancomycin HCl 1.25 gm/Sodium Chloride 250 ml @ 167 mls/hr Q24H IV Last administered on 03/11/19at 11:22; Start 03/11/19 at 11:00; Stop 03/12/19 at 07:06; Status DC Vancomycin HCl (Vancomycin Trough Level) 1 each 1X ONCE MC ; Start 03/13/19 at 10:30; Stop 03/12/19 at 07:11; Status DC Piperacillin Sod/ Tazobactam Sod (Zosyn Per Pharmacy) 1 each PRN DAILY PRN MC SEE COMMENTS; Start 03/11/19 at 16:30; Stop 03/15/19 at 07:18; Status DC Piperacillin Sod/ Tazobactam Sod 3.375 gm/Sodium Chloride 50 ml @ 100 mls/hr Q6HRS IV Last administered on 03/14/19at 12:37; Start 03/11/19 at 17:00; Stop 03/14/19 at 14:28; Status DC Iohexol (Omnipaque 350 Mg/ml) 75 ml 1X ONCE IV Last administered on 03/11/19at 17:49; Start 03/11/19 at 17:30; Stop 03/11/19 at 17:31; Status DC Furosemide (Lasix) 40 mg 1X ONCE IVP Last administered on 03/11/19at 18:41; Start 03/11/19 at 18:30; Stop 03/11/19 at 18:35; Status DC Furosemide (Lasix) 40 mg 1X ONCE IVP Last administered on 03/11/19at 22:01; Start 03/11/19 at 22:00; Stop 03/11/19 at 22:01; Status DC Doxycycline Hyclate 100 mg/ Dextrose 100 ml @ 50 mls/hr Q12HR IV Last administered on 03/20/19at 09:59; Start 03/12/19 at 09:00 Daptomycin 540 mg/ Sodium Chloride 50 ml @ 100 mls/hr ONCE ONCE IV Last administered on 03/12/19at 08:41; Start 03/12/19 at 08:30; Stop 03/12/19 at 08:59; Status DC Lactobacillus Rhamnosus (Culturelle) 1 cap BID PO Last administered on 03/12/19at 15:05; Start 03/12/19 at 09:00; Stop 03/16/19 at 09:56; Status DC Furosemide (Lasix) 20 mg 1X ONCE IVP Last administered on 03/12/19at 10:33; Start 03/12/19 at 10:00; Stop 03/12/19 at 10:01; Status DC Furosemide (Lasix) 20 mg 1X ONCE IVP Last administered on 03/12/19at 17:39; Start 03/12/19 at 17:30; Stop 03/12/19 at 17:31; Status DC Insulin Human Lispro (HumaLOG) 0-7 UNITS TIDWMEALS SQ Last administered on 03/14/19at 18:19; Start 03/12/19 at 22:00; Stop 03/14/19 at 23:18; Status DC Dextrose (Dextrose 50%-Water Syringe) 12.5 gm PRN Q15MIN PRN IV SEE COMMENTS; Start 03/12/19 at 19:45 Dexmedetomidine HCl 400 mcg/ Sodium Chloride 100 ml @ 0 mls/hr CONT PRN IV ANXIETY / AGITATION Last administered on 03/16/19at 13:01; Start 03/13/19 at 07:45; Stop 03/16/19 at 17:41; Status DC Sodium Chloride 500 ml @ 500 mls/hr 1X PRN PRN IV SEE I/O RECORD; Start 03/13/19 at 07:45; Stop 03/14/19 at 18:24; Status DC Atropine Sulfate (ATROPINE 0.5mg SYRINGE) 0.5 mg PRN Q5MIN PRN IV SEE COMMENTS; Start 03/13/19 at 07:45; Stop 03/16/19 at 17:41; Status DC Clonidine HCl (Catapres Tts-1) 1 patch WEEKLY TD Last administered on 03/20/19at 09:59; Start 03/13/19 at 09:00 Aspirin (Ecotrin) 81 mg DAILYWBKFT PO ; Start 03/14/19 at 08:00; Stop 03/16/19 at 09:58; Status DC Furosemide (Lasix) 40 mg 1X ONCE IVP Last administered on 03/13/19at 13:29; Start 03/13/19 at 11:30; Stop 03/13/19 at 11:34; Status DC Furosemide (Lasix) 40 mg DAILY IVP ; Start 03/14/19 at 09:00; Stop 03/13/19 at 13:13; Status DC Atorvastatin Calcium (Lipitor) 20 mg QHS PO Last administered on 03/19/19at 21:25; Start 03/13/19 at 21:00 Sodium Chloride 1,000 ml @ 75 mls/hr [id number] IV Last administered on 03/14/19at 14:14; Start 03/14/19 at 14:15; Stop 03/14/19 at 18:24; Status DC Piperacillin Sod/ Tazobactam Sod 2.25 gm/Sodium Chloride 50 ml @ 100 mls/hr Q6HRS IV Last administered on 03/15/19at 06:06; Start 03/14/19 at 18:00; Stop 03/15/19 at 07:18; Status DC Sodium Chloride 90 meq/Potassium Chloride 50 meq/ Potassium Phosphate 13.6 mmol/Magnesium Sulfate 10 meq/ Calcium Gluconate 10 meq/ Multivitamins 10 ml/Chromium/ Copper/Manganese/ Seleni/Zn 1 ml/ Total Parenteral Nutrition/Amino Acids/Dextrose/ Fat Emulsion Intravenous 87.0013 ml @ 3.625 mls/hr TPN CONT IV ; Start 03/14/19 at 22:00; Stop 03/15/19 at 21:59; Status UNV Info (Tpn Per Pharmacy) 1 each PRN DAILY PRN MC SEE COMMENTS Last administered on 03/19/19at 14:29; Start 03/14/19 at 15:30 Sodium Chloride 70 meq/Potassium Chloride 50 meq/ Potassium Phosphate 13.6 mmol/Magnesium Sulfate 10 meq/ Calcium Gluconate 10 meq/ Multivitamins 10 ml/Chromium/ Copper/Manganese/ Seleni/Zn 1 ml/ Insulin Human Regular 10 unit/ Total Parenteral Nutrition/Amino Acids/Dextrose/ Fat Emuls... 1,512 ml @ 63 mls/hr TPN CONT IV Last administered on 03/14/19at 22:19; Start 03/14/19 at 22:00; Stop 03/15/19 at 21:59; Status DC Sodium Chloride 1,000 ml @ 10 mls/hr Q24H IV Last administered on 03/14/19at 18:30; Start 03/14/19 at 18:30; Stop 03/14/19 at 22:00; Status DC Pantoprazole Sodium (PROTONIX VIAL for IV PUSH) 40 mg HS IVP Last administered on 03/19/19at 21:25; Start 03/14/19 at 21:00 Insulin Human Lispro (HumaLOG) 0-7 UNITS Q6HRS SQ Last administered on 03/17/19at 12:18; Start 03/15/19 at 00:00; Stop 03/17/19 at 12:35; Status DC Sodium Chloride 40 meq/Potassium Chloride 50 meq/ Potassium Phosphate 8 mmol/ Magnesium Sulfate 3 meq/Calcium Gluconate 10 meq/ Multivitamins 10 ml/Chromium/ Copper/Manganese/ Seleni/Zn 1 ml/ Insulin Human Regular 20 unit/ Total Parenteral Nutrition/Amino Acids/Dextrose/ Fat Emulsion Intravenous 1,512 ml @ 63 mls/hr TPN CONT IV Last administered on 03/15/19at 21:49; Start 03/15/19 at 22:00; Stop 03/16/19 at 21:59; Status DC Insulin Glargine (Lantus Syringe) 20 unit QHS SQ ; Start 03/16/19 at 21:00; Stop 03/16/19 at 06:13; Status DC Insulin Glargine (Lantus Syringe) 20 unit 1X SQ ; Start 03/15/19 at 15:30; Stop 03/15/19 at 16:56; Status DC Insulin Glargine (Lantus Syringe) 20 unit 1X ONCE SQ Last administered on 03/15/19at 17:02; Start 03/15/19 at 17:00; Stop 03/15/19 at 17:01; Status DC Insulin Glargine (Lantus Syringe) 20 unit BID SQ ; Start 03/16/19 at 07:00; Status Cancel Insulin Glargine (Lantus Syringe) 20 unit QHS SQ ; Start 03/16/19 at 21:00; Stop 03/16/19 at 08:04; Status DC Insulin Human Lispro (HumaLOG) 5 units 1X ONCE SQ Last administered on 1 at 07:41; Start 03/16/19 at 07:15; Stop 03/16/19 at 07:20; Status DC Insulin Glargine (Lantus Syringe) 40 unit QHS SQ Last administered on 03/16/19at 21:32; Start 03/16/19 at 21:00; Stop 03/17/19 at 12:32; Status DC Gabapentin (Neurontin Oral Soln) 300 mg [id number] PO Last administered on 03/19/19at 21:25; Start 03/16/19 at 10:00 Oxycodone HCl 5 mg PRN BID PRN NG PAIN Last administered on 03/17/19 14:29; Start 03/16/19 at 10:00 Diazepam (Valium) 5 mg PRN Q8HRS PRN NG ANXIETY Last administered on 03/17/19 12:08; Start 03/16/19 at 09:58 Aspirin (Children'S Aspirin) 81 mg DAILYWBKFT PO Last administered on 9at 10:08; Start 03/16/19 at 10:00 Polyethylene Glycol (miraLAX PACKET) 17 gm DAILY PO Last administered on 03/18/19at 08:06; Start 03/16/19 at 11:00 Potassium Phosphate 8 mmol/ Magnesium Sulfate 3 meq/Calcium Gluconate 10 meq/ Multivitamins 10 ml/Chromium/ Copper/Manganese/ Seleni/Zn 1 ml/ Insulin Human Regular 20 unit/ Total Parenteral Nutrition/Amino Acids/Dextrose/ Fat Emulsion Intravenous 1,992 ml @ 83 mls/hr TPN CONT IV Last administered on 03/16/19at 21:34; Start 03/16/19 at 22:00; Stop 03/17/19 at 21:59; Status DC Haloperidol Lactate (Haldol Inj) 5 mg PRN Q6HRS PRN IVP AGITATION, 2ND CHOICE Last administered on 03/16/19at 23:59; Start 03/16/19 at 13:00 Diltiazem HCl (Cardizem) 60 mg Q6HRS PO Last administered on 03/20/19at 05:41; Start 03/16/19 at 15:00 Insulin Human Lispro (HumaLOG) 5 units 1X ONCE SQ Last administered on 03/16/19at 21:04; Start 03/16/19 at 21:00; Stop 03/16/19 at 21:01; Status DC Enoxaparin Sodium (Lovenox 40mg Syringe) 40 mg Q24H SQ Last administered on 03/20/19at 09:58; Start 03/17/19 at 09:00 Potassium Phosphate 8 mmol/ Magnesium Sulfate 3 meq/Calcium Gluconate 5 meq/ Multivitamins 10 ml/Chromium/ Copper/Manganese/ Seleni/Zn 1 ml/ Insulin Human Regular 20 unit/ Total Parenteral Nutrition/Amino Acids/Dextrose/ Fat Emulsion Intravenous 1,992 ml @ 83 mls/hr TPN CONT IV Last administered on 03/17/19at 21:05; Start 03/17/19 at 22:00; Stop 03/18/19 at 21:59; Status DC Insulin Glargine (Lantus Syringe) 30 unit [id number] SQ Last administered on 03/20/19at 06:24; Start 03/17/19 at 18:00; Stop 03/20/19 at 09:07; Status DC Insulin Human Lispro (HumaLOG) 0-15 UNITS Q6HRS SQ Last administered on 03/20/19at 06:23; Start 03/17/19 at 13:00 Insulin Glargine (Lantus Syringe) 30 unit 1X ONCE SQ Last administered on 03/17/19at 13:39; Start 03/17/19 at 13:00; Stop 03/17/19 at 13:01; Status DC Methylprednisolone Sodium Succinate (SOLU-Medrol 40MG VIAL) 40 mg Q12HR IV Last administered on 03/19/19at 21:25; Start 03/18/19 at 21:00; Stop 03/20/19 at 09:04; Status DC Potassium Phosphate 8 mmol/ Magnesium Sulfate 3 meq/Calcium Gluconate 5 meq/ Multivitamins 10 ml/Chromium/ Copper/Manganese/ Seleni/Zn 1 ml/ Insulin Human Regular 30 unit/ Total Parenteral Nutrition/Amino Acids/Dextrose/ Fat Emulsion Intravenous 1,992 ml @ 83 mls/hr TPN CONT IV Last administered on 03/18/19at 21:55; Start 03/18/19 at 22:00; Stop 03/19/19 at 21:59; Status DC Potassium Phosphate 8 mmol/ Magnesium Sulfate 3 meq/Calcium Gluconate 5 meq/ Multivitamins 10 ml/Chromium/ Copper/Manganese/ Seleni/Zn 1 ml/ Insulin Human Regular 30 unit/ Total Parenteral Nutrition/Amino Acids/Dextrose/ Fat Emulsion Intravenous 1,992 ml @ 83 mls/hr TPN CONT IV Last administered on 03/19/19at 21:57; Start 03/19/19 at 22:00; Stop 03/20/19 at 21:59 Methylprednisolone Sodium Succinate (SOLU-Medrol 40MG VIAL) 40 mg DAILY08 IV Last administered on 03/20/19at 09:58; Start 03/20/19 at 09:15 Insulin Glargine (Lantus Syringe) 40 unit [id number] SQ Last administered on 03/20/19at 10:02; Start 03/20/19 at 09:15 Active Scripts Active Prednisone 20 Mg Tablet 20 Mg PO DAILY Diazepam 5 Mg Tablet 5 Mg PO PRN Q8HRS PRN Reported Doxycycline Hyclate 50 Mg Capsule 1 Cap PO BID 7 Days Doxycycline Hyclate 50 Mg Capsule 1 Cap PO BID 7 Days Doxycycline Hyclate 50 Mg Capsule 1 Cap PO BID 7 Days Gabapentin (Gabapentin) 100 Mg Capsule 200 Mg PO TID Percocet 5-325 Mg Tablet (Oxycodone/Acetaminophen) 1 Each Tablet 1 Each PO 6XDAY PRN Aspir 81 (Aspirin) 81 Mg Tablet.dr 81 Mg PO DAILY Refugio-3 (Refugio-3 Fatty Acids) 1,000 Mg Capsule 1,200 Mg PO BID Omeprazole 20 Mg Capsule.dr 20 Mg PO BID Tiazac (Diltiazem Hcl) 240 Mg Capsule.er 240 Mg PO DAILY Xopenex Hfa (Levalbuterol Tartrate) 15 Gm Hfa.aer.ad 15 Gm IH BID PRN Metformin Hcl 500 Mg Tablet 500 Mg PO BID Vitals/I & O Vital Sign - Last 24 Hours 03/19/19 03/19/19 03/19/19 03/19/19 12:00 12:00 14:00 14:41 Temp 97.5 97.5 Pulse 74 84 Resp 20 21 B/P (MAP) 154/81 (105) 142/79 (100) 142/79 Pulse Ox 100 97 O2 Delivery Nasal Cannula Nasal Cannula Nasal Cannula O2 Flow Rate 3.0 3.0 3.0 03/19/19 03/19/19 03/19/19 03/19/19 15:30 16:00 16:00 18:00 Temp 98.2 98.2 Pulse 76 79 Resp 17 14 B/P (MAP) 152/68 (96) 147/62 (90) Pulse Ox 100 97 99 O2 Delivery Nasal Cannula Nasal Cannula Nasal Cannula Nasal Cannula O2 Flow Rate 3.0 3.0 3.0 3.0 03/19/19 03/19/19 03/19/19 03/19/19 18:10 19:00 19:21 20:00 Pulse 72 Resp 16 B/P (MAP) 147/42 139/67 (91) Pulse Ox 97 99 O2 Delivery Nasal Cannula Nasal Cannula Nasal Cannula O2 Flow Rate 3.0 3.0 3.0 03/19/19 03/19/19 03/19/19 03/19/19 20:00 21:00 23:00 23:30 Temp 98.5 98.5 Pulse 78 72 74 Resp 19 16 16 B/P (MAP) 119/61 (80) 117/53 (74) 126/55 (78) Pulse Ox 97 97 98 98 O2 Delivery Nasal Cannula Nasal Cannula Nasal Cannula BiPAP/CPAP O2 Flow Rate 3.0 3.0 3.0 03/20/19 03/20/19 03/20/19 03/20/19 00:00 00:00 01:00 01:07 Temp 98.2 98.2 Pulse 74 86 83 Resp 21 B/P (MAP) 136/60 (85) 132/80 (97) 132/80 Pulse Ox 99 98 O2 Delivery Bi-pap BiPAP/CPAP BiPAP/CPAP 03/20/19 03/20/19 03/20/19 03/20/19 01:38 02:00 02:51 03:00 Pulse 74 68 Resp 21 20 B/P (MAP) 143/57 (85) 136/48 (77) Pulse Ox 99 100 99 100 O2 Delivery BiPAP/CPAP BiPAP/CPAP BiPAP/CPAP BiPAP/CPAP 03/20/19 03/20/19 03/20/19 03/20/19 04:00 04:00 05:00 05:18 Temp 98.0 98.0 Pulse 70 64 Resp 19 39 B/P (MAP) 131/50 (77) 132/54 (80) Pulse Ox 100 100 99 O2 Delivery Bi-pap BiPAP/CPAP BiPAP/CPAP BiPAP/CPAP 03/20/19 03/20/19 03/20/19 03/20/19 05:41 06:00 07:00 07:13 Temp 97.5 97.5 Pulse 65 72 78 Resp 17 16 B/P (MAP) 132/54 153/62 (92) 153/62 (92) Pulse Ox 98 99 98 O2 Delivery Nasal Cannula Nasal Cannula Nasal Cannula O2 Flow Rate 3.0 3.0 3.0 03/20/19 03/20/19 03/20/19 03/20/19 08:00 08:39 09:17 11:10 Temp 97.6 97.6 Pulse 78 74 79 Resp 16 22 16 B/P (MAP) 138/54 (82) 133/50 (77) 123/49 (73) Pulse Ox 99 95 94 O2 Delivery Nasal Cannula Nasal Cannula Nasal Cannula Room Air O2 Flow Rate 3.0 3.0 3.0 Intake and Output 03/19/19 03/19/19 03/20/19 15:00 23:00 07:00 Intake Total 100 ml 1474 ml 1553 ml Output Total 325 ml 525 ml 325 ml Balance -225 ml 949 ml 1228 ml HUNTER ARREOLA MD Mar 20, 2019 11:34
[2019-03-20] MEDS: TPN PER PHARMACY MC PRN (15:05)
--- NOTE | 2019-03-20 15:05 | NUR ---
Pharmacy TPN Dosing Note S: THEODORE PADILAL is a 78 year old F Currently receiving Central Continuous TPN started 03/14/19 B:Pertinent PMH: NPO, ileus Height: 5 feet, 2 inches Weight: 86.415734 kg Current diet: NPO LABS: Sodium: 141 Potassium: 4.0 Chloride: 108 Calcium: 8.7 Corrected Calcium: 9.66 Magnesium: 2.1 CO2: 28 SCr: 0.9 Glucose: 202 Albumin: 2.8 AST: 28 ALT: 99 TPN FORMULA: TPN TYPE: Central Continuous AMINO ACIDS: 70 gm DEXTROSE: 225 gm LIPIDS: 20 gm SODIUM CHLORIDE: - mEq SODIUM ACETATE: mEq SODIUM PHOSPHATE: mmol POTASSIUM CHLORIDE: - mEq POTASSIUM ACETATE: mEq POTASSIUM PHOSPHATE: 8 mmol MAGNESIUM: 3 mEq CALCIUM: 5 mEq INSULIN: 30 units MULTIPLE VITAMIN: 10 ml TRACE ELEMENTS: 1 ml(s) TPN PLAN: No new labs today, continue same. BMP for tomorrow. R: Continue TPN as ordered Will monitor electrolytes, glucose, and tolerance to TPN. JERI LANGLEY, [facility], 03/20/19 [id number]
[2019-03-20] MEDS: ATORVASTATIN CALCIUM 20 MG TABLET PO SCH (20:41)
[2019-03-20] MEDS: PANTOPRAZOLE IV PUSH 40 MG VIAL. IVP SCH (20:50)
[2019-03-20] MEDS ORDERED: DEXTROSE 70% IV SCH ×9 (22:00)
[2019-03-20] MEDS ORDERED: [UNRECOGNIZED DRUG - OTHER] IV SCH ×9 (22:00)
[2019-03-20] MEDS ORDERED: TOTAL PARENTERAL NUTRITION IV SCH ×9 (22:00)
[2019-03-20] MEDS ORDERED: AMINO ACID IV SCH ×9 (22:00)
[2019-03-21 03:00] VITALS: BP 170/80
[2019-03-21] MEDS: dilTIAZem HCL 30 MG TABLET PO SCH ×4 (05:32→18:00)
[2019-03-21] MEDS: INSULIN LISPRO 300 UNITS/3 ML VIAL. SQ SCH ×4 (06:00→18:00)
[2019-03-21 06:47] LABS: CALCIUM 8.9 mg/dL (8.5-10.1); CREATININE 0.8 mg/dL (0.6-1.0); GFR 69.2; POTASSIUM 3.5 mmol/L (3.5-5.1)
[2019-03-21 07:00] VITALS: BP 169/67
[2019-03-21] MEDS: ASPIRIN CHEWABLE 81 MG TABLET. PO SCH (08:00)
[2019-03-21] MEDS: IPRATROPIUM BROMIDE 0.5 MG/2.5 ML NEBU. NEB SCH ×4 (08:26→19:48)
[2019-03-21] MEDS: INSULIN GLARGINE SYRINGE. SQ SCH ×2 (08:29→19:13)
--- NOTE | 2019-03-21 08:50 | NUR ---
SW following pt. Discussed with ICU SS, pt is a transfer from ICU. Pt has failed a swallow study yesterday. Discharge disposition is [facility] and discussed with Maral at facility. Physician paged.
[2019-03-21] MEDS: GABAPENTIN 250 MG/5 ML ORAL SOLUTION. PO SCH ×3 (09:00→21:00)
[2019-03-21] MEDS: POLYETHYLENE GLYCOL 3350 17 GM PACKET. PO SCH (09:00)
--- NOTE | 2019-03-21 09:32 | PDOC ---
Infectious Disease Note Subjective Subjective pt is awake, says feeling better, appropriate in talking ROS ROS no n/v/d/sob/fever Vital Sign Vital Signs Vital Signs Date Time Temp Pulse Resp B/P (MAP) Pulse Ox O2 Delivery O2 Flow Rate FiO2 03/21/19 08:30 96 Room Air 03/21/19 07:00 97.6 89 19 169/67 (101) 97.6 03/20/19 20:00 3.0 Physical Exam PHYSICAL EXAM GENERAL: Lying down, awake, calm, HEENT: Pupils are equal and reactive. Oral cavity dry. NECK: Supple. LUNGS: Clear anteriorly HEART: S1, S2. regular ABDOMEN: Obese, soft, no guarding, + BS : Indwelling Oakes in place EXTREMITIES: Without clubbing or cyanosis. No gross edema. SKIN: Warm, without generalized signs of rash. NEUROLOGICAL: Awake, answersa several quesitions appropriately, follows commands Equal component assembler strength, Feng, left arm raise weaker than right RIJ clean Labs Lab Laboratory Tests Test 03/20/19 10:02 03/20/19 12:32 03/20/19 17:37 03/21/19 00:27 Glucose (Fingerstick) 171 mg/dL (70-99) 207 mg/dL (70-99) 175 mg/dL (70-99) 128 mg/dL (70-99) Test 03/21/19 06:20 03/21/19 06:28 03/21/19 08:20 Sodium Level 141 mmol/L (136-145) Potassium Level 3.5 mmol/L (3.5-5.1) Chloride Level 105 mmol/L (98-107) Carbon Dioxide Level 26 mmol/L (21-32) Anion Gap 10 (6-14) Blood Urea Nitrogen 31 mg/dL (7-20) Creatinine 0.8 mg/dL (0.6-1.0) Estimated GFR (Cockcroft-Gault) 69.2 Glucose Level 129 mg/dL (70-99) Calcium Level 8.9 mg/dL (8.5-10.1) Glucose (Fingerstick) 128 mg/dL (70-99) 135 mg/dL (70-99) Micro Microbiology 03/10/19 Urine Culture - Final, Complete 03/10/19 Urine Culture Result 1 ([facility]) - Final, Complete 03/10/19 Blood Culture - Final, Complete NO GROWTH AFTER 5 DAYS Objective Assessment ? SBO vs ileus. GI following Leukocytosis - ? reactive/Steroids Lactic acidosis - better nml procalcitonin 03/13 Elevated Troponin/NSTEMI Acure resp failure -now on venti-mask ANNE - little worse Pulm edema Encephalopathy , better today. MRI reviewed. ? cervical cord lesion Diabetes Plan Plan of Care d/c doxy supportive care LILIA BOWLING MD Mar 21, 2019 09:32
--- NOTE | 2019-03-21 09:47 | PDOC ---
PROGRESS NOTES Assessment Problems Medical Problems: (1) Acute respiratory distress Status: Acute (2) Chronic anemia Status: Acute (3) Congestive heart failure Status: Acute (4) Elevated troponin I level Status: Acute (5) Hypomagnesemia Status: Acute (6) Hypoxia Status: Acute (7) Renal insufficiency Status: Acute (8) Restless leg syndrome Status: Acute (9) Sepsis Status: Acute (10) Tachycardia Status: Acute Metabolic encephalopathy, much better, MRI negative Possible cord lesion on MRI, no evidence of myelopathy or cervical radiculo karoline, hold on MRI cspine for now History of restless legs History of diabetic neuropathy. 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 I don't see a neurological reason why she should have persistent dysphagia but will keep in mind the possibility of neuromuscular junction disease. Subjective No complaints Objective Vital Signs Date Time Temp Pulse Resp B/P (MAP) Pulse Ox O2 Delivery O2 Flow Rate FiO2 03/21/19 08:30 96 Room Air 03/21/19 07:00 97.6 89 19 169/67 (101) 97.6 03/20/19 20:00 3.0 Intake and Output 03/21/19 07:00 Intake Total 1425 ml Output Total 70 ml Balance 1355 ml IV Total 1425 ml Output Urine Total 70 ml # Bowel Movements 2 PHYSICAL EXAM Alert. Oriented to place and person. PERRL. EOMI. CN: no focal findings. Muscle tone: normal. Muscle strength: 4/5 DTR: 1+ Plantar reflex: flexor Gait: not examined in bed. Sensory exam: stocking loss. No cerebellar signs elicited. Review of Relevant I have reviewed the following items anni (where applicable) has been applied. Labs Laboratory Tests Test 03/19/19 18:13 03/20/19 01:11 03/20/19 06:21 03/20/19 10:02 Glucose (Fingerstick) 261 mg/dL (70-99) 242 mg/dL (70-99) 212 mg/dL (70-99) 171 mg/dL (70-99) Test 03/20/19 12:32 03/20/19 17:37 03/21/19 00:27 03/21/19 06:20 Glucose (Fingerstick) 207 mg/dL (70-99) 175 mg/dL (70-99) 128 mg/dL (70-99) Sodium Level 141 mmol/L (136-145) Potassium Level 3.5 mmol/L (3.5-5.1) Chloride Level 105 mmol/L (98-107) Carbon Dioxide Level 26 mmol/L (21-32) Anion Gap 10 (6-14) Blood Urea Nitrogen 31 mg/dL (7-20) Creatinine 0.8 mg/dL (0.6-1.0) Estimated GFR (Cockcroft-Gault) 69.2 Glucose Level 129 mg/dL (70-99) Calcium Level 8.9 mg/dL (8.5-10.1) Test 03/21/19 06:28 03/21/19 08:20 Glucose (Fingerstick) 128 mg/dL (70-99) 135 mg/dL (70-99) Laboratory Tests Test 03/20/19 10:02 03/20/19 12:32 03/20/19 17:37 03/21/19 00:27 Glucose (Fingerstick) 171 mg/dL (70-99) 207 mg/dL (70-99) 175 mg/dL (70-99) 128 mg/dL (70-99) Test 03/21/19 06:20 03/21/19 06:28 03/21/19 08:20 Sodium Level 141 mmol/L (136-145) Potassium Level 3.5 mmol/L (3.5-5.1) Chloride Level 105 mmol/L (98-107) Carbon Dioxide Level 26 mmol/L (21-32) Anion Gap 10 (6-14) Blood Urea Nitrogen 31 mg/dL (7-20) Creatinine 0.8 mg/dL (0.6-1.0) Estimated GFR (Cockcroft-Gault) 69.2 Glucose Level 129 mg/dL (70-99) Calcium Level 8.9 mg/dL (8.5-10.1) Glucose (Fingerstick) 128 mg/dL (70-99) 135 mg/dL (70-99) Microbiology 03/10/19 Urine Culture - Final, Complete 03/10/19 Urine Culture Result 1 ([facility]) - Final, Complete 03/10/19 Blood Culture - Final, Complete NO GROWTH AFTER 5 DAYS Medications Current Medications Sodium Chloride 1,000 ml @ 1,000 mls/hr 1X ONCE IV Last administered on 03/10/19at 06:02; Start 03/10/19 at 06:00; Stop 03/10/19 at 07:40; Status DC Morphine Sulfate (Morphine Sulfate) 4 mg 1X ONCE IV Last administered on 03/10/19at 06:02; Start 03/10/19 at 06:00; Stop 03/10/19 at 11:33; Status DC Ondansetron HCl (Zofran) 4 mg 1X ONCE IV Last administered on 03/10/19at 06:02; Start 03/10/19 at 06:00; Stop 03/10/19 at 06:01; Status DC Lorazepam (Ativan Inj) 1 mg 1X ONCE IV Last administered on 03/10/19at 06:02; Start 03/10/19 at 06:00; Stop 03/10/19 at 11:33; Status DC Magnesium Sulfate 50 ml @ 25 mls/hr 1X ONCE IV Last administered on 03/10/19at 07:17; Start 03/10/19 at 07:15; Stop 03/10/19 at 09:14; Status DC Methylprednisolone Sodium Succinate (SOLU-Medrol 125MG VIAL) 125 mg 1X ONCE IV Last administered on 03/10/19at 07:54; Start 03/10/19 at 07:30; Stop 03/10/19 at 11:33; Status DC Ceftriaxone Sodium (Rocephin) 1 gm 1X ONCE IVP Last administered on 03/10/19at 08:03; Start 03/10/19 at 08:00; Stop 03/10/19 at 11:33; Status DC Vancomycin HCl 250 ml @ 250 mls/hr 1X ONCE IV Last administered on 03/10/19at 08:02; Start 03/10/19 at 08:15; Stop 03/10/19 at 11:33; Status DC Levalbuterol HCl (Xopenex) 1.25 mg 1X ONCE NEB Last administered on 03/10/19at 08:00; Start 03/10/19 at 08:00; Stop 03/10/19 at 11:33; Status DC Sodium Chloride 1,000 ml @ 125 mls/hr 1X ONCE IV Last administered on 03/10/19 09:03; Start 03/10/19 at 09:00; Stop 03/10/19 at 16:59; Status DC Influenza Virus Vaccine Quadrival (Afluria Quad 2019-20 (3yr Up) Syringe) 0.5 ml ONCE ONCE VAX IM Last administered on 03/10/19at 10:57; Start 03/10/19 at 10:15; Stop 03/10/19 at 10:20; Status DC Diazepam (Valium) 5 mg PRN Q8HRS PRN PO ANXIETY Last administered on 03/12/19at 15:05; Start 03/10/19 at 11:30; Stop 03/16/19 at 09:58; Status DC Metformin HCl (Glucophage) 500 mg BIDWMEALS PO Last administered on 03/11/19at 16:46; Start 03/10/19 at 17:00; Stop 03/14/19 at 14:08; Status DC Oxycodone/ Acetaminophen (Percocet 5/325) 1 tab PRN BID PRN PO MODERATE PAIN 4- 6 Last administered on 03/12/19at 16:49; Start 03/10/19 at 11:30; Stop 03/16/19 at 09:57; Status DC Diltiazem HCl (Cardizem 24hr Cd) 240 mg DAILY PO Last administered on 03/12/19at 08:39; Start 03/10/19 at 12:00; Stop 03/16/19 at 14:07; Status DC Pantoprazole Sodium (Protonix) 40 mg DAILYAC PO Last administered on 03/12/19at 08:29; Start 03/10/19 at 12:00; Stop 03/14/19 at 18:24; Status DC Albuterol/ Ipratropium (Duoneb) 3 ml RTQID NEB ; Start 03/10/19 at 12:00; Stop 03/10/19 at 12:02; Status DC Methylprednisolone Sodium Succinate (SOLU-Medrol 40MG VIAL) 60 mg Q12HR IV Last administered on 03/18/19 08:06; Start 03/10/19 at 11:40; Stop 03/18/19 at 08 :17; Status DC Gabapentin (Neurontin) 300 mg TID PO Last administered on 10/7/19at 15:05; Start 03/10/19 at 14:00; Stop 03/16/19 at 09:56; Status DC Sodium Bicarbonate (Sodium Bicarb Adult 8.4% Syr) 50 meq 1X ONCE IV Last administered on 03/10/19at 12:12; Start 03/10/19 at 12:00; Stop 03/10/19 at 12:05; Status DC Ipratropium [place] (Atrovent) 0.5 mg RTQID NEB Last administered on 03/21/19at 08:26; Start 03/10/19 at 12:00 Lorazepam (Ativan Inj) 1 mg PRN Q4HRS PRN IVP ANXIETY/AGITATION, 1ST CHO[address] administered on 03/17/19at 12:08; Start 03/10/19 at 22:30 Ceftriaxone Sodium (Rocephin) 1 gm Q24H IVP Last administered on 03/11/19at 11:19; Start 03/11/19 at 11:00; Stop 03/11/19 at 16:24; Status DC Vancomycin HCl (Vanco Per Pharmacy) 1 each PRN DAILY PRN MC SEE COMMENTS Last administered on 03/11/19at 13:31; Start 03/11/19 at 10:15; Stop 03/12/19 at 07:06; Status DC Furosemide (Lasix) 40 mg 1X ONCE IVP Last administered on 03/11/19at 11:19; Start 03/11/19 at 10:30; Stop 03/11/19 at 10:31; Status DC Vancomycin HCl 1.25 gm/Sodium Chloride 250 ml @ 167 mls/hr Q24H IV Last administered on 03/11/19at 11:22; Start 03/11/19 at 11:00; Stop 03/12/19 at 07:06; Status DC Vancomycin HCl (Vancomycin Trough Level) 1 each 1X ONCE MC ; Start 03/13/19 at 10:30; Stop 03/12/19 at 07:11; Status DC Piperacillin Sod/ Tazobactam Sod (Zosyn Per Pharmacy) 1 each PRN DAILY PRN MC SEE COMMENTS; Start 03/11/19 at 16:30; Stop 03/15/19 at 07:18; Status DC Piperacillin Sod/ Tazobactam Sod 3.375 gm/Sodium Chloride 50 ml @ 100 mls/hr Q6HRS IV Last administered on 03/14/19at 12:37; Start 03/11/19 at 17:00; Stop 03/14/19 at 14:28; Status DC Iohexol (Omnipaque 350 Mg/ml) 75 ml 1X ONCE IV Last administered on 03/11/19at 17:49; Start 03/11/19 at 17:30; Stop 03/11/19 at 17:31; Status DC Furosemide (Lasix) 40 mg 1X ONCE IVP Last administered on 03/11/19at 18:41; Start 03/11/19 at 18:30; Stop 03/11/19 at 18:35; Status DC Furosemide (Lasix) 40 mg 1X ONCE IVP Last administered on 03/11/19at 22:01; Start 03/11/19 at 22:00; Stop 03/11/19 at 22:01; Status DC Doxycycline Hyclate 100 mg/ Dextrose 100 ml @ 50 mls/hr Q12HR IV Last administered on 03/20/19at 20:50; Start 03/12/19 at 09:00; Stop 03/21/19 at 09:33; Status DC Daptomycin 540 mg/ Sodium Chloride 50 ml @ 100 mls/hr ONCE ONCE IV Last administered on 03/12/19at 08:41; Start 03/12/19 at 08:30; Stop 03/12/19 at 08:59; Status DC Lactobacillus Rhamnosus (Culturelle) 1 cap BID PO Last administered on 03/12/19at 15:05; Start 03/12/19 at 09:00; Stop 03/16/19 at 09:56; Status DC Furosemide (Lasix) 20 mg 1X ONCE IVP Last administered on 03/12/19at 10:33; Start 03/12/19 at 10:00; Stop 03/12/19 at 10:01; Status DC Furosemide (Lasix) 20 mg 1X ONCE IVP Last administered on 03/12/19at 17:39; Start 03/12/19 at 17:30; Stop 03/12/19 at 17:31; Status DC Insulin Human Lispro (HumaLOG) 0-7 UNITS TIDWMEALS SQ Last administered on 03/14/19at 18:19; Start 03/12/19 at 22:00; Stop 03/14/19 at 23:18; Status DC Dextrose (Dextrose 50%-Water Syringe) 12.5 gm PRN Q15MIN PRN IV SEE COMMENTS; Start 03/12/19 at 19:45 Dexmedetomidine HCl 400 mcg/ Sodium Chloride 100 ml @ 0 mls/hr CONT PRN IV ANXIETY / AGITATION Last administered on 03/16/19at 13:01; Start 03/13/19 at 07:45; Stop 03/16/19 at 17:41; Status DC Sodium Chloride 500 ml @ 500 mls/hr 1X PRN PRN IV SEE I/O RECORD; Start 03/13/19 at 07:45; Stop 03/14/19 at 18:24; Status DC Atropine Sulfate (ATROPINE 0.5mg SYRINGE) 0.5 mg PRN Q5MIN PRN IV SEE COMMENTS; Start 03/13/19 at 07:45; Stop 03/16/19 at 17:41; Status DC Clonidine HCl (Catapres Tts-1) 1 patch WEEKLY TD Last administered on 03/20/19at 09:59; Start 03/13/19 at 09:00 Aspirin (Ecotrin) 81 mg DAILYWBKFT PO ; Start 03/14/19 at 08:00; Stop 03/16/19 at 09:58; Status DC Furosemide (Lasix) 40 mg 1X ONCE IVP Last administered on 03/13/19at 13:29; Start 03/13/19 at 11:30; Stop 03/13/19 at 11:34; Status DC Furosemide (Lasix) 40 mg DAILY IVP ; Start 03/14/19 at 09:00; Stop 03/13/19 at 13:13; Status DC Atorvastatin Calcium (Lipitor) 20 mg QHS PO Last administered on 03/19/19at 21:25; Start 03/13/19 at 21:00 Sodium Chloride 1,000 ml @ 75 mls/hr [id number] IV Last administered on 03/14/19at 14:14; Start 03/14/19 at 14:15; Stop 03/14/19 at 18:24; Status DC Piperacillin Sod/ Tazobactam Sod 2.25 gm/Sodium Chloride 50 ml @ 100 mls/hr Q6HRS IV Last administered on 03/15/19at 06:06; Start 03/14/19 at 18:00; Stop 03/15/19 at 07:18; Status DC Sodium Chloride 90 meq/Potassium Chloride 50 meq/ Potassium Phosphate 13.6 mmol/Magnesium Sulfate 10 meq/ Calcium Gluconate 10 meq/ Multivitamins 10 ml/Chromium/ Copper/Manganese/ Seleni/Zn 1 ml/ Total Parenteral Nutrition/Amino Acids/Dextrose/ Fat Emulsion Intravenous 87.0013 ml @ 3.625 mls/hr TPN CONT IV ; Start 03/14/19 at 22:00; Stop 03/15/19 at 21:59; Status UNV Info (Tpn Per Pharmacy) 1 each PRN DAILY PRN MC SEE COMMENTS Last administered on 03/20/19at 15:05; Start 03/14/19 at 15:30 Sodium Chloride 70 meq/Potassium Chloride 50 meq/ Potassium Phosphate 13.6 mmol/Magnesium Sulfate 10 meq/ Calcium Gluconate 10 meq/ Multivitamins 10 ml/Chromium/ Copper/Manganese/ Seleni/Zn 1 ml/ Insulin Human Regular 10 unit/ Total Parenteral Nutrition/Amino Acids/Dextrose/ Fat Emuls... 1,512 ml @ 63 mls/hr TPN CONT IV Last administered on 03/14/19at 22:19; Start 03/14/19 at 22:00; Stop 03/15/19 at 21:59; Status DC Sodium Chloride 1,000 ml @ 10 mls/hr Q24H IV Last administered on 03/14/19at 18:30; Start 03/14/19 at 18:30; Stop 03/14/19 at 22:00; Status DC Pantoprazole Sodium (PROTONIX VIAL for IV PUSH) 40 mg HS IVP Last administered on 03/20/19at 20:50; Start 03/14/19 at 21:00 Insulin Human Lispro (HumaLOG) 0-7 UNITS Q6HRS SQ Last administered on 03/17/19at 12:18; Start 03/15/19 at 00:00; Stop 03/17/19 at 12:35; Status DC Sodium Chloride 40 meq/Potassium Chloride 50 meq/ Potassium Phosphate 8 mmol/ Magnesium Sulfate 3 meq/Calcium Gluconate 10 meq/ Multivitamins 10 ml/Chromium/ Copper/Manganese/ Seleni/Zn 1 ml/ Insulin Human Regular 20 unit/ Total Parenteral Nutrition/Amino Acids/Dextrose/ Fat Emulsion Intravenous 1,512 ml @ 63 mls/hr TPN CONT IV Last administered on 03/15/19at 21:49; Start 03/15/19 at 22:00; Stop 03/16/19 at 21:59; Status DC Insulin Glargine (Lantus Syringe) 20 unit QHS SQ ; Start 03/16/19 at 21:00; Stop 03/16/19 at 06:13; Status DC Insulin Glargine (Lantus Syringe) 20 unit 1X SQ ; Start 03/15/19 at 15:30; Stop 03/15/19 at 16:56; Status DC Insulin Glargine (Lantus Syringe) 20 unit 1X ONCE SQ Last administered on at 17:02; Start 03/15/19 at 17:00; Stop 03/15/19 at 17:01; Status DC Insulin Glargine (Lantus Syringe) 20 unit BID SQ ; Start 03/16/19 at 07:00; Status Cancel Insulin Glargine (Lantus Syringe) 20 unit QHS SQ ; Start 03/16/19 at 21:00; Stop 03/16/19 at 08:04; Status DC Insulin Human Lispro (HumaLOG) 5 units 1X ONCE SQ Last administered on 03/16/19at 07:41; Start 03/16/19 at 07:15; Stop 03/16/19 at 07:20; Status DC Insulin Glargine (Lantus Syringe) 40 unit QHS SQ Last administered on 03/06 06/24at 21:32; Start 03/16/19 at 21:00; Stop 03/17/19 at 12:32; Status DC Gabapentin (Neurontin Oral Soln) 300 mg [id number] PO Last administered on 03/19/19at 21:25; Start 03/16/19 at 10:00 Oxycodone HCl 5 mg PRN BID PRN NG PAIN Last administered on 03/17/19at 14:29; Start 03/16/19 at 10:00 Diazepam (Valium) 5 mg PRN Q8HRS PRN NG ANXIETY Last administered on 03/17/19at 12:08; Start 03/16/19 at 09:58 Aspirin (Children'S Aspirin) 81 mg DAILYWBKFT PO Last administered on 03/19/19at 10:08; Start 03/16/19 at 10:00 Polyethylene Glycol (miraLAX PACKET) 17 gm DAILY PO Last administered on 03/18/19 08:06; Start 03/16/19 at 11:00 Potassium Phosphate 8 mmol/ Magnesium Sulfate 3 meq/Calcium Gluconate 10 meq/ Multivitamins 10 ml/Chromium/ Copper/Manganese/ Seleni/Zn 1 ml/ Insulin Human Regular 20 unit/ Total Parenteral Nutrition/Amino Acids/Dextrose/ Fat Emulsion Intravenous 1,992 ml @ 83 mls/hr TPN CONT IV Last administered on 03/16/19at 21:34; Start 03/16/19 at 22:00; Stop 03/17/19 at 21:59; Status DC Haloperidol Lactate (Haldol Inj) 5 mg PRN Q6HRS PRN IVP AGITATION, 2ND CHOICE Last administered on 03/16/19at 23:59; Start 03/16/19 at 13:00 Diltiazem HCl (Cardizem) 60 mg Q6HRS PO Last administered on 03/20/19 05:41; Start 03/16/19 at 15:00 Insulin Human Lispro (HumaLOG) 5 units 1X ONCE SQ Last administered on 03/16/19at 21:04; Start 03/16/19 at 21:00; Stop 03/16/19 at 21:01; Status DC Enoxaparin Sodium (Lovenox 40mg Syringe) 40 mg Q24H SQ Last administered on 03/20/19at 09:58; Start 03/17/19 at 09:00 Potassium Phosphate 8 mmol/ Magnesium Sulfate 3 meq/Calcium Gluconate 5 meq/ Multivitamins 10 ml/Chromium/ Copper/Manganese/ Seleni/Zn 1 ml/ Insulin Human Regular 20 unit/ Total Parenteral Nutrition/Amino Acids/Dextrose/ Fat Emulsion Intravenous 1,992 ml @ 83 mls/hr TPN CONT IV Last administered on 03/17/19at 21:05; Start 03/17/19 at 22:00; Stop 03/18/19 at 21:59; Status DC Insulin Glargine (Lantus Syringe) 30 unit [id number] SQ Last administered on 03/20/19at 06:24; Start 03/17/19 at 18:00; Stop 03/20/19 at 09:07; Status DC Insulin Human Lispro (HumaLOG) 0-15 UNITS Q6HRS SQ Last administered on 03/20/19at 18:01; Start 03/17/19 at 13:00 Insulin Glargine (Lantus Syringe) 30 unit 1X ONCE SQ Last administered on 03/17/19at 13:39; Start 03/17/19 at 13:00; Stop 03/17/19 at 13:01; Status DC Methylprednisolone Sodium Succinate (SOLU-Medrol 40MG VIAL) 40 mg Q12HR IV Last administered on 03/19/19at 21:25; Start 03/18/19 at 21:00; Stop 03/20/19 at 09:04; Status DC Potassium Phosphate 8 mmol/ Magnesium Sulfate 3 meq/Calcium Gluconate 5 meq/ Multivitamins 10 ml/Chromium/ Copper/Manganese/ Seleni/Zn 1 ml/ Insulin Human Regular 30 unit/ Total Parenteral Nutrition/Amino Acids/Dextrose/ Fat Emulsion Intravenous 1,992 ml @ 83 mls/hr TPN CONT IV Last administered on 03/18/19at 21:55; Start 03/18/19 at 22:00; Stop 03/19/19 at 21:59; Status DC Potassium Phosphate 8 mmol/ Magnesium Sulfate 3 meq/Calcium Gluconate 5 meq/ Multivitamins 10 ml/Chromium/ Copper/Manganese/ Seleni/Zn 1 ml/ Insulin Human Regular 30 unit/ Total Parenteral Nutrition/Amino Acids/Dextrose/ Fat Emulsion Intravenous 1,992 ml @ 83 mls/hr TPN CONT IV Last administered on 03/19/19at 21:57; Start 03/19/19 at 22:00; Stop 03/20/19 at 21:59; Status DC Methylprednisolone Sodium Succinate (SOLU-Medrol 40MG VIAL) 40 mg DAILY08 IV Last administered on 03/20/19at 09:58; Start 03/20/19 at 09:15 Insulin Glargine (Lantus Syringe) 40 unit [id number] SQ Last administered on 03/21/19at 08:29; Start 03/20/19 at 09:15 Potassium Phosphate 8 mmol/ Magnesium Sulfate 3 meq/Calcium Gluconate 5 meq/ Multivitamins 10 ml/Chromium/ Copper/Manganese/ Seleni/Zn 1 ml/ Insulin Human Regular 30 unit/ Total Parenteral Nutrition/Amino Acids/Dextrose/ Fat Emulsion Intravenous 1,992 ml @ 83 mls/hr TPN CONT IV Last administered on 03/20/19at 22:40; Start 03/20/19 at 22:00; Stop 03/21/19 at 21:59 Active Scripts Active Prednisone 20 Mg Tablet 20 Mg PO DAILY Diazepam 5 Mg Tablet 5 Mg PO PRN Q8HRS PRN Reported Doxycycline Hyclate 50 Mg Capsule 1 Cap PO BID 7 Days Doxycycline Hyclate 50 Mg Capsule 1 Cap PO BID 7 Days Doxycycline Hyclate 50 Mg Capsule 1 Cap PO BID 7 Days Gabapentin (Gabapentin) 100 Mg Capsule 200 Mg PO TID Percocet 5-325 Mg Tablet (Oxycodone/Acetaminophen) 1 Each Tablet 1 Each PO 6XDAY PRN Aspir 81 (Aspirin) 81 Mg Tablet.dr 81 Mg PO DAILY [place]-3 ([place]-3 Fatty Acids) 1,000 Mg Capsule 1,200 Mg PO BID Omeprazole 20 Mg Capsule.dr 20 Mg PO BID Tiazac (Diltiazem Hcl) 240 Mg Capsule.er 240 Mg PO DAILY Xopenex Hfa (Levalbuterol Tartrate) 15 Gm Hfa.aer.ad 15 Gm IH BID PRN Metformin Hcl 500 Mg Tablet 500 Mg PO BID Vitals/I & O Vital Sign - Last 24 Hours 03/20/19 03/20/19 03/20/19 03/20/19 11:10 11:15 12:35 13:02 Temp 97.6 97.6 Pulse 79 79 Resp 16 B/P (MAP) 123/49 (73) 123/49 Pulse Ox 94 93 O2 Delivery Room Air Room Air Room Air 03/20/19 03/20/19 03/20/19 03/20/19 15:00 16:43 19:00 20:00 Temp 97.7 97.9 97.7 97.9 Pulse 88 93 Resp 18 18 B/P (MAP) 145/55 (85) 152/69 (96) Pulse Ox 93 92 O2 Delivery Room Air Room Air Room Air Room Air 03/20/19 03/20/19 03/20/19 03/21/19 20:00 20:57 23:00 03:00 Temp 97.9 97.9 97.9 97.9 Pulse 91 88 Resp 18 18 B/P (MAP) 152/70 (97) 170/80 (110) Pulse Ox 94 93 93 O2 Delivery Room Air Room Air Room Air O2 Flow Rate 3.0 03/21/19 03/21/19 07:00 08:30 Temp 97.6 97.6 Pulse 89 Resp 19 B/P (MAP) 169/67 (101) Pulse Ox 93 96 O2 Delivery Room Air Room Air Intake and Output 03/20/19 03/20/19 03/21/19 15:00 23:00 07:00 Intake Total 1425 ml Output Total 70 ml Balance 1355 ml HUNTER ARREOLA MD Mar 21, 2019 09:47
--- NOTE | 2019-03-21 09:49 | PDOC ---
PULMONARY PROGRESS NOTES Subjective NO INCREASE SOA . Vitals Vital Signs Date Time Temp Pulse Resp B/P (MAP) Pulse Ox O2 Delivery O2 Flow Rate FiO2 03/21/19 08:30 96 Room Air 03/21/19 07:00 97.6 89 19 169/67 (101) 97.6 03/20/19 20:00 3.0 ROS: No Nausea, No Chest Pain, No Abdominal Pain, No Increase Cough General: Alert Lungs: Clear Cardiovascular: S1, S2 Abdomen: Soft Neuro Exam: Alert Skin: Warm Labs Laboratory Tests Test 03/19/19 18:13 03/20/19 01:11 03/20/19 06:21 03/20/19 10:02 Glucose (Fingerstick) 261 mg/dL (70-99) 242 mg/dL (70-99) 212 mg/dL (70-99) 171 mg/dL (70-99) Test 03/20/19 12:32 03/20/19 17:37 03/21/19 00:27 03/21/19 06:20 Glucose (Fingerstick) 207 mg/dL (70-99) 175 mg/dL (70-99) 128 mg/dL (70-99) Sodium Level 141 mmol/L (136-145) Potassium Level 3.5 mmol/L (3.5-5.1) Chloride Level 105 mmol/L (98-107) Carbon Dioxide Level 26 mmol/L (21-32) Anion Gap 10 (6-14) Blood Urea Nitrogen 31 mg/dL (7-20) Creatinine 0.8 mg/dL (0.6-1.0) Estimated GFR (Cockcroft-Gault) 69.2 Glucose Level 129 mg/dL (70-99) Calcium Level 8.9 mg/dL (8.5-10.1) Test 03/21/19 06:28 03/21/19 08:20 Glucose (Fingerstick) 128 mg/dL (70-99) 135 mg/dL (70-99) Laboratory Tests Test 03/20/19 10:02 03/20/19 12:32 03/20/19 17:37 03/21/19 00:27 Glucose (Fingerstick) 171 mg/dL (70-99) 207 mg/dL (70-99) 175 mg/dL (70-99) 128 mg/dL (70-99) Test 03/21/19 06:20 03/21/19 06:28 03/21/19 08:20 Sodium Level 141 mmol/L (136-145) Potassium Level 3.5 mmol/L (3.5-5.1) Chloride Level 105 mmol/L (98-107) Carbon Dioxide Level 26 mmol/L (21-32) Anion Gap 10 (6-14) Blood Urea Nitrogen 31 mg/dL (7-20) Creatinine 0.8 mg/dL (0.6-1.0) Estimated GFR (Cockcroft-Gault) 69.2 Glucose Level 129 mg/dL (70-99) Calcium Level 8.9 mg/dL (8.5-10.1) Glucose (Fingerstick) 128 mg/dL (70-99) 135 mg/dL (70-99) Medications Active Scripts Medications Dose Route/Sig Max Daily Dose Days Date Category Doxycycline Hyclate 50 Mg Capsule 1 Cap PO BID 7 10/15/17 Reported Doxycycline Hyclate 50 Mg Capsule 1 Cap PO BID 7 10/15/17 Reported Doxycycline Hyclate 50 Mg Capsule 1 Cap PO BID 7 10/15/17 Reported Gabapentin (Gabapentin) 100 Mg Capsule 200 Mg PO TID 10/12/17 Reported Prednisone 20 Mg Tablet 20 Mg PO DAILY 04/06/16 Rx Diazepam 5 Mg Tablet 5 Mg PO PRN Q8HRS PRN 04/06/16 Rx Percocet 5-325 Mg Tablet (Oxycodone/Acetaminophen) 1 Each Tablet 1 Each PO 6XDAY PRN 08/07/13 Reported Aspir 81 (Aspirin) 81 Mg Tablet.dr 81 Mg PO DAILY 08/07/13 Reported [place]-3 ([place]-3 Fatty Acids) 1,000 Mg Capsule 1,200 Mg PO BID 08/07/13 Reported Omeprazole 20 Mg Capsule.dr 20 Mg PO BID 08/07/13 Reported Tiazac (Diltiazem Hcl) 240 Mg Capsule.er 240 Mg PO DAILY 08/07/13 Reported Xopenex Hfa (Levalbuterol Tartrate) 15 Gm Hfa.aer.ad 15 Gm IH BID PRN 08/07/13 Reported Metformin Hcl 500 Mg Tablet 500 Mg PO BID 08/07/13 Reported Comments Impression . 1. Acute hypoxic respiratory failure secondary to diffuse interstitial edema- improving 2. Abnormal echo with a low normal ejection fraction of 50% and grade 1 diastolic dysfunction 3. NSTEMI 5. Obesity-ongoing 6. h/o CAD, stents 7. ANNE- improved 8. Non-specific Alveolitis - likely not infectious 9. Hypernatermia-resolved 10. gastric illeus--improving 11. DYSPHAGIA 12. ENCEPHALOPATHY MRI Impression: No acute infarct. Chronic ischemic disease. No intracranial mass lesion. No intracranial hemorrhage. 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 This is not seen on the previous MRI of the cervical spine dated April 03, 2016. Recommend MRI study of the cervical spine with and without contrast for further evaluation. Plan . VIDEO SWALLOW TODAY UP TO CHAIR D/W NPO PRN BIPAP MRI NEGATIVE FOR ACUTE CHANGES D/W SS BRADLEY DE LOS SANTOS MD Mar 21, 2019 09:49
[2019-03-21] MEDS: methylPREDNISolone SOD SUCC PF 40 MG/ML VIAL. IV SCH (10:28)
[2019-03-21] MEDS: ENOXAPARIN 40 MG/0.4 ML SYRINGE. SQ SCH (10:29)
[2019-03-21 11:00] VITALS: BP 164/69
--- NOTE | 2019-03-21 11:47 | PDOC ---
Subjective: Subjective: Really wants to eat. Feeling fine otherwise. Still stooling. Objective: Objective: D/w nurse - stooled this morning, [employer] to see today. Vital Signs: Vital Signs Date Time Temp Pulse Resp B/P (MAP) Pulse Ox O2 Delivery O2 Flow Rate FiO2 03/21/19 11:00 97.6 90 19 164/69 (100) 94 Room Air 97.6 03/20/19 20:00 3.0 Labs: Laboratory Tests Test 03/20/19 12:32 03/20/19 17:37 03/21/19 00:27 03/21/19 06:20 Glucose (Fingerstick) 207 mg/dL 175 mg/dL 128 mg/dL Sodium Level 141 mmol/L Potassium Level 3.5 mmol/L Chloride Level 105 mmol/L Carbon Dioxide Level 26 mmol/L Anion Gap 10 Blood Urea Nitrogen 31 mg/dL Creatinine 0.8 mg/dL Estimated GFR (Cockcroft-Gault) 69.2 Glucose Level 129 mg/dL Calcium Level 8.9 mg/dL Test 03/21/19 06:28 03/21/19 08:20 Glucose (Fingerstick) 128 mg/dL 135 mg/dL PE: GEN: NAD LUNGS: CTAB HEART: RRR ABD: NABS, S/ND/NT NEURO/PSYCH: A & O 3 A/P: Dysphagia Ileus/constipation - resolved TIFFANIE -- Continue same per GI. AGUSTINA LEE Mar 21, 2019 11:47
[2019-03-21] MEDS ORDERED: BARIUM SULFATE 40% (APPLE) 148 GM PWD. PO ONE (12:15)
[2019-03-21] MEDS: TPN PER PHARMACY MC PRN (13:12)
--- NOTE | 2019-03-21 13:14 | NUR ---
Pharmacy TPN Dosing Note S: THEODORE PADILLA is a 78 year old F Currently receiving Central Continuous TPN started 03/14/19 B:Pertinent PMH: NPO, ileus Height: 5 feet, 2 inches Weight: 86.069483 kg Current diet: NPO LABS: Sodium: 141 Potassium: 3.5 Chloride: 105 Calcium: 8.9 Corrected Calcium: 9.86 Magnesium: 2.1 CO2: 31 SCr: 0.8 Glucose: 128-146 Albumin: 2.8 AST: 28 ALT: 99 TPN FORMULA: TPN TYPE: Central Continuous AMINO ACIDS: 70 gm DEXTROSE: 225 gm LIPIDS: 20 gm SODIUM CHLORIDE: - mEq SODIUM ACETATE: mEq SODIUM PHOSPHATE: mmol POTASSIUM CHLORIDE: - mEq POTASSIUM ACETATE: mEq POTASSIUM PHOSPHATE: 8 mmol MAGNESIUM: 3 mEq CALCIUM: 5 mEq INSULIN: 20 units MULTIPLE VITAMIN: 10 ml TRACE ELEMENTS: 1 ml(s) TPN PLAN: Pt undergoing swallow study today. Labs mostly stable. IV steroid dose has been reduced, BG running lower last 24 hours. Removed 10 units insulin from TPN. BMP, phos, mag in AM. R: Continue TPN ABOVE. Will monitor electrolytes, glucose, and tolerance to TPN. KOBY MCKINNEY, [facility], 03/21/19 [id number]
[2019-03-21 15:00] VITALS: BP 154/64
--- NOTE | 2019-03-21 16:02 | RAD ---
Examination: VIDEO SWALLOW STUDY History: Dysphagia Comparison/Correlation: None Findings: Fluoroscopy was utilized for 4.4 minutes. No images were acquired. Thin liquid, honey thick liquid, and puree forms of barium were utilized. Reduced oral bolus formation is evident with increased transit time and reduced retraction of the tongue base. Oral residue is noted after swallowing of moderate quantities. Delayed initiation of swallowing is present. Reduced laryngeal excursion noted. Thin liquid aspiration is noted and is silent with the administration with a cup. Thin liquid aspiration with administration by a teaspoon is present with a cough reflex. Note is made that the patient reports having completely swallowed the honey thick and pureed quantities administered while moderate quantities are still evident on fluoroscopic imaging within the oral cavity. Impression: Aspiration with thin liquid barium. Moderate quantity of residual within the oral cavity. This was unknown to the patient during the exam. Electronically signed by: Jair Rosenbaum MD (03/21/2019 3:59 PM) [facility]
[2019-03-21 19:00] VITALS: BP 151/64
--- NOTE | 2019-03-21 20:15 | PDOC ---
GENERAL General: vss and afebrile. awake and alert with mild confusion. chest good breath sounds, heart regular, abdomen benign. failed video swallow today. discussed in detail with . plan for LTAC tomorrow and probably [facility] as closer to home. continues to improve. VITAL SIGNS/I&O Vital Signs/I&O: Vital Signs Date Time Temp Pulse Resp B/P (MAP) Pulse Ox O2 Delivery O2 Flow Rate FiO2 03/21/19 19:49 95 Room Air 03/21/19 15:00 97.7 86 19 154/64 (94) 97.7 03/21/19 08:00 3.0 I & O 03/20/19 03/20/19 03/21/19 15:00 23:00 07:00 Intake Total 1425 ml Output Total 70 ml Balance 1355 ml ALLERGIES Allergies: Allergies Coded Allergies Type Severity Reaction Last Updated Verified albuterol Adverse Reaction Severe 03/13/19 Yes fluticasone propionate Adverse Reaction Severe 03/13/19 Yes hydrocodone Adverse Reaction Severe Nausea and Vomiting 03/13/19 Yes potassium Adverse Reaction Severe Nausea and Vomiting 03/13/19 Yes salmeterol xinafoate Adverse Reaction Severe 03/13/19 Yes MEDS Medications: Current Medications Medications (Trade) Dose Ordered Sig/Wiley Route PRN Reason Start Time Stop Time Status Last Admin Dose Admin Potassium Phosphate 8 mmol/ Magnesium Sulfate 3 meq/Calcium Gluconate 5 meq/ Multivitamins 10 ml/Chromium/ Copper/Manganese/ Seleni/Zn 1 ml/ Insulin Human Regular 30 unit/ Total Parenteral Nutrition/Amino Acids/Dextrose/ Fat Emulsion Intravenous 1,992 ml @ 83 mls/hr TPN CONT IV 03/20/19 22:00 03/21/19 21:59 03/20/19 22:40 Barium Sulfate (Varibar Thin Liquid Apple) 148 gm 1X ONCE PO 03/21/19 12:15 03/21/19 12:16 DC 03/21/19 13:57 LAB Lab: Laboratory Tests Test 03/21/19 00:27 03/21/19 06:20 03/21/19 06:28 03/21/19 08:20 Glucose (Fingerstick) 128 mg/dL (70-99) H 128 mg/dL (70-99) H 135 mg/dL (70-99) H Sodium Level 141 mmol/L (136-145) Potassium Level 3.5 mmol/L (3.5-5.1) Chloride Level 105 mmol/L (98-107) Carbon Dioxide Level 26 mmol/L (21-32) Anion Gap 10 (6-14) Blood Urea Nitrogen 31 mg/dL (7-20) H Creatinine 0.8 mg/dL (0.6-1.0) Estimated GFR (Cockcroft-Gault) 69.2 Glucose Level 129 mg/dL (70-99) H Calcium Level 8.9 mg/dL (8.5-10.1) Test 03/21/19 11:57 03/21/19 16:15 Glucose (Fingerstick) 146 mg/dL (70-99) H 228 mg/dL (70-99) H Laboratory Tests 03/21/19 06:20 JOHN HAMM MD Mar 21, 2019 20:15
[2019-03-21] MEDS: ATORVASTATIN CALCIUM 20 MG TABLET PO SCH (21:00)
[2019-03-21] MEDS: PANTOPRAZOLE IV PUSH 40 MG VIAL. IVP SCH (21:24)
[2019-03-21] MEDS ORDERED: [UNRECOGNIZED DRUG - OTHER] IV SCH ×9 (22:00)
[2019-03-21] MEDS ORDERED: AMINO ACID IV SCH ×9 (22:00)
[2019-03-21] MEDS ORDERED: TOTAL PARENTERAL NUTRITION IV SCH ×9 (22:00)
[2019-03-21] MEDS ORDERED: DEXTROSE 70% IV SCH ×9 (22:00)
[2019-03-21 23:00] VITALS: BP 140/62
[2019-03-22 03:00] VITALS: BP 144/92
[2019-03-22] MEDS: INSULIN LISPRO 300 UNITS/3 ML VIAL. SQ SCH ×4 (06:00→18:00)
[2019-03-22] MEDS: dilTIAZem HCL 30 MG TABLET PO SCH ×4 (06:00→17:06)
[2019-03-22 07:00] VITALS: BP 151/68
[2019-03-22] MEDS: IPRATROPIUM BROMIDE 0.5 MG/2.5 ML NEBU. NEB SCH ×4 (07:40→20:22)
[2019-03-22] MEDS: INSULIN GLARGINE SYRINGE. SQ SCH ×2 (07:53→18:34)
[2019-03-22] MEDS: ASPIRIN CHEWABLE 81 MG TABLET. PO SCH (08:00)
[2019-03-22] MEDS ORDERED: ASPI-630 PO (08:46)
[2019-03-22] MEDS ORDERED: INSU100I11 SQ (08:46)
[2019-03-22] MEDS ORDERED: CLON1PAT TD (08:46)
[2019-03-22] MEDS ORDERED: INSU100V8 SQ (08:46)
[2019-03-22] MEDS ORDERED: POLY17PO28 PO (08:46)
[2019-03-22] MEDS ORDERED: METH40VI IV (08:46)
[2019-03-22] MEDS ORDERED: ENOX40DI3 SQ (08:46)
[2019-03-22] MEDS ORDERED: ATOR20TA58 PO (08:46)
--- NOTE | 2019-03-22 08:48 | SNU/HH DC ---
DISCHARGE ORDERS DISCHARGE INFORMATION: FINAL DIAGNOSIS Problems Medical Problems: (1) Acute respiratory distress Status: Acute (2) Chronic anemia Status: Acute (3) Congestive heart failure Status: Acute (4) Elevated troponin I level Status: Acute (5) Hypomagnesemia Status: Acute (6) Hypoxia Status: Acute (7) Renal insufficiency Status: Acute (8) Restless leg syndrome Status: Acute (9) Sepsis Status: Acute (10) Tachycardia Status: Acute CONDITION ON DISCHARGE: Stable CODE STATUS: Code Status: Full LONG-TERM: SNF STAY <30 DAYS: No HOSPICE: HOSPICE: No HOSPICE EVAL & TREAT: No LTAC: ADMIT TO LTAC: Yes POST DISCHARGE ORDERS: ACTIVITY ORDERS: Activity as tolerated WEIGHT BEARING STATUS: As tolerated DIET AFTER DISCHARGE: NPO WOUND/INCISION CARE: No wound care needed CHECKS AFTER DISCHARGE: CHECKS AFTER DISCHARGE: Check blood press - daily, Check blood sugar, ac/hs TREATMENT/EQUIPMENT ORDERS: ADAPTIVE EQUIPMENT NEEDED: None Physical Therapy For: Evalulation/Treatment Occupational Therapy For: Evaluation/Treatment Speech Language Pathology For: Evaluation/Treatment DISCHARGE MEDICATIONS: Home Meds Active Scripts Insulin Lispro (HUMALOG) 100 Unit/1 Ml Insuln.pen, 0 UNITS SQ Q6HRS for diabetes for 30 Days, #30 EACH Prov:JOHN HAMM MD 03/22/19 Insulin Glargine,Hum.rec.anlog (LANTUS) 100 Unit/1 Ml Vial, 40 UNIT SQ BID76 for diabetes for 30 Days, #30 EACH Prov:JOHN HAMM MD 03/22/19 Methylprednisolone Sod Succ/Pf (SOLU-MEDROL 40 MG VIAL) 40 Mg/1 Ml Vial, 40 MG IV DAILY08 for respiratory failure for 30 Days, #30 EACH Prov:JOHN HAMM MD 03/22/19 Polyethylene Glycol 3350 (POLYETHYLENE GLYCOL 3350) 17 Gm Powd.pack, 17 GM PO DAILY for constipation for 30 Days, #30 PKT Prov:JOHN HAMM MD 03/22/19 Aspirin (ASPIRIN) 81 Mg Tab.chew, 81 MG PO DAILYWBKFT for ashd for 30 Days, #30 TAB.CHEW Prov:JOHN HAMM MD 03/22/19 Clonidine (CLONIDINE TTS-1 ) 1 Each Patch.tdwk, 1 PATCH TD WEEKLY for hypertension for 30 Days, #30 PATCH Prov:JOHN HAMM MD 03/22/19 Atorvastatin Calcium (ATORVASTATIN CALCIUM) 20 Mg Tablet, 20 MG PO QHS for hyperlipidemia for 30 Days, #30 TAB Prov:JOHN HAMM MD 03/22/19 Enoxaparin Sodium (ENOXAPARIN SODIUM) 40 Mg/0.4 Ml Disp.syrin, 40 MG SQ Q24H for dvt prevention for 30 Days, #30 DIS.SYR Prov:JOHN HAMM MD 03/22/19 Diazepam (DIAZEPAM) 5 Mg Tablet, 5 MG PO PRN Q8HRS PRN for MUSCLE SPASMS, #60 TAB 0 Refills Prov:JOHN HAMM MD 04/06/16 Reported Medications Gabapentin (GABAPENTIN ) 100 Mg Capsule, 200 MG PO TID, CAP 10/12/17 Aspirin (ASPIR 81) 81 Mg Tablet.dr, 81 MG PO DAILY 08/07/13 Santaquin-3 Fatty Acids (OMEGA-3) 1,000 Mg Capsule, 1200 MG PO BID 08/07/13 Omeprazole (OMEPRAZOLE) 20 Mg Capsule.dr, 20 MG PO BID 08/07/13 Diltiazem Hcl (TIAZAC) 240 Mg Capsule.er, 240 MG PO DAILY 08/07/13 Metformin Hcl (METFORMIN HCL) 500 Mg Tablet, 500 MG PO BID 08/07/13 Discontinued Reported Medications Doxycycline Hyclate (DOXYCYCLINE HYCLATE) 50 Mg Capsule, 1 CAP PO BID for 7 Days, #14 CAP 10/15/17 Doxycycline Hyclate (DOXYCYCLINE HYCLATE) 50 Mg Capsule, 1 CAP PO BID for 7 Days, #14 CAP 10/15/17 Doxycycline Hyclate (DOXYCYCLINE HYCLATE) 50 Mg Capsule, 1 CAP PO BID for 7 Days, #14 CAP 10/15/17 Oxycodone/Apap 5-325 (PERCOCET 5-325 MG TABLET ) 1 Each Tablet, 1 EACH PO 6 XDAY PRN 08/07/13 Levalbuterol Tartrate (XOPENEX HFA) 15 Gm Hfa.aer.ad, 15 GM IH BID PRN 08/07/13 Discontinued Scripts Prednisone (PREDNISONE) 20 Mg Tablet, 20 MG PO DAILY, #11 TAB 0 Refills Prov:JOHN HAMM MD 04/06/16 JOHN HAMM MD Mar 22, 2019 08:48
[2019-03-22] MEDS: GABAPENTIN 250 MG/5 ML ORAL SOLUTION. PO SCH ×3 (09:00→19:30)
[2019-03-22] MEDS: POLYETHYLENE GLYCOL 3350 17 GM PACKET. PO SCH (09:00)
--- NOTE | 2019-03-22 09:19 | PDOC ---
PULMONARY PROGRESS NOTES Subjective NO INCREASE SOA . Vitals Vital Signs Date Time Temp Pulse Resp B/P (MAP) Pulse Ox O2 Delivery O2 Flow Rate FiO2 03/22/19 07:42 97 Room Air 03/22/19 07:00 97.9 66 18 151/68 (95) 97.9 03/21/19 20:00 3.0 ROS: No Nausea, No Chest Pain, No Abdominal Pain, No Increase Cough General: Alert Lungs: Clear Cardiovascular: S1, S2 Abdomen: Soft Neuro Exam: Alert Skin: Warm Labs Laboratory Tests Test 03/20/19 10:02 03/20/19 12:32 03/20/19 17:37 03/21/19 00:27 Glucose (Fingerstick) 171 mg/dL (70-99) 207 mg/dL (70-99) 175 mg/dL (70-99) 128 mg/dL (70-99) Test 03/21/19 06:20 03/21/19 06:28 03/21/19 08:20 03/21/19 11:57 Sodium Level 141 mmol/L (136-145) Potassium Level 3.5 mmol/L (3.5-5.1) Chloride Level 105 mmol/L (98-107) Carbon Dioxide Level 26 mmol/L (21-32) Anion Gap 10 (6-14) Blood Urea Nitrogen 31 mg/dL (7-20) Creatinine 0.8 mg/dL (0.6-1.0) Estimated GFR (Cockcroft-Gault) 69.2 Glucose Level 129 mg/dL (70-99) Calcium Level 8.9 mg/dL (8.5-10.1) Glucose (Fingerstick) 128 mg/dL (70-99) 135 mg/dL (70-99) 146 mg/dL (70-99) Test 03/21/19 16:15 03/22/19 00:20 03/22/19 06:42 Glucose (Fingerstick) 228 mg/dL (70-99) 161 mg/dL (70-99) 126 mg/dL (70-99) Laboratory Tests Test 03/21/19 11:57 03/21/19 16:15 03/22/19 00:20 03/22/19 06:42 Glucose (Fingerstick) 146 mg/dL (70-99) 228 mg/dL (70-99) 161 mg/dL (70-99) 126 mg/dL (70-99) Medications Active Scripts Medications Dose Route/Sig Max Daily Dose Days Date Category Doxycycline Hyclate 50 Mg Capsule 1 Cap PO BID 7 10/15/17 Reported Doxycycline Hyclate 50 Mg Capsule 1 Cap PO BID 7 10/15/17 Reported Doxycycline Hyclate 50 Mg Capsule 1 Cap PO BID 7 10/15/17 Reported Gabapentin (Gabapentin) 100 Mg Capsule 200 Mg PO TID 10/12/17 Reported Prednisone 20 Mg Tablet 20 Mg PO DAILY 04/06/16 Rx Diazepam 5 Mg Tablet 5 Mg PO PRN Q8HRS PRN 04/06/16 Rx Percocet 5-325 Mg Tablet (Oxycodone/Acetaminophen) 1 Each Tablet 1 Each PO 6XDAY PRN 08/07/13 Reported Aspir 81 (Aspirin) 81 Mg Tablet.dr 81 Mg PO DAILY 08/07/13 Reported Coffey-3 (Coffey-3 Fatty Acids) 1,000 Mg Capsule 1,200 Mg PO BID 08/07/13 Reported Omeprazole 20 Mg Capsule.dr 20 Mg PO BID 08/07/13 Reported Tiazac (Diltiazem Hcl) 240 Mg Capsule.er 240 Mg PO DAILY 08/07/13 Reported Xopenex Hfa (Levalbuterol Tartrate) 15 Gm Hfa.aer.ad 15 Gm IH BID PRN 08/07/13 Reported Metformin Hcl 500 Mg Tablet 500 Mg PO BID 08/07/13 Reported Comments Impression . 1. Acute hypoxic respiratory failure secondary to diffuse interstitial edema- improving 2. Abnormal echo with a low normal ejection fraction of 50% and grade 1 diastolic dysfunction 3. NSTEMI 5. Obesity-ongoing 6. h/o CAD, stents 7. ANNE- improved 8. Non-specific Alveolitis - likely not infectious 9. Hypernatermia-resolved 10. gastric illeus--improving 11. DYSPHAGIA 12. ENCEPHALOPATHY VIDEO Impression: Aspiration with thin liquid barium. Moderate quantity of residual within the oral cavity. This was unknown to the patient during the exam. MRI Impression: No acute infarct. Chronic ischemic disease. No intracranial mass lesion. No intracranial hemorrhage. 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 This is not seen on the previous MRI of the cervical spine dated April 03, 2016. Recommend MRI study of the cervical spine with and without contrast for further evaluation. Plan . VIDEO SWALLOW REPORT NOTED TRANSFER TODAY D/W FERNANDOO BRADLEY DE LOS SANTOS MD Mar 22, 2019 09:19
[2019-03-22] MEDS: ENOXAPARIN 40 MG/0.4 ML SYRINGE. SQ SCH (09:34)
[2019-03-22] MEDS: methylPREDNISolone SOD SUCC PF 40 MG/ML VIAL. IV SCH (09:34)
--- NOTE | 2019-03-22 10:13 | NUR ---
CHRISTOPHER phoned and faxed orders to [facility]. Awaiting on bed assignment. Will continue to follow.
[2019-03-22 11:00] VITALS: BP 148/67
--- NOTE | 2019-03-22 11:02 | PDOC ---
Infectious Disease Note Subjective Subjective pt is awake, says feeling better, appropriate in talking ROS ROS no n/v/d/ Vital Sign Vital Signs Vital Signs Date Time Temp Pulse Resp B/P (MAP) Pulse Ox O2 Delivery O2 Flow Rate FiO2 03/22/19 07:42 97 Room Air 03/22/19 07:00 97.9 66 18 151/68 (95) 97.9 03/21/19 20:00 3.0 Physical Exam PHYSICAL EXAM GENERAL: Lying down, awake, calm, HEENT: Pupils are equal and reactive. Oral cavity dry. NECK: Supple. LUNGS: Clear anteriorly HEART: S1, S2. regular ABDOMEN: Obese, soft, no guarding, + BS : Indwelling Lemus in place EXTREMITIES: Without clubbing or cyanosis. No gross edema. SKIN: Warm, without generalized signs of rash. NEUROLOGICAL: Awake, answersa several quesitions appropriately, follows commands Equal sales ledger administrator strength, Feng, left arm raise weaker than right RIJ clean Labs Lab Laboratory Tests Test 03/21/19 11:57 03/21/19 16:15 03/22/19 00:20 03/22/19 06:42 Glucose (Fingerstick) 146 mg/dL (70-99) 228 mg/dL (70-99) 161 mg/dL (70-99) 126 mg/dL (70-99) Micro Microbiology 03/10/19 Urine Culture - Final, Complete 03/10/19 Urine Culture Result 1 ([facility]) - Final, Complete 03/10/19 Blood Culture - Final, Complete NO GROWTH AFTER 5 DAYS Objective Assessment ? SBO vs ileus. GI following Leukocytosis - ? reactive/Steroids Lactic acidosis - better nml procalcitonin 03/13 Elevated Troponin/NSTEMI Acure resp failure -now on venti-mask ANNE - little worse Pulm edema Encephalopathy , better today. MRI reviewed. ? cervical cord lesion Diabetes Plan Plan of Care off antibiotics taper steroids, d/c lemus d/w ok to d/c to rehab supportive care LILIA BOWLING MD Mar 22, 2019 11:02
--- NOTE | 2019-03-22 12:05 | PDOC ---
Subjective: Subjective: No complaints other than would like to eat. Objective: Objective: Going to specialty hospital today. Vital Signs: Vital Signs Date Time Temp Pulse Resp B/P (MAP) Pulse Ox O2 Delivery O2 Flow Rate FiO2 03/22/19 07:42 97 Room Air 03/22/19 07:00 97.9 66 18 151/68 (95) 97.9 03/21/19 20:00 3.0 Labs: Laboratory Tests Test 03/21/19 16:15 03/22/19 00:20 03/22/19 06:42 Glucose (Fingerstick) 228 mg/dL (70-99) 161 mg/dL (70-99) 126 mg/dL (70-99) Imaging: Videoswallow 101/6 Impression: Aspiration with thin liquid barium. Moderate quantity of residual within the oral cavity. This was unknown to the patient during the exam. Initial Videoswallow Results Full rpt to follow. Videoswallow completed earlier this date. IMPRESSIONS: Moderate oropharyngeal dysphagia. Pt aspirated thin liquids via tsp and cup. High risk w/puree and honey thick d/t oral and pharyngeal delay. Pt also held bolus orally while indicating she had swallowed puree and honey thick x1 each. Cognitive impairment appears to contribute to pt's overall aspiration risk across consistencies as she demo'd poor awareness of need to swallow. Etiology of dysphagia unclear at this time, therefore, time NPO required is unclear. Both swallow function and mental status will need to improve for safe po intake. RECOMMENDATIONS: NPO meds and nutrition. Oral care. PE: GEN: NAD ABD: S/ND/NT NEURO/PSYCH: drowsy, confused A/P: Dysphagia Ileus/constipation - resolved TIFFANIE -- DC plans as above. AGUSTINA LEE Mar 22, 2019 12:05
[2019-03-22 12:31] LABS: CALCIUM 8.5 mg/dL (8.5-10.1); CREATININE 0.7 mg/dL (0.6-1.0); GFR 80.7; MAGNESIUM 1.9 mg/dL (1.8-2.4); PHOSPHORUS 3.5 mg/dL (2.6-4.7); POTASSIUM 3.2 mmol/L (3.5-5.1)
--- NOTE | 2019-03-22 13:54 | PDOC ---
PROGRESS NOTES Assessment Problems Medical Problems: (1) Acute respiratory distress Status: Acute (2) Chronic anemia Status: Acute (3) Congestive heart failure Status: Acute (4) Elevated troponin I level Status: Acute (5) Hypomagnesemia Status: Acute (6) Hypoxia Status: Acute (7) Renal insufficiency Status: Acute (8) Restless leg syndrome Status: Acute (9) Sepsis Status: Acute (10) Tachycardia Status: Acute Metabolic encephalopathy, much better, MRI negative Possible cord lesion on MRI, no evidence of myelopathy or cervical radiculo karoline, hold on MRI cspine for now History of restless legs History of diabetic neuropathy. Medical issues include: SBO vs ileus, leukocytosis, lactic acidosis, elevated Troponin/NSTEMI, acure resp failure on Bipap, acute kidney injury, CHF/pulmonary edema Failed repeat swallow study, doubt neuromuscular junction disease Plan Continue treating medical diseases Note decision regarding PEG, patient will go to long-term acute care on peripheral nutrition. I discussed the cervical MRI findings with the patient and her and again believe we can hold off on cervical MRI must she developed symptoms or signs of cervical disease. Discussed the other issues with family. Subjective no complaints Objective Vital Signs Date Time Temp Pulse Resp B/P (MAP) Pulse Ox O2 Delivery O2 Flow Rate FiO2 03/22/19 12:08 100 Room Air 03/22/19 11:00 98.0 87 16 148/67 (94) 98.0 03/22/19 07:50 3.0 Intake and Output 03/22/19 07:00 Output Total 1700 ml Balance -1700 ml Output Urine Total 1700 ml # Bowel Movements 3 PHYSICAL EXAM Alert. Oriented to place and person. PERRL. EOMI. CN: no focal findings. Muscle tone: normal. Muscle strength: 4/5 DTR: 1+ Plantar reflex: flexor Gait: not examined in bed. Sensory exam: stocking loss. No cerebellar signs elicited. Review of Relevant I have reviewed the following items anni (where applicable) has been applied. Labs Laboratory Tests Test 03/20/19 17:37 03/21/19 00:27 03/21/19 06:20 03/21/19 06:28 Glucose (Fingerstick) 175 mg/dL (70-99) 128 mg/dL (70-99) 128 mg/dL (70-99) Sodium Level 141 mmol/L (136-145) Potassium Level 3.5 mmol/L (3.5-5.1) Chloride Level 105 mmol/L (98-107) Carbon Dioxide Level 26 mmol/L (21-32) Anion Gap 10 (6-14) Blood Urea Nitrogen 31 mg/dL (7-20) Creatinine 0.8 mg/dL (0.6-1.0) Estimated GFR (Cockcroft-Gault) 69.2 Glucose Level 129 mg/dL (70-99) Calcium Level 8.9 mg/dL (8.5-10.1) Test 03/21/19 08:20 03/21/19 11:57 03/21/19 16:15 03/22/19 00:20 Glucose (Fingerstick) 135 mg/dL (70-99) 146 mg/dL (70-99) 228 mg/dL (70-99) 161 mg/dL (70-99) Test 03/22/19 06:42 03/22/19 12:00 03/22/19 12:10 Glucose (Fingerstick) 126 mg/dL (70-99) 99 mg/dL (70-99) Sodium Level 139 mmol/L (136-145) Potassium Level 3.2 mmol/L (3.5-5.1) Chloride Level 105 mmol/L (98-107) Carbon Dioxide Level 24 mmol/L (21-32) Anion Gap 10 (6-14) Blood Urea Nitrogen 27 mg/dL (7-20) Creatinine 0.7 mg/dL (0.6-1.0) Estimated GFR (Cockcroft-Gault) 80.7 Glucose Level 112 mg/dL (70-99) Calcium Level 8.5 mg/dL (8.5-10.1) Phosphorus Level 3.5 mg/dL (2.6-4.7) Magnesium Level 1.9 mg/dL (1.8-2.4) Laboratory Tests Test 03/21/19 16:15 03/22/19 00:20 03/22/19 06:42 03/22/19 12:00 Glucose (Fingerstick) 228 mg/dL (70-99) 161 mg/dL (70-99) 126 mg/dL (70-99) 99 mg/dL (70-99) Test 03/22/19 12:10 Sodium Level 139 mmol/L (136-145) Potassium Level 3.2 mmol/L (3.5-5.1) Chloride Level 105 mmol/L (98-107) Carbon Dioxide Level 24 mmol/L (21-32) Anion Gap 10 (6-14) Blood Urea Nitrogen 27 mg/dL (7-20) Creatinine 0.7 mg/dL (0.6-1.0) Estimated GFR (Cockcroft-Gault) 80.7 Glucose Level 112 mg/dL (70-99) Calcium Level 8.5 mg/dL (8.5-10.1) Phosphorus Level 3.5 mg/dL (2.6-4.7) Magnesium Level 1.9 mg/dL (1.8-2.4) Microbiology 03/10/19 Urine Culture - Final, Complete 03/10/19 Urine Culture Result 1 ([facility]) - Final, Complete 03/10/19 Blood Culture - Final, Complete NO GROWTH AFTER 5 DAYS Medications Current Medications Sodium Chloride 1,000 ml @ 1,000 mls/hr 1X ONCE IV Last administered on 03/10/19at 06:02; Start 03/10/19 at 06:00; Stop 03/10/19 at 07:40; Status DC Morphine Sulfate (Morphine Sulfate) 4 mg 1X ONCE IV Last administered on 03/10/19at 06:02; Start 03/10/19 at 06:00; Stop 03/10/19 at 11:33; Status DC Ondansetron HCl (Zofran) 4 mg 1X ONCE IV Last administered on 03/10/19at 06:02; Start 03/10/19 at 06:00; Stop 03/10/19 at 06:01; Status DC Lorazepam (Ativan Inj) 1 mg 1X ONCE IV Last administered on 03/10/19at 06:02; Start 03/10/19 at 06:00; Stop 03/10/19 at 11:33; Status DC Magnesium Sulfate 50 ml @ 25 mls/hr 1X ONCE IV Last administered on 03/10/19at 07:17; Start 03/10/19 at 07:15; Stop 03/10/19 at 09:14; Status DC Methylprednisolone Sodium Succinate (SOLU-Medrol 125MG VIAL) 125 mg 1X ONCE IV Last administered on 03/10/19at 07:54; Start 03/10/19 at 07:30; Stop 03/10/19 at 11:33; Status DC Ceftriaxone Sodium (Rocephin) 1 gm 1X ONCE IVP Last administered on 03/10/19 08:03; Start 03/10/19 at 08:00; Stop 03/10/19 at 11:33; Status DC Vancomycin HCl 250 ml @ 250 mls/hr 1X ONCE IV Last administered on 03/10/19at 08:02; Start 03/10/19 at 08:15; Stop 03/10/19 at 11:33; Status DC Levalbuterol HCl (Xopenex) 1.25 mg 1X ONCE NEB Last administered on 03/10/19at 08:00; Start 03/10/19 at 08:00; Stop 03/10/19 at 11:33; Status DC Sodium Chloride 1,000 ml @ 125 mls/hr 1X ONCE IV Last administered on 03/10/19 09:03; Start 03/10/19 at 09:00; Stop 03/10/19 at 16:59; Status DC Influenza Virus Vaccine Quadrival (Afluria Quad 2019-20 (3yr Up) Syringe) 0.5 ml ONCE ONCE VAX IM Last administered on 03/10/19at 10:57; Start 03/10/19 at 10:15; Stop 03/10/19 at 10:20; Status DC Diazepam (Valium) 5 mg PRN Q8HRS PRN PO ANXIETY Last administered on 03/12/19at 15:05; Start 03/10/19 at 11:30; Stop 03/16/19 at 09:58; Status DC Metformin HCl (Glucophage) 500 mg BIDWMEALS PO Last administered on 03/11/19at 16:46; Start 03/10/19 at 17:00; Stop 03/14/19 at 14:08; Status DC Oxycodone/ Acetaminophen (Percocet 5/325) 1 tab PRN BID PRN PO MODERATE PAIN 4- 6 Last administered on 03/12/19at 16:49; Start 03/10/19 at 11:30; Stop 03/16/19 at 09:57; Status DC Diltiazem HCl (Cardizem 24hr Cd) 240 mg DAILY PO Last administered on 03/12/19 08:39; Start 03/10/19 at 12:00; Stop 03/16/19 at 14:07; Status DC Pantoprazole Sodium (Protonix) 40 mg DAILYAC PO Last administered on 03/12/19at 08:29; Start 03/10/19 at 12:00; Stop 03/14/19 at 18:24; Status DC Albuterol/ Ipratropium (Duoneb) 3 ml RTQID NEB ; Start 03/10/19 at 12:00; Stop 03/10/19 at 12:02; Status DC Methylprednisolone Sodium Succinate (SOLU-Medrol 40MG VIAL) 60 mg Q12HR IV Last administered on 03/18/19at 08:06; Start 03/10/19 at 11:40; Stop 03/18/19 at 08:17; Status DC Gabapentin (Neurontin) 300 mg TID PO Last administered on 03/12/19at 15:05; Start 03/10/19 at 14:00; Stop 03/16/19 at 09:56; Status DC Sodium Bicarbonate (Sodium Bicarb Adult 8.4% Syr) 50 meq 1X ONCE IV Last administered on 03/10/19at 12:12; Start 03/10/19 at 12:00; Stop 03/10/19 at 12:05; Status DC Ipratropium [place] (Atrovent) 0.5 mg RTQID NEB Last administered on 03/22/19at 12:06; Start 03/10/19 at 12:00 Lorazepam (Ativan Inj) 1 mg PRN Q4HRS PRN IVP ANXIETY/AGITATION, 1ST CHOICE Last administered on 03/17/19at 12:08; Start 03/10/19 at 22:30 Ceftriaxone Sodium (Rocephin) 1 gm Q24H IVP Last administered on 03/11/19at 11:19; Start 03/11/19 at 11:00; Stop 03/11/19 at 16:24; Status DC Vancomycin HCl (Vanco Per Pharmacy) 1 each PRN DAILY PRN MC SEE COMMENTS Last administered on 03/11/19at 13:31; Start 03/11/19 at 10:15; Stop 03/12/19 at 07:06; Status DC Furosemide (Lasix) 40 mg 1X ONCE IVP Last administered on 03/11/19at 11:19; Start 03/11/19 at 10:30; Stop 03/11/19 at 10:31; Status DC Vancomycin HCl 1.25 gm/Sodium Chloride 250 ml @ 167 mls/hr Q24H IV Last administered on 03/11/19at 11:22; Start 03/11/19 at 11:00; Stop 03/12/19 at 07:06; Status DC Vancomycin HCl (Vancomycin Trough Level) 1 each 1X ONCE MC ; Start 03/13/19 at 10:30; Stop 03/12/19 at 07:11; Status DC Piperacillin Sod/ Tazobactam Sod (Zosyn Per Pharmacy) 1 each PRN DAILY PRN MC SEE COMMENTS; Start 03/11/19 at 16:30; Stop 03/15/19 at 07:18; Status DC Piperacillin Sod/ Tazobactam Sod 3.375 gm/Sodium Chloride 50 ml @ 100 mls/hr Q6HRS IV Last administered on 03/14/19at 12:37; Start 03/11/19 at 17:00; Stop 03/14/19 at 14:28; Status DC Iohexol (Omnipaque 350 Mg/ml) 75 ml 1X ONCE IV Last administered on 03/11/19at 17:49; Start 03/11/19 at 17:30; Stop 03/11/19 at 17:31; Status DC Furosemide (Lasix) 40 mg 1X ONCE IVP Last administered on 03/11/19at 18:41; Start 03/11/19 at 18:30; Stop 03/11/19 at 18:35; Status DC Furosemide (Lasix) 40 mg 1X ONCE IVP Last administered on 03/11/19at 22:01; Start 03/11/19 at 22:00; Stop 03/11/19 at 22:01; Status DC Doxycycline Hyclate 100 mg/ Dextrose 100 ml @ 50 mls/hr Q12HR IV Last administered on 03/20/19at 20:50; Start 03/12/19 at 09:00; Stop 03/21/19 at 09:33; Status DC Daptomycin 540 mg/ Sodium Chloride 50 ml @ 100 mls/hr ONCE ONCE IV Last administered on 03/12/19at 08:41; Start 03/12/19 at 08:30; Stop 03/12/19 at 08:59; Status DC Lactobacillus Rhamnosus (Culturelle) 1 cap BID PO Last administered on 03/12/19at 15:05; Start 03/12/19 at 09:00; Stop 03/16/19 at 09:56; Status DC Furosemide (Lasix) 20 mg 1X ONCE IVP Last administered on 03/12/19at 10:33; Start 03/12/19 at 10:00; Stop 03/12/19 at 10:01; Status DC Furosemide (Lasix) 20 mg 1X ONCE IVP Last administered on 03/12/19at 17:39; Start 03/12/19 at 17:30; Stop 03/12/19 at 17:31; Status DC Insulin Human Lispro (HumaLOG) 0-7 UNITS TIDWMEALS SQ Last administered on 03/14/19at 18:19; Start 03/12/19 at 22:00; Stop 03/14/19 at 23:18; Status DC Dextrose (Dextrose 50%-Water Syringe) 12.5 gm PRN Q15MIN PRN IV SEE COMMENTS; Start 03/12/19 at 19:45 Dexmedetomidine HCl 400 mcg/ Sodium Chloride 100 ml @ 0 mls/hr CONT PRN IV ANXIETY / AGITATION Last administered on 03/16/19at 13:01; Start 03/13/19 at 07:45; Stop 03/16/19 at 17:41; Status DC Sodium Chloride 500 ml @ 500 mls/hr 1X PRN PRN IV SEE I/O RECORD; Start 03/13/19 at 07:45; Stop 03/14/19 at 18:24; Status DC Atropine Sulfate (ATROPINE 0.5mg SYRINGE) 0.5 mg PRN Q5MIN PRN IV SEE COMMENTS; Start 03/13/19 at 07:45; Stop 03/16/19 at 17:41; Status DC Clonidine HCl (Catapres Tts-1) 1 patch WEEKLY TD Last administered on 03/20/19at 09:59; Start 03/13/19 at 09:00 Aspirin (Ecotrin) 81 mg DAILYWBKFT PO ; Start 03/14/19 at 08:00; Stop 03/16/19 at 09:58; Status DC Furosemide (Lasix) 40 mg 1X ONCE IVP Last administered on 03/13/19at 13:29; Start 03/13/19 at 11:30; Stop 03/13/19 at 11:34; Status DC Furosemide (Lasix) 40 mg DAILY IVP ; Start 03/14/19 at 09:00; Stop 03/13/19 at 13:13; Status DC Atorvastatin Calcium (Lipitor) 20 mg QHS PO Last administered on 03/19/19at 21:25; Start 03/13/19 at 21:00 Sodium Chloride 1,000 ml @ 75 mls/hr [id number] IV Last administered on 03/14/19at 14:14; Start 03/14/19 at 14:15; Stop 03/14/19 at 18:24; Status DC Piperacillin Sod/ Tazobactam Sod 2.25 gm/Sodium Chloride 50 ml @ 100 mls/hr Q6HRS IV Last administered on 03/15/19at 06:06; Start 03/14/19 at 18:00; Stop 03/15/19 at 07:18; Status DC Sodium Chloride 90 meq/Potassium Chloride 50 meq/ Potassium Phosphate 13.6 mmol/Magnesium Sulfate 10 meq/ Calcium Gluconate 10 meq/ Multivitamins 10 ml/Chromium/ Copper/Manganese/ Seleni/Zn 1 ml/ Total Parenteral Nutrition/Amino Acids/Dextrose/ Fat Emulsion Intravenous 87.0013 ml @ 3.625 mls/hr TPN CONT IV ; Start 03/14/19 at 22:00; Stop 03/15/19 at 21:59; Status UNV Info (Tpn Per Pharmacy) 1 each PRN DAILY PRN MC SEE COMMENTS Last administered on 03/21/19at 13:12; Start 03/14/19 at 15:30 Sodium Chloride 70 meq/Potassium Chloride 50 meq/ Potassium Phosphate 13.6 mmol/Magnesium Sulfate 10 meq/ Calcium Gluconate 10 meq/ Multivitamins 10 ml/Chromium/ Copper/Manganese/ Seleni/Zn 1 ml/ Insulin Human Regular 10 unit/ Total Parenteral Nutrition/Amino Acids/Dextrose/ Fat Emuls... 1,512 ml @ 63 mls/hr TPN CONT IV Last administered on 03/14/19at 22:19; Start 03/14/19 at 22:00; Stop 03/15/19 at 21:59; Status DC Sodium Chloride 1,000 ml @ 10 mls/hr Q24H IV Last administered on 03/14/19at 18:30; Start 03/14/19 at 18:30; Stop 03/14/19 at 22:00; Status DC Pantoprazole Sodium (PROTONIX VIAL for IV PUSH) 40 mg HS IVP Last administered on 03/21/19at 21:24; Start 03/14/19 at 21:00 Insulin Human Lispro (HumaLOG) 0-7 UNITS Q6HRS SQ Last administered on 03/17/19at 12:18; Start 03/15/19 at 00:00; Stop 03/17/19 at 12:35; Status DC Sodium Chloride 40 meq/Potassium Chloride 50 meq/ Potassium Phosphate 8 mmol/ Magnesium Sulfate 3 meq/Calcium Gluconate 10 meq/ Multivitamins 10 ml/Chromium/ Copper/Manganese/ Seleni/Zn 1 ml/ Insulin Human Regular 20 unit/ Total Parenteral Nutrition/Amino Acids/Dextrose/ Fat Emulsion Intravenous 1,512 ml @ 63 mls/hr TPN CONT IV Last administered on 03/15/19at 21:49; Start 03/15/19 at 22:00; Stop 03/16/19 at 21:59; Status DC Insulin Glargine (Lantus Syringe) 20 unit QHS SQ ; Start 03/16/19 at 21:00; Stop 03/16/19 at 06:13; Status DC Insulin Glargine (Lantus Syringe) 20 unit 1X SQ ; Start 03/15/19 at 15:30; Stop 03/15/19 at 16:56; Status DC Insulin Glargine (Lantus Syringe) 20 unit 1X ONCE SQ Last administered on 03/15/19at 17:02; Start 03/15/19 at 17:00; Stop 03/15/19 at 17:01; Status DC Insulin Glargine (Lantus Syringe) 20 unit BID SQ ; Start 03/16/19 at 07:00; Status Cancel Insulin Glargine (Lantus Syringe) 20 unit QHS SQ ; Start 03/16/19 at 21:00; Stop 03/16/19 at 08:04; Status DC Insulin Human Lispro (HumaLOG) 5 units 1X ONCE SQ Last administered on 03/16/19at 07:41; Start 03/16/19 at 07:15; Stop 03/16/19 at 07:20; Status DC Insulin Glargine (Lantus Syringe) 40 unit QHS SQ Last administered on 03/16/19at 21:32; Start 03/16/19 at 21:00; Stop 03/17/19 at 12:32; Status DC Gabapentin (Neurontin Oral Soln) 300 mg [id number] PO Last administered on 03/19/19 21:25; Start 03/16/19 at 10:00 Oxycodone HCl 5 mg PRN BID PRN NG PAIN Last administered on 03/17/19at 14:29; Start 03/16/19 at 10:00 Diazepam (Valium) 5 mg PRN Q8HRS PRN NG ANXIETY Last administered on 03/17/19at 12:08; Start 03/16/19 at 09:58 Aspirin (Children'S Aspirin) 81 mg DAILYWBKFT PO Last administered on 03/19/19at 10:08; Start 03/16/19 at 10:00 Polyethylene Glycol (miraLAX PACKET) 17 gm DAILY PO Last administered on 03/18/19at 08:06; Start 03/16/19 at 11:00 Potassium Phosphate 8 mmol/ Magnesium Sulfate 3 meq/Calcium Gluconate 10 meq/ Multivitamins 10 ml/Chromium/ Copper/Manganese/ Seleni/Zn 1 ml/ Insulin Human Regular 20 unit/ Total Parenteral Nutrition/Amino Acids/Dextrose/ Fat Emulsion Intravenous 1,992 ml @ 83 mls/hr TPN CONT IV Last administered on 03/16/19at 21:34; Start 03/16/19 at 22:00; Stop 03/17/19 at 21:59; Status DC Haloperidol Lactate (Haldol Inj) 5 mg PRN Q6HRS PRN IVP AGITATION, 2ND CHOICE Last administered on 03/16/19at 23:59; Start 03/16/19 at 13:00 Diltiazem HCl (Cardizem) 60 mg Q6HRS PO Last administered on 03/20/19at 05:41; Start 03/16/19 at 15:00 Insulin Human Lispro (HumaLOG) 5 units 1X ONCE SQ Last administered on 03/16/19at 21:04; Start 03/16/19 at 21:00; Stop 03/16/19 at 21:01; Status DC Enoxaparin Sodium (Lovenox 40mg Syringe) 40 mg Q24H SQ Last administered on 03/22/19at 09:34; Start 03/17/19 at 09:00 Potassium Phosphate 8 mmol/ Magnesium Sulfate 3 meq/Calcium Gluconate 5 meq/ Multivitamins 10 ml/Chromium/ Copper/Manganese/ Seleni/Zn 1 ml/ Insulin Human Regular 20 unit/ Total Parenteral Nutrition/Amino Acids/Dextrose/ Fat Emulsion Intravenous 1,992 ml @ 83 mls/hr TPN CONT IV Last administered on 03/17/19at 21:05; Start 03/17/19 at 22:00; Stop 03/18/19 at 21:59; Status DC Insulin Glargine (Lantus Syringe) 30 unit [id number] SQ Last administered on 03/20/19at 06:24; Start 03/17/19 at 18:00; Stop 03/20/19 at 09:07; Status DC Insulin Human Lispro (HumaLOG) 0-15 UNITS Q6HRS SQ Last administered on 03/20/19at 18:01; Start 03/17/19 at 13:00 Insulin Glargine (Lantus Syringe) 30 unit 1X ONCE SQ Last administered on 03/17/19at 13:39; Start 03/17/19 at 13:00; Stop 03/17/19 at 13:01; Status DC Methylprednisolone Sodium Succinate (SOLU-Medrol 40MG VIAL) 40 mg Q12HR IV Last administered on 03/19/19at 21:25; Start 03/18/19 at 21:00; Stop 03/20/19 at 09:04; Status DC Potassium Phosphate 8 mmol/ Magnesium Sulfate 3 meq/Calcium Gluconate 5 meq/ Multivitamins 10 ml/Chromium/ Copper/Manganese/ Seleni/Zn 1 ml/ Insulin Human Regular 30 unit/ Total Parenteral Nutrition/Amino Acids/Dextrose/ Fat Emulsion Intravenous 1,992 ml @ 83 mls/hr TPN CONT IV Last administered on 03/18/19at 21:55; Start 03/18/19 at 22:00; Stop 03/19/19 at 21:59; Status DC Potassium Phosphate 8 mmol/ Magnesium Sulfate 3 meq/Calcium Gluconate 5 meq/ Multivitamins 10 ml/Chromium/ Copper/Manganese/ Seleni/Zn 1 ml/ Insulin Human Regular 30 unit/ Total Parenteral Nutrition/Amino Acids/Dextrose/ Fat Emulsion Intravenous 1,992 ml @ 83 mls/hr TPN CONT IV Last administered on 03/19/19at 21:57; Start 03/19/19 at 22:00; Stop 03/20/19 at 21:59; Status DC Methylprednisolone Sodium Succinate (SOLU-Medrol 40MG VIAL) 40 mg DAILY08 IV Last administered on 03/22/19at 09:34; Start 03/20/19 at 09:15 Insulin Glargine (Lantus Syringe) 40 unit [id number] SQ Last administered on at 07:53; Start 03/20/19 at 09:15 Potassium Phosphate 8 mmol/ Magnesium Sulfate 3 meq/Calcium Gluconate 5 meq/ Multivitamins 10 ml/Chromium/ Copper/Manganese/ Seleni/Zn 1 ml/ Insulin Human Regular 30 unit/ Total Parenteral Nutrition/Amino Acids/Dextrose/ Fat Emulsion Intravenous 1,992 ml @ 83 mls/hr TPN CONT IV Last administered on 03/20/19at 22:40; Start 03/20/19 at 22:00; Stop 03/21/19 at 21:59; Status DC Barium Sulfate (Varibar Thin Liquid Apple) 148 gm 1X ONCE PO Last administered on 03/21/19at 13:57; Start 03/21/19 at 12:15; Stop 03/21/19 at 12:16; Status DC Potassium Phosphate 8 mmol/ Magnesium Sulfate 3 meq/Calcium Gluconate 5 meq/ Multivitamins 10 ml/Chromium/ Copper/Manganese/ Seleni/Zn 1 ml/ Insulin Human Regular 20 unit/ Total Parenteral Nutrition/Amino Acids/Dextrose/ Fat Emulsion Intravenous 1,992 ml @ 83 mls/hr TPN CONT IV Last administered on 03/21/19at 21:36; Start 03/21/19 at 22:00; Stop 03/22/19 at 21:59 Active Scripts Active Humalog (Insulin Lispro) 100 Unit/1 Ml Insuln.pen 0 Units SQ Q6HRS 30 Days Lantus (Insulin Glargine,Hum.rec.anlog) 100 Unit/1 Ml Vial 40 Unit SQ [id number] 30 Days Solu-Medrol 40 Mg Vial (Methylprednisolone Sod Succ/Pf) 40 Mg/1 Ml Vial 40 Mg IV DAILY08 30 Days Polyethylene Glycol 3350 17 Gm Powd.pack 17 Gm PO DAILY 30 Days Aspirin 81 Mg Tab.chew 81 Mg PO DAILYWBKFT 30 Days Clonidine Tts-1 (Clonidine) 1 Each Patch.tdwk 1 Patch TD WEEKLY 30 Days Atorvastatin Calcium 20 Mg Tablet 20 Mg PO QHS 30 Days Enoxaparin Sodium 40 Mg/0.4 Ml Disp.syrin 40 Mg SQ Q24H 30 Days Diazepam 5 Mg Tablet 5 Mg PO PRN Q8HRS PRN Reported Gabapentin (Gabapentin) 100 Mg Capsule 200 Mg PO TID Aspir 81 (Aspirin) 81 Mg Tablet.dr 81 Mg PO DAILY [place]-3 ([place]-3 Fatty Acids) 1,000 Mg Capsule 1,200 Mg PO BID Omeprazole 20 Mg Capsule.dr 20 Mg PO BID Tiazac (Diltiazem Hcl) 240 Mg Capsule.er 240 Mg PO DAILY Metformin Hcl 500 Mg Tablet 500 Mg PO BID Vitals/I & O Vital Sign - Last 24 Hours 03/21/19 03/21/19 03/21/19 03/21/19 15:00 15:49 19:00 19:49 Temp 97.7 98.1 97.7 98.1 Pulse 86 99 Resp 19 19 B/P (MAP) 154/64 (94) 151/64 (93) Pulse Ox 95 95 93 95 O2 Delivery Room Air Room Air Room Air Room Air 03/21/19 03/21/19 03/21/19 03/22/19 20:00 20:00 23:00 03:00 Temp 98.1 97.6 98.1 97.6 Pulse 93 94 Resp 19 B/P (MAP) 140/62 (88) 144/92 (109) Pulse Ox 94 95 O2 Delivery Room Air Room Air Room Air O2 Flow Rate 3.0 03/22/19 03/22/19 03/22/19 03/22/19 07:00 07:42 07:50 07:50 Temp 97.9 97.9 Pulse 66 Resp 18 B/P (MAP) 151/68 (95) Pulse Ox 93 97 O2 Delivery Room Air Room Air Room Air O2 Flow Rate 3.0 3.0 03/22/19 03/22/19 11:00 12:08 Temp 98.0 98.0 Pulse 87 Resp 16 B/P (MAP) 148/67 (94) Pulse Ox 93 100 O2 Delivery Room Air Room Air Intake and Output 03/21/19 03/21/19 03/22/19 15:00 23:00 07:00 Output Total 1700 ml Balance -1700 ml HUNTER ARREOLA MD Mar 22, 2019 13:54
--- NOTE | 2019-03-22 14:42 | NUR ---
Spoke with Maral at [facility], still awaiting on bed assignment. RN aware.
[2019-03-22 15:00] VITALS: BP 139/69
[2019-03-22 19:00] VITALS: BP 130/48
[2019-03-22] MEDS: ATORVASTATIN CALCIUM 20 MG TABLET PO SCH (19:30)
[2019-03-22] MEDS: PANTOPRAZOLE IV PUSH 40 MG VIAL. IVP SCH (21:00)
[2019-03-22 23:00] VITALS: BP 137/75
--- NOTE | 2019-03-22 23:00 | NUR ---
The patient was supposed to discharge to a facility today but it did not happen because the facility didn't return our calls. However, her TPN order had already been discontinued, so when her bag ran out on my shift, I called Dr. Sullivan to see what he wanted to do and he gave me orders to give her Procalamine for tonight.
[2019-03-23] MEDS: AMINO AC 3%/ELECTROLYTE/GLYCER 1,000 ML IV SCH ×2 (00:09→12:05)
[2019-03-23 03:00] VITALS: BP 166/67
[2019-03-23] MEDS: dilTIAZem HCL 30 MG TABLET PO SCH ×6 (05:18→20:47)
[2019-03-23] MEDS: INSULIN LISPRO 300 UNITS/3 ML VIAL. SQ SCH ×6 (06:00→20:47)
[2019-03-23] MEDS: IPRATROPIUM BROMIDE 0.5 MG/2.5 ML NEBU. NEB SCH ×4 (07:37→19:41)
[2019-03-23 07:40] VITALS: BP 134/59
--- NOTE | 2019-03-23 07:56 | PDOC ---
GENERAL General: vss and afebrile. awake and alert and some confusion. chest clear, heart regular, abdomen benign. son present and expresses concerns regarding still not normal mental status and poor sleep. dc not completed yesterday and expect same today. sugars good. VITAL SIGNS/I&O Vital Signs/I&O: Vital Signs Date Time Temp Pulse Resp B/P (MAP) Pulse Ox O2 Delivery O2 Flow Rate FiO2 03/23/19 07:37 95 Room Air 03/23/19 03:00 97.7 95 18 166/67 (100) 97.7 03/22/19 07:50 3.0 I & O 03/22/19 03/22/19 03/23/19 14:59 22:59 06:59 Intake Total 0 ml Output Total 1000 ml 850 ml Balance -1000 ml -850 ml 0 ml ALLERGIES Allergies: Allergies Coded Allergies Type Severity Reaction Last Updated Verified albuterol Adverse Reaction Severe 03/13/19 Yes fluticasone propionate Adverse Reaction Severe 03/13/19 Yes hydrocodone Adverse Reaction Severe Nausea and Vomiting 03/13/19 Yes potassium Adverse Reaction Severe Nausea and Vomiting 03/13/19 Yes salmeterol xinafoate Adverse Reaction Severe 03/13/19 Yes MEDS Medications: Current Medications Medications (Trade) Dose Ordered Sig/Wiley Route PRN Reason Start Time Stop Time Status Last Admin Dose Admin Amino Acids/ Glycerin/ Electrolytes 1,000 ml @ 80 mls/hr [id number] IV 03/22/19 23:30 03/23/19 00:09 LAB Lab: Laboratory Tests Test 03/22/19 12:00 03/22/19 12:10 03/22/19 18:10 03/22/19 20:58 Glucose (Fingerstick) 99 mg/dL (70-99) 188 mg/dL (70-99) H 188 mg/dL (70-99) H Sodium Level 139 mmol/L (136-145) Potassium Level 3.2 mmol/L (3.5-5.1) L Chloride Level 105 mmol/L (98-107) Carbon Dioxide Level 24 mmol/L (21-32) Anion Gap 10 (6-14) Blood Urea Nitrogen 27 mg/dL (7-20) H Creatinine 0.7 mg/dL (0.6-1.0) Estimated GFR (Cockcroft-Gault) 80.7 Glucose Level 112 mg/dL (70-99) H Calcium Level 8.5 mg/dL (8.5-10.1) Phosphorus Level 3.5 mg/dL (2.6-4.7) Magnesium Level 1.9 mg/dL (1.8-2.4) Test 03/23/19 00:28 03/23/19 05:58 Glucose (Fingerstick) 114 mg/dL (70-99) H 72 mg/dL (70-99) Laboratory Tests 03/22/19 12:10 JOHN HAMM MD Mar 23, 2019 07:56
[2019-03-23] MEDS: ASPIRIN CHEWABLE 81 MG TABLET. PO SCH (08:00)
[2019-03-23] MEDS: GABAPENTIN 250 MG/5 ML ORAL SOLUTION. PO SCH ×3 (09:00→20:45)
[2019-03-23] MEDS: POLYETHYLENE GLYCOL 3350 17 GM PACKET. PO SCH (09:00)
--- NOTE | 2019-03-23 09:02 | NUR ---
CHRISTOPHER following pt. SPoke with Maral at [facility], still awaiting on pending dc today regarding bed availability. Will continue to follow.
--- NOTE | 2019-03-23 09:03 | PDOC ---
PROGRESS NOTES Assessment Problems Medical Problems: (1) Acute respiratory distress Status: Acute (2) Chronic anemia Status: Acute (3) Congestive heart failure Status: Acute (4) Elevated troponin I level Status: Acute (5) Hypomagnesemia Status: Acute (6) Hypoxia Status: Acute (7) Renal insufficiency Status: Acute (8) Restless leg syndrome Status: Acute (9) Sepsis Status: Acute (10) Tachycardia Status: Acute Metabolic encephalopathy, much better, MRI negative Possible cord lesion on MRI, no evidence of myelopathy or cervical radiculo karoline, hold on MRI cspine for now History of restless legs History of diabetic neuropathy. Medical issues include: SBO vs ileus, leukocytosis, lactic acidosis, elevated Troponin/NSTEMI, acure resp failure on Bipap, acute kidney injury, CHF/pulmonary edema Failed repeat swallow study, doubt neuromuscular junction disease Plan Continue treating medical diseases Note decision regarding PEG, patient will go to long-term acute care on peripheral nutrition. Subjective no complaints Objective Vital Signs Date Time Temp Pulse Resp B/P (MAP) Pulse Ox O2 Delivery O2 Flow Rate FiO2 03/23/19 07:40 98.1 87 20 134/59 (84) 92 Room Air 98.1 03/22/19 07:50 3.0 l Intake and Output 03/23/19 07:00 Intake Total 0 ml Output Total 1850 ml Balance -1850 ml Intake Oral 0 ml Output Urine Total 1850 ml PHYSICAL EXAM Alert. Oriented to place and person. PERRL. EOMI. CN: no focal findings. Muscle tone: normal. Muscle strength: 4/5 DTR: 1+ Plantar reflex: flexor Gait: not examined in bed. Sensory exam: stocking loss. No cerebellar signs elicited. Review of Relevant I have reviewed the following items anni (where applicable) has been applied. Labs Laboratory Tests Test 03/21/19 11:57 03/21/19 16:15 03/22/19 00:20 03/22/19 06:42 Glucose (Fingerstick) 146 mg/dL (70-99) 228 mg/dL (70-99) 161 mg/dL (70-99) 126 mg/dL (70-99) Test 03/22/19 12:00 03/22/19 12:10 03/22/19 18:10 03/22/19 20:58 Glucose (Fingerstick) 99 mg/dL (70-99) 188 mg/dL (70-99) 188 mg/dL (70-99) Sodium Level 139 mmol/L (136-145) Potassium Level 3.2 mmol/L (3.5-5.1) Chloride Level 105 mmol/L (98-107) Carbon Dioxide Level 24 mmol/L (21-32) Anion Gap 10 (6-14) Blood Urea Nitrogen 27 mg/dL (7-20) Creatinine 0.7 mg/dL (0.6-1.0) Estimated GFR (Cockcroft-Gault) 80.7 Glucose Level 112 mg/dL (70-99) Calcium Level 8.5 mg/dL (8.5-10.1) Phosphorus Level 3.5 mg/dL (2.6-4.7) Magnesium Level 1.9 mg/dL (1.8-2.4) Test 03/23/19 00:28 03/23/19 05:58 Glucose (Fingerstick) 114 mg/dL (70-99) 72 mg/dL (70-99) Laboratory Tests Test 03/22/19 12:00 03/22/19 12:10 03/22/19 18:10 03/22/19 20:58 Glucose (Fingerstick) 99 mg/dL (70-99) 188 mg/dL (70-99) 188 mg/dL (70-99) Sodium Level 139 mmol/L (136-145) Potassium Level 3.2 mmol/L (3.5-5.1) Chloride Level 105 mmol/L (98-107) Carbon Dioxide Level 24 mmol/L (21-32) Anion Gap 10 (6-14) Blood Urea Nitrogen 27 mg/dL (7-20) Creatinine 0.7 mg/dL (0.6-1.0) Estimated GFR (Cockcroft-Gault) 80.7 Glucose Level 112 mg/dL (70-99) Calcium Level 8.5 mg/dL (8.5-10.1) Phosphorus Level 3.5 mg/dL (2.6-4.7) Magnesium Level 1.9 mg/dL (1.8-2.4) Test 03/23/19 00:28 03/23/19 05:58 Glucose (Fingerstick) 114 mg/dL (70-99) 72 mg/dL (70-99) Microbiology 03/10/19 Urine Culture - Final, Complete 03/10/19 Urine Culture Result 1 ([facility]) - Final, Complete 03/10/19 Blood Culture - Final, Complete NO GROWTH AFTER 5 DAYS Medications Current Medications Sodium Chloride 1,000 ml @ 1,000 mls/hr 1X ONCE IV Last administered on 1 06:02; Start 03/10/19 at 06:00; Stop 03/10/19 at 07:40; Status DC Morphine Sulfate (Morphine Sulfate) 4 mg 1X ONCE IV Last administered on 03/10/19at 06:02; Start 03/10/19 at 06:00; Stop 03/10/19 at 11:33; Status DC Ondansetron HCl (Zofran) 4 mg 1X ONCE IV Last administered on 03/10/19 06:02; Start 03/10/19 at 06:00; Stop 03/10/19 at 06:01; Status DC Lorazepam (Ativan Inj) 1 mg 1X ONCE IV Last administered on 03/10/19at 06:02; Start 03/10/19 at 06:00; Stop 03/10/19 at 11:33; Status DC Magnesium Sulfate 50 ml @ 25 mls/hr 1X ONCE IV Last administered on 03/10/19at 07:17; Start 03/10/19 at 07:15; Stop 03/10/19 at 09:14; Status DC Methylprednisolone Sodium Succinate (SOLU-Medrol 125MG VIAL) 125 mg 1X ONCE IV Last administered on 03/10/19at 07:54; Start 03/10/19 at 07:30; Stop 03/10/19 at 11:33; Status DC Ceftriaxone Sodium (Rocephin) 1 gm 1X ONCE IVP Last administered on 03/10/19at 08:03; Start 03/10/19 at 08:00; Stop 03/10/19 at 11:33; Status DC Vancomycin HCl 250 ml @ 250 mls/hr 1X ONCE IV Last administered on 03/10/19at 08:02; Start 03/10/19 at 08:15; Stop 03/10/19 at 11:33; Status DC Levalbuterol HCl (Xopenex) 1.25 mg 1X ONCE NEB Last administered on 03/10/19at 08:00; Start 03/10/19 at 08:00; Stop 03/10/19 at 11:33; Status DC Sodium Chloride 1,000 ml @ 125 mls/hr 1X ONCE IV Last administered on 03/10/19at 09:03; Start 03/10/19 at 09:00; Stop 03/10/19 at 16:59; Status DC Influenza Virus Vaccine Quadrival (Afluria Quad 2019-20 (3yr Up) Syringe) 0.5 ml ONCE ONCE VAX IM Last administered on 03/10/19at 10:57; Start 03/10/19 at 10:15; Stop 03/10/19 at 10:20; Status DC Diazepam (Valium) 5 mg PRN Q8HRS PRN PO ANXIETY Last administered on 03/12/19at 15:05; Start 03/10/19 at 11:30; Stop 03/16/19 at 09:58; Status DC Metformin HCl (Glucophage) 500 mg BIDWMEALS PO Last administered on 03/11/19at 16:46; Start 03/10/19 at 17:00; Stop 03/14/19 at 14:08; Status DC Oxycodone/ Acetaminophen (Percocet 5/325) 1 tab PRN BID PRN PO MODERATE PAIN 4- 6 Last administered on 03/12/19at 16:49; Start 03/10/19 at 11:30; Stop 03/16/19 at 09:57; Status DC Diltiazem HCl (Cardizem 24hr Cd) 240 mg DAILY PO Last administered on 03/12/19at 08:39; Start 03/10/19 at 12:00; Stop 03/16/19 at 14:07; Status DC Pantoprazole Sodium (Protonix) 40 mg DAILYAC PO Last administered on 03/12/19at 08:29; Start 03/10/19 at 12:00; Stop 03/14/19 at 18:24; Status DC Albuterol/ Ipratropium (Duoneb) 3 ml RTQID NEB ; Start 03/10/19 at 12:00; Stop 03/10/19 at 12:02; Status DC Methylprednisolone Sodium Succinate (SOLU-Medrol 40MG VIAL) 60 mg Q12HR IV Last administered on 03/18/19at 08:06; Start 03/10/19 at 11:40; Stop 03/18/19 at 08:17; Status DC Gabapentin (Neurontin) 300 mg TID PO Last administered on 03/12/19at 15:05; Start 03/10/19 at 14:00; Stop 03/16/19 at 09:56; Status DC Sodium Bicarbonate (Sodium Bicarb Adult 8.4% Syr) 50 meq 1X ONCE IV Last administered on 03/10/19at 12:12; Start 03/10/19 at 12:00; Stop 03/10/19 at 12:05; Status DC Ipratropium Reynolds (Atrovent) 0.5 mg RTQID NEB Last administered on 03/23/19at 07:37; Start 03/10/19 at 12:00 Lorazepam (Ativan Inj) 1 mg PRN Q4HRS PRN IVP ANXIETY/AGITATION, 1ST CHOICE Last administered on 03/17/19at 12:08; Start 03/10/19 at 22:30 Ceftriaxone Sodium (Rocephin) 1 gm Q24H IVP Last administered on 03/11/19at 11:19; Start 03/11/19 at 11:00; Stop 03/11/19 at 16:24; Status DC Vancomycin HCl (Vanco Per Pharmacy) 1 each PRN DAILY PRN MC SEE COMMENTS Last administered on 03/11/19at 13:31; Start 03/11/19 at 10:15; Stop 03/12/19 at 07:06; Status DC Furosemide (Lasix) 40 mg 1X ONCE IVP Last administered on 03/11/19at 11:19; Start 03/11/19 at 10:30; Stop 03/11/19 at 10:31; Status DC Vancomycin HCl 1.25 gm/Sodium Chloride 250 ml @ 167 mls/hr Q24H IV Last administered on 03/11/19at 11:22; Start 03/11/19 at 11:00; Stop 03/12/19 at 07:0 6; Status DC Vancomycin HCl (Vancomycin Trough Level) 1 each 1X ONCE MC ; Start 03/13/19 at 10:30; Stop 03/12/19 at 07:11; Status DC Piperacillin Sod/ Tazobactam Sod (Zosyn Per Pharmacy) 1 each PRN DAILY PRN MC SEE COMMENTS; Start 03/11/19 at 16:30; Stop 03/15/19 at 07:18; Status DC Piperacillin Sod/ Tazobactam Sod 3.375 gm/Sodium Chloride 50 ml @ 100 mls/hr Q6HRS IV Last administered on 03/14/19at 12:37; Start 03/11/19 at 17:00; Stop 03/14/19 at 14:28; Status DC Iohexol (Omnipaque 350 Mg/ml) 75 ml 1X ONCE IV Last administered on 03/11/19at 17:49; Start 03/11/19 at 17:30; Stop 03/11/19 at 17:31; Status DC Furosemide (Lasix) 40 mg 1X ONCE IVP Last administered on 03/11/19at 18:41; Start 03/11/19 at 18:30; Stop 03/11/19 at 18:35; Status DC Furosemide (Lasix) 40 mg 1X ONCE IVP Last administered on 03/11/19at 22:01; Start 03/11/19 at 22:00; Stop 03/11/19 at 22:01; Status DC Doxycycline Hyclate 100 mg/ Dextrose 100 ml @ 50 mls/hr Q12HR IV Last administered on 03/20/19at 20:50; Start 03/12/19 at 09:00; Stop 03/21/19 at 09:33; Status DC Daptomycin 540 mg/ Sodium Chloride 50 ml @ 100 mls/hr ONCE ONCE IV Last administered on 03/12/19at 08:41; Start 03/12/19 at 08:30; Stop 03/12/19 at 08:59; Status DC Lactobacillus Rhamnosus (Culturelle) 1 cap BID PO Last administered on 03/12/19at 15:05; Start 03/12/19 at 09:00; Stop 03/16/19 at 09:56; Status DC Furosemide (Lasix) 20 mg 1X ONCE IVP Last administered on 03/12/19at 10:33; Start 03/12/19 at 10:00; Stop 03/12/19 at 10:01; Status DC Furosemide (Lasix) 20 mg 1X ONCE IVP Last administered on 03/12/19at 17:39; Start 03/12/19 at 17:30; Stop 03/12/19 at 17:31; Status DC Insulin Human Lispro (HumaLOG) 0-7 UNITS TIDWMEALS SQ Last administered on 03/14/19at 18:19; Start 03/12/19 at 22:00; Stop 03/14/19 at 23:18; Status DC Dextrose (Dextrose 50%-Water Syringe) 12.5 gm PRN Q15MIN PRN IV SEE COMMENTS; Start 03/12/19 at 19:45 Dexmedetomidine HCl 400 mcg/ Sodium Chloride 100 ml @ 0 mls/hr CONT PRN IV ANXIETY / AGITATION Last administered on 03/16/19at 13:01; Start 03/13/19 at 07:45; Stop 03/16/19 at 17:41; Status DC Sodium Chloride 500 ml @ 500 mls/hr 1X PRN PRN IV SEE I/O RECORD; Start 03/13/19 at 07:45; Stop 03/14/19 at 18:24; Status DC Atropine Sulfate (ATROPINE 0.5mg SYRINGE) 0.5 mg PRN Q5MIN PRN IV SEE COMMENTS; Start 03/13/19 at 07:45; Stop 03/16/19 at 17:41; Status DC Clonidine HCl (Catapres Tts-1) 1 patch WEEKLY TD Last administered on 03/20/19at 09:59; Start 03/13/19 at 09:00 Aspirin (Ecotrin) 81 mg DAILYWBKFT PO ; Start 03/14/19 at 08:00; Stop 03/16/19 at 09:58; Status DC Furosemide (Lasix) 40 mg 1X ONCE IVP Last administered on 03/13/19at 13:29; Start 03/13/19 at 11:30; Stop 03/13/19 at 11:34; Status DC Furosemide (Lasix) 40 mg DAILY IVP ; Start 03/14/19 at 09:00; Stop 03/13/19 at 13:13; Status DC Atorvastatin Calcium (Lipitor) 20 mg QHS PO Last administered on 03/19/19at 21:25; Start 03/13/19 at 21:00 Sodium Chloride 1,000 ml @ 75 mls/hr [id number] IV Last administered on 03/14/19at 14:14; Start 03/14/19 at 14:15; Stop 03/14/19 at 18:24; Status DC Piperacillin Sod/ Tazobactam Sod 2.25 gm/Sodium Chloride 50 ml @ 100 mls/hr Q6HRS IV Last administered on 03/15/19at 06:06; Start 03/14/19 at 18:00; Stop 03/15/19 at 07:18; Status DC Sodium Chloride 90 meq/Potassium Chloride 50 meq/ Potassium Phosphate 13.6 mmol/Magnesium Sulfate 10 meq/ Calcium Gluconate 10 meq/ Multivitamins 10 ml/Chromium/ Copper/Manganese/ Seleni/Zn 1 ml/ Total Parenteral Nutrition/Amino Acids/Dextrose/ Fat Emulsion Intravenous 87.0013 ml @ 3.625 mls/hr TPN CONT IV ; Start 03/14/19 at 22:00; Stop 03/15/19 at 21:59; Status UNV Info (Tpn Per Pharmacy) 1 each PRN DAILY PRN MC SEE COMMENTS Last administered on 03/21/19at 13:12; Start 03/14/19 at 15:30 Sodium Chloride 70 meq/Potassium Chloride 50 meq/ Potassium Phosphate 13.6 mmol/Magnesium Sulfate 10 meq/ Calcium Gluconate 10 meq/ Multivitamins 10 ml/Chromium/ Copper/Manganese/ Seleni/Zn 1 ml/ Insulin Human Regular 10 unit/ Total Parenteral Nutrition/Amino Acids/Dextrose/ Fat Emuls... 1,512 ml @ 63 mls/hr TPN CONT IV Last administered on 03/14/19at 22:19; Start 03/14/19 at 22:00; Stop 03/15/19 at 21:59; Status DC Sodium Chloride 1,000 ml @ 10 mls/hr Q24H IV Last administered on 03/14/19at 18:30; Start 03/14/19 at 18:30; Stop 03/14/19 at 22:00; Status DC Pantoprazole Sodium (PROTONIX VIAL for IV PUSH) 40 mg HS IVP Last administered on 03/22/19at 21:00; Start 03/14/19 at 21:00 Insulin Human Lispro (HumaLOG) 0-7 UNITS Q6HRS SQ Last administered on 03/17/19at 12:18; Start 03/15/19 at 00:00; Stop 03/17/19 at 12:35; Status DC Sodium Chloride 40 meq/Potassium Chloride 50 meq/ Potassium Phosphate 8 mmol/ Magnesium Sulfate 3 meq/Calcium Gluconate 10 meq/ Multivitamins 10 ml/Chromium/ Copper/Manganese/ Seleni/Zn 1 ml/ Insulin Human Regular 20 unit/ Total Parenteral Nutrition/Amino Acids/Dextrose/ Fat Emulsion Intravenous 1,512 ml @ 63 mls/hr TPN CONT IV Last administered on 03/15/19at 21:49; Start 03/15/19 at 22:00; Stop 03/16/19 at 21:59; Status DC Insulin Glargine (Lantus Syringe) 20 unit QHS SQ ; Start 03/16/19 at 21:00; Stop 03/16/19 at 06:13; Status DC Insulin Glargine (Lantus Syringe) 20 unit 1X SQ ; Start 03/15/19 at 15:30; Stop 03/15/19 at 16:56; Status DC Insulin Glargine (Lantus Syringe) 20 unit 1X ONCE SQ Last administered on 03/15/19at 17:02; Start 03/15/19 at 17:00; Stop 03/15/19 at 17:01; Status DC Insulin Glargine (Lantus Syringe) 20 unit BID SQ ; Start 03/16/19 at 07:00; Status Cancel Insulin Glargine (Lantus Syringe) 20 unit QHS SQ ; Start 03/16/19 at 21:00; Stop 03/16/19 at 08:04; Status DC Insulin Human Lispro (HumaLOG) 5 units 1X ONCE SQ Last administered on 03/16/19at 07:41; Start 03/16/19 at 07:15; Stop 03/16/19 at 07:20; Status DC Insulin Glargine (Lantus Syringe) 40 unit QHS SQ Last administered on 03/16/19at 21:32; Start 03/16/19 at 21:00; Stop 03/17/19 at 12:32; Status DC Gabapentin (Neurontin Oral Soln) 300 mg [id number] PO Last administered on at 21:25; Start 03/16/19 at 10:00 Oxycodone HCl 5 mg PRN BID PRN NG PAIN Last administered on 03/17/19at 14:29; Start 03/16/19 at 10:00 Diazepam (Valium) 5 mg PRN Q8HRS PRN NG ANXIETY Last administered on 03/17/19at 12:08; Start 03/16/19 at 09:58 Aspirin (Children'S Aspirin) 81 mg DAILYWBKFT PO Last administered on 03/19/19at 10:08; Start 03/16/19 at 10:00 Polyethylene Glycol (miraLAX PACKET) 17 gm DAILY PO Last administered on 03/18/19at 08:06; Start 03/16/19 at 11:00 Potassium Phosphate 8 mmol/ Magnesium Sulfate 3 meq/Calcium Gluconate 10 meq/ Multivitamins 10 ml/Chromium/ Copper/Manganese/ Seleni/Zn 1 ml/ Insulin Human Regular 20 unit/ Total Parenteral Nutrition/Amino Acids/Dextrose/ Fat Emulsion Intravenous 1,992 ml @ 83 mls/hr TPN CONT IV Last administered on 03/16/19at 21:34; Start 03/16/19 at 22:00; Stop 03/17/19 at 21:59; Status DC Haloperidol Lactate (Haldol Inj) 5 mg PRN Q6HRS PRN IVP AGITATION, 2ND CHOICE Last administered on 03/16/19at 23:59; Start 03/16/19 at 13:00 Diltiazem HCl (Cardizem) 60 mg Q6HRS PO Last administered on 03/20/19at 05:41; Start 03/16/19 at 15:00 Insulin Human Lispro (HumaLOG) 5 units 1X ONCE SQ Last administered on 03/16/19at 21:04; Start 03/16/19 at 21:00; Stop 03/16/19 at 21:01; Status DC Enoxaparin Sodium (Lovenox 40mg Syringe) 40 mg Q24H SQ Last administered on 03/22/19at 09:34; Start 03/17/19 at 09:00 Potassium Phosphate 8 mmol/ Magnesium Sulfate 3 meq/Calcium Gluconate 5 meq/ Multivitamins 10 ml/Chromium/ Copper/Manganese/ Seleni/Zn 1 ml/ Insulin Human Regular 20 unit/ Total Parenteral Nutrition/Amino Acids/Dextrose/ Fat Emulsion Intravenous 1,992 ml @ 83 mls/hr TPN CONT IV Last administered on 03/17/19at 21:05; Start 03/17/19 at 22:00; Stop 03/18/19 at 21:59; Status DC Insulin Glargine (Lantus Syringe) 30 unit [id number] SQ Last administered on 03/20/19at 06:24; Start 03/17/19 at 18:00; Stop 03/20/19 at 09:07; Status DC Insulin Human Lispro (HumaLOG) 0-15 UNITS Q6HRS SQ Last administered on 03/20/19at 18:01; Start 03/17/19 at 13:00 Insulin Glargine (Lantus Syringe) 30 unit 1X ONCE SQ Last administered on 03/17/19at 13:39; Start 03/17/19 at 13:00; Stop 03/17/19 at 13:01; Status DC Methylprednisolone Sodium Succinate (SOLU-Medrol 40MG VIAL) 40 mg Q12HR IV Last administered on 03/19/19at 21:25; Start 03/18/19 at 21:00; Stop 03/20/19 at 09:04; Status DC Potassium Phosphate 8 mmol/ Magnesium Sulfate 3 meq/Calcium Gluconate 5 meq/ Multivitamins 10 ml/Chromium/ Copper/Manganese/ Seleni/Zn 1 ml/ Insulin Human Regular 30 unit/ Total Parenteral Nutrition/Amino Acids/Dextrose/ Fat Emulsion Intravenous 1,992 ml @ 83 mls/hr TPN CONT IV Last administered on 03/18/19at 21:55; Start 03/18/19 at 22:00; Stop 03/19/19 at 21:59; Status DC Potassium Phosphate 8 mmol/ Magnesium Sulfate 3 meq/Calcium Gluconate 5 meq/ Multivitamins 10 ml/Chromium/ Copper/Manganese/ Seleni/Zn 1 ml/ Insulin Human Regular 30 unit/ Total Parenteral Nutrition/Amino Acids/Dextrose/ Fat Emulsion Intravenous 1,992 ml @ 83 mls/hr TPN CONT IV Last administered on 03/19/19 21:57; Start 03/19/19 at 22:00; Stop 03/20/19 at 21:59; Status DC Methylprednisolone Sodium Succinate (SOLU-Medrol 40MG VIAL) 40 mg DAILY08 IV Last administered on 03/22/19at 09:34; Start 03/20/19 at 09:15 Insulin Glargine (Lantus Syringe) 40 unit [id number] SQ Last administered on 03/22/19 18:34; Start 03/20/19 at 09:15 Potassium Phosphate 8 mmol/ Magnesium Sulfate 3 meq/Calcium Gluconate 5 meq/ Multivitamins 10 ml/Chromium/ Copper/Manganese/ Seleni/Zn 1 ml/ Insulin Human Regular 30 unit/ Total Parenteral Nutrition/Amino Acids/Dextrose/ Fat Emulsion Intravenous 1,992 ml @ 83 mls/hr TPN CONT IV Last administered on 03/20/19at 22:40; Start 03/20/19 at 22:00; Stop 03/21/19 at 21:59; Status DC Barium Sulfate (Varibar Thin Liquid Apple) 148 gm 1X ONCE PO Last administered on 03/21/19at 13:57; Start 03/21/19 at 12:15; Stop 03/21/19 at 12:16; Status DC Potassium Phosphate 8 mmol/ Magnesium Sulfate 3 meq/Calcium Gluconate 5 meq/ Multivitamins 10 ml/Chromium/ Copper/Manganese/ Seleni/Zn 1 ml/ Insulin Human Regular 20 unit/ Total Parenteral Nutrition/Amino Acids/Dextrose/ Fat Emulsion Intravenous 1,992 ml @ 83 mls/hr TPN CONT IV Last administered on 03/21/19at 21:36; Start 03/21/19 at 22:00; Stop 03/22/19 at 21:59; Status DC Amino Acids/ Glycerin/ Electrolytes 1,000 ml @ 80 mls/hr [id number] IV Last administered on 03/23/19at 00:09; Start 03/22/19 at 23:30 Active Scripts Active Humalog (Insulin Lispro) 100 Unit/1 Ml Insuln.pen 0 Units SQ Q6HRS 30 Days Lantus (Insulin Glargine,Hum.rec.anlog) 100 Unit/1 Ml Vial 40 Unit SQ [id number] 30 Days Solu-Medrol 40 Mg Vial (Methylprednisolone Sod Succ/Pf) 40 Mg/1 Ml Vial 40 Mg IV DAILY08 30 Days Polyethylene Glycol 3350 17 Gm Powd.pack 17 Gm PO DAILY 30 Days Aspirin 81 Mg Tab.chew 81 Mg PO DAILYWBKFT 30 Days Clonidine Tts-1 (Clonidine) 1 Each Patch.tdwk 1 Patch TD WEEKLY 30 Days Atorvastatin Calcium 20 Mg Tablet 20 Mg PO QHS 30 Days Enoxaparin Sodium 40 Mg/0.4 Ml Disp.syrin 40 Mg SQ Q24H 30 Days Diazepam 5 Mg Tablet 5 Mg PO PRN Q8HRS PRN Reported Gabapentin (Gabapentin) 100 Mg Capsule 200 Mg PO TID Aspir 81 (Aspirin) 81 Mg Tablet.dr 81 Mg PO DAILY [place]ham-3 (Ray[place]ham-3 Fatty Acids) 1,000 Mg Capsule 1,200 Mg PO BID Omeprazole 20 Mg Capsule.dr 20 Mg PO BID Tiazac (Diltiazem Hcl) 240 Mg Capsule.er 240 Mg PO DAILY Metformin Hcl 500 Mg Tablet 500 Mg PO BID Vitals/I & O Vital Sign - Last 24 Hours 03/22/19 03/22/19 03/22/19 03/22/19 11:00 12:08 15:00 19:00 Temp 98.0 98.0 97.8 98.0 98.0 97.8 Pulse 87 94 95 Resp 16 18 20 B/P (MAP) 148/67 (94) 139/69 (92) 130/48 (75) Pulse Ox 93 100 95 93 O2 Delivery Room Air Room Air Room Air Room Air 03/22/19 03/22/19 03/22/19 03/23/19 20:00 20:24 23:00 03:00 Temp 97.7 97.7 97.7 97.7 Pulse 96 95 Resp 18 18 B/P (MAP) 137/75 (95) 166/67 (100) Pulse Ox 95 96 96 O2 Delivery Room Air Room Air Room Air Room Air 03/23/19 03/23/19 07:37 07:40 Temp 98.1 98.1 Pulse 87 Resp 20 B/P (MAP) 134/59 (84) Pulse Ox 95 92 O2 Delivery Room Air Room Air Intake and Output 03/22/19 03/22/19 03/23/19 15:00 23:00 07:00 Intake Total 0 ml Output Total 1000 ml 850 ml Balance -1000 ml -850 ml 0 ml HNUTER ARREOLA MD Mar 23, 2019 09:02
--- NOTE | 2019-03-23 09:21 | PDOC ---
Infectious Disease Note Subjective Subjective pt is sleepy, no complaints ROS ROS no n/v/d/sob Vital Sign Vital Signs Vital Signs Date Time Temp Pulse Resp B/P (MAP) Pulse Ox O2 Delivery O2 Flow Rate FiO2 03/23/19 07:40 98.1 87 20 134/59 (84) 92 Room Air 98.1 03/22/19 07:50 3.0 Physical Exam PHYSICAL EXAM GENERAL: Lying down, awake, calm, HEENT: Pupils are equal and reactive. Oral cavity dry. NECK: Supple. LUNGS: Clear anteriorly HEART: S1, S2. regular ABDOMEN: Obese, soft, no guarding, + BS : Indwelling Lemus in place EXTREMITIES: Without clubbing or cyanosis. No gross edema. SKIN: Warm, without generalized signs of rash. NEUROLOGICAL: Awake, answersa several quesitions appropriately, follows commands Equal clinical business manager strength, Feng, left arm raise weaker than right RIJ clean Labs Lab Laboratory Tests Test 03/22/19 12:00 03/22/19 12:10 03/22/19 18:10 03/22/19 20:58 Glucose (Fingerstick) 99 mg/dL (70-99) 188 mg/dL (70-99) 188 mg/dL (70-99) Sodium Level 139 mmol/L (136-145) Potassium Level 3.2 mmol/L (3.5-5.1) Chloride Level 105 mmol/L (98-107) Carbon Dioxide Level 24 mmol/L (21-32) Anion Gap 10 (6-14) Blood Urea Nitrogen 27 mg/dL (7-20) Creatinine 0.7 mg/dL (0.6-1.0) Estimated GFR (Cockcroft-Gault) 80.7 Glucose Level 112 mg/dL (70-99) Calcium Level 8.5 mg/dL (8.5-10.1) Phosphorus Level 3.5 mg/dL (2.6-4.7) Magnesium Level 1.9 mg/dL (1.8-2.4) Test 03/23/19 00:28 03/23/19 05:58 Glucose (Fingerstick) 114 mg/dL (70-99) 72 mg/dL (70-99) Micro Microbiology 03/10/19 Urine Culture - Final, Complete 03/10/19 Urine Culture Result 1 ([facility]) - Final, Complete 03/10/19 Blood Culture - Final, Complete NO GROWTH AFTER 5 DAYS Objective Assessment ? SBO vs ileus. GI following Leukocytosis - ? reactive/Steroids Lactic acidosis - better nml procalcitonin 03/13 Elevated Troponin/NSTEMI Acure resp failure -now on venti-mask ANNE - little worse Pulm edema Encephalopathy , better today. MRI reviewed. ? cervical cord lesion Diabetes Plan Plan of Care off antibiotics taper steroids, d/c lemus d/w son ok to d/c to rehab supportive care LILIA BOWLING MD Mar 23, 2019 09:21
[2019-03-23] MEDS: methylPREDNISolone SOD SUCC PF 40 MG/ML VIAL. IV SCH (10:24)
[2019-03-23] MEDS: ENOXAPARIN 40 MG/0.4 ML SYRINGE. SQ SCH (10:24)
[2019-03-23] MEDS: INSULIN GLARGINE SYRINGE. SQ SCH ×2 (10:30→18:00)
--- NOTE | 2019-03-23 10:55 | PDOC ---
PULMONARY PROGRESS NOTES Subjective NO INCREASE SOA . Vitals Vital Signs Date Time Temp Pulse Resp B/P (MAP) Pulse Ox O2 Delivery O2 Flow Rate FiO2 03/23/19 07:40 98.1 87 20 134/59 (84) 92 Room Air 98.1 03/22/19 07:50 3.0 ROS: No Nausea, No Chest Pain, No Abdominal Pain, No Increase Cough General: Alert Lungs: Clear Cardiovascular: S1, S2 Abdomen: Soft Neuro Exam: Alert Skin: Warm Labs Laboratory Tests Test 03/21/19 11:57 03/21/19 16:15 03/22/19 00:20 03/22/19 06:42 Glucose (Fingerstick) 146 mg/dL (70-99) 228 mg/dL (70-99) 161 mg/dL (70-99) 126 mg/dL (70-99) Test 03/22/19 12:00 03/22/19 12:10 03/22/19 18:10 03/22/19 20:58 Glucose (Fingerstick) 99 mg/dL (70-99) 188 mg/dL (70-99) 188 mg/dL (70-99) Sodium Level 139 mmol/L (136-145) Potassium Level 3.2 mmol/L (3.5-5.1) Chloride Level 105 mmol/L (98-107) Carbon Dioxide Level 24 mmol/L (21-32) Anion Gap 10 (6-14) Blood Urea Nitrogen 27 mg/dL (7-20) Creatinine 0.7 mg/dL (0.6-1.0) Estimated GFR (Cockcroft-Gault) 80.7 Glucose Level 112 mg/dL (70-99) Calcium Level 8.5 mg/dL (8.5-10.1) Phosphorus Level 3.5 mg/dL (2.6-4.7) Magnesium Level 1.9 mg/dL (1.8-2.4) Test 03/23/19 00:28 03/23/19 05:58 Glucose (Fingerstick) 114 mg/dL (70-99) 72 mg/dL (70-99) Laboratory Tests Test 03/22/19 12:00 03/22/19 12:10 03/22/19 18:10 03/22/19 20:58 Glucose (Fingerstick) 99 mg/dL (70-99) 188 mg/dL (70-99) 188 mg/dL (70-99) Sodium Level 139 mmol/L (136-145) Potassium Level 3.2 mmol/L (3.5-5.1) Chloride Level 105 mmol/L (98-107) Carbon Dioxide Level 24 mmol/L (21-32) Anion Gap 10 (6-14) Blood Urea Nitrogen 27 mg/dL (7-20) Creatinine 0.7 mg/dL (0.6-1.0) Estimated GFR (Cockcroft-Gault) 80.7 Glucose Level 112 mg/dL (70-99) Calcium Level 8.5 mg/dL (8.5-10.1) Phosphorus Level 3.5 mg/dL (2.6-4.7) Magnesium Level 1.9 mg/dL (1.8-2.4) Test 03/23/19 00:28 03/23/19 05:58 Glucose (Fingerstick) 114 mg/dL (70-99) 72 mg/dL (70-99) Medications Active Scripts Medications Dose Route/Sig Max Daily Dose Days Date Category Doxycycline Hyclate 50 Mg Capsule 1 Cap PO BID 7 10/15/17 Reported Doxycycline Hyclate 50 Mg Capsule 1 Cap PO BID 7 10/15/17 Reported Doxycycline Hyclate 50 Mg Capsule 1 Cap PO BID 7 10/15/17 Reported Gabapentin (Gabapentin) 100 Mg Capsule 200 Mg PO TID 10/12/17 Reported Prednisone 20 Mg Tablet 20 Mg PO DAILY 04/06/16 Rx Diazepam 5 Mg Tablet 5 Mg PO PRN Q8HRS PRN 04/06/16 Rx Percocet 5-325 Mg Tablet (Oxycodone/Acetaminophen) 1 Each Tablet 1 Each PO 6XDAY PRN 08/07/13 Reported Aspir 81 (Aspirin) 81 Mg Tablet.dr 81 Mg PO DAILY 08/07/13 Reported [place]-3 ([place]-3 Fatty Acids) 1,000 Mg Capsule 1,200 Mg PO BID 08/07/13 Reported Omeprazole 20 Mg Capsule.dr 20 Mg PO BID 08/07/13 Reported Tiazac (Diltiazem Hcl) 240 Mg Capsule.er 240 Mg PO DAILY 08/07/13 Reported Xopenex Hfa (Levalbuterol Tartrate) 15 Gm Hfa.aer.ad 15 Gm IH BID PRN 08/07/13 Reported Metformin Hcl 500 Mg Tablet 500 Mg PO BID 08/07/13 Reported Comments Impression . 1. Acute hypoxic respiratory failure secondary to diffuse interstitial edema- improving 2. Abnormal echo with a low normal ejection fraction of 50% and grade 1 diastolic dysfunction 3. NSTEMI 5. Obesity-ongoing 6. h/o CAD, stents 7. ANNE- improved 8. Non-specific Alveolitis - likely not infectious 9. Hypernatermia-resolved 10. gastric illeus--improving 11. DYSPHAGIA 12. ENCEPHALOPATHY VIDEO Impression: Aspiration with thin liquid barium. Moderate quantity of residual within the oral cavity. This was unknown to the patient during the exam. MRI Impression: No acute infarct. Chronic ischemic disease. No intracranial mass lesion. No intracranial hemorrhage. 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 This is not seen on the previous MRI of the cervical spine dated April 03, 2016. Recommend MRI study of the cervical spine with and without contrast for further evaluation. Plan . VIDEO SWALLOW REPORT NOTED WILL CONTINUE THE SAME D/W BRADLEY AGRAWAL MD Mar 23, 2019 10:55
[2019-03-23] MEDS: DEXTROSE 50% 25 GM / 50ML DISP.SYRIN. IV PRN (10:59)
[2019-03-23 11:00] VITALS: BP 146/57
--- NOTE | 2019-03-23 11:21 | PDOC ---
Objective: Objective: DC pending bed availability. Vital Signs: Vital Signs Date Time Temp Pulse Resp B/P (MAP) Pulse Ox O2 Delivery O2 Flow Rate FiO2 03/23/19 11:00 97.7 78 20 146/57 (86) 98 Room Air 97.7 03/22/19 07:50 3.0 Labs: Laboratory Tests Test 03/22/19 12:00 03/22/19 12:10 03/22/19 18:10 03/22/19 20:58 Glucose (Fingerstick) 99 mg/dL 188 mg/dL 188 mg/dL Sodium Level 139 mmol/L Potassium Level 3.2 mmol/L Chloride Level 105 mmol/L Carbon Dioxide Level 24 mmol/L Anion Gap 10 Blood Urea Nitrogen 27 mg/dL Creatinine 0.7 mg/dL Estimated GFR (Cockcroft-Gault) 80.7 Glucose Level 112 mg/dL Calcium Level 8.5 mg/dL Phosphorus Level 3.5 mg/dL Magnesium Level 1.9 mg/dL Test 03/23/19 00:28 03/23/19 05:58 03/23/19 10:37 Glucose (Fingerstick) 114 mg/dL 72 mg/dL 58 mg/dL PE: GEN: NAD NEURO/PSYCH: sleeping, not awakened A/P: Dysphagia - on TPN Constipation - resolved TIFFANIE -- Awaiting DC. AGUSTINA LEE Mar 23, 2019 11:21
--- NOTE | 2019-03-23 16:47 | NUR ---
No beds still. [facility] next [facility]. Family aware and did not want [facility]. Await for a bed tomorrow. D/W RN and pt's family.
[2019-03-23 19:00] VITALS: BP 120/64
[2019-03-23] MEDS: ATORVASTATIN CALCIUM 20 MG TABLET PO SCH (20:45)
[2019-03-23] MEDS: PANTOPRAZOLE IV PUSH 40 MG VIAL. IVP SCH (21:05)
[2019-03-23 23:00] VITALS: BP 129/68
[2019-03-24] MEDS: AMINO AC 3%/ELECTROLYTE/GLYCER 1,000 ML IV SCH ×2 (00:40→16:31)
[2019-03-24 03:00] VITALS: BP 144/62
--- NOTE | 2019-03-24 06:30 | NUR ---
Patient refused to wear BiPAP at all last night. Multiple attempts to provide education on importance. Patient continued to refuse. Will pass along to day RN.
[2019-03-24 07:00] VITALS: BP 142/68
[2019-03-24] MEDS: INSULIN GLARGINE SYRINGE. SQ SCH ×2 (07:00→21:00)
[2019-03-24] MEDS: IPRATROPIUM BROMIDE 0.5 MG/2.5 ML NEBU. NEB SCH ×4 (07:45→20:39)
--- NOTE | 2019-03-24 07:56 | PDOC ---
PULMONARY PROGRESS NOTES Subjective no sob, has occ cough, no pain . Vitals Vital Signs Date Time Temp Pulse Resp B/P (MAP) Pulse Ox O2 Delivery O2 Flow Rate FiO2 03/24/19 07:46 94 Room Air 03/24/19 03:00 97.8 86 18 144/62 (89) 97.8 ROS: No Nausea, No Chest Pain, No Abdominal Pain, No Increase Cough General: Alert Lungs: Crackles Cardiovascular: S1, S2 Abdomen: Soft, Non-tender Neuro Exam: Alert Skin: Warm Labs Laboratory Tests Test 03/22/19 12:00 03/22/19 12:10 03/22/19 18:10 03/22/19 20:58 Glucose (Fingerstick) 99 mg/dL (70-99) 188 mg/dL (70-99) 188 mg/dL (70-99) Sodium Level 139 mmol/L (136-145) Potassium Level 3.2 mmol/L (3.5-5.1) Chloride Level 105 mmol/L (98-107) Carbon Dioxide Level 24 mmol/L (21-32) Anion Gap 10 (6-14) Blood Urea Nitrogen 27 mg/dL (7-20) Creatinine 0.7 mg/dL (0.6-1.0) Estimated GFR (Cockcroft-Gault) 80.7 Glucose Level 112 mg/dL (70-99) Calcium Level 8.5 mg/dL (8.5-10.1) Phosphorus Level 3.5 mg/dL (2.6-4.7) Magnesium Level 1.9 mg/dL (1.8-2.4) Test 03/23/19 00:28 03/23/19 05:58 03/23/19 10:37 03/23/19 11:19 Glucose (Fingerstick) 114 mg/dL (70-99) 72 mg/dL (70-99) 58 mg/dL (70-99) 125 mg/dL (70-99) Test 03/23/19 16:25 03/23/19 20:34 Glucose (Fingerstick) 94 mg/dL (70-99) 85 mg/dL (70-99) Laboratory Tests Test 03/23/19 10:37 03/23/19 11:19 03/23/19 16:25 03/23/19 20:34 Glucose (Fingerstick) 58 mg/dL (70-99) 125 mg/dL (70-99) 94 mg/dL (70-99) 85 mg/dL (70-99) Medications Active Scripts Medications Dose Route/Sig Max Daily Dose Days Date Category Doxycycline Hyclate 50 Mg Capsule 1 Cap PO BID 7 10/15/17 Reported Doxycycline Hyclate 50 Mg Capsule 1 Cap PO BID 7 10/15/17 Reported Doxycycline Hyclate 50 Mg Capsule 1 Cap PO BID 7 10/15/17 Reported Gabapentin (Gabapentin) 100 Mg Capsule 200 Mg PO TID 10/12/17 Reported Prednisone 20 Mg Tablet 20 Mg PO DAILY 04/06/16 Rx Diazepam 5 Mg Tablet 5 Mg PO PRN Q8HRS PRN 04/06/16 Rx Percocet 5-325 Mg Tablet (Oxycodone/Acetaminophen) 1 Each Tablet 1 Each PO 6XDAY PRN 08/07/13 Reported Aspir 81 (Aspirin) 81 Mg Tablet.dr 81 Mg PO DAILY 08/07/13 Reported [place]-3 ([place]-3 Fatty Acids) 1,000 Mg Capsule 1,200 Mg PO BID 08/07/13 Reported Omeprazole 20 Mg Capsule.dr 20 Mg PO BID 08/07/13 Reported Tiazac (Diltiazem Hcl) 240 Mg Capsule.er 240 Mg PO DAILY 08/07/13 Reported Xopenex Hfa (Levalbuterol Tartrate) 15 Gm Hfa.aer.ad 15 Gm IH BID PRN 08/07/13 Reported Metformin Hcl 500 Mg Tablet 500 Mg PO BID 08/07/13 Reported Comments Impression . 1. Acute hypoxic respiratory failure secondary to diffuse interstitial edema- improving 2. Abnormal echo with a low normal ejection fraction of 50% and grade 1 diastolic dysfunction 3. NSTEMI 5. Obesity-ongoing 6. h/o CAD, stents 7. ANNE- improved 8. Non-specific Alveolitis - likely not infectious 9. Hypernatermia-resolved 10. gastric illeus--improving 11. DYSPHAGIA 12. ENCEPHALOPATHY , resolved VIDEO Impression: Aspiration with thin liquid barium. Moderate quantity of residual within the oral cavity. This was unknown to the patient during the exam. MRI Impression: No acute infarct. Chronic ischemic disease. No intracranial mass lesion. No intracranial hemorrhage. 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 This is not seen on the previous MRI of the cervical spine dated April 03, 2016. Recommend MRI study of the cervical spine with and without contrast for further evaluation. Plan . change solumedrol to bid VIDEO SWALLOW REPORT NOTED NPO BD lovenox protonix for prophylaxis discussed w ERNESTINA Workman MD Mar 24, 2019 07:56
[2019-03-24] MEDS: ASPIRIN CHEWABLE 81 MG TABLET. PO SCH (08:00)
[2019-03-24] MEDS: DEXTROSE 50% 25 GM / 50ML DISP.SYRIN. IV PRN (08:12)
[2019-03-24] MEDS: GABAPENTIN 250 MG/5 ML ORAL SOLUTION. PO SCH ×3 (08:40→21:00)
[2019-03-24] MEDS: POLYETHYLENE GLYCOL 3350 17 GM PACKET. PO SCH (08:40)
--- NOTE | 2019-03-24 09:19 | PDOC ---
Infectious Disease Note Subjective: Subjective pt has no complaints ROS: ROS Negative otherwise. Vital Signs: Vital Signs Vital Signs Date Time Temp Pulse Resp B/P (MAP) Pulse Ox O2 Delivery O2 Flow Rate FiO2 03/24/19 07:46 94 Room Air 03/24/19 07:00 97.9 94 16 142/68 (92) 97.9 Physical Exam: PHYSICAL EXAM GENERAL: Lying down, awake, calm, HEENT: Pupils are equal and reactive. Oral cavity dry. NECK: Supple. LUNGS: Clear anteriorly HEART: S1, S2. regular ABDOMEN: Obese, soft, no guarding, + BS : Indwelling [place] in place EXTREMITIES: Without clubbing or cyanosis. No gross edema. SKIN: Warm, without generalized signs of rash. NEUROLOGICAL: Awake, answersa several quesitions appropriately, follows commands Equal insulation board back tender strength, Feng, left arm raise weaker than right RIJ clean Medications: Inpatient Meds: Current Medications Medications (Trade) Dose Ordered Sig/Wiley Start Time Stop Time Status Last Admin Dose Admin Albuterol/ Ipratropium (Duoneb) 3 ml RTQID 03/10/19 12:00 03/10/19 12:02 DC Amino Acids/ Glycerin/ Electrolytes 1,000 ml @ 80 mls/hr [id number] 03/22/19 23:30 03/24/19 00:40 80 MLS/HR Aspirin (Children'S Aspirin) 81 mg [id number] 03/16/19 10:00 03/19/19 10:08 81 MG Aspirin (Ecotrin) 81 mg [id number] 03/14/19 08:00 03/16/19 09:58 DC Atorvastatin Calcium (Lipitor) 20 mg QHS 03/13/19 21:00 03/19/19 21:25 20 MG Atropine Sulfate (ATROPINE 0.5mg SYRINGE) 0.5 mg PRN Q5MIN PRN 03/13/19 07:45 03/16/19 17:41 DC Barium Sulfate (Varibar Thin Liquid Apple) 148 gm 1X ONCE 03/21/19 12:15 03/21/19 12:16 DC 03/21/19 13:57 148 GM Ceftriaxone Sodium (Rocephin) 1 gm Q24H 03/11/19 11:00 03/11/19 16:24 DC 03/11/19 11:19 1 GM Clonidine HCl (Catapres Tts-1) 1 patch WEEKLY 03/13/19 09:00 03/20/19 09:59 1 PATCH Daptomycin 540 mg/ Sodium Chloride 50 ml @ 100 mls/hr ONCE ONCE 03/12/19 08:30 03/12/19 08:59 DC 03/12/19 08:41 100 MLS/HR Dexmedetomidine HCl 400 mcg/ Sodium Chloride 100 ml @ 0 mls/hr CONT PRN 03/13/19 07:45 03/16/19 17:41 DC 03/16/19 13:01 13.4 MLS/HR Dextrose (Dextrose 50%-Water Syringe) 12.5 gm PRN Q15MIN PRN 03/12/19 19:45 03/24/19 08:12 12.5 GM Diazepam (Valium) 5 mg PRN Q8HRS PRN 03/16/19 09:58 03/17/19 12:08 5 MG Diltiazem HCl (Cardizem 24hr Cd) 240 mg DAILY 03/10/19 12:00 03/16/19 14:07 DC 03/12/19 08:39 240 MG Diltiazem HCl (Cardizem) 60 mg Q6HRS 03/16/19 15:00 03/20/19 05:41 60 MG Doxycycline Hyclate 100 mg/ Dextrose 100 ml @ 50 mls/hr Q12HR 03/12/19 09:00 03/21/19 09:33 DC 03/20/19 20:50 50 MLS/HR Enoxaparin Sodium (Lovenox 40mg Syringe) 40 mg Q24H 03/17/19 09:00 03/23/19 10:24 40 MG Furosemide (Lasix) 40 mg DAILY 03/14/19 09:00 03/13/19 13:13 DC Gabapentin (Neurontin Oral Soln) 300 mg [id number] 03/16/19 10:00 03/19/19 21:25 300 MG Gabapentin (Neurontin) 300 mg TID 03/10/19 14:00 03/16/19 09:56 DC 03/12/19 15:05 300 MG Haloperidol Lactate (Haldol Inj) 5 mg PRN Q6HRS PRN 03/16/19 13:00 03/16/19 23:59 5 MG Influenza Virus Vaccine Quadrival (Afluria Quad 2018-20 (3yr Up) Syringe) 0.5 ml ONCE ONCE 03/10/19 10:15 03/10/19 10:20 DC 03/10/19 10:57 0.5 ML Info (Tpn Per Pharmacy) 1 each PRN DAILY PRN 03/14/19 15:30 03/23/19 15:35 DC 03/21/19 13:12 1 EACH Insulin Glargine (Lantus Syringe) 40 unit [id number] 03/20/19 09:15 03/23/19 10:30 40 UNIT Insulin Human Lispro (HumaLOG) 0-15 UNITS Q6HRS 03/17/19 13:00 03/20/19 18:01 10 UNITS Iohexol (Omnipaque 350 Mg/ml) 75 ml 1X ONCE 03/11/19 17:30 03/11/19 17:31 DC 03/11/19 17:49 75 ML Ipratropium [place] (Atrovent) 0.5 mg RTQID 03/10/19 12:00 03/24/19 07:45 0.5 MG Lactobacillus Rhamnosus (Culturelle) 1 cap BID 03/12/19 09:00 03/16/19 09:56 DC 03/12/19 15:05 1 CAP Levalbuterol HCl (Xopenex) 1.25 mg 1X ONCE 03/10/19 08:00 03/10/19 11:33 DC 03/10/19 08:00 1.25 MG Lorazepam (Ativan Inj) 1 mg PRN Q4HRS PRN 03/10/19 22:30 03/17/19 12:08 1 MG Magnesium Sulfate 50 ml @ 25 mls/hr 1X ONCE 03/10/19 07:15 03/10/19 09:14 DC 03/10/19 07:17 25 MLS/HR Metformin HCl (Glucophage) 500 mg [id number] 03/10/19 17:00 03/14/19 14:08 DC 03/11/19 16:46 500 MG Methylprednisolone Sodium Succinate (SOLU-Medrol 40MG VIAL) 40 mg Q12HR 03/24/19 09:00 Methylprednisolone Sodium Succinate (SOLU-Medrol 125MG VIAL) 125 mg 1X ONCE 03/10/19 07:30 03/10/19 11:33 DC 03/10/19 07:54 125 MG Morphine Sulfate (Morphine Sulfate) 4 mg 1X ONCE 03/10/19 06:00 03/10/19 11:33 DC 03/10/19 06:02 4 MG Ondansetron HCl (Zofran) 4 mg 1X ONCE 03/10/19 06:00 03/10/19 06:01 DC 03/10/19 06:02 4 MG Oxycodone HCl 5 mg PRN BID PRN 03/16/19 10:00 03/17/19 14:29 5 MG Oxycodone/ Acetaminophen (Percocet 5/325) 1 tab PRN BID PRN 03/10/19 11:30 03/16/19 09:57 DC 03/12/19 16:49 1 TAB Pantoprazole Sodium (PROTONIX VIAL for IV PUSH) 40 mg HS 03/14/19 21:00 03/23/19 21:05 40 MG Pantoprazole Sodium (Protonix) 40 mg DAILYAC 03/10/19 12:00 03/14/19 18:24 DC 03/12/19 08:29 40 MG Piperacillin Sod/ Tazobactam Sod (Zosyn Per Pharmacy) 1 each PRN DAILY PRN 03/11/19 16:30 03/15/19 07:18 DC Piperacillin Sod/ Tazobactam Sod 2.25 gm/Sodium Chloride 50 ml @ 100 mls/hr Q6HRS 03/14/19 18:00 03/15/19 07:18 DC 03/15/19 06:06 100 MLS/HR Piperacillin Sod/ Tazobactam Sod 3.375 gm/Sodium Chloride 50 ml @ 100 mls/hr Q6HRS 03/11/19 17:00 03/14/19 14:28 DC 03/14/19 12:37 100 MLS/HR Polyethylene Glycol (miraLAX PACKET) 17 gm DAILY 03/16/19 11:00 03/18/19 08:06 17 GM Potassium Phosphate 8 mmol/ Magnesium Sulfate 3 meq/Calcium Gluconate 10 meq/ Multivitamins 10 ml/Chromium/ Copper/Manganese/ Seleni/Zn 1 ml/ Insulin Human Regular 20 unit/ Total Parenteral Nutrition/Amino Acids/Dextrose/ Fat Emulsion Intravenous 1,992 ml @ 83 mls/hr TPN CONT 03/16/19 22:00 03/17/19 21:59 DC 03/16/19 21:34 83 MLS/HR Potassium Phosphate 8 mmol/ Magnesium Sulfate 3 meq/Calcium Gluconate 5 meq/ Multivitamins 10 ml/Chromium/ Copper/Manganese/ Seleni/Zn 1 ml/ Insulin Human Regular 20 unit/ Total Parenteral Nutrition/Amino Acids/Dextrose/ Fat Emulsion Intravenous 1,992 ml @ 83 mls/hr TPN CONT 03/21/19 22:00 03/22/19 21:59 DC 03/21/19 21:36 83 MLS/HR Potassium Phosphate 8 mmol/ Magnesium Sulfate 3 meq/Calcium Gluconate 5 meq/ Multivitamins 10 ml/Chromium/ Copper/Manganese/ Seleni/Zn 1 ml/ Insulin Human Regular 30 unit/ Total Parenteral Nutrition/Amino Acids/Dextrose/ Fat Emulsion Intravenous 1,992 ml @ 83 mls/hr TPN CONT 03/20/19 22:00 03/21/19 21:59 DC 03/20/19 22:40 83 MLS/HR Sodium Bicarbonate (Sodium Bicarb Adult 8.4% Syr) 50 meq 1X ONCE 03/10/19 12:00 03/10/19 12:05 DC 03/10/19 12:12 50 MEQ Sodium Chloride 40 meq/Potassium Chloride 50 meq/ Potassium Phosphate 8 mmol/ Magnesium Sulfate 3 meq/Calcium Gluconate 10 meq/ Multivitamins 10 ml/Chromium/ Copper/Manganese/ Seleni/Zn 1 ml/ Insulin Human Regular 20 unit/ Total Parenteral Nutrition/Amino Acids/Dextrose/ Fat Emulsion Intravenous 1,512 ml @ 63 mls/hr TPN CONT 03/15/19 22:00 03/16/19 21:59 DC 03/15/19 21:49 63 MLS/HR Sodium Chloride 70 meq/Potassium Chloride 50 meq/ Potassium Phosphate 13.6 mmol/Magnesium Sulfate 10 meq/ Calcium Gluconate 10 meq/ Multivitamins 10 ml/Chromium/ Copper/Manganese/ Seleni/Zn 1 ml/ Insulin Human Regular 10 unit/ Total Parenteral Nutrition/Amino Acids/Dextrose/ Fat Emuls... 1,512 ml @ 63 mls/hr TPN CONT 03/14/19 22:00 03/15/19 21:59 DC 03/14/19 22:19 63 MLS/HR Sodium Chloride 90 meq/Potassium Chloride 50 meq/ Potassium Phosphate 13.6 mmol/Magnesium Sulfate 10 meq/ Calcium Gluconate 10 meq/ Multivitamins 10 ml/Chromium/ Copper/Manganese/ Seleni/Zn 1 ml/ Total Parenteral Nutrition/Amino Acids/Dextrose/ Fat Emulsion Intravenous 87.0013 ml @ 3.625 mls/hr TPN CONT 03/14/19 22:00 03/15/19 21:59 UNV Vancomycin HCl (Vanco Per Pharmacy) 1 each PRN DAILY PRN 03/11/19 10:15 03/12/19 07:06 DC 03/11/19 13:31 1 EACH Vancomycin HCl (Vancomycin Trough Level) 1 each 1X ONCE 03/13/19 10:30 03/12/19 07:11 DC Vancomycin HCl 1.25 gm/Sodium Chloride 250 ml @ 167 mls/hr Q24H 03/11/19 11:00 03/12/19 07:06 DC 03/11/19 11:22 167 MLS/HR Labs: Lab Laboratory Tests Test 03/23/19 10:37 03/23/19 11:19 03/23/19 16:25 03/23/19 20:34 Glucose (Fingerstick) 58 mg/dL (70-99) 125 mg/dL (70-99) 94 mg/dL (70-99) 85 mg/dL (70-99) Test 03/24/19 07:54 03/24/19 08:13 Glucose (Fingerstick) 46 mg/dL (70-99) 161 mg/dL (70-99) Objective: Assessment: ? SBO vs ileus. improving Leukocytosis - ? reactive/Steroids Lactic acidosis - better nml procalcitonin 03/13 Elevated Troponin/NSTEMI Acure resp failure -now on venti-mask ANNE - little worse Pulm edema Encephalopathy , better today. MRI reviewed. ? cervical cord lesion Diabetes Plan: Plan of Care Monitor off antibiotics awaiting transfer to rehab today supportive care AURE BOWLING MD Mar 24, 2019 09:19
--- NOTE | 2019-03-24 10:26 | PN ---
DATE: 03/24/2019 DAILY PROGRESS NOTE LOCATION: She is in room 584. SUBJECTIVE: The patient is awake, alert, remains mildly confused. is present this morning. I am not sure as to transfer options at this point, although I was told yesterday she would go to [facility] today. TPN has been off for a couple of days. OBJECTIVE: VITAL SIGNS: Stable. She is afebrile. GENERAL: Again, she is awake, alert and mildly confused. CHEST: Clear. HEART: Regular. ABDOMEN: Benign. LABORATORY DATA: Sugars have been low and insulin has been cut back with the TPN not running any longer and currently on PPN. IMPRESSION: Status post acute hypoxic respiratory failure with diffuse interstitial edema, improving. Non-ST elevation myocardial infarction. History of coronary artery disease. Acute kidney injury, improved. Encephalopathy, improving. Dysphagia with failed swallow test. PLAN: Continue present care. I have discussed with nursing. If she is not transferring to LTAC today, we will put her back on TPN and plan on doing I guess transfer towards the beginning of next week. JOHN HAMM MD DR: MARSHALL/gildardo JOB#: [id number] / [id number]
[2019-03-24] MEDS: methylPREDNISolone SOD SUCC PF 40 MG/ML VIAL. IV SCH ×2 (10:43→23:13)
[2019-03-24] MEDS: ENOXAPARIN 40 MG/0.4 ML SYRINGE. SQ SCH (10:45)
[2019-03-24 11:00] VITALS: BP 135/53
[2019-03-24] MEDS: INSULIN LISPRO 300 UNITS/3 ML VIAL. SQ SCH ×2 (12:00→18:00)
[2019-03-24] MEDS: dilTIAZem HCL 30 MG TABLET PO SCH ×3 (12:00→23:32)
[2019-03-24] MEDS: TPN PER PHARMACY MC PRN (14:04)
--- NOTE | 2019-03-24 14:10 | NUR ---
Pharmacy TPN Dosing Note S: THEODORE PADILLA is a 78 year old F Currently receiving [facility] Continuous TPN started 03/14/19 B:Pertinent PMH: NPO, ileus Height: 5 feet, 2 inches Weight: 86.256386 kg Current diet: NPO LABS: Sodium: 139 (03/22) Potassium: 3.2(03/22) Chloride: 105(03/22) Calcium: 8.5 Corrected Calcium: 9.46 Magnesium: 1.9(03/22) CO2: 24(03/22) SCr: 0.7(03/22) Glucose: 46-161 Albumin: 2.8 AST: 28 ALT: 99 TPN FORMULA: TPN TYPE: [facility] Continuous AMINO ACIDS: 70 gm DEXTROSE: 225 gm LIPIDS: 20 gm SODIUM CHLORIDE: 50 mEq SODIUM ACETATE: mEq SODIUM PHOSPHATE: mmol POTASSIUM CHLORIDE: 20 mEq POTASSIUM ACETATE: mEq POTASSIUM PHOSPHATE: 8 mmol MAGNESIUM: 3 mEq CALCIUM: 5 mEq INSULIN: - units MULTIPLE VITAMIN: 10 ml TRACE ELEMENTS: 1 ml(s) TPN PLAN: -Pt did not transfer to SNU, resume TPN -No labs available for today resume previous formula: will remove insulin as pt's glucose was 46 this am & will add 20mEq KCl as potassium was low on previous labs -Labs in the am R: Continue TPN as written above. Will monitor electrolytes, glucose, and tolerance to TPN. [facility], 03/24/19 [id number]
[2019-03-24 15:00] VITALS: BP 108/62
[2019-03-24 19:39] VITALS: BP 114/47
[2019-03-24] MEDS: ATORVASTATIN CALCIUM 20 MG TABLET PO SCH (21:00)
[2019-03-24] MEDS ORDERED: [UNRECOGNIZED DRUG - OTHER] IV SCH ×10 (22:00)
[2019-03-24] MEDS ORDERED: DEXTROSE 70% IV SCH ×10 (22:00)
[2019-03-24] MEDS ORDERED: TOTAL PARENTERAL NUTRITION IV SCH ×10 (22:00)
[2019-03-24] MEDS ORDERED: AMINO ACID IV SCH ×10 (22:00)
[2019-03-24 23:00] VITALS: BP 121/61
[2019-03-24] MEDS: PANTOPRAZOLE IV PUSH 40 MG VIAL. IVP SCH (23:12)
[2019-03-25 02:52] VITALS: BP 119/80
[2019-03-25] MEDS: dilTIAZem HCL 30 MG TABLET PO SCH ×4 (06:00→23:41)
[2019-03-25 07:00] VITALS: BP 156/73
--- NOTE | 2019-03-25 07:29 | NUR ---
Dr Laurie jung for med order for glucose 273.
[2019-03-25] MEDS ORDERED: VANCOMYCIN PER PHARMACY MC PRN (07:30)
[2019-03-25] MEDS: INSULIN LISPRO 300 UNITS/3 ML VIAL. SQ SCH ×4 (07:41→18:55)
--- NOTE | 2019-03-25 07:56 | PDOC ---
PULMONARY PROGRESS NOTES Subjective was agitated, had ativan 1mg iv, at 3:26 am, now confused . Vitals Vital Signs Date Time Temp Pulse Resp B/P (MAP) Pulse Ox O2 Delivery O2 Flow Rate FiO2 03/25/19 02:52 97.9 78 18 119/80 (93) 96 Room Air 97.9 ROS: No Nausea, No Chest Pain, No Abdominal Pain, No Increase Cough General: Confused Lungs: Crackles Cardiovascular: S1, S2 Abdomen: Soft, Non-tender Skin: Warm Labs Laboratory Tests Test 03/23/19 10:37 03/23/19 11:19 03/23/19 16:25 03/23/19 20:34 Glucose (Fingerstick) 58 mg/dL (70-99) 125 mg/dL (70-99) 94 mg/dL (70-99) 85 mg/dL (70-99) Test 03/24/19 07:54 03/24/19 08:13 03/24/19 11:16 03/24/19 16:57 Glucose (Fingerstick) 46 mg/dL (70-99) 161 mg/dL (70-99) 61 mg/dL (70-99) 81 mg/dL (70-99) Test 03/24/19 20:47 03/25/19 00:09 03/25/19 06:20 Glucose (Fingerstick) 117 mg/dL (70-99) 105 mg/dL (70-99) 273 mg/dL (70-99) Laboratory Tests Test 03/24/19 07:54 03/24/19 08:13 03/24/19 11:16 03/24/19 16:57 Glucose (Fingerstick) 46 mg/dL (70-99) 161 mg/dL (70-99) 61 mg/dL (70-99) 81 mg/dL (70-99) Test 03/24/19 20:47 03/25/19 00:09 03/25/19 06:20 Glucose (Fingerstick) 117 mg/dL (70-99) 105 mg/dL (70-99) 273 mg/dL (70-99) Medications Active Scripts Medications Dose Route/Sig Max Daily Dose Days Date Category Doxycycline Hyclate 50 Mg Capsule 1 Cap PO BID 7 10/15/17 Reported Doxycycline Hyclate 50 Mg Capsule 1 Cap PO BID 7 10/15/17 Reported Doxycycline Hyclate 50 Mg Capsule 1 Cap PO BID 7 10/15/17 Reported Gabapentin (Gabapentin) 100 Mg Capsule 200 Mg PO TID 10/12/17 Reported Prednisone 20 Mg Tablet 20 Mg PO DAILY 04/06/16 Rx Diazepam 5 Mg Tablet 5 Mg PO PRN Q8HRS PRN 04/06/16 Rx Percocet 5-325 Mg Tablet (Oxycodone/Acetaminophen) 1 Each Tablet 1 Each PO 6XDAY PRN 08/07/13 Reported Aspir 81 (Aspirin) 81 Mg Tablet.dr 81 Mg PO DAILY 08/07/13 Reported [place]-3 ([place]-3 Fatty Acids) 1,000 Mg Capsule 1,200 Mg PO BID 08/07/13 Reported Omeprazole 20 Mg Capsule.dr 20 Mg PO BID 08/07/13 Reported Tiazac (Diltiazem Hcl) 240 Mg Capsule.er 240 Mg PO DAILY 08/07/13 Reported Xopenex Hfa (Levalbuterol Tartrate) 15 Gm Hfa.aer.ad 15 Gm IH BID PRN 08/07/13 Reported Metformin Hcl 500 Mg Tablet 500 Mg PO BID 08/07/13 Reported Comments Impression . 1. Acute hypoxic respiratory failure secondary to diffuse interstitial edema- improving 2. Abnormal echo with a low normal ejection fraction of 50% and grade 1 diastolic dysfunction 3. NSTEMI 5. Obesity-ongoing 6. h/o CAD, stents 7. ANNE- improved 8. Non-specific Alveolitis - likely not infectious 9. Hypernatermia-resolved 10. gastric illeus--improving 11. DYSPHAGIA 12. ENCEPHALOPATHY VIDEO Impression: Aspiration with thin liquid barium. Moderate quantity of residual within the oral cavity. This was unknown to the patient during the exam. MRI Impression: No acute infarct. Chronic ischemic disease. No intracranial mass lesion. No intracranial hemorrhage. 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 This is not seen on the previous MRI of the cervical spine dated April 03, 2016. Recommend MRI study of the cervical spine with and without contrast for further evaluation. Plan . change solumedrol to daily VIDEO SWALLOW REPORT NOTED NPO BD lovenox protonix for prophylaxis discussed w ERNESTINA Workman MD Mar 25, 2019 07:56
[2019-03-25] MEDS: ASPIRIN CHEWABLE 81 MG TABLET. PO SCH (08:00)
[2019-03-25] MEDS: IPRATROPIUM BROMIDE 0.5 MG/2.5 ML NEBU. NEB SCH ×4 (08:21→20:24)
[2019-03-25] MEDS: ENOXAPARIN 40 MG/0.4 ML SYRINGE. SQ SCH (08:55)
[2019-03-25] MEDS: INSULIN GLARGINE SYRINGE. SQ SCH ×2 (08:59→22:27)
[2019-03-25] MEDS: GABAPENTIN 250 MG/5 ML ORAL SOLUTION. PO SCH ×3 (09:00→21:00)
[2019-03-25] MEDS: POLYETHYLENE GLYCOL 3350 17 GM PACKET. PO SCH (09:00)
--- NOTE | 2019-03-25 10:27 | PN ---
DATE: 03/25/2019 LOCATION: Room 584. SUBJECTIVE: The patient is awake, alert, still remains minimally confused, but willing to push and try to get stronger. OBJECTIVE: VITAL SIGNS: Stable. She is afebrile. Again, awake, alert with minimal confusion. CHEST: Clear. HEART: Regular. ABDOMEN: Benign. LABORATORY DATA: Sugars have been relatively decent. TPN has been restarted and is a little bit high this morning, which is not unexpected. Apparently, still we are unable to a LTAC transfer yesterday, which was planned. IMPRESSION: 1. Status post acute respiratory failure, non-ST elevated myocardial infarction. 2. Acute kidney injury, improved encephalopathy, ongoing, but with improvement. 3. Dysphagia with failed swallow test. PLAN: Continue present self-care, ongoing TPN. LTAC when room is available. Otherwise, same. JOHN HAMM MD DR: MARSHALL/gildardo JOB#: [id number] / [id number]
[2019-03-25 11:00] VITALS: BP 140/47
[2019-03-25 12:04] LABS: CALCIUM 8.5 mg/dL (8.5-10.1); CREATININE 0.7 mg/dL (0.6-1.0); GFR 80.7; MAGNESIUM 2.3 mg/dL (1.8-2.4); PHOSPHORUS 3.6 mg/dL (2.6-4.7); POTASSIUM 4.5 mmol/L (3.5-5.1)
[2019-03-25] MEDS: TPN PER PHARMACY MC PRN (12:48)
--- NOTE | 2019-03-25 12:51 | NUR ---
Pharmacy TPN Dosing Note S: THEODORE PADILLA is a 78 year old F Currently receiving Central Continuous TPN started 03/14/19 B:Pertinent PMH: NPO, ileus Height: 5 feet, 2 inches Weight: 86.385073 kg Current diet: NPO LABS: Sodium: 139 Potassium: 4.5 Chloride: 107 Calcium: 8.5 Corrected Calcium: 9.46 Magnesium: 2.3 CO2: 21 SCr: 0.7 Glucose: 157-273 Albumin: 2.8 AST: 28 ALT: 99 TPN FORMULA: TPN TYPE: Central Continuous AMINO ACIDS: 70 gm DEXTROSE: 225 gm LIPIDS: 20 gm SODIUM CHLORIDE: 50 mEq SODIUM ACETATE: mEq SODIUM PHOSPHATE: mmol POTASSIUM CHLORIDE: 20 mEq POTASSIUM ACETATE: mEq POTASSIUM PHOSPHATE: 8 mmol MAGNESIUM: 3 mEq CALCIUM: 5 mEq INSULIN: - units MULTIPLE VITAMIN: 10 ml TRACE ELEMENTS: 1 ml(s) TPN PLAN: -TPN resumed yesterday as pt was not able to go to [facility] -Electrolytes WNLs, no changes to TPN for tonight -Glucose elevated, will adjust outside of TPN, has lantus and sliding scale -bmp in the am R: Continue TPN as written above. Will monitor electrolytes, glucose, and tolerance to TPN. GAVINO JOHNSON [facility], 03/25/19 [id number]
[2019-03-25] MEDS: methylPREDNISolone SOD SUCC PF 40 MG/ML VIAL. IV SCH (12:57)
--- NOTE | 2019-03-25 13:47 | PDOC ---
PROGRESS NOTES Assessment Assessment IMPRESSION: Metabolic encephalopathy. COPD exacerbation. Respiratory failure. Restless. Agitation. sepsis. CAD s/p stent placement.. HTN. HLD. DM. Neuropathy. breast cancer. Obesity. No evidence of acute CVA this time. RECOMMENDATIONS/PLAN: ASA daily. Continue Lipitor HS. Treat medical diseases. EEG. OT/PT. SUBJECTIVE: Agitated, restless with confusion over night per nurse. OBJECTIVE: No focalized motor or sensory deficits. Past Medical History Cardiovascular: CAD, HTN, Hyperlipidemia Pulmonary: Bronchitis, COPD, Pneumonia CENTRAL NERVOUS SYSTEM: Periperal neuropathy, Other (restless legs) GI: GERD Heme/Onc: Cancer (breast) Musculoskeletal: low back pain, Osteoarthritis Endocrine: Diabetes Past Surgical History Cholecystectomy, Cataract Removal, Mastectomy, Tonsillectomy, Hysterectomy, Other (coronary stent) Family History Cancer Social History Maried, ex-smoker, no alcohol, retired Allergies Coded Allergies: albuterol (Verified Adverse Reaction, Severe, 03/13/19) severe shaking fluticasone propionate (Verified Adverse Reaction, Severe, 03/13/19) severe shaking hydrocodone (Verified Adverse Reaction, Severe, Nausea and Vomiting, 03/13/19) potassium (Verified Adverse Reaction, Severe, Nausea and Vomiting, 03/13/19) salmeterol xinafoate (Verified Adverse Reaction, Severe, 03/13/19) severe shaking ROS Negative for fever, chills, weight loss, shortness of breath, chest pain, indigestion, hematochezia, melena, and dysuria. Full 14-point review of systems is negative. Please see H&P MEDICATIONS: Refer to MAR PHYSICAL EXAMINATION: General appearance in subacute distress. HEENT: Normocephalic and nontraumatic. Eyes, nose, ears, and throat are unremarkable. Neck is supple. No lymphadenopathy. No Crepitus. Cardiovascular: S1, S2, regular rate and rhythm. Pulmonary: decreased to auscultation bilaterally. Abdomen: Bowel sounds are positive. Extremities: No rash, lesions, or edema. No restriction of range of motion NEUROLOGICAL EXAMINATION: Drowsiness. Not oriented to time, but knew place and person. PERRL. EOMI. CN: no focal findings. Muscle tone: within normal. Muscle strength: 4+ DTR: 1-2 Plantar reflex: Extensor response bilaterally Gait: not examined in bed. Sensory exam: no abnormal findings. No cerebellar signs elicited. F-T-N test fine. Objective Objective Vital Signs Date Time Temp Pulse Resp B/P (MAP) Pulse Ox O2 Delivery O2 Flow Rate FiO2 03/25/19 12:00 96 Room Air 03/25/19 11:00 98.3 84 20 140/47 (78) 98.3 03/25/19 08:00 3.0 Intake and Output 03/25/19 07:00 Output Total 2750 ml Balance -2750 ml Output Urine Total 2750 ml Vitals Signs Vitals VS - Last 72 Hours, by Label Date Time Temp Pulse Resp B/P (MAP) Pulse Ox O2 Delivery O2 Flow Rate FiO2 03/25/19 12:00 96 Room Air 03/25/19 11:00 98.3 84 20 140/47 (78) Room Air 98.3 03/25/19 08:23 96 Room Air 03/25/19 08:00 3.0 03/25/19 07:00 97.6 98 20 156/73 (100) 96 Room Air 97.6 03/25/19 02:52 97.9 78 18 119/80 (93) 96 Room Air 97.9 03/24/19 23:00 98.2 95 20 121/61 (81) 93 Room Air 98.2 03/24/19 20:42 96 Room Air 03/24/19 20:00 Room Air 03/24/19 19:39 98.1 94 18 114/47 (69) 95 Room Air 98.1 03/24/19 17:01 96 Room Air 03/24/19 15:00 97.5 87 16 108/62 (77) 95 Room Air 97.5 03/24/19 11:42 91 Room Air 03/24/19 11:00 97.7 91 18 135/53 (80) 94 Room Air 97.7 03/24/19 08:00 Room Air 03/24/19 07:46 94 Room Air 03/24/19 07:00 97.9 94 16 142/68 (92) 95 Room Air 97.9 Laboratory Laboratory Laboratory Tests Test 03/24/19 16:57 03/24/19 20:47 03/25/19 00:09 03/25/19 06:20 Glucose (Fingerstick) 81 mg/dL (70-99) 117 mg/dL (70-99) 105 mg/dL (70-99) 273 mg/dL (70-99) Test 03/25/19 11:35 03/25/19 11:48 Sodium Level 139 mmol/L (136-145) Potassium Level 4.5 mmol/L (3.5-5.1) Chloride Level 107 mmol/L (98-107) Carbon Dioxide Level 21 mmol/L (21-32) Anion Gap 11 (6-14) Blood Urea Nitrogen 26 mg/dL (7-20) Creatinine 0.7 mg/dL (0.6-1.0) Estimated GFR (Cockcroft-Gault) 80.7 Glucose Level 171 mg/dL (70-99) Calcium Level 8.5 mg/dL (8.5-10.1) Phosphorus Level 3.6 mg/dL (2.6-4.7) Magnesium Level 2.3 mg/dL (1.8-2.4) Glucose (Fingerstick) 157 mg/dL (70-99) Microbiology 03/10/19 Urine Culture - Final, Complete 03/10/19 Urine Culture Result 1 (CHACE) - Final, Complete 03/10/19 Blood Culture - Final, Complete NO GROWTH AFTER 5 DAYS Medication Medications Current Medications Info (Tpn Per Pharmacy) 1 each PRN DAILY PRN MC SEE COMMENTS Last administered on 03/25/19at 12:48; Start 03/24/19 at 14:15 Insulin Glargine (Lantus Syringe) 40 unit BID SQ Last administered on 03/25/19at 08:59; Start 03/24/19 at 21:00 Methylprednisolone Sodium Succinate (SOLU-Medrol 40MG VIAL) 40 mg DAILY IV Last administered on 03/25/19at 12:57; Start 03/25/19 at 09:00 Sodium Chloride 50 meq/Potassium Chloride 20 meq/ Potassium Phosphate 8 mmol/ Magnesium Sulfate 3 meq/Calcium Gluconate 5 meq/ Multivitamins 10 ml/Chromium/ Copper/Manganese/ Seleni/Zn 1 ml/ Total Parenteral Nutrition/Amino Acids/Dextrose/ Fat Emulsion Intravenous 1,992 ml @ 83 mls/hr TPN CONT IV Last administered on 03/24/19at 23:12; Start 03/24/19 at 22:00; Stop 03/25/19 at 21:59 Sodium Chloride 50 meq/Potassium Chloride 20 meq/ Potassium Phosphate 8 mmol/ Magnesium Sulfate 3 meq/Calcium Gluconate 5 meq/ Multivitamins 10 ml/Chromium/ Copper/Manganese/ Seleni/Zn 1 ml/ Total Parenteral Nutrition/Amino Acids/Dextrose/ Fat Emulsion Intravenous 1,992 ml @ 83 mls/hr TPN CONT IV ; Start 03/25/19 at 22:00; Stop 03/26/19 at 21:59 Vancomycin HCl (Vanco Per Pharmacy) 1 each PRN DAILY PRN MC SEE COMMENTS; Start 03/25/19 at 07:30; Status UNV Comment Review of Relevant I have reviewed the following items anni (where applicable) has been applied. RAFFY SANABRIA MD Mar 25, 2019 13:47
[2019-03-25 15:56] VITALS: BP 159/55
[2019-03-25 19:00] VITALS: BP 110/46
[2019-03-25] MEDS: HALOPERIDOL LACTATE 5 MG/ML VIAL. IVP PRN (20:06)
[2019-03-25] MEDS: ATORVASTATIN CALCIUM 20 MG TABLET PO SCH (21:00)
[2019-03-25] MEDS ORDERED: TOTAL PARENTERAL NUTRITION IV SCH ×10 (22:00)
[2019-03-25] MEDS ORDERED: AMINO ACID IV SCH ×10 (22:00)
[2019-03-25] MEDS ORDERED: DEXTROSE 70% IV SCH ×10 (22:00)
[2019-03-25] MEDS ORDERED: [UNRECOGNIZED DRUG - OTHER] IV SCH ×10 (22:00)
[2019-03-25] MEDS: PANTOPRAZOLE IV PUSH 40 MG VIAL. IVP SCH (22:21)
[2019-03-25 23:00] VITALS: BP 126/82
[2019-03-26] MEDS: HALOPERIDOL LACTATE 5 MG/ML VIAL. IVP PRN (00:18)
[2019-03-26 03:00] VITALS: BP 137/69
[2019-03-26 03:34] LABS: CALCIUM 8.6 mg/dL (8.5-10.1); CREATININE 0.7 mg/dL (0.6-1.0); GFR 80.7; POTASSIUM 4.5 mmol/L (3.5-5.1)
[2019-03-26] MEDS: dilTIAZem HCL 30 MG TABLET PO SCH ×2 (06:00→12:00)
[2019-03-26] MEDS: INSULIN LISPRO 300 UNITS/3 ML VIAL. SQ SCH ×3 (06:34→12:00)
[2019-03-26 07:00] VITALS: BP 115/60
[2019-03-26] MEDS: IPRATROPIUM BROMIDE 0.5 MG/2.5 ML NEBU. NEB SCH ×3 (07:17→15:50)
[2019-03-26] MEDS: ASPIRIN CHEWABLE 81 MG TABLET. PO SCH (08:00)
--- NOTE | 2019-03-26 08:20 | NUR ---
SW following pt. Left 2x VM to [facility]. DC workforce planner will fax referral to [facility] in case they have a bed opening. Will continue to follow.
[2019-03-26] MEDS: GABAPENTIN 250 MG/5 ML ORAL SOLUTION. PO SCH (09:00)
[2019-03-26] MEDS: POLYETHYLENE GLYCOL 3350 17 GM PACKET. PO SCH (09:00)
[2019-03-26] MEDS: methylPREDNISolone SOD SUCC PF 40 MG/ML VIAL. IV SCH (09:15)
[2019-03-26] MEDS: ENOXAPARIN 40 MG/0.4 ML SYRINGE. SQ SCH (09:16)
--- NOTE | 2019-03-26 09:18 | PDOC ---
PULMONARY PROGRESS NOTES Subjective was agitated, had ativan 1mg iv, at 3:26 am, now confused . Vitals Vital Signs Date Time Temp Pulse Resp B/P (MAP) Pulse Ox O2 Delivery O2 Flow Rate FiO2 03/26/19 07:18 95 Room Air 03/26/19 07:00 98.0 93 16 115/60 (78) 98.0 03/25/19 08:00 3.0 ROS: No Nausea, No Chest Pain, No Abdominal Pain, No Increase Cough General: Confused Lungs: Crackles Cardiovascular: S1, S2 Abdomen: Soft, Non-tender Skin: Warm Labs Laboratory Tests Test 03/24/19 11:16 03/24/19 16:57 03/24/19 20:47 03/25/19 00:09 Glucose (Fingerstick) 61 mg/dL (70-99) 81 mg/dL (70-99) 117 mg/dL (70-99) 105 mg/dL (70-99) Test 03/25/19 06:20 03/25/19 11:35 03/25/19 11:48 03/25/19 18:46 Glucose (Fingerstick) 273 mg/dL (70-99) 157 mg/dL (70-99) 181 mg/dL (70-99) Sodium Level 139 mmol/L (136-145) Potassium Level 4.5 mmol/L (3.5-5.1) Chloride Level 107 mmol/L (98-107) Carbon Dioxide Level 21 mmol/L (21-32) Anion Gap 11 (6-14) Blood Urea Nitrogen 26 mg/dL (7-20) Creatinine 0.7 mg/dL (0.6-1.0) Estimated GFR (Cockcroft-Gault) 80.7 Glucose Level 171 mg/dL (70-99) Calcium Level 8.5 mg/dL (8.5-10.1) Phosphorus Level 3.6 mg/dL (2.6-4.7) Magnesium Level 2.3 mg/dL (1.8-2.4) Test 03/25/19 21:14 03/25/19 23:58 03/26/19 03:15 03/26/19 06:02 Glucose (Fingerstick) 158 mg/dL (70-99) 123 mg/dL (70-99) 188 mg/dL (70-99) Sodium Level 135 mmol/L (136-145) Potassium Level 4.5 mmol/L (3.5-5.1) Chloride Level 107 mmol/L (98-107) Carbon Dioxide Level 17 mmol/L (21-32) Anion Gap 11 (6-14) Blood Urea Nitrogen 26 mg/dL (7-20) Creatinine 0.7 mg/dL (0.6-1.0) Estimated GFR (Cockcroft-Gault) 80.7 Glucose Level 140 mg/dL (70-99) Calcium Level 8.6 mg/dL (8.5-10.1) Laboratory Tests Test 03/25/19 11:35 03/25/19 11:48 03/25/19 18:46 03/25/19 21:14 Sodium Level 139 mmol/L (136-145) Potassium Level 4.5 mmol/L (3.5-5.1) Chloride Level 107 mmol/L (98-107) Carbon Dioxide Level 21 mmol/L (21-32) Anion Gap 11 (6-14) Blood Urea Nitrogen 26 mg/dL (7-20) Creatinine 0.7 mg/dL (0.6-1.0) Estimated GFR (Cockcroft-Gault) 80.7 Glucose Level 171 mg/dL (70-99) Calcium Level 8.5 mg/dL (8.5-10.1) Phosphorus Level 3.6 mg/dL (2.6-4.7) Magnesium Level 2.3 mg/dL (1.8-2.4) Glucose (Fingerstick) 157 mg/dL (70-99) 181 mg/dL (70-99) 158 mg/dL (70-99) Test 03/25/19 23:58 03/26/19 03:15 03/26/19 06:02 Glucose (Fingerstick) 123 mg/dL (70-99) 188 mg/dL (70-99) Sodium Level 135 mmol/L (136-145) Potassium Level 4.5 mmol/L (3.5-5.1) Chloride Level 107 mmol/L (98-107) Carbon Dioxide Level 17 mmol/L (21-32) Anion Gap 11 (6-14) Blood Urea Nitrogen 26 mg/dL (7-20) Creatinine 0.7 mg/dL (0.6-1.0) Estimated GFR (Cockcroft-Gault) 80.7 Glucose Level 140 mg/dL (70-99) Calcium Level 8.6 mg/dL (8.5-10.1) Medications Active Scripts Medications Dose Route/Sig Max Daily Dose Days Date Category Doxycycline Hyclate 50 Mg Capsule 1 Cap PO BID 7 10/15/17 Reported Doxycycline Hyclate 50 Mg Capsule 1 Cap PO BID 7 10/15/17 Reported Doxycycline Hyclate 50 Mg Capsule 1 Cap PO BID 7 10/15/17 Reported Gabapentin (Gabapentin) 100 Mg Capsule 200 Mg PO TID 10/12/17 Reported Prednisone 20 Mg Tablet 20 Mg PO DAILY 04/06/16 Rx Diazepam 5 Mg Tablet 5 Mg PO PRN Q8HRS PRN 04/06/16 Rx Percocet 5-325 Mg Tablet (Oxycodone/Acetaminophen) 1 Each Tablet 1 Each PO 6XDAY PRN 08/07/13 Reported Aspir 81 (Aspirin) 81 Mg Tablet.dr 81 Mg PO DAILY 08/07/13 Reported Lihue-3 (Lihue-3 Fatty Acids) 1,000 Mg Capsule 1,200 Mg PO BID 08/07/13 Reported Omeprazole 20 Mg Capsule.dr 20 Mg PO BID 08/07/13 Reported Tiazac (Diltiazem Hcl) 240 Mg Capsule.er 240 Mg PO DAILY 08/07/13 Reported Xopenex Hfa (Levalbuterol Tartrate) 15 Gm Hfa.aer.ad 15 Gm IH BID PRN 08/07/13 Reported Metformin Hcl 500 Mg Tablet 500 Mg PO BID 08/07/13 Reported Comments Impression . 1. Acute hypoxic respiratory failure secondary to diffuse interstitial edema- improving 2. Abnormal echo with a low normal ejection fraction of 50% and grade 1 diastolic dysfunction 3. NSTEMI 5. Obesity-ongoing 6. h/o CAD, stents 7. ANNE- improved 8. Non-specific Alveolitis - likely not infectious 9. Hypernatermia-resolved 10. gastric illeus--improving 11. DYSPHAGIA 12. ENCEPHALOPATHY VIDEO Impression: Aspiration with thin liquid barium. Moderate quantity of residual within the oral cavity. This was unknown to the patient during the exam. MRI Impression: No acute infarct. Chronic ischemic disease. No intracranial mass lesion. No intracranial hemorrhage. 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 This is not seen on the previous MRI of the cervical spine dated April 03, 2016. Recommend MRI study of the cervical spine with and without contrast for further evaluation. Plan . TRANSFER TODAY BRADLEY DE LOS ASNTOS MD Mar 26, 2019 09:18
--- NOTE | 2019-03-26 09:23 | PN ---
DATE: 03/26/2019 DAILY PROGRESS NOTE LOCATION: Room #584. SUBJECTIVE: The patient awakens, is pleasant, still is mildly confused, denies any serious complaints, would like something to eat. OBJECTIVE: VITAL SIGNS: Stable. She is afebrile. GENERAL: Again, awake and alert. CHEST: Reveals decent breath sounds. HEART: Regular. ABDOMEN: Benign. TPN ongoing with sugars acceptable. NEUROLOGIC: Exam is nonfocal. IMPRESSION: 1. Status post acute respiratory failure. 2. Ongoing mild encephalopathy. 3. Acute kidney injury, improving. 4. Dysphagia with failed swallow test. 5. Restless legs. 6. Neuropathy. PLAN: Continue present. Encourage increasing the activity. LTAC placement is pending. If she is here another day, I would guess we should do another swallow evaluation, otherwise same. JOHN HAMM MD DR: MARSHALL/gildardo JOB#: [id number] / [id number]
[2019-03-26] MEDS: INSULIN GLARGINE SYRINGE. SQ SCH (09:26)
[2019-03-26 10:51] VITALS: BP 122/64
--- NOTE | 2019-03-26 11:13 | NUR ---
SW following pt. Spoke with [facility] and they have tentative two beds opening today. CHRISTOPHER faxed updates to [facility]. Referral also sent to [facility]. Discussed with pt's son at bedside.
--- NOTE | 2019-03-26 12:18 | PDOC ---
Subjective: Subjective: frustrated - still awaiting DC. Objective: Vital Signs: Vital Signs Date Time Temp Pulse Resp B/P (MAP) Pulse Ox O2 Delivery O2 Flow Rate FiO2 03/26/19 12:01 97 Room Air 03/26/19 10:51 97.9 90 18 122/64 (83) 97.9 03/25/19 08:00 3.0 Labs: Laboratory Tests Test 03/25/19 18:46 03/25/19 21:14 03/25/19 23:58 03/26/19 06:02 Glucose (Fingerstick) 181 mg/dL (70-99) 158 mg/dL (70-99) 123 mg/dL (70-99) 188 mg/dL (70-99) PE: GEN: NAD, up in chair LUNGS: CTAB HEART: RRR ABD: S/ND/NT NEURO/PSYCH: A & O 3 A/P: Dysphagia - on TPN TIFFANIE -- Awaiting DC. H/o constipation - resolved last week and has been NPO w/o Dobhoff - add suppository. AGUSTINA LEE Mar 26, 2019 12:18
[2019-03-26] MEDS ORDERED: BISACODYL 10 MG SUPP.RECT. PR ONE (12:30)
--- NOTE | 2019-03-26 12:50 | NUR ---
PATIENT WITH MODERATE SIZE BM, WILL NOT ADMINISTER DULCOLAX SUPPOSITORY AT THIS TIME.
[2019-03-26] MEDS: TPN PER PHARMACY MC PRN (13:29)
--- NOTE | 2019-03-26 13:36 | NUR ---
Pharmacy TPN Dosing Note S: THEODORE PADILLA is a 78 year old F Currently receiving Central Continuous TPN started 03/14/19 B:Pertinent PMH: NPO, ileus Height: 5 feet, 2 inches Weight: 86.4 kg Current diet: NPO LABS: Sodium: 135 Potassium: 4.5 Chloride: 107 Calcium: 8.6 Corrected Calcium: 9.56 Magnesium: 2.3 CO2: 17 SCr: 0.7 Glucose: 123-168 Albumin: 2.8 AST: 28 ALT: 99 TPN FORMULA: TPN TYPE: Central Continuous AMINO ACIDS: 70 gm DEXTROSE: 225 gm LIPIDS: 20 gm SODIUM CHLORIDE: 50 mEq SODIUM ACETATE: 40 mEq POTASSIUM CHLORIDE: 20 mEq POTASSIUM PHOSPHATE: 8 mmol MAGNESIUM: 3 mEq CALCIUM: 5 mEq MULTIPLE VITAMIN: 10 ml TRACE ELEMENTS: 1 ml(s) TPN PLAN: Sodium acetate added to next bag R: Change TPN per plan and ordered formula Will monitor electrolytes, glucose, and tolerance to TPN. Lora Freeman [facility], 03/26/19 [id number]
--- NOTE | 2019-03-26 14:25 | PDOC ---
PROGRESS NOTES Assessment Assessment Metabolic encephalopathy. COPD exacerbation. Respiratory failure. Restless. Agitation. sepsis. CAD s/p stent placement.. HTN. HLD. DM. Neuropathy. breast cancer. Obesity. No evidence of acute CVA this time. RECOMMENDATIONS/PLAN: ASA daily. Continue Lipitor HS. Treat medical diseases. OT/PT. SUBJECTIVE: Agitated, restless and confusion resolved on 03/26/19. OBJECTIVE: No focalized motor or sensory deficits. Past Medical History Cardiovascular: CAD, HTN, Hyperlipidemia Pulmonary: Bronchitis, COPD, Pneumonia CENTRAL NERVOUS SYSTEM: Periperal neuropathy, Other (restless legs) GI: GERD Heme/Onc: Cancer (breast) Musculoskeletal: low back pain, Osteoarthritis Endocrine: Diabetes Past Surgical History Cholecystectomy, Cataract Removal, Mastectomy, Tonsillectomy, Hysterectomy, Other (coronary stent) Family History Cancer Social History Maried, ex-smoker, no alcohol, retired Allergies Coded Allergies: albuterol (Verified Adverse Reaction, Severe, 03/13/19) severe shaking fluticasone propionate (Verified Adverse Reaction, Severe, 03/13/19) severe shaking hydrocodone (Verified Adverse Reaction, Severe, Nausea and Vomiting, 03/13/19) potassium (Verified Adverse Reaction, Severe, Nausea and Vomiting, 03/13/19) salmeterol xinafoate (Verified Adverse Reaction, Severe, 03/13/19) severe shaking ROS Negative for fever, chills, weight loss, shortness of breath, chest pain, indigestion, hematochezia, melena, and dysuria. Full 14-point review of systems is negative. Please see H&P MEDICATIONS: Refer to MAR PHYSICAL EXAMINATION: General appearance in subacute distress. HEENT: Normocephalic and nontraumatic. Eyes, nose, ears, and throat are unremarkable. Neck is supple. No lymphadenopathy. No Crepitus. Cardiovascular: S1, S2, regular rate and rhythm. Pulmonary: decreased to auscultation bilaterally. Abdomen: Bowel sounds are positive. Extremities: No rash, lesions, or edema. No restriction of range of motion NEUROLOGICAL EXAMINATION: Awake. Sitting in chair. Not fully oriented to time, but knew place and person. PERRL. EOMI. CN: no focal findings. Muscle tone: within normal. Muscle strength: 4+ DTR: 1-2 Plantar reflex: Extensor response bilaterally Gait: not examined in chair. Sensory exam: no abnormal findings. No cerebellar signs elicited. F-T-N test fine. Objective Objective Vital Signs Date Time Temp Pulse Resp B/P (MAP) Pulse Ox O2 Delivery O2 Flow Rate FiO2 03/26/19 12:01 97 Room Air 03/26/19 12:00 90 122/64 03/26/19 10:51 97.9 18 97.9 03/25/19 08:00 3.0 Intake and Output 03/26/19 07:00 Output Total 2150 ml Balance -2150 ml Output Urine Total 2150 ml Vitals Signs Vitals VS - Last 72 Hours, by Label Date Time Temp Pulse Resp B/P (MAP) Pulse Ox O2 Delivery O2 Flow Rate FiO2 03/26/19 12:01 97 Room Air 03/26/19 12:00 90 122/64 03/26/19 10:51 97.9 90 18 122/64 (83) 97 Room Air 97.9 03/26/19 07:18 95 Room Air 03/26/19 07:00 98.0 93 16 115/60 (78) 98 Room Air 98.0 03/26/19 03:00 97.8 102 18 137/69 (91) 93 Room Air 97.8 03/25/19 23:00 91 18 126/82 (97) 95 Room Air 03/25/19 20:25 Room Air 03/25/19 19:00 98.7 99 18 110/46 (67) 97 98.7 03/25/19 16:13 96 Room Air 03/25/19 15:56 98.3 68 16 159/55 (89) 96 Room Air 98.3 03/25/19 12:00 96 Room Air 03/25/19 11:00 98.3 84 20 140/47 (78) Room Air 98.3 03/25/19 08:23 96 Room Air 03/25/19 08:00 3.0 03/25/19 07:00 97.6 98 20 156/73 (100) 96 Room Air 97.6 Laboratory Laboratory Laboratory Tests Test 03/25/19 18:46 03/25/19 21:14 03/25/19 23:58 03/26/19 03:15 Glucose (Fingerstick) 181 mg/dL (70-99) 158 mg/dL (70-99) 123 mg/dL (70-99) Sodium Level 135 mmol/L (136-145) Potassium Level 4.5 mmol/L (3.5-5.1) Chloride Level 107 mmol/L (98-107) Carbon Dioxide Level 17 mmol/L (21-32) Anion Gap 11 (6-14) Blood Urea Nitrogen 26 mg/dL (7-20) Creatinine 0.7 mg/dL (0.6-1.0) Estimated GFR (Cockcroft-Gault) 80.7 Glucose Level 140 mg/dL (70-99) Calcium Level 8.6 mg/dL (8.5-10.1) Test 03/26/19 06:02 03/26/19 13:06 Glucose (Fingerstick) 188 mg/dL (70-99) 168 mg/dL (70-99) Microbiology 03/10/19 Urine Culture - Final, Complete 03/10/19 Urine Culture Result 1 (CHACE) - Final, Complete 03/10/19 Blood Culture - Final, Complete NO GROWTH AFTER 5 DAYS Medication Medications Current Medications Bisacodyl (Dulcolax Supp) 10 mg 1X ONCE AR ; Start 03/26/19 at 12:30; Stop 03/26/19 at 12:31; Status DC Sodium Chloride 50 meq/Potassium Chloride 20 meq/ Potassium Phosphate 8 mmol/ Magnesium Sulfate 3 meq/Calcium Gluconate 5 meq/ Multivitamins 10 ml/Chromium/ Copper/Manganese/ Seleni/Zn 1 ml/ Total Parenteral Nutrition/Amino Acids/Dextrose/ Fat Emulsion Intravenous 1,992 ml @ 83 mls/hr TPN CONT IV Last administered on 03/25/19at 22:22; Start 03/25/19 at 22:00; Stop 03/26/19 at 21:59 Sodium Chloride 50 meq/Sodium Acetate 40 meq/ Potassium Chloride 20 meq/ Potassium Phosphate 8 mmol/ Magnesium Sulfate 3 meq/Calcium Gluconate 5 meq/ Multivitamins 10 ml/Chromium/ Copper/Manganese/ Seleni/Zn 1 ml/ Total Parenteral Nutrition/Amino Acids/Dextrose/ Fat Emulsion Intravenous 1,992 ml @ 83 mls/hr TPN CONT IV ; Start 03/26/19 at 22:00; Stop 03/27/19 at 21:59 Comment Review of Relevant I have reviewed the following items anni (where applicable) has been applied. RAFFY SANABRIA MD Mar 26, 2019 14:25
--- NOTE | 2019-03-26 14:47 | NUR ---
SW following pt. [facility] has a bed for pt. SW arranged w/c van transport via [employer] between [id number]. Pt signed choice and rights forms and copy on chart. Pt's and notified, agreeable. Discussed with RN.
[2019-03-26 15:00] VITALS: BP 119/62
--- NOTE | 2019-03-26 15:35 | NUR ---
REPORT CALLED TO ADAMARIS GALLEGOS AT [facility], QUESTIONS AND CONCERNS ANSWERED, ALL DISCHARGE PAPERWORK PLACED IN [facility] TO BE SENT WITH PATIENT AT TIME OF DISCHARGE, PATIENTS' AND SON REMAIN AT THE BEDSIDE AT THIS TIME.
--- NOTE | 2019-03-26 16:15 | NUR ---
PATIENT LEAVES THE UNIT PER W/C AND ACCOMPANIED BY THE [employer], HER , AND HER SON, EMOTIONAL SUPPORT GIVEN, FOLLOW UP APPOINTMENTS ENCOURAGED.
[2019-03-26] MEDS ORDERED: AMINO ACID IV SCH ×11 (22:00)
[2019-03-26] MEDS ORDERED: TOTAL PARENTERAL NUTRITION IV SCH ×11 (22:00)
[2019-03-26] MEDS ORDERED: [UNRECOGNIZED DRUG - OTHER] IV SCH ×11 (22:00)
[2019-03-26] MEDS ORDERED: DEXTROSE 70% IV SCH ×11 (22:00)
--- NOTE | 2019-03-27 08:23 | DS ---
DATE OF DISCHARGE: 03/26/2019 PRIMARY DIAGNOSIS: Acute hypoxic respiratory failure with bilateral interstitial infiltrates of uncertain etiology, even by the time of discharge. ADDITIONAL DIAGNOSES: Diabetes, dysphagia with n.p.o. status at discharge and TPN, acute kidney injury, resolving during stay, encephalopathy, improved, but still present at the time of discharge, grade 1 diastolic dysfunction with a normal ejection fraction on echo, lactic acidosis on admission, with negative cultures throughout the stay for any infectious etiology. CHIEF COMPLAINT AND HISTORY OF PRESENT ILLNESS: This 78-year-old white female is well known to me from followup in the office. She presented to the Emergency Room with shortness of breath for several days and was admitted. SUMMARY OF STAY: The patient required BiPAP during majority of the stay to maintain oxygen levels. She was covered with broad spectrum antibiotics throughout with negative cultures. She had acute kidney injury early with creatinine of 1.7, decreasing to normal by the time of discharge at 0.7, developed an ileus during the stay and was unsuccessful with feeding with Dobhoff tube, required TPN. She was again encephalopathic with neuro following along. Later in the stay, remained confused by the time of discharge, but was markedly improved from where she was nonresponsive during part of the stay. She was weak and not participating the best, and Therapy felt she needed ongoing LTAC for the dysphagia, with swallowing test to ensue there until swallowing back to normally as well as rehab and was transferred there on the . DISPOSITION: The patient is transferred to LTAC. See orders regarding diet, medication, activity, etc. I will discuss case with the physician who will be caring for her there. JOHN HAMM MD DR: MARSHALL/gildardo JOB#: [id number] / [id number]
== END 2019-03-26 16:15 | DRG 189 ==
LOC: ER 05:35 → 2 NORTH 08:29 → 1 WEST ICU 03-11 18:13 → 5 SOUTH 03-20 10:53
PROVIDERS: ADMIT Family Medicine; ATTEND Family Medicine
PROC: 5A09557 Assistance with Respiratory Ventilation, Greater than 96 Consecutive Hours, Continuous Positive Airway Pressure (ICD-10-PCS; 2019-03-10)
PROC: 02HV33Z Insertion of Infusion Device into Superior Vena Cava, Percutaneous Approach (ICD-10-PCS; principal; 2019-03-13)
PROC: B548ZZA Ultrasonography of Superior Vena Cava, Guidance (ICD-10-PCS; 2019-03-13)
DX: J96.01 Acute respiratory failure with hypoxia (principal); A41.9 Sepsis, unspecified organism; I21.4 Non-ST elevation (NSTEMI) myocardial infarction; G93.41 Metabolic encephalopathy; I50.31 Acute diastolic (congestive) heart failure; N17.9 Acute kidney failure, unspecified; J44.1 Chronic obstructive pulmonary disease with (acute) exacerbation; K56.7 Ileus, unspecified; Z88.8 Allergy status to other drugs, medicaments and biological substances; Z79.899 Other long term (current) drug therapy; C50.919 Malignant neoplasm of unspecified site of unspecified female breast; D50.9 Iron deficiency anemia, unspecified; D63.8 Anemia in other chronic diseases classified elsewhere; E11.42 Type 2 diabetes mellitus with diabetic polyneuropathy; E11.51 Type 2 diabetes mellitus with diabetic peripheral angiopathy without gangrene; E11.65 Type 2 diabetes mellitus with hyperglycemia; E66.9 Obesity, unspecified; E78.5 Hyperlipidemia, unspecified; E83.42 Hypomagnesemia; E86.0 Dehydration; G25.81 Restless legs syndrome; G89.29 Other chronic pain; I11.0 Hypertensive heart disease with heart failure; I25.10 Atherosclerotic heart disease of native coronary artery without angina pectoris; I25.2 Old myocardial infarction; K21.9 Gastro-esophageal reflux disease without esophagitis; R13.12 Dysphagia, oropharyngeal phase; Z79.82 Long term (current) use of aspirin; Z82.49 Family history of ischemic heart disease and other diseases of the circulatory system; Z87.891 Personal history of nicotine dependence; Z90.12 Acquired absence of left breast and nipple; Z90.710 Acquired absence of both cervix and uterus; Z95.5 Presence of coronary angioplasty implant and graft; Z85.3 Personal history of malignant neoplasm of breast; Z79.84 Long term (current) use of oral hypoglycemic drugs
CPT/HCPCS: 36415; 36556; 36600; 70450; 70551; 71045; 71275; 74018; 74230; 78582; 80048; 80053; 80061; 81001; 82550; 82607; 82728; 82805; 82962; 83036; 83540; 83550; 83605; 83735; 83880; 84100; 84145; 84439; 84443; 84478; 84484; 85007; 85025; 85027; 85379; 85610; 85651; 85730; 87040; 87086; 90471; 90686; 93005; 94640; 94660; 94760; 96361; 96365; 96366; 96368; 96374; 96375; 99292; A9540; A9558; C1892; C9113; J0610; J0696; J0878; J1630; J1650; J1815; J1940; J2060; J2270; J2405; J2543; J2920; J2930; J3370; J3475; J3480; J3490; J7030; J7042; J7050; J7644; Q9967; 92526; 92610; 92611; 97110; 97116; 97530; 97535; 99291-25; G0378